=== PATIENT | female | born 1940 | race Caucasian/White ===

== ENCOUNTER 2020-03-26 07:43 | Inpatient (IN) | payer MEDICARE, MEDICAID, SELFPAY ==
[2020-03-26] VITALS (14 sets, daily range): BP systolic 105–165; BP diastolic 35–71; PULSE 75–92; RESP 16–28; TEMP 36.2–36.8; O2SAT 83–100; BMI 26.6
--- NOTE | 2020-03-26 | XR_ITS ---
WS: [id number] Portable AP upright chest, 03/26/2020 Clinical Data: fractured right hip Comparison: Portable chest, 01/04/2019. Findings: No nodules, masses or effusions are seen. The heart is normal. The pulmonary vascularity is not increased. No pneumonia or pneumothorax is seen. The aortic arch and descending aorta show calci fication and tortuosity. There is a levoscoliosis of the lower thoracic spine. XR/XR chest 1V portable [id number] Impression: Atherosclerosis.
--- NOTE | 2020-03-26 07:53 | XR_ITS ---
WS: [id number] Right hip, AP and frog-leg views, 03/26/2020 Clinical Data: fall Comparison: None. Findings: There is a comminuted intertrochanteric fracture of the right hip. The femoral head remains within the acetabulum. The adjacent right pelvis shows no abnormalities. The soft tissues are normal. XR/XR hip RT 2-3V wo/w pel* [id number] Impression: Comminuted intertrochanteric fracture of the right hip.
--- NOTE | 2020-03-26 07:53 | ED_ITS ---
Documented by User: CATHY Menendez 03/26/20 08:45 HPI - Extremity Problem General: Chief complaint: Extremity Injury, Lower Stated complaint: FALL/ HIP PAIN Time Seen by Provider: 03/26/20 07:48 History of Present Illness: HPI Narrative: Patient fell get up out of a walker lift chair last night states now that she has right hip pain. Was brought in via ambulance. EMS says her leg was straightened and and length was fine no rotation. Patient complains of pain in the groin area denies any other problems. Patient history of COPD and is on oxygen at home. Complaint: joint pain Onset (ago): hour(s) Pain Consistency: constant Location: right Severity scale (1-10): 4 Quality: aching Radiation: none Relieving factors: immobilization Exacerbating factors: range of motion and weight bearing Associated symptoms: Reports no associated symptoms; Deny chest pain, fever(s) or rash Review of Systems Const: Denies: fever(s), chills or body aches Eyes: Denies: change in vision or blurry vision ENMT: Denies: throat pain or nasal congestion Card: Denies: chest pain or dyspnea on exertion Resp: Denies: dyspnea, productive cough or non-productive cough GI: Denies: abdominal pain, nausea or vomiting Musc: Reports: joint pain (Right hip) and limited range of motion; Denies: extremity pain Skin/Breast: Denies: rash Neuro: Denies: headache(s) Psych: Denies: anxiety or depression Leon/Lymph: Denies: easy bruising PFSH ED PFSH: Medical History (Updated 03/26/20 @ 09:08 by Josué Rausch MD) Anemia Cellulitis COPD (chronic obstructive pulmonary disease) Depression Edema Elevated serum glucose Emphysema lung Heart murmur Hip pain, left Hypercholesteremia Hypoxic Low TSH level Macrocytosis Nasal congestion Osteoporosis Sciatica Seasonal allergies Shoulder fracture, left Shoulder pain, left Vitamin C deficiency Vitamin D deficiency Surgical History History of left hip replacement Hx of cataract surgery Family History Mother Cancer Breast Father Cancer Heart disease Sister Cancer Grandmother Hypertension Heart disease Aneurysm Brother Heart disease Myocardial infarct Aneurysm Family/Other Heart disease Bipolar 1 disorder Grandfather Heart disease Social History Smoking and tobacco status: former smoker Quit status (tobacco): has quit using tobacco Year quit tobacco: 2013 - 1.5 PPD x 60 Years Alcohol intake: never Household members: none Marital status: / Number of children: 4 Current occupational status: retired History of recent travel: No Current gender identity: Female Physical Exam Const: COMMON NORMALS: no acute distress and patient oriented x3 GENERAL APPEARANCE: cooperative Resp: COMMON NORMALS: normal respiratory effort AUSCULTATION: diminished lung sounds GI: COMMON NORMALS: Normal to inspection, nondistended, normoactive bowel sounds present Extremity: RIGHT LOWER EXTREMITY: Yes hip joint (Tender palpation to the anterior aspect of the hip joint groin area) Right hip: Yes other (Right leg is rotated and appears shortened at this point neurovascular inta) Neuro: COMMON NORMALS: patient oriented x3 Skin: OTHER: Skin is very dry Course Vital Signs: Vital signs: Vital Signs Temperature 98.2 F 03/26/20 07:43 Pulse Rate 84 03/26/20 07:43 Respiratory Rate 28 H 03/26/20 08:58 Blood Pressure 116/57 03/26/20 07:43 Pulse Oximetry 100 03/26/20 08:58 MDM - Extremity (Nontraumatic) MDM Narrative: Medical decision making narrative: Gave report to Dr. Rausch transfer care to him for admission Discharge Plan Discharge Patient Disposition: Admitted As Inpatient Clinical Impression: Closed hip fracture Condition: Stable Prescriptions: No Action prednisone 10 mg tablets,dose pack 10 mg PO PER PKG DIR RF: 0 furosemide [Lasix] 20 mg tablet 20 mg PO QAM 60 Days Qty: 60 RF: 2 ipratropium-albuterol 0.5 mg-3 mg(2.5 mg base)/3 mL solution for nebulization 3 ml INHALATION Q4H PRNRF: 0 Anoro Ellipta 62.5-25 mcg/actuation blister with device 1 inh INHALATION Q24H RF: 0 loratadine [Claritin] 10 mg tablet 10 mg PO ONCE RF: 0 meloxicam 15 mg tablet 15 mg PO ONCE RF: 0 vit-iron fum-folic ac 65 mg iron- 1 mg tablet 1 tab PO QAM RF: 0 Spiriva with HandiHaler 18 mcg capsule, w/inhalation device 1 cap INHALATION ONCE RF: 0 albuterol sulfate [Ventolin HFA] 90 mcg/actuation HFA aerosol inhaler 2 puff INHALATION Q4H PRNRF: 0 xzbyfrzvwzh-tuqoaolza-xoqrgcma [Trelegy Ellipta] 100-62.5-25 mcg blister with device See Rx Instructions .ROUTE .COMPLEX Qty: 60 RF: 0 Referrals: Traci Prakash MD [Primary Care Provider] - Coding Level of Care Code ED Tooth Cutter Spur for Chg Fwd Exam Expanded Problem Focused Documented by User: Josué Rausch MD 03/26/20 09:08 HPI - Extremity Problem General: Chief complaint: Extremity Injury, Lower Stated complaint: FALL/ HIP PAIN Time Seen by Provider: 03/26/20 07:48 [facility] ED PFSH: Medical History (Updated 03/26/20 @ 09:08 by Josué Rausch MD) Anemia Cellulitis COPD (chronic obstructive pulmonary disease) Depression Edema Elevated serum glucose Emphysema lung Heart murmur Hip pain, left Hypercholesteremia Hypoxic Low TSH level Macrocytosis Nasal congestion Osteoporosis Sciatica Seasonal allergies Shoulder fracture, left Shoulder pain, left Vitamin C deficiency Vitamin D deficiency Surgical History History of left hip replacement Hx of cataract surgery Family History Mother Cancer Breast Father Cancer Heart disease Sister Cancer Grandmother Hypertension Heart disease Aneurysm Brother Heart disease Myocardial infarct Aneurysm Family/Other Heart disease Bipolar 1 disorder Grandfather Heart disease Social History Smoking and tobacco status: former smoker Quit status (tobacco): has quit using tobacco Year quit tobacco: 2013 - 1.5 PPD x 60 Years Alcohol intake: never Household members: none Marital status: / Number of children: 4 Current occupational status: retired History of recent travel: No Current gender identity: Female Course Vital Signs: Vital signs: Vital Signs Temperature 98.2 F 03/26/20 07:43 Pulse Rate 84 03/26/20 07:43 Respiratory Rate 28 H 03/26/20 08:58 Blood Pressure 116/57 03/26/20 07:43 Pulse Oximetry 100 03/26/20 08:58 MDM - Extremity (Nontraumatic) MDM Narrative: Medical decision making narrative: D/W with orthopedics Dr. Garza and hospitalist Dr. Celaya for admission. Discharge Plan Discharge Patient Disposition: Admitted As Inpatient Clinical Impression: Closed hip fracture Condition: Stable Prescriptions: No Action prednisone 10 mg tablets,dose pack 10 mg PO PER PKG DIR RF: 0 furosemide [Lasix] 20 mg tablet 20 mg PO QAM 60 Days Qty: 60 RF: 2 ipratropium-albuterol 0.5 mg-3 mg(2.5 mg base)/3 mL solution for nebulization 3 ml INHALATION Q4H PRNRF: 0 Anoro Ellipta 62.5-25 mcg/actuation blister with device 1 inh INHALATION Q24H RF: 0 loratadine [Claritin] 10 mg tablet 10 mg PO ONCE RF: 0 meloxicam 15 mg tablet 15 mg PO ONCE RF: 0 vit-iron fum-folic ac 65 mg iron- 1 mg tablet 1 tab PO QAM RF: 0 Spiriva with HandiHaler 18 mcg capsule, w/inhalation device 1 cap INHALATION ONCE RF: 0 albuterol sulfate [Ventolin HFA] 90 mcg/actuation HFA aerosol inhaler 2 puff INHALATION Q4H PRNRF: 0 snziczgnbym-pjbscjcab-hravsywn [Trelegy Ellipta] 100-62.5-25 mcg blister with device See Rx Instructions .ROUTE .COMPLEX Qty: 60 RF: 0 Referrals: Traci Prakash MD [Primary Care Provider] - Coding Level of Care Code ED Tooth Cutter Spur for Chg Fwd Exam Expanded Problem Focused
[2020-03-26] MEDS: acetaminophen 500 mg Tablet 1000 MG PO (08:14)
--- NOTE | 2020-03-26 08:37 | ECG_ITS ---
[facility] Test Date: 2020-03-26 Pat Name: Yulissa Goddard Department: Room: 267 Gender: Female Machine Splitter: : 1940 Requested By: Lazaro Shirley Order Number: [id number] Sara MD: Caleb Britt M.D. Measurements Intervals [place] Rate: 81 P: 73 TN: 160 QRS: 27 QRSD: 93 T: 58 QT: 360 QTc: 420 Interpretive Statements SINUS RHYTHM INCOMPLETE RIGHT BUNDLE BRANCH BLOCK [90+ ms QRS DURATION, TERMINAL R IN V1/V2, 40+ ms S IN I/aVL/V4/V5/V6] Compared to ECG 01/04/2019 12:11:15 Incomplete right bundle-branch block now present Electronically Signed On 03-27-2020 19:14:34 CEMENT BREAKER by Caleb Britt M.D. [id number] f
[2020-03-26] MEDS: sodium chloride 0.9% 1,000 ML 75 ML IV ×2 (08:58→16:30)
[2020-03-26] MEDS: ondansetron 2 mg/ML SDV 2 mL 4 MG IVP (08:58)
[2020-03-26] MEDS: morphine 4 mg/mL SDV 1 mL IVP (08:58)
[2020-03-26 09:31] LABS: Basophils % 0.2 %; Eosinophils % 0.1 %; Hematocrit 34.4 % (37.0-47.0); Lymphocytes # 0.4 10^3/uL (0.8-4.8); Lymphocytes % 3.1 %; Mean Corpuscular HGB Conc 29.1 g/dL (30.0-36.0); Mean Corpuscular Hemoglobin 29.9 pg (28.0-34.0); Mean Corpuscular Volume 102.7 fL (81-99); Mean Platelet Volume 10.6 fL (7.4-10.4); Monocytes % 6.8 %; Neutrophils # 12.51 10^3/uL (1.8-7.7); Neutrophils % 89.2 %; Nucleated Red Blood Cells % 0 %; Platelet Count 147 10^3/cmm (130-400); Red Blood Count 3.35 10^6/uL (4.1-5.3); Red Cell Distribution Width 14.6 % (12.1-15.1)
[2020-03-26 09:56] LABS: Protein Urine Neg (Negative); Specific Gravity, Urine 1.025 (1.005-1.030); Urine Appearance Hazy (CLEAR); Urine Color Yellow (Yellow); pH Urine 5 (5-7)
[2020-03-26 10:02] LABS: INR 0.96 (0.8-1.2)
[2020-03-26 10:06] LABS: Add Urine Microscopic? YES; Bilirubin Urine 1+ (Negative); Blood Urine Neg (Negative); Glucose Urine UA Norm (Normal); Ketones Urine Negative (Negative); Leukocyte Esterase Urine Negative (Negative); Nitrate Urine Positive (Negative); Urobilinogen Urine Norm (Negative)
[2020-03-26 10:06] LABS: Alanine Aminotransferase 14 U/L (0-33); Albumin Level 3.1 g/dL (3.5-5.2); Alkaline Phosphatase 73 IU/L (35-105); Anion Gap 7.7 (5-19); Aspartate Amino Transferase 12 U/L (0-32); Blood Urea Nitrogen 27 mg/dL (8-23); Calcium 8.1 mg/dL (8.5-10.5); Chloride 100 mmol/L (98-107); Globulin 2.5 g/dL (1.3-4.6); Glucose 120 mg/dL (65-115); Osmolality Calculated 306 mOsm/kg (285-295); Potassium 4.7 mmol/L (3.5-5.1); Sodium 145 mmol/L (136-145); Total Bilirubin 0.3 mg/dL (0.15-1.2); Total Protein 5.6 g/dL (6.6-8.7)
[2020-03-26 10:08] LABS: Add Urine Culture? Yes; Amorphous Sediment Urine 1+ /hpf; Bacteria Urine 3+ /hpf; RBC Urine 0-4 /hpf (0-2); Squamous Epithelial Cell Urine 0-4 /hpf (0-5)
[2020-03-26 10:13] LABS: Carbon Dioxide 42 mmol/L (22-29)
--- NOTE | 2020-03-26 11:13 | PC.NURSE ---
Patient was an admission from ER for right hip fracture, daughter was in room with patient upon admission, patient is drowsy from pain medication and dosing off to sleep, right 2nd toe noted to be bruised, and under bilateral breasts noted to be a red rash, patient has iv access to left wrist dressing changed and iv flushed to confirm patency, patient denies any allergies, oriented to room and surroundings, call light in reach, side rails up X2.
--- NOTE | 2020-03-26 14:04 | P.HP_ITS ---
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 Overnight she was noted to have some external rotation of her legs, however her family was able to place her back in bed, she did not complain of any pain. This morning her leg was noted to be swollen and she was brought into the ER where she was found to have a comminuted intertrochanteric fracture of the right hip. She is planned for surgical intervention tomorrow. Medicine service is asked to admit her in view of her multiple comorbidities, particularly end-stage COPD. Per her son who is at her bedside right now, patient was alert and awake this morning prior to coming to the ER. At the time of my evaluation this afternoon she is noted to be quite somnolent. Review of Systems General: Reports: ROS unobtainable due to medical condition Medications/Allergies Home Medications Medication Instructions Recorded Confirmed Last Taken Type albuterol sulfate 90 mcg/actuation 2 puff INHALATION QID PRN gm 02/13/19 03/26/20 Unknown History aerosol inhaler ipratropium 0.5 mg-albuterol 3 mg 3 ml INHALATION Q4H PRN 02/13/19 03/26/20 Unknown History (2.5 mg base)/3 mL nebulization soln meloxicam 15 mg tablet 15 mg PO QAM 02/13/19 03/26/20 Unknown History Lasix 20 mg PO QAM PRN 03/26/20 03/26/20 Unknown History PNV cmb#95-ferrous fumarate-FA 1 tab PO QAM 03/26/20 03/26/20 Unknown History [ Multivitamins] Trelegy Ellipta 1 inh INHALATION Q24H 03/26/20 03/26/20 Unknown History hydrocodone-acetaminophen [[place]] 1 tab PO QID PRN 03/26/20 03/26/20 03/26/20 05:00 History naproxen sodium [Aleve] 440 mg PO PRN 03/26/20 03/26/20 Unknown History nitrofurantoin monohyd/m-cryst 1 cap PO BID 03/26/20 03/26/20 03/25/20 History trazodone 50 mg PO BEDTIME PRN 03/26/20 03/26/20 Unknown History Allergies Allergy/AdvReac Type Severity Reaction Status Date / Time No Known Allergies Allergy Verified 03/26/20 09:41 PFSH Acute PFSH: Medical History Anemia Cellulitis COPD (chronic obstructive pulmonary disease) Depression Edema Elevated serum glucose Emphysema lung Heart murmur Hip pain, left Hypercholesteremia Hypoxic Low TSH level Macrocytosis Nasal congestion Osteoporosis Sciatica Seasonal allergies Shoulder fracture, left Shoulder pain, left Vitamin C deficiency Vitamin D deficiency Surgical History History of left hip replacement Hx of cataract surgery Family History Mother Cancer Breast Father Cancer Heart disease Sister Cancer Grandmother Hypertension Heart disease Aneurysm Brother Heart disease Myocardial infarct Aneurysm Family/Other Heart disease Bipolar 1 disorder Grandfather Heart disease Social History Smoking and tobacco status: former smoker Quit status (tobacco): has quit using tobacco Year quit tobacco: 2013 - 1.5 PPD x 60 Years Alcohol intake: never Household members: none Marital status: / Number of children: 4 Current occupational status: retired History of recent travel: No Current gender identity: Female Vitals/I&O/Wt Last Vital Signs Temp 98.1 F 03/26/20 10:52 Pulse 88 03/26/20 10:52 Resp 16 03/26/20 10:52 BP 165/61 03/26/20 10:52 Pulse Ox 96 03/26/20 10:52 Weight last 48 hrs Weight 72.575 kg Physical Exam Narrative: EXAM NARRATIVE: GEN: Somnolent, wakes up to calling name, confused CVS: S1S2 N RS: CTA B/L Abd: Soft, nt/nd , bs+ TELECOM SALES CONSULTANT: moves upper extremities in bed, somnolent, does not consistently follow commands Urinary Catheter Management^: [place]: Cath Placed During This Visit: no Data : 03/26/20 09:23 03/26/20 09:23 A&P Assessment and plan (1) Closed hip fracture: Comminuted fracture of the right hip. Patient is planned for surgical intervention tomorrow with Dr. Garza. Given her end-stage COPD patient is at very high risk of perioperative mortality. This was discussed with the family, specifically her son who is at the bedside right now. He understands the high risk and is willing to proceed with the surgery to give her best chance of regaining ambulation. He does state however that he does not want patient to undergo general anesthesia and undergo intubation. Above has been communicated with the surgeon, alternate forms of anesthesia. Spinal or local may be considered. Status: Acute Qualifiers: Encounter type: initial encounter Laterality: left Qualified Code(s): S72.002A - Fracture of unspecified part of neck of left femur, initial encounter for closed fracture (2) End stage COPD: Oxygen and trilogy dependent at home. Status: Acute (3) UTI (urinary tract infection): Positive UA, patient was diagnosed with UTI as an outpatient and is currently on treatment with Macrobid. We will use ceftriaxone empirically while patient is admitted Status: Acute (4) Hypercapnic respiratory failure: Patient is currently with acute on chronic hypercapnic respiratory failure. ABG that was performed shows pH of 7.1, PCO2~120, PO2 118, bicarb 42.9. At a baseline it appears patient was CO2 was closer to 70-80. Start patient on AVAPS, repeat gas in 2 hours; patient's CODE STATUS is DNI and therefore avoiding intubation she received morphine in the ER prior to coming up on the floor, will administer Narcan which will additionally help make her less somnolent hopefully. Duo nebs every 4 hours scheduled, budesonide inhalation twice daily Add systemic steroids. Status: Acute Attestations Medical Necessity Statement*: Greater than 2 midnight admission is anticipated for surgical fixation of hip fracture, respiratory optimization for acute on chronic hypercapnic respiratory failure. Coding Level of Care Code Acute Energy Sales Broker for g Fwd Diagnoses Closed hip fracture S72.002A Encounter type: initial encounter Laterality: left End stage COPD J44.9 UTI (urinary tract infection) N39.0 Hypercapnic respiratory failure J96.92
[2020-03-26] MEDS: cefTRIAXone 1,000 MG in sodium chloride 0.9% (plus) 50 ML 100 MG IV (14:22)
[2020-03-26 14:34] LABS: Procalcitonin 0.08 ng/mL (0-0.5)
[2020-03-26] MEDS: ipratropium-albuterol 3 mL Neb INHALATION ×2 (15:34→22:06)
[2020-03-26] MEDS: famotidine 20 mg/2 mL INJ IVP (15:37)
[2020-03-26 16:09] LABS: Arterial Blood Gas Hematocrit 31.5 % (37-47); Base Excess ABG 10.7 mmol/L (-2.0-2.0); Blood Gas Allen Test Pos; Blood Gas Operator Identificat ED; Blood Gas Sample Site Radial, right; Blood Gas Sample Type Arterial; HCO3 ABG 42.9 mmol/L (22-26); Oxygen Device OXY MASK
[2020-03-26 16:11] LABS: ABG PH Result 7.15 (7.35-7.45)
[2020-03-26] MEDS: naloxone 0.4 mg/ml SDV IVP (16:46)
--- NOTE | 2020-03-26 16:46 | PC.NURSE ---
Narcan given per doctors orders due to patient being lethargic and retention of co2 on lab findings, patient awakens to verbal stimuli but drifts asleep while talking. family in room and reports this happens occasionally at home when patient needs to be placed on trelegy.
[2020-03-26] MEDS: dextrose 5%-sod chloride 0.45% 1,000 ML 50 ML IV (16:51)
--- NOTE | 2020-03-26 16:57 | ANES.PREANE2 ---
Pre-Anesthetic Assessment Pre-Anesthetic Assessment: Height/Weight: Height 1.65 m Weight 72.575 kg Temp Pulse Resp BP Pulse Ox 98.1 F 78 16 105/57 94 03/26/20 10:52 03/26/20 16:31 03/26/20 16:00 03/26/20 16:00 03/26/20 16:31 Proposed Procedure: Operation Date: 03/27/20 08:00 Proposed Procedures p Trochanteric Femoral Nail(Right) - Shamar Garza MD Was Beta Moe taken within 24 hours: N/A Social: Social History: Tobacco (long hx, quit 2012) and No alcohol Exam: Pre-Anes Outpt Exam: regular rate & rhythm Additional Exam Findings (including area of procedure): Somnolent, seen with son and ohobbimk-s-tqp Airway: Submandibular: WNL Cervical ROM: WNL MP: 2 Pulmonary: Pulmonary: COPD Comments: Home O2 CV/HEM: CV/HEM: Anemia : Comments: UTI Anesthetic Plan: ASA status: 4 Anesthesia: Regional (specify below) Other: SAB Meds/Allergies Current Medications: Current Medications Generic Name Dose Route Start Last Admin Trade Name Freq PRN Reason Stop Dose Admin Albuterol/Ipratrop ium 3 ml 03/26/20 15:00 03/26/20 15:34 Ipratropium-Albu terol 3 Ml Neb INHALATION 3 ml Q6H.RESPIRATORY S CH Administration Famotidine 20 mg 03/26/20 16:30 03/26/20 15:37 Famotidine 20 Mg /2 Ml Inj IVP 20 mg Q12H JOVANNA Administration Ceftriaxone Sodium 1,000 mg/ 50 mls @ 100 mls/ hr 03/26/20 14:15 03/26/20 14:52 Sodium Chloride IV Infused Q24H JOVANNA Infusion Protocol Dextrose/Sodium Ch loride 1,000 mls @ 50 ml s/hr 03/26/20 16:45 03/26/20 16:51 Dextrose 5%-Sod Chloride 0.45% IV 50 mls/hr .Q20H JOVANNA Administration Methylprednisolone Sodium Succinate 40 mg 03/26/20 17:00 03/26/20 16:51 Methylprednisolo ne Sod Succ 40 Mg/ Ml Inj IVP 40 mg Q12H JOVANNA Administration PFSH Anesthesia PFSH: Medical History Anemia Cellulitis COPD (chronic obstructive pulmonary disease) Depression Edema Elevated serum glucose Emphysema lung Heart murmur Hip pain, left Hypercholesteremia Hypoxic Low TSH level Macrocytosis Nasal congestion Osteoporosis Sciatica Seasonal allergies Shoulder fracture, left Shoulder pain, left Vitamin C deficiency Vitamin D deficiency Surgical History History of left hip replacement Hx of cataract surgery Family History Mother Cancer Breast Father Cancer Heart disease Sister Cancer Grandmother Hypertension Heart disease Aneurysm Brother Heart disease Myocardial infarct Aneurysm Family/Other Heart disease Bipolar 1 disorder Grandfather Heart disease Social History Smoking and tobacco status: former smoker Quit status (tobacco): has quit using tobacco Year quit tobacco: 2013 - 1.5 PPD x 60 Years Alcohol intake: never Household members: none Marital status: / Number of children: 4 Current occupational status: retired History of recent travel: No Current gender identity: Female Data Anesthesia CBC & Chem 7: 03/26/20 09:23 03/26/20 09:23 Other Labs: Laboratory Results - last 48 hr 03/26/20 03/26/20 03/26/20 09:10 09:23 09:23 WBC 14.0 H RBC 3.35 L Hgb 10.0 L Hct 34.4 L MCV 102.7 H MCH 29.9 MCHC 29.1 L RDW 14.6 Plt Count 147 MPV 10.6 H Neut % (Auto) 89.2 Lymph % (Auto) 3.1 [place] % (Auto) 6.8 Eos % (Auto) 0.1 Baso % (Auto) 0.2 Neut # (Auto) 12.51 H Lymph # (Auto) 0.4 L [place] # (Auto) 1.0 H Eos # (Auto) 0.0 Baso # (Auto) 0.0 Nucleated RBC % (auto) 0 Nucleated RBCs # 0.0 PT 13.10 INR 0.96 Specimen Type Sample Site ABG pH ABG pCO2 ABG pO2 ABG HCO3 ABG Base Excess Gil Test Hematocrit O2 Delivery Device O2 Liters/Min Computing Services Director ID Sodium Potassium Chloride Carbon Dioxide Anion Gap BUN Creatinine GFR Calculation Glucose Calculated Osmolality Calcium Total Bilirubin AST ALT Alkaline Phosphatase Total Protein Albumin Globulin Procalcitonin Urine Color Yellow Urine Appearance Hazy A Urine pH 5 Ur Specific [place] 1.025 Urine Protein Neg Urine Glucose (UA) Norm Urine Ketones Negative Urine Blood Neg Urine Nitrate Positive H Urine Bilirubin 1+ H Urine Urobilinogen Norm Ur Leukocyte Esterase Negative Urine RBC 0-4 H Urine WBC None Ur Squamous Epith Cells 0-4 H Amorphous Sediment 1+ Urine Bacteria 3+ H Hyaline Casts 5-10 H 03/26/20 03/26/20 03/26/20 09:23 09:23 16:00 WBC RBC Hgb Hct MCV MCH MCHC RDW Plt Count MPV Neut % (Auto) Lymph % (Auto) [place] % (Auto) Eos % (Auto) Baso % (Auto) Neut # (Auto) Lymph # (Auto) [place] # (Auto) Eos # (Auto) Baso # (Auto) Nucleated RBC % (auto) Nucleated RBCs # PT INR Specimen Type Arterial Sample Site Radial, right ABG pH 7.15 L* ABG pCO2 123.0 H* ABG pO2 118.0 H ABG HCO3 42.9 H ABG Base Excess 10.7 H Gil Test Pos Hematocrit 31.5 L O2 Delivery Device Oxy mask O2 Liters/Min 3.0 Computing Services Director ID Ed Sodium 145 Potassium 4.7 Chloride 100 Carbon Dioxide 42 H* Anion Gap 7.7 BUN 27 H Creatinine 0.8 GFR Calculation Not Reportable Glucose 120 H Calculated Osmolality 306 H Calcium 8.1 L Total Bilirubin 0.3 AST 12 ALT 14 Alkaline Phosphatase 73 Total Protein 5.6 L Albumin 3.1 L Globulin 2.5 Procalcitonin 0.08 Urine Color Urine Appearance Urine pH Ur Specific [place] Urine Protein Urine Glucose (UA) Urine Ketones Urine Blood Urine Nitrate Urine Bilirubin Urine Urobilinogen Ur Leukocyte Esterase Urine RBC Urine WBC Ur Squamous Epith Cells Amorphous Sediment Urine Bacteria Hyaline Casts Cardiac Studies: No Data to Display
[2020-03-26 18:25] LABS: ABG PH Result 7.24 (7.35-7.45); Arterial Blood Gas Hematocrit 31.3 % (37-47); Blood Gas Allen Test Pos; Blood Gas Sample Type Arterial; HCO3 ABG 42.3 mmol/L (22-26); PO2 ABG 44.2 mmHg (80.0-100.0)
[2020-03-26 18:27] LABS: ABG PCO2 97.8 mmHg (35-45); Blood Gas Operator Identificat ED; Blood Gas Sample Site Radial, right; Oxygen Device BIPAP
--- NOTE | 2020-03-26 18:46 | PC.NURSE ---
patient on bipap no distress noted, awakens to voice, follows commands, denies pain, call light in reach, side rails up x2
[2020-03-26] MEDS: budesonide 0.5 mg/2 mL Neb INHALATION (22:06)
[2020-03-26 22:21] LABS: ABG PH Result 7.27 (7.35-7.45); Arterial Blood Gas Hematocrit 30.8 % (37-47); Base Excess ABG 12.1 mmol/L (-2.0-2.0); Blood Gas Sample Site Brachial, right; Blood Gas Sample Type Arterial; HCO3 ABG 41.7 mmol/L (22-26); Oxygen Device BIPAP; PO2 ABG 69.3 mmHg (80.0-100.0)
[2020-03-27] VITALS (25 sets, daily range): BP systolic 111–147; BP diastolic 51–74; PULSE 80–114; RESP 14–25; TEMP 36.4–37.2; O2SAT 90–99
--- NOTE | 2020-03-27 | SCC_ITS ---
NOTE: Report was unsigned for reason: Order was edited. Original Signature date and time was: 03/28/20 @1919 Procedure Done: Open reduction internal fixation right hip with intramedullary device 75.3 seconds of fluoroscopic guidance, for a cumulative dose of 12.21 mGy, was provided to Dr. Garza by the radiology department. C-arm images of the RIGHT hip were saved for the patient's permanent record. [facility]
[2020-03-27] MEDS: ipratropium-albuterol 3 mL Neb INHALATION ×3 (03:24→20:30)
[2020-03-27 03:38] LABS: Arterial Blood Gas Hematocrit 30.5 % (37-47); Base Excess ABG 13.2 mmol/L (-2.0-2.0); Blood Gas Sample Type Arterial; HCO3 ABG 42.3 mmol/L (22-26); PO2 ABG 83.4 mmHg (80.0-100.0)
[2020-03-27 03:40] LABS: Blood Gas Sample Site Brachial, right; Blood Gas Tidal Volume 0.51; Oxygen Device BIPAP
[2020-03-27 04:52] LABS: Basophils % 0.2 %; Hematocrit 32.5 % (37.0-47.0); Hemoglobin 9.5 g/dL (11.5-15.3); Lymphocytes # 0.6 10^3/uL (0.8-4.8); Lymphocytes % 5.3 %; Mean Corpuscular HGB Conc 29.2 g/dL (30.0-36.0); Mean Corpuscular Hemoglobin 29.9 pg (28.0-34.0); Mean Corpuscular Volume 102.2 fL (81-99); Mean Platelet Volume 10.9 fL (7.4-10.4); Monocytes # 0.6 10^3/uL (0.2-0.9); Monocytes % 5.3 %; Neutrophils # 10.78 10^3/uL (1.8-7.7); Neutrophils % 88.8 %; Nucleated Red Blood Cells % 0 %; Platelet Count 142 10^3/cmm (130-400); Red Blood Count 3.18 10^6/uL (4.1-5.3); Red Cell Distribution Width 14.5 % (12.1-15.1); White Blood Count 12.1 10^3/uL (4.0-10.0)
[2020-03-27 05:17] LABS: Alanine Aminotransferase 14 U/L (0-33); Albumin Level 3.2 g/dL (3.5-5.2); Alkaline Phosphatase 70 IU/L (35-105); Anion Gap 8.5 (5-19); Aspartate Amino Transferase 12 U/L (0-32); Blood Urea Nitrogen 34 mg/dL (8-23); Calcium 8.3 mg/dL (8.5-10.5); Carbon Dioxide 40 mmol/L (22-29); Chloride 98 mmol/L (98-107); Creatinine Clr Calc Pharmacy 47.0273; Globulin 2.4 g/dL (1.3-4.6); Glucose 133 mg/dL (65-115); Osmolality Calculated 302 mOsm/kg (285-295); Potassium 5.5 mmol/L (3.5-5.1); Sodium 141 mmol/L (136-145); Total Bilirubin 0.2 mg/dL (0.15-1.2); Total Protein 5.6 g/dL (6.6-8.7)
[2020-03-27] MEDS: famotidine 20 mg/2 mL INJ IVP ×2 (05:54→21:24)
--- NOTE | 2020-03-27 08:03 | P.CONIM_ITS ---
Providers/Reason For Consult Consulting Physican/Specialty*: Shamar Garza MD, orthopedic surgery Reason for Consult*: Right intratrochanteric hip fracture Attending Physician: Senait Celaya MD Primary Care Provider: Traci Prakash MD History of Present Illness History of Present Illness Yulissa Goddard is a 79 year old female with end-stage COPD who fell last night at home. She apparently uses a walker chair. She attempted to sit down but did not lock the wheels. She fell with immediate pain in her right hip. She was transferred to our emergency room where radiographs revealed a displaced right intertrochanteric hip fracture. She has severe COPD and is oxygen dependent. She was seen by Dr. Erlin Alejo who would place her at a very high risk for surgery with a general anesthesia. She felt that some of this risk could be mitigated with a spinal anesthesia. She lives with granddaughters and has a daughters at home who will try and assist with her care after discharge Meds/Allergies Home Medications and Allergies Home Medications Medication Instructions Recorded Confirmed Last Taken Type albuterol sulfate 90 mcg/actuation 2 puff INHALATION QID PRN gm 02/13/19 03/26/20 Unknown History aerosol inhaler ipratropium 0.5 mg-albuterol 3 mg 3 ml INHALATION Q4H PRN 02/13/19 03/26/20 Unknown History (2.5 mg base)/3 mL nebulization soln meloxicam 15 mg tablet 15 mg PO QAM 02/13/19 03/26/20 Unknown History Lasix 20 mg PO QAM PRN 03/26/20 03/26/20 Unknown History PNV cmb#95-ferrous fumarate-FA 1 tab PO QAM 03/26/20 03/26/20 Unknown History [ Multivitamins] Trelegy Ellipta 1 inh INHALATION Q24H 03/26/20 03/26/20 Unknown History hydrocodone-acetaminophen [[place]wood] 1 tab PO QID PRN 03/26/20 03/26/20 03/26/20 05:00 History naproxen sodium [Aleve] 440 mg PO PRN 03/26/20 03/26/20 Unknown History nitrofurantoin monohyd/m-cryst 1 cap PO BID 03/26/20 03/26/20 03/25/20 History trazodone 50 mg PO BEDTIME PRN 03/26/20 03/26/20 Unknown History Allergies Allergy/AdvReac Type Severity Reaction Status Date / Time No Known Allergies Allergy Verified 03/26/20 09:41 Current Medications Current Medications Generic Name Dose Route Start Last Admin Trade Name Freq PRN Reason Stop Dose Admin Albuterol/Ipratropium 3 ml 03/26/20 15:00 03/27/20 03:24 Ipratropium-Albuterol 3 Ml Neb INHALATION 3 ml Q6H.RESPIRATORY JOVANNA Administration Budesonide 0.5 mg 03/26/20 20:00 03/26/20 22:06 Budesonide 0.5 Mg/2 Ml Neb INHALATION 0.5 mg BID.RESPIRATORY JOVANNA Administration Famotidine 20 mg 03/26/20 16:30 03/27/20 05:54 Famotidine 20 Mg/2 Ml Inj IVP 20 mg Q12H JOVANNA Administration Ceftriaxone Sodium 1,000 mg/ 50 mls @ 100 mls/hr 03/26/20 14:15 03/26/20 14:52 Sodium Chloride IV Infused Q24H JOVANNA Infusion Protocol Dextrose/Sodium Chloride 1,000 mls @ 50 mls/hr 03/26/20 16:45 03/26/20 16:51 Dextrose 5%-Sod Chloride 0.45% IV 50 mls/hr .Q20H JOVANNA Administration Methylprednisolone Sodium Succinate 40 mg 03/26/20 17:00 03/27/20 05:54 Methylprednisolone Sod Succ 40 Mg/Ml Inj IVP 40 mg Q12H JOVANNA Administration PFSH Acute PFSH: Medical History Anemia Cellulitis COPD (chronic obstructive pulmonary disease) Depression Edema Elevated serum glucose Emphysema lung Heart murmur Hip pain, left Hypercholesteremia Hypoxic Low TSH level Macrocytosis Nasal congestion Osteoporosis Sciatica Seasonal allergies Shoulder fracture, left Shoulder pain, left Vitamin C deficiency Vitamin D deficiency Surgical History History of left hip replacement Hx of cataract surgery Family History Mother Cancer Breast Father Cancer Heart disease Sister Cancer Grandmother Hypertension Heart disease Aneurysm Brother Heart disease Myocardial infarct Aneurysm Family/Other Heart disease Bipolar 1 disorder Grandfather Heart disease Social History Smoking and tobacco status: former smoker Quit status (tobacco): has quit using tobacco Year quit tobacco: 2013 - 1.5 PPD x 60 Years Alcohol intake: never Household members: none Marital status: / Number of children: 4 Current occupational status: retired History of recent travel: No Current gender identity: Female Vitals/I&O/Wt Last Vital Signs Temp 98.2 F 03/27/20 07:55 Pulse 81 03/27/20 07:55 Resp 20 H 03/27/20 07:55 BP 130/60 03/27/20 07:55 Pulse Ox 97 03/27/20 07:55 03/26/20 03/27/20 03/27/20 22:59 06:59 14:59 Intake Total 596.25 / 646.25 Output Total 200 / 200 Balance 596.25 / 646.25 -200 / 446.25 Weight last 48 hrs Weight 160 lb Physical Exam Narrative: EXAM NARRATIVE: The patient has a Ventimask in place. She is conversive but a bit short of breath with conversation. She answers questions appropriately with good understanding. She has shortening and external rotation of her right hip. She has pain with motion of the right hip. He has a palpable R dorsalis pedis pulse and will flex and extend her right toes. Urinary Catheter Management^: Gipson: Cath Placed During This Visit: yes Reason for Continuing Indwelling Catheter: Required Immobilization for Trauma or Surgery or Anesthesia Urinary Catheter Date of Insertion: 03/26/20 Urinary Catheter Time of Insertion: 09:10 Data Imaging^: Xray Ortho: My impression: I personally interpreted radiographs of the right hip consisting of a single AP view. The patient appears to have a intratrochanteric right hip fracture with slight varus alignment. She has significant osteopenia A&P Assessment and plan (1) Intertrochanteric fracture of right hip: I discussed options with the patient.. I told the patient we could treat this nonoperatively but certainly they would be at risk for medical problems without surgery. Theywould have problems with pain that would require higher doses of narcotics for pain control. 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 Patient already is oxygen dependent with COPD and I do not believe she could tolerate prolonged periods of a bedrest. I discussed surgical intervention with the patient. I told them with open reduction internal fixation they should be able to be mobilized and resume ambulatory status. We can eliminate the problems associated with prolonged bed rest and would have better control of pain. Certainly there would be inherent risk with surgery. These would would include the risk of cardiac complications, stroke, infection, and even . I discussed risk of any orthopedic implant including nonunion, malunion, a component failure. I discussed the possible need for component removal. I discussed risk of deep venous thromboses and pulmonary emboli that are present with any treatment and the importance of DVT prophylaxis. Her pulmonary status places her at higher risk. We will make every effort to do this under a spinal anesthesia. The patient expressed good understanding of alternative treatments, seem to comprehend, and agrees to surgical intervention. Status: Acute Coding Level of Care Code Acute Business Development Assistant for Jin Ochoa Diagnoses Intertrochanteric fracture of right hip S72.141A
--- NOTE | 2020-03-27 09:33 | P.OP_ITS ---
Operative Report Date of procedure: March 27, 2020 Pre-op Diagnosis: Right intratrochanteric hip Post-op diagnosis: same Post-op Findings: Right intratrochanteric hip fracture Procedure Done: Open reduction internal fixation right hip with intramedullary device Implants: [place] gamma nail 13mm, 100 mm proximal lag screw Pathology: none sent Surgeon: Shamar Garza Anesthesia: Nerve Block (Spinal) Estimated blood loss (mL): 100 Findings: The patient had a right intratrochanteric hip fracture consisting of the head neck fragment shaft and free lesser trochanter fragment. She had an dilated osteopenic canal consistent with osteoporosis Condition: stable Disposition: PACU Procedure: The patient was taken to the operating room. They were given 1 g of Ancef. They were positioned on the fracture table with the right lower extremity in gentle traction. A timeout was performed. A 2 cm long incision was made proximal to the greater trochanter scalpel blade. Dissection was carried down to tip the greater trochanter. A guidepin was passed manually from the tip of the trochanter down the shaft. The proximal reamer was utilized to open up the proximal canal. An 13 mm by 304 [place] gamma nail was passed down the canal without difficulty. Under visualization of fluoroscopy a guidepin was driven up into the head and neck at 125? angle. It was measured at 100 mm in length and a lag screw similar length was then placed and locked into place with the proximal locking screw. No distal leg screw was placed intraoperative imaging was obtained verifying satisfactory position of the hardware and reduction of the fracture. Deep tissues were closed with 0 Vicryl as were subcutaneous tissues. The skin was closed with skin johnson. Sterile dressings were applied. The patient was extubated and taken to recovery room in stable condition.
--- NOTE | 2020-03-27 09:53 | SUR.PHASEI ---
pt awake alert on 4l oxmask, resp even and unlabored, pt had spinal anesthesia pt ststes normal sesation to hip area and pt able to move bilat toes, bilat scds on distal rt foot warm pink cap refill <3seconds. pt taking ice chips vss
[2020-03-27 10:24] LABS: ABG PCO2 86.3 mmHg (35-45)
--- NOTE | 2020-03-27 10:39 | ANE.PACU2 ---
Inpatient post-anesthesia follow up: Airway intact: Yes Vital signs: Temperature 98.2 F Pulse Rate [Monito r] 84 Pulse Rate 92 Respiratory Rate 20 Blood Pressure [Ri ght Arm] 116/57 Blood Pressure 141/65 Pulse Oximetry 97 Oxygen Delivery Me thod Oxymask Oxygen Flow Rate 4 Fraction of Inspir ed Oxygen 45 Hydration adequate: Yes Nausea and vomiting: No Pain level: 1 Mental status: Baseline
--- NOTE | 2020-03-27 11:11 | XR_ITS ---
WS: [id number] C-ARM RADIOGRAPHS RIGHT HIP; 4 IMAGES HISTORY: HIP FX REPAIR COMPARISON: 03/26/2020 Intramedullary femoral randall and screw fixation RIGHT hip fracture. XR/XR hip RT 2-3V wo/w pel* [id number] IMPRESSION: Intraoperative imaging during ORIF RIGHT hip fracture repair.
--- NOTE | 2020-03-27 11:59 | P.PN_ITS ---
Subjective Subjective: Interval history: Afebrile, hemodynamically stable. Underwent ORIF with surgical correction of hip fracture with IM nailing. Procedure performed under spinal anesthesia. Patient is much more awake and oriented today, however still somnolent intermittently falls asleep easily blood gas being repeated. Medications: Reviewed: Yes Vitals/I&O/Wt Last Vital Signs Temp 98.2 F 03/27/20 09:55 Pulse 92 03/27/20 09:55 Resp 20 H 03/27/20 09:55 BP 141/65 03/27/20 09:55 Pulse Ox 97 03/27/20 09:55 03/26/20 03/27/20 03/27/20 22:59 06:59 14:59 Intake Total 596.25 / 646.25 50 / 50 Output Total 200 / 200 225 / 225 Balance 596.25 / 646.25 -200 / 446.25 -175 / -175 Weight last 48 hrs Weight 72.575 kg Physical Exam Narrative: EXAM NARRATIVE: GEN: more awake compared to yesterday, however still falls asleep easily, answers most questions appropriately CVS: S1S2 N RS: Poor air entry bilateral lungs Abd: Soft, nt/nd , 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 Status post ORIF, IM nailing today. Given her end-stage COPD patient is at very high risk of perioperative mortality. Postop care for surgery Avoiding opiates to minimize risk of hypercapnic respiratory failure. We will try to use Toradol and Tylenol alternating with close monitoring of kidney function. Status: Deleted Qualifiers: Encounter type: initial encounter Laterality: left Qualified Code(s): S72.002A - Fracture of unspecified part of neck of left femur, initial encounter for closed fracture (2) End stage COPD: Oxygen and trilogy dependent at home. Status: Acute (3) UTI (urinary tract infection): Positive UA, patient was diagnosed with UTI as an outpatient and is currently on treatment with Macrobid. We will use ceftriaxone empirically while patient is admitted, urine cx pending Status: Acute (4) Hypercapnic respiratory failure: more awake and oriented today, however stll somnolent, falls asleep mid sentence, rpt blood gas now, may nned bipap during the day Duo nebs every 4 hours scheduled, budesonide inhalation twice daily Continue systemic steroids. Status: Acute Attestations Medical Necessity Statement*: needs ongoing admission for post op care, acute on chronic hypercapneic respiratory failure Coding Level of Care Code Acute Feed Mill Supervisor for Chg Fwd Diagnoses Closed hip fracture S72.002A Encounter type: initial encounter Laterality: left End stage COPD J44.9 UTI (urinary tract infection) N39.0 Hypercapnic respiratory failure J96.92
[2020-03-27] MEDS: ketorolac 10 mg Tablet PO (12:26)
[2020-03-27] MEDS: dextrose 5%-sod chloride 0.45% 1,000 ML 50 ML IV (13:43)
[2020-03-27] MEDS: chlorhexidine gluconate 0.12% Btl 473 mL 30 ML MUCOUS MEM ×2 (13:47→18:23)
[2020-03-27] MEDS: cefTRIAXone 1,000 MG in sodium chloride 0.9% (plus) 50 ML 100 MG IV (15:19)
--- NOTE | 2020-03-27 16:29 | PC.RESP ---
RT called to bedside, pt's eye was bleeding. pt stated that she wears a small mask, this RT changed pts mask to a small and cleaned up eye. Nursing is aware of pt.
[2020-03-27] MEDS: sennosides-docusate Tablet 2 TAB PO (18:21)
--- NOTE | 2020-03-27 18:56 | PC.NURSE ---
shift summary right hip surgery done this am, pt returned at 1025 am, vitals are within normal range, bipap was reapplied after lunch and taken off for dinner. oxygen saturations have stayed in mid 90's. pain has been under control with toradol PO given only once this shift. pt had a small amount of drainage on bandage when she came up from surgery, pt can wiggle toes and foot on right side, but can not raise leg.
[2020-03-27] MEDS: budesonide 0.5 mg/2 mL Neb INHALATION (20:30)
[2020-03-28] VITALS (15 sets, daily range): BP systolic 123–150; BP diastolic 61–68; PULSE 82–109; RESP 16–20; TEMP 36.6–37.3; O2SAT 94–100
[2020-03-28] MEDS: ipratropium-albuterol 3 mL Neb INHALATION ×4 (02:28→21:32)
[2020-03-28 06:47] LABS: Basophils % 0.2 %; Hematocrit 28.1 % (37.0-47.0); Hemoglobin 8.2 g/dL (11.5-15.3); Lymphocytes # 0.2 10^3/uL (0.8-4.8); Lymphocytes % 1.3 %; Mean Corpuscular HGB Conc 29.2 g/dL (30.0-36.0); Mean Corpuscular Volume 102.9 fL (81-99); Mean Platelet Volume 11.5 fL (7.4-10.4); Monocytes # 0.4 10^3/uL (0.2-0.9); Monocytes % 2.8 %; Neutrophils # 14.48 10^3/uL (1.8-7.7); Nucleated Red Blood Cells % 0 %; Platelet Count 119 10^3/cmm (130-400); Red Blood Count 2.73 10^6/uL (4.1-5.3); Red Cell Distribution Width 14.9 % (12.1-15.1); White Blood Count 15.2 10^3/uL (4.0-10.0)
[2020-03-28 07:07] LABS: Alanine Aminotransferase 16 U/L (0-33); Albumin Level 3.1 g/dL (3.5-5.2); Alkaline Phosphatase 66 IU/L (35-105); Anion Gap 7.8 (5-19); Aspartate Amino Transferase 16 U/L (0-32); Blood Urea Nitrogen 42 mg/dL (8-23); Calcium 7.9 mg/dL (8.5-10.5); Carbon Dioxide 37 mmol/L (22-29); Chloride 96 mmol/L (98-107); Globulin 2.2 g/dL (1.3-4.6); Glucose 152 mg/dL (65-115); Osmolality Calculated 295 mOsm/kg (285-295); Potassium 4.8 mmol/L (3.5-5.1); Sodium 136 mmol/L (136-145); Total Bilirubin 0.2 mg/dL (0.15-1.2); Total Protein 5.3 g/dL (6.6-8.7)
--- NOTE | 2020-03-28 07:20 | PC.NURSE ---
AM NOTE HOLLOWAY REMOVED PER TORIBIO FREDERICK - NOTED PT TO HAVE DRY, FLAKING SKIN THROUGHOUT ENTIRE BODY - EDUCATED PT TO PLAN OF CARE FOR THE DAY
[2020-03-28] MEDS: sennosides-docusate Tablet 2 TAB PO ×2 (08:12→17:04)
[2020-03-28] MEDS: acetaminophen 325 mg Tablet 650 MG PO ×2 (08:12→12:34)
[2020-03-28] MEDS: chlorhexidine gluconate 0.12% Btl 473 mL 30 ML MUCOUS MEM ×4 (08:13→21:25)
[2020-03-28] MEDS: budesonide 0.5 mg/2 mL Neb INHALATION ×2 (09:08→21:32)
[2020-03-28] MEDS: famotidine 20 mg/2 mL INJ IVP ×2 (09:11→21:25)
--- NOTE | 2020-03-28 09:17 | PC.NURSE ---
PT UP TO CHAIR WITH PT AND THIS NURSE - MAX ASSIST - PT REPEATEDLY STATES 'I CAN'T DO THIS - GAIT BELT, WALKER AND STAFF ASST PT APPROX 2 STEPS TO BED - LUZMARIA POORLY
[2020-03-28] MEDS: enoxaparin 40 mg/0.4 mL Syringe SUBCUT (10:31)
[2020-03-28] MEDS: dextrose 5%-sod chloride 0.45% 1,000 ML 50 ML IV ×2 (12:33→13:23)
[2020-03-28] MEDS: cefTRIAXone 1,000 MG in sodium chloride 0.9% (plus) 50 ML 100 MG IV (13:30)
--- NOTE | 2020-03-28 13:33 | PC.NURSE ---
TO BSC UP TO BSC - MAX ASSIST WITH GAIT BELT - BM NOTED WITH VOID - PT LUZMARIA MOVE FROM CHAIR TO BSC TO BED POORLY - 02 SATS DOWN TO 87-89% - PURSED LIP BREATHING PER PATIENT - RETURNED TO BED - BLE SCD'S - NOTED SKIN TEAR TO LEFT FOREARM - CLEANSED WITH NORMAL SALINE - STERI STRIPS OBTAINED - OPTIFOAM PLACED ON - SON AT SIDE WELL PT DISCUSSING PTS CARE
--- NOTE | 2020-03-28 16:11 | PM.PN ---
Subjective Subjective: Interval history: No acute overnight events. 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 Status post ORIF, IM nailing on March 27, 2020 Given her end-stage COPD patient is at very high risk of perioperative mortality. Avoiding opiates to minimize risk of hypercapnic respiratory failure. We will try to use Toradol and Tylenol alternating with close monitoring of kidney function. 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 Status: Acute (3) UTI (urinary tract infection): Positive UA, culture shows E. coli susceptible to ceftriaxone, continue same for now Status: Acute Qualifiers: Urinary tract infection type: acute cystitis Hematuria presence: without hematuria Qualified Code(s): N30.00 - Acute cystitis without hematuria (4) Hypercapnic respiratory failure: Hospital course has been notable for hypercapnic respiratory failure for which she is required BiPAP bipap during the day as needed and consistent nighttime use. Continue Duo nebs every 4 hours scheduled, budesonide inhalation twice daily Reduce methylprednisolone to 40 mg IV daily today Status: Acute Qualifiers: Chronicity: acute on chronic Qualified Code(s): J96.22 - Acute and chronic respiratory failure with hypercapnia Additional A&P Information Leukocytosis: Likely by UTI and postop state DVT prophylaxis Lovenox 40 mg every 24 Disposition Home with home health including PT and nursing when ready. Attestations Medical Necessity Statement*: Ongoing postop monitoring, management of COPD exacerbation with IV steroids and treatment of UTI with IV antibiotics, optimization from therapy point of view prior to discharge Coding Level of Care Code Acute Hvac Journeyman for g Fwd Diagnoses Closed hip fracture S72.002A Encounter type: initial encounter Laterality: left End stage COPD J44.9 UTI (urinary tract infection) N30.00 Urinary tract infection type: acute cystitis Hematuria presence: without hematuria Hypercapnic respiratory failure J96.22 Chronicity: acute on chronic
--- NOTE | 2020-03-28 16:20 | PC.NURSE ---
LATE ENTRY 1230 SON AT SIDE IN PTS ROOM STATES WE WILL NOT BE SENDING HER TO A REHAB FACILITY - WE REFUSE PT AT SIDE TO ASSIST - SPEAKING WITH SON REGARDING OPTIONS - EDUCATED SON TO THE FACT THAT PT IS A MAX ASSIST WHEN UP - SON STATES HE IS AWARE AND THAT THEY ARE ABLE TO PROVIDE 24\7 CARE AT HOME
--- NOTE | 2020-03-28 19:39 | PM.PN ---
Subjective Subjective: Interval history: No complaints. Pain currently controlled with meds Vitals/I&O/Wt Last Vital Signs Temp 98.3 F 03/28/20 19:25 Pulse 83 03/28/20 19:25 Resp 17 03/28/20 19:25 BP 148/68 03/28/20 19:25 Pulse Ox 100 03/28/20 19:25 03/28/20 03/28/20 03/28/20 06:59 14:59 22:59 Intake Total 50 / 2120.834 1260.833 / 1260.833 290 / 1550.833 Output Total 575 / 800 200 / 200 Balance -525 / 1945.112 8505.833 / 1060.833 290 / 1350.833 Physical Exam Narrative: EXAM NARRATIVE: Sanguinous staining right hip dressing. Expected swelling right thigh. Urinary Catheter Management^: Gipson: Cath Placed During This Visit: yes Reason for Continuing Indwelling Catheter: Perioperative Use in Selected Surgeries Urinary Catheter Date of Insertion: 03/26/20 Urinary Catheter Time of Insertion: 09:10 Data : 03/28/20 04:49 03/28/20 04:49 Micro: Microbiology 03/26/20 09:10 Urine Culture - Final Urine,Clean Catch Escherichia coli A&P Assessment and plan (1) Intertrochanteric fracture of right hip: Status: Acute (2) Postoperative state: Continue to mobilize with therapy. May need mcc placement. Status: Acute Attestations Medical Necessity Statement*: As per medicine. Coding Level of Care Code Acute Digital Solution Architect for Jin Ochoa Diagnoses Intertrochanteric fracture of right hip S72.141A Postoperative state Z98.890
[2020-03-29] VITALS (18 sets, daily range): BP systolic 111–169; BP diastolic 53–74; PULSE 81–106; RESP 17–24; TEMP 36.3–36.7; O2SAT 92–99
[2020-03-29] MEDS: ipratropium-albuterol 3 mL Neb INHALATION ×4 (02:58→20:30)
[2020-03-29 06:04] LABS: Basophils % 0.2 %; Hematocrit 24.8 % (37.0-47.0); Hemoglobin 7.4 g/dL (11.5-15.3); Lymphocytes # 0.6 10^3/uL (0.8-4.8); Lymphocytes % 5.1 %; Mean Corpuscular HGB Conc 29.8 g/dL (30.0-36.0); Mean Corpuscular Hemoglobin 30.5 pg (28.0-34.0); Mean Corpuscular Volume 102.1 fL (81-99); Mean Platelet Volume 11.1 fL (7.4-10.4); Monocytes # 1.2 10^3/uL (0.2-0.9); Monocytes % 9.6 %; Neutrophils # 10.24 10^3/uL (1.8-7.7); Neutrophils % 84.6 %; Nucleated Red Blood Cells % 0 %; Platelet Count 122 10^3/cmm (130-400); Red Blood Count 2.43 10^6/uL (4.1-5.3); Red Cell Distribution Width 14.6 % (12.1-15.1); White Blood Count 12.1 10^3/uL (4.0-10.0)
[2020-03-29 06:26] LABS: Alanine Aminotransferase 15 U/L (0-33); Alkaline Phosphatase 57 IU/L (35-105); Anion Gap 7.8 (5-19); Aspartate Amino Transferase 15 U/L (0-32); Blood Urea Nitrogen 35 mg/dL (8-23); Calcium 8.2 mg/dL (8.5-10.5); Carbon Dioxide 38 mmol/L (22-29); Chloride 102 mmol/L (98-107); Globulin 2.3 g/dL (1.3-4.6); Glucose 111 mg/dL (65-115); Osmolality Calculated 305 mOsm/kg (285-295); Potassium 4.8 mmol/L (3.5-5.1); Sodium 143 mmol/L (136-145); Total Bilirubin 0.2 mg/dL (0.15-1.2); Total Protein 5.3 g/dL (6.6-8.7)
[2020-03-29] MEDS: budesonide 0.5 mg/2 mL Neb INHALATION ×2 (08:21→20:30)
[2020-03-29] MEDS: famotidine 20 mg/2 mL INJ IVP ×2 (08:44→20:59)
[2020-03-29] MEDS: sennosides-docusate Tablet 2 TAB PO ×2 (08:44→18:02)
[2020-03-29] MEDS: chlorhexidine gluconate 0.12% Btl 473 mL 30 ML MUCOUS MEM ×3 (08:46→18:03)
--- NOTE | 2020-03-29 10:10 | PC.SOCIAL ---
Pg 2 IMM Explained to pt Pg 2 IMM. No questions voiced. Provided pt a copy. Signed, dated, & timed a copy & placed in chart.
[2020-03-29] MEDS: enoxaparin 40 mg/0.4 mL Syringe SUBCUT (11:12)
[2020-03-29] MEDS: acetaminophen 325 mg Tablet 650 MG PO (11:12)
--- NOTE | 2020-03-29 11:48 | PM.PN ---
Subjective Subjective: Interval history: Patient was seen and examined today.No acute event overnight. Vitals and labs have been reviewed. She is participating with physical therapy. Hb was down to 7.4 as compared to 8.2 yesterday. 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 Status post ORIF, IM nailing on March 27, 2020 Given her end-stage COPD patient is at very high risk of perioperative mortality. Avoiding opiates to minimize risk of hypercapnic respiratory failure. We will try to use Toradol and Tylenol alternating with close monitoring of kidney function. 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 Status: Acute (3) UTI (urinary tract infection): Positive UA, culture shows E. coli susceptible to ceftriaxone, continue same for now Status: Acute Qualifiers: Urinary tract infection type: acute cystitis Hematuria presence: without hematuria Qualified Code(s): N30.00 - Acute cystitis without hematuria (4) Hypercapnic respiratory failure: Hospital course has been notable for hypercapnic respiratory failure for which she is required BiPAP bipap during the day as needed and consistent nighttime use. Continue Duo nebs every 4 hours scheduled, budesonide inhalation twice daily Reduce methylprednisolone to 40 mg IV daily today Status: Acute Qualifiers: Chronicity: acute on chronic Qualified Code(s): J96.22 - Acute and chronic respiratory failure with hypercapnia (5) Anemia: Macrocytic Anemia Plan is transfuse 1 U PRBC Monitor CBC Status: Acute Additional A&P Information Leukocytosis: Likely by UTI and postop state DVT prophylaxis Lovenox 40 mg every 24 Disposition Home with home health including PT and nursing when ready. Attestations Medical Necessity Statement*: Post op care,COPD exacerbation, UTI , anemia and the need for Blood transfusion. Coding Level of Care Code Acute Senior Linux Unix Administrator for [facility] Fwd Diagnoses Closed hip fracture S72.002A Encounter type: initial encounter Laterality: left End stage COPD J44.9 UTI (urinary tract infection) N30.00 Urinary tract infection type: acute cystitis Hematuria presence: without hematuria Hypercapnic respiratory failure J96.22 Chronicity: acute on chronic Anemia D64.9
[2020-03-29] MEDS: dextrose 5%-sod chloride 0.45% 1,000 ML 50 ML IV (12:55)
[2020-03-29] MEDS: HYDROcodone-acetaminophen 5-325 mg Tablet 1 TAB PO ×2 (12:58→20:58)
[2020-03-29] MEDS: cefTRIAXone 1,000 MG in sodium chloride 0.9% (plus) 50 ML 100 MG IV (13:17)
[2020-03-29] MEDS: sodium chloride 0.9% (100 ml) 100 ML 125 ML (18:03)
--- NOTE | 2020-03-29 18:26 | PM.PN ---
Subjective Subjective: Interval history: Complains of more hip pain today Vitals/I&O/Wt Last Vital Signs Temp 97.3 F L 03/29/20 17:59 Pulse 91 03/29/20 17:59 Resp 19 H 03/29/20 17:59 BP 144/62 03/29/20 17:59 Pulse Ox 94 03/29/20 17:59 03/29/20 03/29/20 03/29/20 06:59 14:59 22:59 Intake Total 1530 / 1530 0 / 1530 Output Total 300 / 500 Balance -300 / 6191.860 2834 / 1530 0 / 1530 Physical Exam Narrative: EXAM NARRATIVE: Some swelling right hip. Right hip dressings clean and dry Urinary Catheter Management^: Gipson: Cath Placed During This Visit: yes, but has since been removed by the nurse Reason for Continuing Indwelling Catheter: Decision to DC Catheter Urinary Catheter Date of Insertion: 03/26/20 Urinary Catheter Time of Insertion: 09:10 Date Urinary Catheter Removed: 03/28/20 Time Urinary Catheter Discontinued: 07:41 Data : 03/29/20 05:34 03/29/20 05:34 A&P Assessment and plan (1) Postoperative state: Status: Acute (2) Intertrochanteric fracture of right hip: Continue to mobilize with therapy. May need fpc placement. Status: Acute Attestations Medical Necessity Statement*: As per medicine. Coding Level of Care Code Acute Maintenance Technician for Jin Ochoa Diagnoses Postoperative state Z98.890 Intertrochanteric fracture of right hip S72.141A
--- NOTE | 2020-03-29 20:46 | PC.NURSE ---
Received bed side shift report from off going nurse. Pt's plan of care reviewed. Pt sitting up in bed watching tv and receiving a breathing treatment at this time. Respirations are even and unlabored. No s/sx of distress noted. Pt is alert and oriented and able to make her own decisions. Pt c/o generalized body/right hip pain. Pt is requesting pain medication before having to wear the bi-pap tonight. Pt denies any other pains or concerns at this time. Bed in lowest and locked position, call light and water within reach, x's 2 rails up. Will continue to monitor pt.
[2020-03-29] MEDS: trazodone 50 mg Tablet PO (20:58)
[2020-03-29 21:16] LABS: Hematocrit 27.8 % (37.0-47.0); Hemoglobin 8.1 g/dL (11.5-15.3)
--- NOTE | 2020-03-29 21:22 | PC.NURSE ---
Went into patients room to administer medication. Pt started arguing with me as soon as I entered the room. Pt stated his medications are late. I explained to him that we are able to administer medications from 8pm to 10pm before medications are considered late. Pt stated he doesnt believe me. 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 I tried showing him on the computer that his medications were not late but every time i tried saying something he kept arguing with me. He then stated how am I suppose to keep his pain under control if Im late with his medications. I explained to him that when I came in to assess him he stated his pain was a 3 and refused pain medication at this time. I explained to him that he is alert and oriented and fully capable of hitting his call light and letting me know he is hurting. Pt again started arguing with me. I then told him that I am removing myself from this situation and don't deserve to be talked to like this. Notified charge nurse of the situation.
[2020-03-30] VITALS (20 sets, daily range): BP systolic 135–174; BP diastolic 55–72; PULSE 69–99; RESP 16–22; TEMP 36.4–37.2; O2SAT 94–100
[2020-03-30 03:09] LABS: Basophils % 0.1 %; Hematocrit 26.5 % (37.0-47.0); Hemoglobin 7.8 g/dL (11.5-15.3); Lymphocytes # 0.6 10^3/uL (0.8-4.8); Lymphocytes % 6.1 %; Mean Corpuscular HGB Conc 29.4 g/dL (30.0-36.0); Mean Corpuscular Hemoglobin 30.1 pg (28.0-34.0); Mean Corpuscular Volume 102.3 fL (81-99); Monocytes # 1.1 10^3/uL (0.2-0.9); Monocytes % 11.6 %; Neutrophils # 7.59 10^3/uL (1.8-7.7); Neutrophils % 81.6 %; Nucleated Red Blood Cells % 0 %; Platelet Count 118 10^3/cmm (130-400); Red Blood Count 2.59 10^6/uL (4.1-5.3); Red Cell Distribution Width 15.4 % (12.1-15.1); White Blood Count 9.3 10^3/uL (4.0-10.0)
[2020-03-30] MEDS: ipratropium-albuterol 3 mL Neb INHALATION ×4 (03:46→20:00)
[2020-03-30] MEDS: HYDROcodone-acetaminophen 5-325 mg Tablet 1 TAB PO ×2 (04:17→18:11)
--- NOTE | 2020-03-30 04:32 | CT_ITS ---
WS: [id number] CT RIGHT HIP, NONCONTRAST. HISTORY: hematoma Technique: All CT scans at [facility] use at least one of these dose optimization techniq ues: automated exposure control; mA and/or kV adjustment per patient size (includes targeted exams wh ere dose is matched to clinical indication); or iterative reconstruction. DLP: 1137.44 mGy.cm COMPARISON: 03/27/2020 Patient is status post recent ORIF. Long femoral intramedullary randall is present. There is a single scr ew extending through the femoral neck. Comminuted fracture through the intertrochanteric region and e xtension to the femoral neck is again identified. Postoperative changes and posttraumatic changes are present within the soft tissues over the hip. The re is no focal collection. No large soft tissue hematoma. CT/CT hip RT w con [id number] IMPRESSION: 1. Status post recent ORIF RIGHT femoral neck and intertrochanteric fracture. 2. Postoperative and posttraumatic changes of edema and bleeding are noted. No large hematoma.
--- NOTE | 2020-03-30 04:54 | PC.NURSE ---
When cleaning the pt a moderate to large hematoma noted in pt's medial right thigh. CHAINSAW MECHANIC helping me clean the pt stated that the hematoma was not there the night prior. Notified Dr. Ramos and Dr. Garza. New orders obtain a CT of the leg, discontinue lovenox and administer another unit of PRBC Pt is asymptomatic. Respirations are even and unlabored. No s/sx of distress noted.
[2020-03-30] MEDS: iohexol 300 mg/mL 100 mL Btl IV (07:35)
[2020-03-30] MEDS: budesonide 0.5 mg/2 mL Neb INHALATION ×2 (08:07→20:00)
[2020-03-30] MEDS: sennosides-docusate Tablet 2 TAB PO ×2 (09:25→17:14)
[2020-03-30] MEDS: famotidine 20 mg/2 mL INJ IVP (09:25)
[2020-03-30] MEDS: chlorhexidine gluconate 0.12% Btl 473 mL 30 ML MUCOUS MEM ×4 (09:26→22:03)
[2020-03-30] MEDS: sodium chloride 0.9% (100 ml) 100 ML 10 ML (11:06)
[2020-03-30] MEDS: cefTRIAXone 1,000 MG in sodium chloride 0.9% (plus) 50 ML 100 MG IV (14:32)
[2020-03-30] MEDS: dextrose 5%-sod chloride 0.45% 1,000 ML 50 ML IV (14:33)
--- NOTE | 2020-03-30 15:41 | PM.PN ---
Subjective Subjective: Interval history: Still complains of right thigh pain. Vitals/I&O/Wt Last Vital Signs Temp 98.4 F 03/30/20 15:15 Pulse 96 03/30/20 15:15 Resp 17 03/30/20 15:15 BP 174/61 03/30/20 15:15 Pulse Ox 95 03/30/20 15:15 03/30/20 03/30/20 03/30/20 06:59 14:59 22:59 Intake Total 1360 / 1360 Balance 1360 / 1360 Physical Exam Narrative: EXAM NARRATIVE: Right hip dressing clean and dry. Swelling right thigh Urinary Catheter Management^: Gipson: Cath Placed During This Visit: yes, but has since been removed by the nurse Reason for Continuing Indwelling Catheter: Decision to DC Catheter Urinary Catheter Date of Insertion: 03/26/20 Urinary Catheter Time of Insertion: 09:10 Date Urinary Catheter Removed: 03/28/20 Time Urinary Catheter Discontinued: 07:41 Data : 03/30/20 02:27 03/29/20 05:34 A&P Assessment and plan (1) Intertrochanteric fracture of right hip: Status: Acute (2) Postoperative state: Status: Acute (3) Anemia: Swelling right thigh and decreased hemoglobin consistent with hematoma. Check hemoglobin in a.m. Lovenox discontinued. May need fpc. Status: Acute Attestations Medical Necessity Statement*: As per medicine Coding Level of Care Code Acute Supervisor Bottle Machines for Jin Ochoa Diagnoses Intertrochanteric fracture of right hip S72.141A Postoperative state Z98.890 Anemia D64.9
--- NOTE | 2020-03-30 19:01 | PM.PN ---
Subjective Subjective: Interval history: is doing fine.Overnight she ended up getting CT hip RT w con as there was concern for Swelling right thigh and decreased hemoglobin consistent concerning for hematoma. She is still complaining rt thigh pain. Medications: Reviewed: Yes Vitals/I&O/Wt Last Vital Signs Temp 98.4 F 03/30/20 15:15 Pulse 96 03/30/20 15:15 Resp 17 03/30/20 15:15 BP 174/61 03/30/20 15:15 Pulse Ox 95 03/30/20 15:15 03/30/20 03/30/20 03/30/20 06:59 14:59 22:59 Intake Total 1360 / 1360 360 / 1720 Output Total 325 / 325 Balance 1360 / 1360 35 / 1395 Physical Exam Narrative: EXAM NARRATIVE: EXAM NARRATIVE: GEN: Awake, alert and oriented, no acute distress CVS: S1S2 N RS: CTA B/L Abd: Soft, nt/nd , bs+ ENVIRONMENTAL HEALTH AND SAFETY INTERN: no focal neuro deficits Urinary Catheter Management^: Gipson: Cath Placed During This Visit: yes, but has since been removed by the nurse Reason for Continuing Indwelling Catheter: Decision to DC Catheter Urinary Catheter Date of Insertion: 03/26/20 Urinary Catheter Time of Insertion: 09:10 Date Urinary Catheter Removed: 03/28/20 Time Urinary Catheter Discontinued: 07:41 Data : 03/30/20 02:27 03/29/20 05:34 A&P Assessment and plan (1) Closed hip fracture: Comminuted fracture of the right hip. Status post ORIF, IM nailing on March 27, 2020 Given her end-stage COPD patient is at very high risk of perioperative mortality. Avoiding opiates to minimize risk of hypercapnic respiratory failure. We will try to use Toradol and Tylenol alternating with close monitoring of kidney function. 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 Status: Acute (3) UTI (urinary tract infection): Positive UA, culture shows E. coli susceptible to ceftriaxone, continue same for now Status: Acute Qualifiers: Urinary tract infection type: acute cystitis Hematuria presence: without hematuria Qualified Code(s): N30.00 - Acute cystitis without hematuria (4) Hypercapnic respiratory failure: Hospital course has been notable for hypercapnic respiratory failure for which she is required BiPAP bipap during the day as needed and consistent nighttime use. Continue Duo nebs every 4 hours scheduled, budesonide inhalation twice daily Reduce methylprednisolone to 40 mg IV daily today Status: Acute Qualifiers: Chronicity: acute on chronic Qualified Code(s): J96.22 - Acute and chronic respiratory failure with hypercapnia (5) Anemia: Macrocytic Anemia S/P 2 U PRBC Monitor CBC Status: Acute Additional A&P Information Leukocytosis: Likely by UTI and postop state DVT prophylaxis initially on Lovenox 40 mg every 24.Held on 03/30 Disposition Home with home health including PT and nursing when ready. Attestations Medical Necessity Statement*: Post op care,COPD exacerbation, UTI , anemia and the need for Blood transfusion as well as safe placement. SNF v/s Home with [facility] Coding Level of Care Code Acute Supervisor Evaporator for [facility] Fwd Diagnoses Closed hip fracture S72.002A Encounter type: initial encounter Laterality: left End stage COPD J44.9 UTI (urinary tract infection) N30.00 Urinary tract infection type: acute cystitis Hematuria presence: without hematuria Hypercapnic respiratory failure J96.22 Chronicity: acute on chronic Anemia D64.9
[2020-03-30] MEDS: famotidine 20 mg Tablet PO (22:03)
[2020-03-31] VITALS (10 sets, daily range): BP systolic 127–169; BP diastolic 55–67; PULSE 79–95; RESP 18–20; TEMP 36.5–36.6; O2SAT 91–99
[2020-03-31] MEDS: ipratropium-albuterol 3 mL Neb INHALATION ×2 (03:00→09:26)
[2020-03-31 03:32] LABS: Anion Gap 6.4 (5-19); Blood Urea Nitrogen 21 mg/dL (8-23); Calcium 7.9 mg/dL (8.5-10.5); Carbon Dioxide 39 mmol/L (22-29); Chloride 101 mmol/L (98-107); Glucose 116 mg/dL (65-115); Osmolality Calculated 298 mOsm/kg (285-295); Potassium 4.4 mmol/L (3.5-5.1); Sodium 142 mmol/L (136-145)
[2020-03-31 03:36] LABS: Basophils % 0.2 %; Eosinophils % 0.1 %; Hematocrit 32.3 % (37.0-47.0); Hemoglobin 9.7 g/dL (11.5-15.3); Lymphocytes # 0.7 10^3/uL (0.8-4.8); Lymphocytes % 6.6 %; Mean Corpuscular Hemoglobin 29.6 pg (28.0-34.0); Mean Corpuscular Volume 98.5 fL (81-99); Mean Platelet Volume 10.4 fL (7.4-10.4); Monocytes # 1.1 10^3/uL (0.2-0.9); Monocytes % 11.1 %; Neutrophils # 8.26 10^3/uL (1.8-7.7); Neutrophils % 80.3 %; Nucleated Red Blood Cells % 0 %; Platelet Count 138 10^3/cmm (130-400); Red Blood Count 3.28 10^6/uL (4.1-5.3); White Blood Count 10.3 10^3/uL (4.0-10.0)
[2020-03-31] MEDS: HYDROcodone-acetaminophen 5-325 mg Tablet 1 TAB PO (03:42)
[2020-03-31] MEDS: dextrose 5%-sod chloride 0.45% 1,000 ML 50 ML IV (05:59)
[2020-03-31] MEDS: acetaminophen 325 mg Tablet 650 MG PO (07:42)
[2020-03-31] MEDS: sennosides-docusate Tablet 2 TAB PO (07:42)
[2020-03-31] MEDS: famotidine 20 mg Tablet PO (07:42)
[2020-03-31] MEDS: chlorhexidine gluconate 0.12% Btl 473 mL 30 ML MUCOUS MEM (07:42)
[2020-03-31] MEDS: budesonide 0.5 mg/2 mL Neb INHALATION (09:26)
--- NOTE | 2020-03-31 09:45 | PC.CHAP ---
Pastoral Care Encounter/Spiritual Assessment Type of Contact [] Declined perfect binder operator visit [] Patient/Family/Request visit [] Outpatient visit [] Follow-up visit [] Physician referral [] Code/Alert [x] Routine visit [] Staff referral [] Actively dying [] Patient sleeping [] Family support [] [] Out of room [] Palliative care [] [x] Receiving care in room [] Pre-surgical visit [] Trauma [] Long length of stay [] ICU visit [] Other: Relational/Emotional Strength [] Patient feels connected with others/family/visitors/staff [] Distress [] Loneliness/isolation [] Abandonment Spirituality of Patient [] Person of Naina [] Attends Mu-Ism of their Naina [] Believes in Prayer [] Reads Bible or Hinduism materials [] There are Spiritual issues to be addressed Halftone Operator Interventions [] Prayer [] Active listening [] Non-anxious presence [] Spiritual/emotional support [] Crisis/trauma care [] Spiritual counseling [] Bereavement support [] Provided bereavement packet [] Provided Bible/devotional materials [] Provided toy/stuffed animal, coloring book to patient or family member [] Provided Communion [] Anointing/[place] [] Salvation [] Completed spiritual assessment [] Other: Impact on Illness or Injury [] Angry [] Fearful [] Anxious [] Often cries [] Exhaustion [] Unable to work [] Unable to attend shinto [] Unable to walk/stand [] Unable to read [] Unable to drive [] Unable to eat/drink [] Unable to sleep [] Unable to be with family [] Patient intubated [] Other: Summary Time spent with patient
--- NOTE | 2020-03-31 10:55 | DCPLANNER ---
Pg 2 of IM updated and reviewed with pt. She is being d/c'd today and happy with that. Copy provided.
--- NOTE | 2020-03-31 11:35 | PM.DCS ---
Discharge Providers Date of Admission: 03/26/20 09:09 Date of Discharge: March 31, 2020 Attending Provider at Admission: Senait Celaya MD Attending Provider at Discharge: Bogdan Mckeon MD Primary Care Provider: Traci Prakash MD Diagnoses at Discharge Discharge Diagnosis (1) Closed hip fracture: Status: Deleted Qualifiers: Encounter type: initial encounter Laterality: left Qualified Code(s): S72.002A - Fracture of unspecified part of neck of left femur, initial encounter for closed fracture (2) End stage COPD: Status: Chronic (3) UTI (urinary tract infection): Status: Resolved Qualifiers: Hematuria presence: without hematuria Urinary tract infection type: acute cystitis Qualified Code(s): N30.00 - Acute cystitis without hematuria (4) Anemia: Status: Chronic Reason for Visit Reason for Visit: FALL/ HIP PAIN Hospital Course Hospital Course 79 year old female with a past medical history of end-stage COPD, on chronic home oxygen and uses trilogy at home, depression, dyslipidemia, hypothyroidism, osteoporosis who presented to the ER after having sustained a mechanical fall.She was admitted for the management of Comminuted fracture of the right hip Status post ORIF, IM nailing on March 27, 2020.She was also managed for UTI and was on ceftriaxone daily. During the Hospital stay for her Ac on chronic hypercapnic respiratory failure 2/2 TO COPD exacrbation. she required BiPAP bipap during the day as needed and consistent nighttime use.She was also on i.v steroids and is being discharged on Prednisone 40 mg po dialy for 5 Days.She was continued on duo nebs as well as pulmicort inhaler. She will continue to use trelegy ellipta at home as well as her duo nebs.During this hospital stay she also required 2us PRBC Transfusion as her hemoglobin had dropped to 7.4 at the time of discharge her hb was stable at 9.7. CT hip RT w con: Status post recent ORIF RIGHT femoral neck and intertrochanteric fracture. Postoperative and posttraumatic changes of edema and bleeding are noted. No large hematoma.Likely she has anemia of chronic disease.Patient is being discharged in stable condition.She will continue to follow as outpatient as well as her PCP. Physical Exam Narrative: EXAM NARRATIVE: EXAM NARRATIVE: GEN: Awake, alert and oriented, no acute distress CVS: S1S2 N RS: CTA B/L Abd: Soft, nt/nd , bs+ SENIOR BUSINESS ARCHITECT: no focal neuro deficits Urinary Catheter Management^: Gipson: Cath Placed During This Visit: yes, but has since been removed by the nurse Reason for Continuing Indwelling Catheter: Decision to DC Catheter Urinary Catheter Date of Insertion: 03/26/20 Urinary Catheter Time of Insertion: 09:10 Date Urinary Catheter Removed: 03/28/20 Time Urinary Catheter Discontinued: 07:41 Discharge Data Data Completed and Pending: Completed Studies During Hospitalization Category Date Time Status CT hip RT w con [id number] Stat Cat Scan 03/30/20 04:32 Completed XR chest 1V willi ble [id number] Stat Exams 03/26/20 Completed XR hip RT 2-3V wo /w pel* [id number] Rout ine Exams 03/27/20 11:11 Completed XR hip RT 2-3V wo /w pel* [id number] Stat Exams 03/26/20 07:53 Completed Labs from last 24 hours 03/31/20 03/31/20 03/29/20 02:19 02:19 10:30 WBC 10.3 H RBC 3.28 L Hgb 9.7 L Hct 32.3 L MCV 98.5 MCH 29.6 MCHC 30.0 RDW 16.0 H Plt Count 138 MPV 10.4 Neut % (Auto) 80.3 Lymph % (Auto) 6.6 [place] % (Auto) 11.1 Eos % (Auto) 0.1 Baso % (Auto) 0.2 Neut # (Auto) 8.26 H Lymph # (Auto) 0.7 L [place] # (Auto) 1.1 H Eos # (Auto) 0.0 Baso # (Auto) 0.0 Nucleated RBC % (a uto) 0 Nucleated RBCs # 0.0 Sodium 142 Potassium 4.4 Chloride 101 Carbon Dioxide 39 H Anion Gap 6.4 BUN 21 Creatinine 0.7 GFR Calculation Not Reportable Glucose 116 H Calculated Osmolal ity 298 H Calcium 7.9 L Crossmatch See Detail Vitals: Last Vital Signs Temp 97.7 F 03/31/20 11:29 Pulse 90 03/31/20 11:29 Resp 19 H 03/31/20 11:29 BP 127/55 03/31/20 11:29 Pulse Ox 91 03/31/20 11:29 Discharge Plan Discharge Patient Disposition: Home Condition: Stable Prescriptions: New hydrocodone-acetaminophen 5-325 mg Tablet 1 tab PO Q4H PRN (Reason: Moderate Pain) 7 Days Qty: 30 RF: 0 prednisone 20 mg tablet 40 mg PO DAILY 5 Days RF: 0 Continued ipratropium-albuterol 0.5 mg-3 mg(2.5 mg base)/3 mL solution for nebulization 3 ml INHALATION Q4H PRN (Reason: Shortness Of Breath) RF: 0 meloxicam 15 mg tablet 15 mg PO QAM RF: 0 albuterol sulfate [Ventolin HFA] 90 mcg/actuation HFA aerosol inhaler 2 puff INHALATION QID PRN (Reason: Shortness Of Breath) RF: 0 trazodone 50 mg tablet 50 mg PO BEDTIME PRN (Reason: Sleep) RF: 0 [place] 5-325 mg Tablet 1 tab PO QID PRN (Reason: Pain) RF: 0 Aleve 220 mg Tablet 440 mg PO PRN RF: 0 Multivitamins 28 mg iron- 800 mcg Tablet 1 tab PO QAM RF: 0 Lasix 20 mg tablet 20 mg PO QAM PRN (Reason: Edema) RF: 0 Trelegy Ellipta 100-62.5-25 mcg blister with device 1 inh inhalation Q24H RF: 0 Discontinued nitrofurantoin monohyd/m-cryst 100 mg capsule 1 cap PO BID RF: 0 Discharge Orders: Discharge Order (Routine); Ordered 03/31/20 Ordered By: Bogdan Mckeon Other Ambulatory Orders: DME: Walker (Order) Location: None Selected Ordered By: Shamar Garza Referrals: [facility] [Outside] ([facility] has accepted you for home health services and will provide nursing and physical therapy. As discussed the start date for home health will be delayed due to weather. Hopeful that home health will be able to make first visit at end of week on Sunday or Sunday. If not, may be the following Sunday04/05/2020. Can call them if have questions or concerns. ) [facility] [Outside] Traci Prakash MD [Primary Care Provider] - 04/23/20 9:30 am Shamar Garza MD [Physician] - 04/27/20 10:15 am Discharge Diet: Regular Discharge Activity: Increase activity as tolerated Activity Restrictions/Additional Instructions: Change dressing as needed for drainage OK to shower Remove johnson on 04/12/2020 May WBAT right lower extremity Discharge Attestations Time Spent in Discharge Care*: less than 30 min Specific Discharge Activities: educating patient, educating and/or supporting family/caregiver, discussing with assistant case manager/social workers/dc planners, documenting/other paperwork and evaluating patient/reviewing data Status at Discharge: Cognitive status at discharge: cognitively intact, Behavioral status at discharge: cooperative, Functional status at discharge: other assisted ambulation Overall status at discharge: patient is back to baseline Quality Metrics Clinical Quality Measures During this hospital stay, did patient experience: None Coding Level of Care Code Acute Sustainability Coach for Chg Fwd Diagnoses Closed hip fracture S72.002A Encounter type: initial encounter Laterality: left End stage COPD J44.9 UTI (urinary tract infection) N30.00 Hematuria presence: without hematuria Urinary tract infection type: acute cystitis Anemia D64.9
--- NOTE | 2020-03-31 11:39 | PM.PN ---
Subjective Subjective: Interval history: Pain better. Able to stand with therapy. Vitals/I&O/Wt Last Vital Signs Temp 97.7 F 03/31/20 11:29 Pulse 90 03/31/20 11:29 Resp 19 H 03/31/20 11:29 BP 127/55 03/31/20 11:29 Pulse Ox 91 03/31/20 11:29 03/30/20 03/31/20 03/31/20 22:59 06:59 14:59 Intake Total 960 / 2320 771.667 / 3091.667 120 / 120 Output Total 325 / 325 Balance / 1994 771.667 / 2766.667 120 / 120 Physical Exam Narrative: EXAM NARRATIVE: Dressing clean and dry. No change swelling thigh Urinary Catheter Management^: Gipson: Cath Placed During This Visit: yes, but has since been removed by the nurse Reason for Continuing Indwelling Catheter: Decision to DC Catheter Urinary Catheter Date of Insertion: 03/26/20 Urinary Catheter Time of Insertion: 09:10 Date Urinary Catheter Removed: 03/28/20 Time Urinary Catheter Discontinued: 07:41 Data : 03/31/20 02:19 03/31/20 02:19 A&P Assessment and plan (1) Postoperative state: Status: Acute (2) Intertrochanteric fracture of right hip: Pain and mobility improved. No acute ortho issues Status: Acute Attestations Medical Necessity Statement*: OK for discharge per ortho Coding Level of Care Code Acute Plywood Layup Line Core Feeder for Jin Ochoa Diagnoses Postoperative state Z98.890 Intertrochanteric fracture of right hip S72.141A
== END 2020-03-31 15:35 | disposition home health service (06) | DRG 480 ==
LOC: ER 09:15 → MEDSURG 09:34
PROVIDERS: Orthopaedic Surgery; Admitting Provider Student in an Organized Health Care Education/Training Program; Emergency Provider Nurse Practitioner Family; PCP Family Medicine; Visit Provider Internal Medicine
PROC: 0SS904Z Reposition Right Hip Joint with Internal Fixation Device, Open Approach (ICD-10-PCS; CPT 27245; principal; 2020-03-27 08:00)
DX: S72.141A Displaced intertrochanteric fracture of right femur, initial encounter for closed fracture (principal); J96.22 Acute and chronic respiratory failure with hypercapnia; J44.1 Chronic obstructive pulmonary disease with (acute) exacerbation; N30.00 Acute cystitis without hematuria; F32.9 Major depressive disorder, single episode, unspecified; E03.9 Hypothyroidism, unspecified; E78.5 Hyperlipidemia, unspecified; M81.0 Age-related osteoporosis without current pathological fracture; Z99.81 Dependence on supplemental oxygen; D53.9 Nutritional anemia, unspecified; W19.XXXA Unspecified fall, initial encounter; Y92.009 Unspecified place in unspecified non-institutional (private) residence as the place of occurrence of the external cause; Z96.642 Presence of left artificial hip joint; Z87.891 Personal history of nicotine dependence
CPT/HCPCS: 36415; 36430; 36600; 51702; 71045; 73502; 73701; 76000; 80048; 80053; 81001; 82803; 84145; 85014; 85018; 85025; 85610; 86850; 86900; 86920; 87077; 87086; 87186; 93005; 94640; 94660; 96372; 96374; 96375; 97110; 97161; 97165; 97530; 97535; 99285; C1713; C1776; J0690; J0696; J1650; J2270; J2310; J2405; J2920; J3490; J7030; J7626; J7799; P9016; Q9967

== ENCOUNTER → 2020-04-27 10:18 | Outpatient (BNVA) | payer MEDICARE, MEDICAID, SELFPAY | PROVIDERS: PCP Family Medicine; Visit Provider Orthopaedic Surgery | DX: Z48.89 Encounter for other specified surgical aftercare (principal) | CPT/HCPCS: 73502; 87070; 87077; 87184; 87205 ==

== ENCOUNTER → 2020-05-25 11:23 | Outpatient (BNVA) | payer MEDICARE, MEDICAID, SELFPAY | PROVIDERS: PCP Family Medicine; Visit Provider Orthopaedic Surgery | DX: Z48.89 Encounter for other specified surgical aftercare (principal) | CPT/HCPCS: 73502 ==

== ENCOUNTER 2020-06-15 08:30 | Outpatient (CLI) | payer MEDICARE, MEDICAID, SELFPAY | END 2020-06-15 08:31 | disposition home or self-care (01) | LOC: WOUND 08:33 | PROVIDERS: PCP Family Medicine; Visit Provider Thoracic Surgery (Cardiothoracic Vascular Surgery) | DX: T81.89XA Other complications of procedures, not elsewhere classified, initial encounter (principal); L97.819 Non-pressure chronic ulcer of other part of right lower leg with unspecified severity; L97.822 Non-pressure chronic ulcer of other part of left lower leg with fat layer exposed | CPT/HCPCS: 97597; G0463 ==

== ENCOUNTER 2020-06-22 08:29 | Outpatient (CLI) | payer MEDICARE, MEDICAID, SELFPAY | END 2020-06-22 08:30 | disposition home or self-care (01) | LOC: WOUND 08:29 | PROVIDERS: PCP Family Medicine; Visit Provider Thoracic Surgery (Cardiothoracic Vascular Surgery) | DX: T81.89XA Other complications of procedures, not elsewhere classified, initial encounter (principal); L97.812 Non-pressure chronic ulcer of other part of right lower leg with fat layer exposed; L97.822 Non-pressure chronic ulcer of other part of left lower leg with fat layer exposed | CPT/HCPCS: 11042 ==

== ENCOUNTER 2020-06-30 08:47 | Outpatient (CLI) | payer MEDICARE, MEDICAID, SELFPAY | END 2020-06-30 08:48 | disposition home or self-care (01) | LOC: WOUND 08:48 | PROVIDERS: PCP Family Medicine; Visit Provider Nurse Practitioner Family | DX: T81.89XA Other complications of procedures, not elsewhere classified, initial encounter (principal); Y83.8 Other surgical procedures as the cause of abnormal reaction of the patient, or of later complication, without mention of misadventure at the time of the procedure; I87.2 Venous insufficiency (chronic) (peripheral); L97.812 Non-pressure chronic ulcer of other part of right lower leg with fat layer exposed; L97.822 Non-pressure chronic ulcer of other part of left lower leg with fat layer exposed | CPT/HCPCS: 11042 ==

== ENCOUNTER 2020-07-07 08:56 | Outpatient (CLI) | payer MEDICARE, MEDICAID, SELFPAY | END 2020-07-07 08:57 | disposition home or self-care (01) | LOC: WOUND 08:57 | PROVIDERS: PCP Family Medicine; Visit Provider Thoracic Surgery (Cardiothoracic Vascular Surgery) | DX: T81.89XA Other complications of procedures, not elsewhere classified, initial encounter (principal); Y83.8 Other surgical procedures as the cause of abnormal reaction of the patient, or of later complication, without mention of misadventure at the time of the procedure; I87.2 Venous insufficiency (chronic) (peripheral); L97.812 Non-pressure chronic ulcer of other part of right lower leg with fat layer exposed; L97.822 Non-pressure chronic ulcer of other part of left lower leg with fat layer exposed | CPT/HCPCS: 11042 ==

== ENCOUNTER 2020-07-14 09:49 | Outpatient (CLI) | payer MEDICARE, MEDICAID, SELFPAY | END 2020-07-14 09:50 | disposition home or self-care (01) | LOC: WOUND 09:50 | PROVIDERS: PCP Family Medicine; Visit Provider Thoracic Surgery (Cardiothoracic Vascular Surgery) | DX: T81.89XA Other complications of procedures, not elsewhere classified, initial encounter (principal); Y83.8 Other surgical procedures as the cause of abnormal reaction of the patient, or of later complication, without mention of misadventure at the time of the procedure; I87.2 Venous insufficiency (chronic) (peripheral); L97.812 Non-pressure chronic ulcer of other part of right lower leg with fat layer exposed; L97.822 Non-pressure chronic ulcer of other part of left lower leg with fat layer exposed; L98.421 Non-pressure chronic ulcer of back limited to breakdown of skin | CPT/HCPCS: 11042; 97597 ==

== ENCOUNTER 2020-07-21 09:25 | Outpatient (CLI) | payer MEDICARE, MEDICAID, SELFPAY | END 2020-07-21 09:26 | disposition home or self-care (01) | LOC: WOUND 09:26 | PROVIDERS: PCP Family Medicine; Visit Provider Thoracic Surgery (Cardiothoracic Vascular Surgery) | DX: T81.89XA Other complications of procedures, not elsewhere classified, initial encounter (principal); Y83.8 Other surgical procedures as the cause of abnormal reaction of the patient, or of later complication, without mention of misadventure at the time of the procedure; I87.2 Venous insufficiency (chronic) (peripheral); L97.822 Non-pressure chronic ulcer of other part of left lower leg with fat layer exposed; L98.491 Non-pressure chronic ulcer of skin of other sites limited to breakdown of skin | CPT/HCPCS: 11042; 97597; A6446 ==

== ENCOUNTER 2020-07-28 08:36 | Outpatient (CLI) | payer MEDICARE, MEDICAID, SELFPAY | END 2020-07-28 08:37 | disposition home or self-care (01) | LOC: WOUND 08:37 | PROVIDERS: PCP Family Medicine; Visit Provider Thoracic Surgery (Cardiothoracic Vascular Surgery) | DX: I87.2 Venous insufficiency (chronic) (peripheral) (principal); L97.822 Non-pressure chronic ulcer of other part of left lower leg with fat layer exposed | CPT/HCPCS: 11042 ==

== ENCOUNTER 2020-08-04 08:21 | Outpatient (CLI) | payer MEDICARE, MEDICAID, SELFPAY | END 2020-08-04 08:22 | disposition home or self-care (01) | LOC: WOUND 08:22 | PROVIDERS: PCP Family Medicine; Visit Provider Thoracic Surgery (Cardiothoracic Vascular Surgery) | DX: I87.2 Venous insufficiency (chronic) (peripheral) (principal); L97.822 Non-pressure chronic ulcer of other part of left lower leg with fat layer exposed | CPT/HCPCS: 97597 ==

== ENCOUNTER 2020-08-11 08:58 | Outpatient (CLI) | payer MEDICARE, MEDICAID, SELFPAY | END 2020-08-11 08:59 | disposition home or self-care (01) | LOC: WOUND 08:59 | PROVIDERS: PCP Family Medicine; Visit Provider Thoracic Surgery (Cardiothoracic Vascular Surgery) | DX: I87.2 Venous insufficiency (chronic) (peripheral) (principal); L97.822 Non-pressure chronic ulcer of other part of left lower leg with fat layer exposed | CPT/HCPCS: 97597 ==

== ENCOUNTER 2020-08-18 08:55 | Outpatient (CLI) | payer MEDICARE, MEDICAID, SELFPAY | END 2020-08-18 08:56 | disposition home or self-care (01) | LOC: WOUND 08:56 | PROVIDERS: PCP Family Medicine; Visit Provider Nurse Practitioner Family | DX: I87.2 Venous insufficiency (chronic) (peripheral) (principal); L97.822 Non-pressure chronic ulcer of other part of left lower leg with fat layer exposed | CPT/HCPCS: 11042 ==

== ENCOUNTER 2020-09-01 08:03 | Outpatient (CLI) | payer MEDICARE, MEDICAID, SELFPAY | END 2020-09-01 08:04 | disposition home or self-care (01) | LOC: WOUND 08:08 | PROVIDERS: PCP Family Medicine; Visit Provider Thoracic Surgery (Cardiothoracic Vascular Surgery) | DX: Z09 Encounter for follow-up examination after completed treatment for conditions other than malignant neoplasm (principal) | CPT/HCPCS: 99212 ==

== ENCOUNTER 2023-02-02 17:55 | Inpatient (IN) | payer MEDICARE, MEDICAID, SELFPAY ==
[2023-02-02 17:58] VITALS: BP 179/71; PULSE 78; RESP 16; TEMP 36.8; O2SAT 94; BMI 27.8
--- NOTE | 2023-02-02 18:05 | XRR_ITS ---
PROCEDURE INFORMATION: Exam: XR Right Knee Exam date and time: 02/02/2023 6:20 PM Age: 82 years old Clinical indication: Injury or trauma; Patient HX: RT knee pain post fall TECHNIQUE: Imaging protocol: Radiologic exam of the right knee. Views: 3 views. COMPARISON: No relevant prior studies available. FINDINGS: Bones/joints: Intramedullary randall in the right femur. Knee effusion or hemarthrosis. Oblique mildly displaced fracture in the distal diaphysis of the femur. Possible hairline fracture in the proximal medial femoral condyle. Soft tissues: Normal. XR/XR knee RT 3V* [id number] IMPRESSION: 1. Mildly displaced distal diaphyseal fracture in the right femur. 2. Possible hairline fracture in the proximal medial femoral condyle. 3. Further evaluation with CT is suggested.
--- NOTE | 2023-02-02 18:06 | W.ED.FALL ---
HPI - Fall General: Chief Complaint: Fall Stated Complaint: fall,rt knee Time Seen by Provider: 02/02/23 18:01 Source: patient and family Mode of arrival: EMS Limitations: no limitations History of Present Illness: This patient was transported from her home by EMS. She apparently was getting up from pulling on her pants and fell forward landing on her right knee. She complains of pain and swelling to her right knee. She also suffered a superficial abrasion on top of her chronic ecchymosis to her left forearm. She did not hit her head or suffer any other injury. She complains of pain in her knee MD complaint: fall Fall from: standing Place fall occurred: home Symptoms prior to fall: none Location of injury - extremities: Right: knee Associated symptoms-after fall: Denies headache(s) or neck pain Review of Systems Const: Denies: fever(s) or chills Eyes: Denies: change in vision ENMT: Denies: odynophagia, nasal discharge or nasal congestion Resp: Denies: productive cough or non-productive cough GI: Denies: nausea, vomiting or diarrhea Musc: Reports: extremity pain and extremity swelling; Denies: neck pain Skin/Breast: Denies: rash Neuro: Denies: headache(s), numbness in extremities or weakness in extremities PFSH ED PFSH: Medical History Anemia Intertrochanteric fracture of right hip Hypercapnic respiratory failure UTI (urinary tract infection) End stage COPD Anemia Vitamin C deficiency Cellulitis Low TSH level Depression Edema Heart murmur Hip pain, left Hypercholesteremia Elevated serum glucose Hypoxic Macrocytosis Nasal congestion Osteoporosis Emphysema lung COPD (chronic obstructive pulmonary disease) Sciatica Seasonal allergies Shoulder pain, left Vitamin D deficiency Shoulder fracture, left Surgical History Postoperative state History of left hip replacement Hx of cataract surgery Family History Mother Cancer Breast Father Cancer Heart disease Sister Cancer Grandmother Hypertension Heart disease Aneurysm Brother Heart disease Myocardial infarct Aneurysm Family/Other Heart disease Bipolar 1 disorder Grandfather Heart disease Social History Smoking and tobacco/nicotine status: former use of tobacco/nicotine Quit status (tobacco/nicotine): has quit using Year quit tobacco: 2013 - 1.5 PPD x 60 Years Alcohol intake: never Substance/Drug Use: never Household members: none Marital status: / Number of children: 4 Current occupational status: retired Do you think of yourself as: Straight/Heterosexual Current gender identity: Female Physical Exam Narrative: EXAM NARRATIVE: She is a overweight female who is alert wears supplemental oxygen via nasal cannula is able to answer questions appropriately. Const: COMMON NORMALS: no acute distress and patient oriented x3 GENERAL APPEARANCE: cooperative NUTRITIONAL APPEARANCE: overweight HENMT: COMMON NORMALS: normocephalic, atraumatic and Normal nasal mucous membranes and turbinates present HEAD & SCALP: normocephalic and atraumatic NOSE: Normal nasal mucous membranes and turbinates present Eye: COMMON NORMALS: Equal, round and reactive pupils present and EOMs intact bilaterally PUPIL: Yes Equal, round and reactive pupils present Neck/C-Spine: COMMON NORMALS: full ROM and no JVD CERVICAL SPINE: Yes cervical ROM normal and No step off deformity Chest: COMMONS NORMALS: normal inspection of the chest Resp: COMMON NORMALS: No retractions EFFORT & INSPECTION: Yes able to speak in complete sentences and Yes pursed lip breathing AUSCULTATION: diminished lung sounds Cardio: COMMON NORMALS: no JVD, regular rate, regular rhythm and Peripheral pulses 2+ throughout RATE: regular rate RHYTHM: regular rhythm PERIPHERAL PULSES: Peripheral pulses 2+ throughout GI: COMMON NORMALS: Normal to inspection, nondistended, normoactive bowel sounds present INSPECTION: Yes central obesity Back/Pelvis: COMMON NORMALS: thoracic and lumbar spine normal to inspection, no thoracic nor lumbar tenderness and thoraco-lumbar ROM normal PELVIS: Yes no pain with anterior-posterior compression and Yes no pain with lateral compression Extremity: RIGHT LOWER EXTREMITY: Yes hip joint (She has no palpable tenderness over the hip joint. She has normal internal) Right hip: Yes ROM, Yes knee joint (She has swelling to the right knee. There is ballotable and palpable effus) and Yes foot & digits (Normal to inspection no deformity. No limitation range of motion. ) Neuro: COMMON NORMALS: patient oriented x3, moves all extremities, no focal motor deficits and no sensory deficits noted CRANIAL NERVES: Yes CN normal except as noted Psych: COMMON NORMALS: mental status grossly normal Skin: COMMON NORMALS: no wounds and turgor normal GENERAL SKIN EXAM: turgor normal Course Reevaluation(s): Reevaluation #1: Patient was reexamined. No new or focal findings. Discussed current findings to include CT scan with more detailed anatomy guarding her fracture with patient as well as family both in person and via telephone. All questions were answered. Plan will be to place her in a knee immobilizer per orthopedic surgery recommendation admit to the hospitalist service for surgical evaluation and repair. Time: 20:52 Consultations: Consultation #1: Discussed with Dr. Torrez. He will see her in the morning and make arrangements for appropriate operative repair. Time: 20:50 Consultation #2: Discussed with overnight hospitalist who agreed to admit patient. Time: 22:00 Vital Signs: Vital signs: Vital Signs Temperature 98.3 F 02/02/23 17:58 Pulse Rate 90 02/02/23 20:14 Respiratory Rate 16 02/02/23 17:58 Blood Pressure 114/64 02/02/23 20:14 Pulse Oximetry 100 02/02/23 20:14 Oxygen Delivery Me thod Nasal Cannula 02/02/23 20:14 Oxygen Flow Rate 4 02/02/23 20:14 MDM - Fall Medical Decision Making This patient presented to our emergency department after suffering a ground-level fall. She apparently tripped over her pants when she was attempting to put her pants on this afternoon. She fell forward striking her right knee. She did not suffer any other injury. There was no syncope or prodrome prior to her fall. Past history is remarkable for having a prior intramedullary nail of the right femur for a proximal femur fracture she also has oxygen dependent COPD. Clinical examination revealed a tender swollen left distal upper leg and knee joint. There was ballotable fluid in the inferotemporal patellar and prepatellar region. I was unable to completely test the patellar tendon as she guarding and could not elevate her lower leg to 180 degrees. The remainder of her distal right leg was normal to examination. Initial plain film suggested possible Mcdonald physeal fracture of the right femur. CT scan was obtained for further delineation of the anatomy which revealed slightly displaced transverse fracture across the Mcdonald physis into the distal femoral condyle. Orthopedic surgery was consulted who recommended knee immobilizer and they will evaluate for operative fixation in the morning. She was admitted to the hospitalist service. Lab Data I reviewed the patient's lab results. 02/02/23 21:11 02/02/23 21:11 Radiology Impressions Knee X-Ray 02/02/23 18:05 IMPRESSION: 1. Mildly displaced distal diaphyseal fracture in the right femur. 2. Possible hairline fracture in the proximal medial femoral condyle. 3. Further evaluation with CT is suggested. Knee CT 02/02/23 19:23 IMPRESSION: 1. Mildly displaced oblique fracture in the distal diaphysis and lateral metaphysis of the right femur. 2. Mildly displaced impacted fracture involving the lateral femoral trochlea and medial cortex of the proximal femoral condyle. 3. Hemarthrosis. Chest X-Ray 02/02/23 20:56 IMPRESSION: No acute findings. Laboratory Results WBC 21.19 10^3/uL (3.29-11.43) H 02/02/23 21:11 RBC 4.22 10^6/uL (3.85-5.65) 02/02/23 21:11 Hgb 12.40 g/dL (11.27-16.99) 02/02/23 21:11 Hct 41.7 % (36-47) 02/02/23 21:11 MCV 98.8 fl (85-98) H 02/02/23 21:11 MCH 29.4 pg (27-33) 02/02/23 21:11 MCHC 29.7 g/dL (30-55) L 02/02/23 21:11 RDW 14.3 % (12.1-15.1) 02/02/23 21:11 Plt Count 148 10^3/cmm (157-399) L 02/02/23 21:11 MPV 11.1 fL (7.4-10.4) H 02/02/23 21:11 Neut % (Auto) 91.7 % 02/02/23 21:11 Lymph % (Auto) 1.7 % 02/02/23 21:11 [place] % (Auto) 5.8 % 02/02/23 21:11 Eos % (Auto) 0.0 % 02/02/23 21:11 Baso % (Auto) 0.3 % 02/02/23 21:11 Neut # (Auto) 19.42 10^3/uL (1.8-7.7) H 02/02/23 21:11 Lymph # (Auto) 0.4 10^3/uL (0.8-4.8) L 02/02/23 21:11 [place] # (Auto) 1.2 10^3/uL (0.2-0.9) H 02/02/23 21:11 Eos # (Auto) 0.0 10^3/uL (0.0-0.8) 02/02/23 21:11 Baso # (Auto) 0.1 10^3/uL (0.0-0.1) 02/02/23 21:11 Nucleated RBC % (auto) 0 % 02/02/23 21:11 Nucleated RBCs # 0.0 /100WBC 02/02/23 21:11 All radiology interpretation(s) finalized by discharge Discharge Plan Discharge Patient Disposition: Admitted As Inpatient Clinical Impression: Closed fracture of distal end of femur, COPD (chronic obstructive pulmonary disease) Condition: Stable Prescriptions: No Action ipratropium-albuterol 0.5 mg-3 mg(2.5 mg base)/3 mL solution for nebulization 3 ml INHALATION Q4H PRN (Reason: Shortness Of Breath) meloxicam 15 mg tablet 15 mg PO QAM albuterol sulfate [Ventolin HFA] 90 mcg/actuation HFA aerosol inhaler 2 puff INHALATION QID PRN (Reason: Shortness Of Breath) clindamycin HCl 300 mg capsule 300 mg PO BID 7 Days Qty: 14 0RF Trelegy Ellipta 100-62.5-25 mcg blister with device 1 inh inhalation DAILY Qty: 60 3RF trazodone 50 mg tablet 50 mg PO BEDTIME PRN (Reason: Sleep) [place] 5-325 mg Tablet 1 tab PO QID PRN (Reason: Pain) Aleve 220 mg Tablet 440 mg PO PRN Multivitamins 28 mg iron- 800 mcg Tablet 1 tab PO QAM Lasix 20 mg tablet 20 mg PO QAM PRN (Reason: Edema) Referrals: Traci Prakash MD [Primary Care Provider] - Coding Level of Care Code ED Wet Process Technician for Jodyg Don
--- NOTE | 2023-02-02 19:23 | CTR_ITS ---
PROCEDURE INFORMATION: Exam: CT Right Lower Extremity Without Contrast, Knee Exam date and time: 02/02/2023 7:53 PM Age: 82 years old Clinical indication: Injury or trauma; Blunt trauma; Knee; Right; Prior surgery; Surgery date: 6+ months; Surgery type: Femoral nail; Patient HX: Fall from standing at home. C/O pain with swelling. Unable to bear weight. ; Additional info: Fall with FX need better definition TECHNIQUE: Imaging protocol: CT of the right lower extremity without contrast was performed. Exam focused on the knee. Radiation optimization: All CT scans at this facility use at least one of these dose optimization techniques: automated exposure control; mA and/or kV adjustment per patient size (includes targeted exams where dose is matched to clinical indication); or iterative reconstruction. REPORTING DATA: Count of CT and Cardiac NM exams in prior 12 months: This patient has received 0 known CTs and 0 known cardiac nuclear medicine studies in the 12 months prior to the current study. COMPARISON: CR (LOW EXM, ) 02/02/2023 6:20 PM RADIATION DOSE METRICS: Total DLP (mGy-cm): 979.12 FINDINGS: Bones/joints: Right knee hemarthrosis. Intramedullary randall in the femur. Oblique mildly displaced fracture in the distal diaphysis of the right femur with extension to the lateral metaphysis. Impacted mildly displaced transverse fracture through the distal femoral metaphysis involving the lateral femoral trochlea and extends to the medial cortex of the proximal medial femoral condyle. No intra-articular extension in the femoral condyles. The proximal tibia and fibula are intact. Soft tissues: Subcutaneous soft tissue edema in the anterior and posterolateral knee. No organized soft tissue hematoma. CT/CT knee RT wo con* [id number] IMPRESSION: 1. Mildly displaced oblique fracture in the distal diaphysis and lateral metaphysis of the right femur. 2. Mildly displaced impacted fracture involving the lateral femoral trochlea and medial cortex of the proximal femoral condyle. 3. Hemarthrosis.
[2023-02-02 20:14] VITALS: BP 114/64; PULSE 90; O2SAT 100
--- NOTE | 2023-02-02 20:56 | XRR_ITS ---
PROCEDURE INFORMATION: Exam: XR Chest Exam date and time: 02/02/2023 9:04 PM Age: 82 years old Clinical indication: Condition or disease; Lung condition and disease; Patient HX: Copd; Pre op high risk procedure TECHNIQUE: Imaging protocol: Radiologic exam of the chest. Views: 1 view. COMPARISON: CR XR chest 1V portable [id number] 03/26/2020 8:41 AM FINDINGS: Lungs: Mild atelectasis or scarring in the lung bases. No consolidation. Pleural spaces: Unremarkable. No pleural effusion. No pneumothorax. Heart/Mediastinum: Cardiomegaly. Bones/joints: Old proximal left humerus fracture. Old left rib fracture. No acute fracture. Thoracic curvature. XR/XR chest 1V portable [id number] IMPRESSION: No acute findings.
--- NOTE | 2023-02-02 20:56 | ECG_ITS ---
[facility] Test Date: 2023-02-02 Pat Name: Yulissa Goddard Department: Room: Gender: Female Tester Vibrator Equipment: : 1940 Requested By: Forest Penny Order Number: [id number] Sara MD: Raulito Santizo M.D. Measurements Intervals [place] Rate: 87 P: 62 AL: 154 QRS: 38 QRSD: 82 T: 58 QT: 355 QTc: 428 Interpretive Statements SINUS RHYTHM POSSIBLE LEFT ATRIAL ENLARGEMENT [-0.1mV P-WAVE IN V1/V2] INDETERMINATE AXIS Compared to ECG 03/26/2020 09:27:47 Indeterminate axis now present Incomplete right bundle-branch block no longer present Electronically Signed On 02-03-2023 9:48:35 VICE PRESIDENT OF INSTRUCTION by Raulito Santizo M.D. [id number]
[2023-02-02 21:00] VITALS: BP 161/61; PULSE 75; O2SAT 93
[2023-02-02] MEDS: fentaNYL 50 mcg/mL INJ 2mL IVP (21:28)
[2023-02-02 21:45] LABS: Basophils # 0.1 10^3/uL (0.0-0.1); Basophils % 0.3 %; Hematocrit 41.7 % (36-47); Lymphocytes # 0.4 10^3/uL (0.8-4.8); Lymphocytes % 1.7 %; Mean Corpuscular HGB Conc 29.7 g/dL (30-55); Mean Corpuscular Hemoglobin 29.4 pg (27-33); Mean Corpuscular Volume 98.8 fl (85-98); Mean Platelet Volume 11.1 fL (7.4-10.4); Monocytes # 1.2 10^3/uL (0.2-0.9); Monocytes % 5.8 %; Neutrophils # 19.42 10^3/uL (1.8-7.7); Neutrophils % 91.7 %; Nucleated Red Blood Cells % 0 %; Platelet Count 148 10^3/cmm (157-399); Red Blood Count 4.22 10^6/uL (3.85-5.65); Red Cell Distribution Width 14.3 % (12.1-15.1); White Blood Count 21.19 10^3/uL (3.29-11.43)
--- NOTE | 2023-02-02 21:55 | P.HP_ITS ---
Providers/Chief Complaint 2 Primary Care Provider: Traci Prakash MD Chief Complaint: fall,rt knee History of Present Illness Yulissa Goddard is a 82 year old female who lives alone, has history of COPD, uses 4 L at baseline, not a good surgical candidate presenting today with after sustaining a fall at home patient stating that she was using a walker which slipped off and she fell on the ground, in the ER she has been diagnosed with hip fracture, currently she is requiring 4 L, she has significant leukocytosis of 21,000 history of chronic leukocytosis around 11,000 CT scan of the knee showing distal femur fracture chest x-ray is unremarkable, Will place Gipson catheter get UA Patient is afebrile No COVID-related symptoms Patient is stating that he uses trilogy machine at home Review of Systems 2 Const: Denies: fever(s) Eyes: Denies: change in vision ENMT: Denies: throat pain Card: Reports: swelling of feet/ankles; Denies: chest pain Resp: Reports: dyspnea GI: Denies: abdominal pain : Denies: flank pain Medications/Allergies Home Medications Medication Instructions Recorded Confirmed Last Taken Type albuterol sulfate 90 mcg/actuation 2 puff inhalation QID PRN 02/13/19 06/16/20 Unknown History aerosol inhaler (Ventolin HFA) Shortness Of Breath ipratropium 0.5 mg-albuterol 3 mg 3 ml inhalation Q4H PRN Shortness 02/13/19 06/16/20 Unknown History (2.5 mg base)/3 mL nebulization Of Breath soln meloxicam 15 mg tablet 15 mg PO QAM 02/13/19 06/16/20 Unknown History furosemide 20 mg tablet (Lasix) 20 mg PO QAM PRN Edema 03/26/20 06/16/20 Unknown History hydrocodone 5 mg-acetaminophen 325 1 tab PO QID PRN Pain 03/26/20 06/16/20 03/26/20 05:00 History mg tablet ([place]) naproxen sodium 220 mg tablet 440 mg PO PRN 03/26/20 06/16/20 Unknown History (Aleve) vit no.95-ferrous 1 tab PO QAM 03/26/20 06/16/20 Unknown History fumarate 28 mg-folic acid 800 mcg tablet ( Multivitamins) trazodone 50 mg tablet 50 mg PO BEDTIME PRN Sleep 03/26/20 06/16/20 Unknown History clindamycin HCl 300 mg capsule 300 mg PO BID 7 days #14 caps 04/27/20 06/16/20 Unknown Rx fluticasone fur. 100 mcg-umeclid 1 inh inhalation DAILY #60 ea 01/18/21 Unknown Rx 62.5 mcg-vilant 25 mcg inhalat.powder (Trelegy Ellipta) Allergies Allergy/AdvReac Type Severity Reaction Status Date / Time No Known Allergies Allergy Verified 06/16/20 15:07 PFSH Acute 2 PFSH: Medical History Anemia Intertrochanteric fracture of right hip Hypercapnic respiratory failure UTI (urinary tract infection) End stage COPD Anemia Vitamin C deficiency Cellulitis Low TSH level Depression Edema Heart murmur Hip pain, left Hypercholesteremia Elevated serum glucose Hypoxic Macrocytosis Nasal congestion Osteoporosis Emphysema lung COPD (chronic obstructive pulmonary disease) Sciatica Seasonal allergies Shoulder pain, left Vitamin D deficiency Shoulder fracture, left Surgical History Postoperative state History of left hip replacement Hx of cataract surgery Family History Mother Cancer Breast Father Cancer Heart disease Sister Cancer Grandmother Hypertension Heart disease Aneurysm Brother Heart disease Myocardial infarct Aneurysm Family/Other Heart disease Bipolar 1 disorder Grandfather Heart disease Social History Smoking and tobacco/nicotine status: former use of tobacco/nicotine Quit status (tobacco/nicotine): has quit using Year quit tobacco: 2013 - 1.5 PPD x 60 Years Alcohol intake: never Substance/Drug Use: never Household members: none Marital status: / Number of children: 4 Current occupational status: retired Do you think of yourself as: Straight/Heterosexual Current gender identity: Female Vitals/I&O/Wt Last Vital Signs Temp 98.3 F 02/02/23 17:58 Pulse 90 02/02/23 20:14 Resp 16 02/02/23 17:58 BP 114/64 02/02/23 20:14 Pulse Ox 100 02/02/23 20:14 O2 Del Method Nasal Cannula 02/02/23 20:14 O2 Flow Rate 4 02/02/23 20:14 Weight last 48 hrs Weight 75.75 kg Physical Exam 2 Narrative: Awake and alert Clinical signs of petechiae all lower extremities Right lower extremity swollen as compared to left Gipson catheter will be placed Awake and alert Currently on 4 L S1, S2 Pleasant and cooperative GCS 15 Nonfocal neuroexam Data 02/02/23 21:11 02/02/23 21:11 A&P Assessment and plan (1) Closed fracture of distal end of femur: Qualifiers: Encounter type: initial encounter Fracture morphology: unspecified fracture morphology Laterality: right Qualified Code(s): S72.401A - Unspecified fracture of lower end of right femur, initial encounter for closed fracture (2) COPD (chronic obstructive pulmonary disease): Qualifiers: COPD type: unspecified COPD Qualified Code(s): J44.9 - Chronic obstructive pulmonary disease, unspecified (3) Leukocytosis: Plan Right distal femur fracture after sustaining a fall at home Mechanical fall No acute chest pain Chronic hypoxia requiring 4 L and uses trilogy machine at night Significant leukocytosis however I do not have any source of infection I will keep patient on vancomycin and Zosyn Patient is afebrile Does not have typical presentation of septic joint Dr. Torrez consulted Will keep her n.p.o. Request respiratory panel and UA No previous history of coronary disease, patient is stating that she has history of lower extremity swelling for which she uses Lasix and compression stockings, Patient is stating that she does not want any intubation but okay with chest compressions and defibrillation Limited resuscitation N.p.o. after midnight DVT prophylaxis SCDs Attestations 2 Medical Necessity Statement*: More than 2 midnights anticipated Diagnoses Closed fracture of distal end of femur S72.401A Encounter type: initial encounter Fracture morphology: unspecified fracture morphology Laterality: right COPD (chronic obstructive pulmonary disease) J44.9 COPD type: unspecified COPD Leukocytosis D72.829
[2023-02-02 22:04] VITALS: BP 133/77; O2SAT 93
[2023-02-02 22:08] LABS: Alanine Aminotransferase 12 U/L (0-33); Albumin Level 3.4 g/dL (3.5-5.2); Alkaline Phosphatase 95 U/L (35-105); Aspartate Amino Transferase 12 U/L (0-32); Blood Urea Nitrogen 22 mg/dL (8-23); Calcium 8.5 mg/dL (8.5-10.5); Carbon Dioxide 34 mmol/L (22-29); Chloride 104 mmol/L (98-107); Globulin 2.7 g/dL (1.3-4.6); Glucose 160 mg/dL (65-115); Osmolality Calculated 301 mOsm/kg (285-295); Sodium 142 mmol/L (136-145); Total Bilirubin 0.3 mg/dL (0.15-1.2); Total Protein 6.1 g/dL (6.6-8.7)
[2023-02-02 23:03] VITALS: BP 124/68; PULSE 94; O2SAT 91
[2023-02-02 23:03] LABS: D Dimer 7.91 ug/mLFEU (0-0.59)
[2023-02-02 23:39] VITALS: BP 155/69; PULSE 81; RESP 16; TEMP 36.7; O2SAT 92; BMI 27.9
[2023-02-03] VITALS (27 sets, daily range): BP systolic 93–142; BP diastolic 43–69; PULSE 71–110; RESP 12–28; TEMP 36.3–37.1; O2SAT 91–100
[2023-02-03 00:19] LABS: Vitamin B12 491 pg/mL (232-1245)
[2023-02-03 00:35] LABS: Add Urine Microscopic? YES; Amorphous Sediment Urine 2+ /hpf; Bacteria Urine 2+ /hpf; Bilirubin Urine Neg (Negative); Blood Urine Neg (Negative); Glucose Urine UA Norm (Normal); Ketones Urine Negative (Negative); Leukocyte Esterase Urine Negative (Negative); Mucus Urine 1+ /hpf; Nitrate Urine Positive (Negative); Protein Urine Trace (Negative); RBC Urine 0-4 /hpf (0-2); Specific Gravity, Urine 1.025 (1.005-1.030); Squamous Epithelial Cell Urine 15-25 /hpf (0-5); Urine Appearance Clear (CLEAR); Urine Color Yellow (Yellow); Urobilinogen Urine Norm (Negative); pH Urine 5 (5-7)
[2023-02-03] MEDS: HYDROcodone-acetaminophen 5-325 mg Tablet 1 TAB PO ×3 (01:07→21:44)
[2023-02-03] MEDS: sodium chloride 0.9% 1,000 ML 75 ML IV ×2 (01:09→21:44)
[2023-02-03 04:26] LABS: Adenovirus Not Detected (NOT DETECT); Chlamydia Pneumoniae Not Detected (NOT DETECT); Coronavirus 229E,HKU1,NL63,OC4 Not Detected (NOT DETECT); Human Metapneumovirus Not Detected (NOT DETECT); Human Rhinovirus/Enterovirus Not Detected (NOT DETECT); Influenza A Not Detected (NOT DETECT); Influenza A H1 Not Detected (NOT DETECT); Influenza A H1-2009 Not Detected (NOT DETECT); Influenza A H3 Not Detected (NOT DETECT); Influenza B Not Detected (NOT DETECT); Mycoplasma Pneumoniae Not Detected (NOT DETECT); Parainfluenza Virus Type 1 Not Detected (NOT DETECT); Parainfluenza Virus Type 2 Not Detected (NOT DETECT); Parainfluenza Virus Type 3 Not Detected (NOT DETECT); Parainfluenza Virus Type 4 Not Detected (NOT DETECT); Respiratory Syncytial Virus A Not Detected (NOT DETECT); Respiratory Syncytial Virus B Not Detected (NOT DETECT); SARS-COV-2 Not Detected (NOT DETECT)
[2023-02-03 05:44] LABS: Basophils # 0.1 10^3/uL (0.0-0.1); Basophils % 0.3 %; Eosinophils % 0.1 %; Hematocrit 35.6 % (36-47); Lymphocytes # 0.9 10^3/uL (0.8-4.8); Mean Corpuscular HGB Conc 29.5 g/dL (30-55); Mean Corpuscular Hemoglobin 29.2 pg (27-33); Mean Corpuscular Volume 98.9 fl (85-98); Monocytes % 6.3 %; Neutrophils # 13.31 10^3/uL (1.8-7.7); Neutrophils % 86.9 %; Nucleated Red Blood Cells % 0 %; Platelet Count 134 10^3/cmm (157-399); Red Cell Distribution Width 14.1 % (12.1-15.1); White Blood Count 15.31 10^3/uL (3.29-11.43)
[2023-02-03 06:01] LABS: Anion Gap 8.5 (5-19); Blood Urea Nitrogen 23 mg/dL (8-23); Calcium 8.2 mg/dL (8.5-10.5); Carbon Dioxide 35 mmol/L (22-29); Chloride 104 mmol/L (98-107); Glucose 137 mg/dL (65-115); Osmolality Calculated 300 mOsm/kg (285-295); Potassium 5.5 mmol/L (3.5-5.1); Sodium 142 mmol/L (136-145)
[2023-02-03] MEDS: vancomycin 1,500 MG/300 ML PIGGYBACK 150 MG IV (06:24)
[2023-02-03] MEDS: ipratropium-albuterol 3 mL Neb INHALATION ×4 (07:35→19:40)
--- NOTE | 2023-02-03 08:26 | P.PN_ITS ---
Subjective 2 Subjective: unable to see today patient in surgery Vitals/I&O/Wt Last Vital Signs Temp 98.4 F 02/03/23 03:27 Pulse 71 02/03/23 07:38 Resp 18 02/03/23 07:38 BP 97/59 02/03/23 03:27 Pulse Ox 98 02/03/23 07:38 O2 Del Method Nasal Cannula 02/03/23 07:38 O2 Flow Rate 4 02/03/23 07:38 02/02/23 02/03/23 02/03/23 22:59 06:59 14:59 Output Total 125 / 125 Balance -125 / -125 Weight last 48 hrs Weight 89.443 kg Weight 76.204 kg Weight 75.75 kg Physical Exam 2 Narrative: not examined Urinary Catheter Management: Gipson: Cath Placed During This Visit: yes Reason for Continuing Indwelling Catheter: Required Immobilization for Trauma or Surgery or Anesthesia Urinary Catheter Date of Insertion: 02/02/23 Urinary Catheter Time of Insertion: 23:42 Data 02/03/23 05:28 02/03/23 05:28 A&P Assessment and plan (1) Closed fracture of distal end of femur: Qualifiers: Encounter type: initial encounter Fracture morphology: unspecified fracture morphology Laterality: right Qualified Code(s): S72.401A - Unspecified fracture of lower end of right femur, initial encounter for closed fracture (2) COPD (chronic obstructive pulmonary disease): Qualifiers: COPD type: unspecified COPD Qualified Code(s): J44.9 - Chronic obstructive pulmonary disease, unspecified (3) Leukocytosis: Plan Right distal femur fracture after sustaining a fall at home Mechanical fall No acute chest pain Chronic hypoxia requiring 4 L and uses trilogy machine at night Significant leukocytosis however I do not have any source of infection I will keep patient on vancomycin and Zosyn Patient is afebrile Does not have typical presentation of septic joint Dr. Torrez consulted Will keep her n.p.o. Request respiratory panel and UA No previous history of coronary disease, patient is stating that she has history of lower extremity swelling for which she uses Lasix and compression stockings, Patient is stating that she does not want any intubation but okay with chest compressions and defibrillation Limited resuscitation N.p.o. after midnight DVT prophylaxis SCDs PATIENT UNABLE TO BE SEEN SINCE IN SURGERY. FOLLOW ABOVE A&P ABOVE WILL GET POST OPS LABS AFTER SURGERY Attestations 2 Medical Necessity Statement*: continue hospitalization for hip fracture management Coding Level of Care Code Acute Code for Chg Fwd Other Coding Information Focused coding review requested Diagnoses Closed fracture of distal end of femur S72.401A Encounter type: initial encounter Fracture morphology: unspecified fracture morphology Laterality: right COPD (chronic obstructive pulmonary disease) J44.9 COPD type: unspecified COPD Leukocytosis D72.829
--- NOTE | 2023-02-03 09:14 | PC.NURSE ---
Patient had Vanc and Zosyn this AM. No Cut Lace Machine Operator antibiotics per Dr Torrez.
--- NOTE | 2023-02-03 10:59 | P.ANESASSM_ITS ---
Pre-Anesthetic Assessment Height/Weight: Height 1.65 m Weight 89.443 kg Temp Pulse Resp BP Pulse Ox O2 Del Method O2 Flow Rate 97.6 F 87 16 100/43 91 Nasal Cannula 4 02/03/23 08:39 02/03/23 08:39 02/03/23 08:39 02/03/23 08:39 02/03/23 08:39 02/03/23 08:39 02/03/23 08:39 Operation Date: 02/03/23 10:30 Proposed Procedures p ORIF Femur(Right) - Dany Torrez, DO Familial anesthetic complications: none Was Beta Moe taken within 24 hours: N/A Was Clonidine taken within 24 hours: N/A Last intake: Intake Last Liquid Date 02/02/23 Last Liquid Time 22:00 Last Solid Date 02/02/23 Last Solid Time 15:00 Social Tobacco and No alcohol Exam alert, oriented x 3 and regular rate & rhythm Airway Submandibular: within normal limits Cervical ROM: within normal limits Mallampati: Class II Dentition: false Pulmonary Chronic Obstructive Pulmonary Disease Home O2 6L Metabolic Morbid Obesity Chronic steroids Musc/skel Lower Back Pain and Osteoarthritis/DJD Anesthetic Plan ASA status: 3 Anesthesia: Regional (specify below) (SAB) Medications/Allergies Home Medications Medication Instructions Recorded Confirmed Last Taken Type albuterol sulfate 90 mcg/actuation 2 puff inhalation QID PRN 02/13/19 02/03/23 Unknown History aerosol inhaler (Ventolin HFA) Shortness Of Breath ipratropium 0.5 mg-albuterol 3 mg 3 ml inhalation Q4H PRN Shortness 02/13/19 02/03/23 Unknown History (2.5 mg base)/3 mL nebulization Of Breath soln meloxicam 15 mg tablet 15 mg PO QAM 02/13/19 02/03/23 Unknown History naproxen sodium 220 mg tablet 440 mg PO PRN 03/26/20 02/03/23 Unknown History (Aleve) vit no.95-ferrous 1 tab PO QAM 03/26/20 02/03/23 Unknown History fumarate 28 mg-folic acid 800 mcg tablet ( Multivitamins) fluticasone fur. 100 mcg-umeclid 1 inh inhalation DAILY #60 ea 01/18/21 02/03/23 Unknown Rx 62.5 mcg-vilant 25 mcg inhalat.powder (Trelegy Ellipta) prednisone 10 mg tablet 10 mg PO DAILY PRN swelling 02/03/23 02/03/23 Unknown History Allergies Allergy/AdvReac Type Severity Reaction Status Date / Time No Known Allergies Allergy Verified 02/03/23 08:55 Current Medications Generic Name Dose Route Start Last Admin Trade Name Freq PRN Reason Stop Dose Admin Hydrocodone Bitart/Acetaminophen 1 tab 02/02/23 23:37 02/03/23 01:07 Hydrocodone-Acetaminophen 5-325 Mg Tablet PO 1 tab QID PRN Administration Pain Albuterol/Ipratropium 3 ml 02/02/23 23:37 02/03/23 07:35 Ipratropium-Albuterol 3 Ml Neb INHALATION 3 ml Q6H PRN Administration SHORTNESS OF BREATH Sodium Chloride 1,000 mls @ 75 mls/hr 02/02/23 23:37 02/03/23 08:39 Sodium Chloride 0.9% IV 0 mls/hr .[id number] JOVANNA Infusion PFSH Anesthesia Medical History Anemia Intertrochanteric fracture of right hip Hypercapnic respiratory failure UTI (urinary tract infection) End stage COPD Anemia Vitamin C deficiency Cellulitis Low TSH level Depression Edema Heart murmur Hip pain, left Hypercholesteremia Elevated serum glucose Hypoxic Macrocytosis Nasal congestion Osteoporosis Emphysema lung COPD (chronic obstructive pulmonary disease) Sciatica Seasonal allergies Shoulder pain, left Vitamin D deficiency Shoulder fracture, left Surgical History Postoperative state History of left hip replacement Hx of cataract surgery Family History Mother Cancer Breast Father Cancer Heart disease Sister Cancer Grandmother Hypertension Heart disease Aneurysm Brother Heart disease Myocardial infarct Aneurysm Family/Other Heart disease Bipolar 1 disorder Grandfather Heart disease Social History Smoking and tobacco/nicotine status: former use of tobacco/nicotine Quit status (tobacco/nicotine): has quit using Year quit tobacco: 2013 - 1.5 PPD x 60 Years Alcohol intake: never Substance/Drug Use: never Household members: none Marital status: / Number of children: 4 Current occupational status: retired Do you think of yourself as: Straight/Heterosexual Current gender identity: Female Data Anesthesia 02/03/23 05:28 02/03/23 05:28 Short CBC 02/02/23 02/03/23 Range/Units 21:11 05:28 WBC 21.19 H 15.31 H (3.29-11.43) 10^3/uL Hgb 12.40 10.50 L (11.27-16.99) g/dL Hct 41.7 35.6 L (36-47) % MCV 98.8 H 98.9 H (85-98) fl Plt Count 148 L 134 L (157-399) 10^3/cmm Neut % (Auto) 91.7 86.9 % Neut # (Auto) 19.42 H 13.31 H (1.8-7.7) 10^3/uL BMP 02/02/23 02/03/23 21:11 05:28 Sodium 142 142 Potassium 5.0 5.5 H Chloride 104 104 Carbon Dioxide 34 H 35 H BUN 22 23 Creatinine 1.0 H 1.1 H Glucose 160 H 137 H Calcium 8.5 8.2 L Liver Function 02/02/23 Range/Units 21:11 Total Bilirubin 0.3 (0.15-1.2) mg/dL AST 12 (0-32) U/L ALT 12 (0-33) U/L Alkaline Phosphatase 95 (35-105) U/L Albumin 3.4 L (3.5-5.2) g/dL Urine 02/03/23 Range/Units 00:11 Urine Color Yellow (Yellow) Urine Appearance Clear (CLEAR) Urine pH 5 (5-7) Ur Specific Easley 1.025 (1.005-1.030) Urine Protein Trace (Negative) Urine Glucose (UA) Norm (Normal) Urine Ketones Negative (Negative) Urine Nitrate Positive H (Negative) Urine Bilirubin Neg (Negative) Ur Leukocyte Esterase Negative (Negative) Urine RBC 0-4 H (0-2) /hpf Urine WBC 10-15 H (0-5) /hpf COVID Results 02/03/23 00:21 Coronavirus 229E (PCR) Not detected SARS-CoV-2 (PCR) Not detected Coags 02/02/23 21:11 D-Dimer 7.91 H Cardiac Studies: 2 No Data to Display
--- NOTE | 2023-02-03 11:38 | PM.OP ---
Operative Report Date of procedure: February 03, 2023 Pre-op diagnosis: Right distal femur periprosthetic femur fracture. Post-op diagnosis: same Procedure done: Open reduction internal fixation of right periprosthetic distal femur fracture. Surgeon: Dany Torrez DO Estimated blood loss (mL): 200 Procedure: Open reduction internal fixation of right distal femur fracture periprosthetic around a femoral nail Patient brought the operative suite after undergoing anesthesia was placed in the supine position. All areas impingement well-padded. Patient's prepped and draped in a sterile fashion. Skin incision made along the lateral thigh. The IT band was split vastus lateralis muscle was elevated anteriorly. Fracture was identified. Reduced a Joseph distal femur plate was then slid up submuscularly. The plate was then screwed to the bone distally. And then a cable was placed around the distal end of the fracture around the plate. To help reduce and hold the plate and fracture. Once this was done AP lateral fluoroscopy ensured the plate and fracture were in good position. 4 locking screws were then placed distally. Then 2 more cables were placed proximally and 3 more locking screws were placed proximally. AP lateral fluoroscopy ensured that fracture and hardware in good position. Wounds were irrigated and closed in a layered fashion with #1 Vicryl 2-0 Vicryl and johnson. Sterile dressings were applied there was a drain placed as well. Sterile dressings were applied and patient was transferred to the PACU in stable condition.
--- NOTE | 2023-02-03 12:08 | ANE.PACU2 ---
Inpatient post-anesthesia follow up: Airway intact: Yes Vital signs: Temperature 97.6 F Pulse Rate 87 Respiratory Rate 16 Blood Pressure 100/43 Pulse Oximetry 91 Oxygen Delivery Me thod Nasal Cannula Oxygen Flow Rate 4 Fraction of Inspir ed Oxygen Hydration adequate: Yes Nausea and vomiting: No Pain level: 2 Mental status: Baseline
[2023-02-03] MEDS: fentaNYL 50 mcg/mL INJ 2mL IVP (12:19)
[2023-02-03] MEDS: fentaNYL 50 mcg/mL INJ 2mL 100 MCG IVP (12:55)
[2023-02-03] MEDS: ceFAZolin 2,000 MG in sodium chloride 0.9% (plus) 50 ML 100 MG IV ×2 (14:39→21:43)
[2023-02-03 15:31] LABS: Basophils # 0.1 10^3/uL (0.0-0.1); Basophils % 0.3 %; Eosinophils % 0.1 %; Hematocrit 32.5 % (36-47); Lymphocytes # 0.5 10^3/uL (0.8-4.8); Lymphocytes % 2.9 %; Mean Corpuscular HGB Conc 29.2 g/dL (30-55); Mean Corpuscular Hemoglobin 29.6 pg (27-33); Mean Corpuscular Volume 101.2 fl (85-98); Monocytes # 1.1 10^3/uL (0.2-0.9); Monocytes % 6.7 %; Neutrophils # 14.03 10^3/uL (1.8-7.7); Neutrophils % 89.6 %; Nucleated Red Blood Cells % 0 %; Platelet Count 118 10^3/cmm (157-399); Red Blood Count 3.21 10^6/uL (3.85-5.65); Red Cell Distribution Width 14.3 % (12.1-15.1); White Blood Count 15.66 10^3/uL (3.29-11.43)
[2023-02-03 15:48] LABS: Anion Gap 8.8 (5-19); Blood Urea Nitrogen 22 mg/dL (8-23); Calcium 8.2 mg/dL (8.5-10.5); Carbon Dioxide 31 mmol/L (22-29); Chloride 105 mmol/L (98-107); Glucose 115 mg/dL (65-115); Osmolality Calculated 294 mOsm/kg (285-295); Potassium 4.8 mmol/L (3.5-5.1); Sodium 140 mmol/L (136-145)
--- NOTE | 2023-02-03 21:25 | XR_ITS ---
WS: [id number] INTRAOPERATIVE TECHNIQUE: 7 Spot fluoroscopic images for intraoperative purposes. FLUOROSCOPY TIME: 80.8 seconds CLINICAL INFORMATION: OR PICS COMPARISON: None. FINDINGS: Intraoperative plate and screw fixation distal femur. Hardware appears in good position. IMPRESSION: Images obtained for intraoperative purposes.
[2023-02-04] VITALS (10 sets, daily range): BP systolic 105–131; BP diastolic 51–66; PULSE 76–96; RESP 18–22; TEMP 36.6–37; O2SAT 90–96; BMI 33.8
[2023-02-04] MEDS: ceFAZolin 2,000 MG in sodium chloride 0.9% (plus) 50 ML 100 MG IV (05:54)
[2023-02-04] MEDS: HYDROcodone-acetaminophen 5-325 mg Tablet 1 TAB PO (05:55)
[2023-02-04] MEDS: ipratropium-albuterol 3 mL Neb INHALATION ×2 (06:08→21:38)
[2023-02-04] MEDS: vancomycin 1,000 MG in sodium chloride 0.9% 250 ML 250 MG IV (07:38)
--- NOTE | 2023-02-04 10:21 | P.PN_ITS ---
Subjective 2 Subjective: Pain control patient is sitting up in bed eating breakfast. Vitals/I&O/Wt Last Vital Signs Temp 98.1 F 02/04/23 07:43 Pulse 85 02/04/23 08:00 Resp 20 H 02/04/23 08:00 BP 117/51 02/04/23 07:43 Pulse Ox 95 02/04/23 08:00 O2 Del Method Nasal Cannula 02/04/23 08:00 O2 Flow Rate 4 02/04/23 08:00 02/03/23 02/04/23 02/04/23 22:59 06:59 14:59 Intake Total 827.5 / 1740.0 590 / 590 Output Total 415 / 825 570 / 1395 Balance 412.5 / 915.0 -570 / 345.0 590 / 590 Weight last 48 hrs Weight 203 lb 6.4 oz Weight 197 lb 3 oz Weight 168 lb Weight 167 lb Physical Exam 2 Narrative: Drain had 80 elevated at this point going to leave the drain in for 1 more day and DC drain tomorrow. Urinary Catheter Management: Gipson: Cath Placed During This Visit: yes Reason for Continuing Indwelling Catheter: Other Urinary Catheter Date of Insertion: 02/02/23 Urinary Catheter Time of Insertion: 23:42 Data 02/03/23 15:07 02/03/23 15:07 A&P Assessment and plan (1) Closed fracture of distal end of femur: Postop day #1 right distal femur ORIF. Up with physical therapy toe-touch weightbearing Keep drain in for 1 more day Qualifiers: Encounter type: initial encounter Fracture morphology: unspecified fracture morphology Laterality: right Qualified Code(s): S72.401A - Unspecified fracture of lower end of right femur, initial encounter for closed fracture Attestations 2 Medical Necessity Statement*: Per primary service Coding Level of Care Code Acute Code for Chg Fwd Diagnoses Closed fracture of distal end of femur S72.401A Encounter type: initial encounter Fracture morphology: unspecified fracture morphology Laterality: right
[2023-02-04] MEDS: ondansetron 2 mg/ML SDV 2 mL 4 MG IVP (11:15)
[2023-02-04] MEDS: enoxaparin 40 mg/0.4 mL Syringe SUBCUT (11:16)
[2023-02-04] MEDS: piperacillin-tazobactam 3.375 GM in sodium chloride 0.9% (plus) 50 ML IV ×2 (12:18→20:56)
[2023-02-04] MEDS: sodium chloride 0.9% 1,000 ML 75 ML IV (12:19)
[2023-02-04] MEDS: acetaminophen 500 mg Tablet PO (13:41)
--- NOTE | 2023-02-04 15:07 | P.PN_ITS ---
Subjective 2 Subjective: seen this am reports nausea still had drain in place Vitals/I&O/Wt Last Vital Signs Temp 97.8 F 02/04/23 12:00 Pulse 84 02/04/23 12:00 Resp 20 H 02/04/23 12:00 BP 131/63 02/04/23 12:00 Pulse Ox 96 02/04/23 12:00 O2 Del Method Nasal Cannula 02/04/23 12:00 O2 Flow Rate 4 02/04/23 08:00 02/04/23 02/04/23 02/04/23 06:59 14:59 22:59 Intake Total 1830 / 1830 Output Total 570 / 1395 Balance -570 / 345.0 1830 / 1830 Weight last 48 hrs Weight 92.261 kg Weight 89.443 kg Weight 76.204 kg Weight 75.75 kg Physical Exam 2 Narrative: Awake and alert Gipson catheter will be placed Awake and alert Currently on 4 L S1, S2 Pleasant and cooperative GCS 15 Nonfocal neuroexam Urinary Catheter Management: Gipson: Cath Placed During This Visit: yes Reason for Continuing Indwelling Catheter: Other Urinary Catheter Date of Insertion: 02/02/23 Urinary Catheter Time of Insertion: 23:42 Data 02/03/23 15:07 02/03/23 15:07 A&P Assessment and plan (1) Closed fracture of distal end of femur: Qualifiers: Encounter type: initial encounter Fracture morphology: unspecified fracture morphology Laterality: right Qualified Code(s): S72.401A - Unspecified fracture of lower end of right femur, initial encounter for closed fracture (2) COPD (chronic obstructive pulmonary disease): Qualifiers: COPD type: unspecified COPD Qualified Code(s): J44.9 - Chronic obstructive pulmonary disease, unspecified (3) Leukocytosis: Plan Right distal femur fracture after sustaining a fall at home Mechanical fall No acute chest pain Chronic hypoxia requiring 4 L and uses trilogy machine at night - stable Significant leukocytosis however I do not have any source of infection, could be reactive, continue on vancomycin and Zosyn Patient is afebrile Does not have typical presentation of septic joint s/p surgery post op day 1 Request respiratory panel and UA No previous history of coronary disease, patient is stating that she has history of lower extremity swelling for which she uses Lasix and compression stockings, Patient is stating that she does not want any intubation but okay with chest compressions and defibrillation Limited resuscitation cardiac diet DVT prophylaxis SCDs Attestations 2 Medical Necessity Statement*: post op management hip fracture Diagnoses Closed fracture of distal end of femur S72.401A Encounter type: initial encounter Fracture morphology: unspecified fracture morphology Laterality: right COPD (chronic obstructive pulmonary disease) J44.9 COPD type: unspecified COPD Leukocytosis D72.829
[2023-02-05] VITALS (56 sets, daily range): BP systolic 96–182; BP diastolic 43–94; PULSE 71–98; RESP 8–25; TEMP 35.9–37.1; O2SAT 85–100; BMI 34.6
[2023-02-05] MEDS: sodium chloride 0.9% 1,000 ML 75 ML IV (00:48)
[2023-02-05 04:00] LABS: Basophils # 0.1 10^3/uL (0.0-0.1); Basophils % 0.4 %; Eosinophils # 0.2 10^3/uL (0.0-0.8); Eosinophils % 1.5 %; Hematocrit 30.9 % (36-47); Lymphocytes # 0.7 10^3/uL (0.8-4.8); Lymphocytes % 5.2 %; Mean Corpuscular HGB Conc 28.2 g/dL (30-55); Mean Corpuscular Hemoglobin 29.3 pg (27-33); Mean Platelet Volume 10.9 fL (7.4-10.4); Monocytes # 1.2 10^3/uL (0.2-0.9); Monocytes % 8.5 %; Neutrophils # 11.72 10^3/uL (1.8-7.7); Neutrophils % 83.6 %; Nucleated Red Blood Cells % 0 %; Platelet Count 125 10^3/cmm (157-399); Red Blood Count 2.97 10^6/uL (3.85-5.65); Red Cell Distribution Width 14.6 % (12.1-15.1); White Blood Count 14.02 10^3/uL (3.29-11.43)
[2023-02-05 04:27] LABS: Anion Gap 6.8 (5-19); Blood Urea Nitrogen 24 mg/dL (8-23); Calcium 8.3 mg/dL (8.5-10.5); Carbon Dioxide 31 mmol/L (22-29); Chloride 108 mmol/L (98-107); Glucose 157 mg/dL (65-115); Osmolality Calculated 299 mOsm/kg (285-295); Potassium 4.8 mmol/L (3.5-5.1); Sodium 141 mmol/L (136-145)
[2023-02-05] MEDS: piperacillin-tazobactam 3.375 GM in sodium chloride 0.9% (plus) 50 ML IV ×3 (04:49→18:05)
[2023-02-05] MEDS: ipratropium-albuterol 3 mL Neb INHALATION ×4 (06:17→20:00)
[2023-02-05] MEDS: HYDROcodone-acetaminophen 5-325 mg Tablet 1 TAB PO (06:36)
[2023-02-05] MEDS: vancomycin 1,000 MG in sodium chloride 0.9% 250 ML 250 MG IV (06:36)
--- NOTE | 2023-02-05 10:19 | XRR_ITS ---
PROCEDURE INFORMATION: Exam: XR Chest Exam date and time: 02/05/2023 11:28 AM Age: 82 years old Clinical indication: Shortness of breath; Prior surgery; Surgery date: Post-operative (0-2 days); Surgery type: Femur; Additional info: Low o2 TECHNIQUE: Imaging protocol: Radiologic exam of the chest. Views: 1 view. COMPARISON: CR (CHEST, ) 02/02/2023 9:04 PM FINDINGS: Lungs: Increasing bilateral ground-glass airspace consolidation concerning for possible pneumonia. Pleural spaces: No pneumothorax. No pleural effusion. Heart/Mediastinum: The cardiomediastinal silhouette is within normal limits. Bones/joints: Unremarkable. XR/XR chest 1V portable [id number] IMPRESSION: Increasing bilateral ground-glass airspace consolidation concerning for possible pneumonia.
[2023-02-05 10:25] LABS: Arterial Blood Gas Hematocrit 29.8 % (37-47); Base Excess ABG -0.7 mmol/L (-2.0-2.0); Blood Gas Allen Test Pos; Blood Gas Operator Identificat BROMA; Blood Gas Sample Site Radial, right; Blood Gas Sample Type Arterial; HGB O2 Sat 76.1 % (95-100); Ionized Calcium Level - ABG 1.3 mmol/L (1.1-1.4); Methemoglobin 0.2 % (0.4-1.5); Oxygen Saturation ABG 78.6; PO2 ABG 44.9 mmHg (80.0-100.0); Total Hemoglobin 9.7 g/dL (12-16)
[2023-02-05 10:26] LABS: ABG PH Result 7.08 (7.35-7.45)
--- NOTE | 2023-02-05 10:36 | PM.CCNAC ---
Critical Care Event Note The high probability of a clinically significant, sudden or life threatening deterioration of the patient's [] system(s) required my full and direct attention, intervention and personal management. The critical care time is as shown. This time is in addition to time spent performing any reported procedures but includes the following: [x] Data and vital sign review and interpretation [x] Patient assessment, examination and intervention [x] Documentation [x] Medication orders and management Critical Care Time Code activated: No Critical Care Time (min): 35 Additional information about critical care time: Patient was seen this morning, patient would awaken, to sternal rub but falls back asleep, she was on her home trilogy machine, blood sugar within normal limits, O2 sats in the mid 70s to 80s, she had good respiratory effort, no evidence of respiratory distress, no nasal flaring no intercostal retractions, she had good capillary refill, blood pressures have been normotensive, I advised respiratory therapy to order stat ABG, keep we could not change the settings on her trilogy so I ordered a BiPAP stat, reviewed ABG, patient is in respiratory acidosis, hypercarbic respiratory failure, advised to place on BiPAP, moved down to ICU, hold fluids for now, moved out of ICU, spoke to Dr. PANIAGUA about the case Coding Level of Care Code Critical Care
--- NOTE | 2023-02-05 10:41 | PC.NURSE ---
Patient's son came to nurses station and stated his mother was not responding. This nurse went to room, and called patient care nurse. Vitals obtained. O2 sats 68%. Patient was placed from [facility] back to home trilogy machine. Stat blood gas obtained. CO2 105. Patient placed on bipap at 100% FiO2. Patient transferring to ICU 10.
[2023-02-05 10:55] LABS: NT Pro B Type Natriuretic Pept 2368 pg/mL (0-450)
--- NOTE | 2023-02-05 11:05 | XRR_ITS ---
PROCEDURE INFORMATION: Exam: XR Abdomen Exam date and time: 02/05/2023 12:31 PM Age: 82 years old Clinical indication: Bloating; Additional info: Abd distention TECHNIQUE: Imaging protocol: Radiologic exam of the abdomen. Views: Frontal supine view of the abdomen. 1 View. COMPARISON: CR (CHEST, ) 02/05/2023 11:28 AM FINDINGS: Gastrointestinal tract: Prominent gaseous distention of the stomach. No abnormally dilated air-filled small or large bowel loops identified. Fecal material noted within the colon. The pelvis is not included in the field of view. Bones/joints: Left total hip arthroplasty noted. Proximal right femoral fixation hardware noted. XR/XR KUB portable [id number] IMPRESSION: Nonobstructive bowel gas pattern.
[2023-02-05] MEDS: enoxaparin 40 mg/0.4 mL Syringe SUBCUT (11:17)
--- NOTE | 2023-02-05 11:17 | P.PN_ITS ---
Subjective 2 Subjective: Patient transferred to the ICU patient has excessive CO2. Currently on BiPAP treating this. Vitals/I&O/Wt Last Vital Signs Temp 98.7 F 02/05/23 07:13 Pulse 73 02/05/23 11:08 Resp 18 02/05/23 07:13 BP 144/74 02/05/23 07:13 Pulse Ox 98 02/05/23 11:08 O2 Del Method Nasal Cannula 02/05/23 07:13 O2 Flow Rate 4 02/05/23 06:19 FiO2 36 02/05/23 11:08 02/04/23 02/05/23 02/05/23 22:59 06:59 14:59 Intake Total 1879 1249.583 / 3129.583 250 / 250 Output Total 410 / 435 Balance 1854 839.583 / 2694.583 250 / 250 Weight last 48 hrs Weight 208 lb 4 oz Weight 203 lb 6.4 oz Physical Exam 2 Narrative: Drain with minimal output will DC drain. Urinary Catheter Management: Gipson: Cath Placed During This Visit: yes Reason for Continuing Indwelling Catheter: Other Urinary Catheter Date of Insertion: 02/02/23 Urinary Catheter Time of Insertion: 23:42 Data 02/05/23 03:10 02/05/23 03:10 A&P Assessment and plan (1) Closed fracture of distal end of femur: Postop day #2 right femur ORIF Up with therapy once CO2 corrected DVT prophylaxis with Lovenox Qualifiers: Encounter type: initial encounter Fracture morphology: unspecified fracture morphology Laterality: right Qualified Code(s): S72.401A - Unspecified fracture of lower end of right femur, initial encounter for closed fracture Attestations 2 Medical Necessity Statement*: Per primary service Coding Level of Care Code Acute Code for Chg Fwd Diagnoses Closed fracture of distal end of femur S72.401A Encounter type: initial encounter Fracture morphology: unspecified fracture morphology Laterality: right
--- NOTE | 2023-02-05 11:28 | PC.NURSE ---
Patient arrive to ICU room 10 via bed on bipap. Belongings placed at bedside, family noted to be in waiting room at this time. This nurse, RT, and Dr. Mesa noted to be at bedside. See documented vitals and BiPap settings.
[2023-02-05 11:49] LABS: Glucose Point of Care 154 mg/dL (70-110)
--- NOTE | 2023-02-05 12:46 | USCV_ITS ---
Yulissa Goddard Age: 82 Gender: F : 1940 Exam Date: 02/05/2023 17:11 Ordering Phys: Cara Mesa MD Technologist: Sammie Lni Exam Location: [facility] [place] Indication: elevated BNP COPD BP: 147 / 8 HR: 87 Rhythm: Sinus Technical Quality: Adequate MEASUREMENTS (Male / Female) Normal Values 2D ECHO LV Diastolic Diameter PLAX 3.4 cm 4.2 - 5.9 / 3.9 - 5.3 cm LV Systolic Diameter PLAX 2.4 cm LV Chamber Size 3.1 cm IVS Diastolic Thickness 1.0 cm 0.6 - 1.0 / 0.6 - 0.9 cm IVS Systolic Thickness 1.4 cm LVPW Diastolic Thickness 1.9 cm 0.6 - 1.0 / 0.6 - 0.9 cm LVPW Systolic Thickness 1.8 cm RV Chamber Size 3.4 cm LVOT Diameter 2.0 cm LV Ejection Fraction 2D Teich 57.9 % LV Ejection Fraction MOD 2C 56.7 % LV Ejection Fraction 2C AL 60.1 % LA Diameter 3.4 cm LA Width 1.9 cm LA Height 5.2 cm RA Width 3.3 cm RA Height 4.4 cm Aorta at Sinotubular Diameter 3.3 cm IVC Diameter 2.5 cm M-MODE Aortic Annulus Diameter 1.6 cm LA Ao Ratio MM 1.6 MV E Point Septal Separation 1.1 cm DOPPLER AV Peak Velocity 209.0 cm/s LVOT Peak Velocity 145.0 cm/s AV Area Cont Eq vti 2.5 cm squared AV Area Cont Eq pk 2.2 cm squared MV Area PHT 3.4 cm squared Mitral E to A Ratio 0.8 MV E' Velocity 70.0 cm/s Mitral E to MV E' Ratio 8.7 Mitral E to LV E' Lateral Ratio 9.0 Mitral E to LV E' Septal Ratio 8.5 TR Peak Velocity 272.9 cm/s TR Peak Gradient 29.8 mmHg TR Mean Velocity 247.6 cm/s TR Mean Gradient 25.4 mmHg TR Velocity Time Integral 84.3 cm TV Peak E Velocity 62.0 cm/s Right Atrial Pressure 15.0 mmHg Pulmonary Artery Systolic Pressu 44.8 mmHg RV Acceleration Time 0.1 s RV Ejection Time 0.3 s RV AcT/ET 0.3 FINDINGS Left Ventricle Normal left ventricular size and systolic function, EF 60 %. Grade I/IV diastolic dysfunction (abnormal relaxation filling pattern), normal to mildly elevated filling pressures. No regional wall motion abnormalities. Right Ventricle Normal right ventricular size and systolic function. Right Atrium Right atrium not well visualized. Left Atrium Normal left atrial size. Mitral Valve No gross abnormalities noted Aortic Valve The leaflets could not be visualized well. No gross abnormalities noted. Tricuspid Valve Mild tricuspid valve regurgitation. Pulmonic Valve Pulmonic valve not well visualized. Pericardium No significant effusion Aorta Normal aortic annulus size. IVC Dilated IVC with normal respiratory variation. CONCLUSIONS Normal left ventricular size and systolic function, EF 60 %. Grade I/IV diastolic dysfunction (abnormal relaxation filling pattern), normal to mildly elevated filling pressures. No regional wall motion abnormalities. Possibly normal cardiac chamber sizes. No significant stenotic or valvular or regurgitant lesions. There is no pericardial effusion. There are no intracardiac masses. Compared to the study from 12/09/2018, there may not be a significant change Dr Caleb Britt MD FACC (Electronically Signed) Final Date: 06 February 2023 18:07 S
[2023-02-05 13:08] LABS: Alveolar-Arterial Oxygen Gradi 15.1 mmHg (5-10); Arterial Blood Gas Hematocrit 25.6 % (37-47); Base Excess ABG 0.7 mmol/L (-2.0-2.0); Blood Gas Allen Test Pos; Blood Gas Operator Identificat CAK; Blood Gas Sample Site Radial, left; Blood Gas Sample Type Arterial; Carboxyhemoglobin 2.9 %THgb (0.4-20.1); HCO3 ABG 30.2 mmol/L (22-26); HGB O2 Sat 92.8 % (95-100); Ionized Calcium Level - ABG 1.3 mmol/L (1.1-1.4); Methemoglobin < 0.0 % (0.4-1.5); Oxygen Device BIPAP; Oxygen Saturation ABG 95.2; PO2 ABG 68.1 mmHg (80.0-100.0); PO2 FiO2 Ratio Arterial Blood 0; Potassium Level - ABG 4.9 mmol/L (3.5-5.0); Total Hemoglobin 8.3 g/dL (12-16)
[2023-02-05 13:09] LABS: ABG PH Result 7.16 (7.35-7.45)
--- NOTE | 2023-02-05 14:15 | P.PN_ITS ---
Vitals/I&O/Wt Last Vital Signs Temp 98.7 F 02/05/23 07:13 Pulse 71 02/05/23 13:30 Resp 20 H 02/05/23 13:30 BP 108/48 02/05/23 13:30 Pulse Ox 100 02/05/23 13:30 O2 Del Method Nasal Cannula 02/05/23 07:13 O2 Flow Rate 4 02/05/23 06:19 FiO2 40 02/05/23 11:08 02/04/23 02/05/23 02/05/23 22:59 06:59 14:59 Intake Total 1879 1249.583 / 3129.583 250 / 250 Output Total 410 / 435 Balance 1854 839.583 / 2694.583 250 / 250 Weight last 48 hrs Weight 94.461 kg Weight 92.261 kg Physical Exam 2 Narrative: Awake and alert Gipson catheter will be placed Awake and alert Currently on 4 L S1, S2 Pleasant and cooperative GCS 15 Nonfocal neuroexam Urinary Catheter Management: Gipson: Cath Placed During This Visit: yes Reason for Continuing Indwelling Catheter: Other Urinary Catheter Date of Insertion: 02/02/23 Urinary Catheter Time of Insertion: 23:42 Data 02/05/23 03:10 02/05/23 03:10 A&P Assessment and plan (1) Closed fracture of distal end of femur: Qualifiers: Encounter type: initial encounter Fracture morphology: unspecified fracture morphology Laterality: right Qualified Code(s): S72.401A - Unspecified fracture of lower end of right femur, initial encounter for closed fracture (2) COPD (chronic obstructive pulmonary disease): Qualifiers: COPD type: unspecified COPD Qualified Code(s): J44.9 - Chronic obstructive pulmonary disease, unspecified (3) Leukocytosis: Plan #Acute on chronic hypercarbic respiratory failure, CO2 narcosis #Bilateral pneumonia #Right distal femur fracture after sustaining a fall at home status post surgery postop day 2 #Mechanical fall #History of COPD #History of smoking #Severe emphysema, on Trelegy at home ? Patient is postop day 2 ORIF distal femur fracture. Drain to be removed today ? Patient uses trilogy at nighttime. At baseline she is on 4 L nasal cannula. ? ABG obtained shows CO2 narcosis. . Patient placed on AVAPS and transferred to ICU ? Continue on AVAPS at this time. ? Repeat chest x-ray, obtain KUB. Bilateral groundglass opacities on chest x- ray. ? Continue to cover with vancomycin and Zosyn. Leukocytosis significant on admission as well. ? Respiratory panel ordered. ? Check echo. Rule out heart failure. Patient did tell admitting physician that she uses Lasix and compression stockings for her lower extremity swelling. ? Patient stated she does not want any intubation and family says the same. Patient is not to be intubated. She will be limited resuscitation. Okay with CPR however. I will change this in the computer to reflect these wishes. ? Check sputum culture Gram stain, strep, Legionella antigens ? DuoNeb every 6 hours scheduled ? Will keep oxygen saturation between 88-92 ? Check blood cultures ? Check urine cultures ? Solu-Medrol 40 twice daily IV - Check CTA chest to r/o PE - Recheck BMP 6 pm Limited resuscitation DVT prophylaxis: Lovenox 40 twice daily Attestations 2 Medical Necessity Statement*: post op management hip fracture, CO2 narcosis Critical Care Time: The high probability of a clinically significant, sudden or life threatening deterioration of the patient's [respiratory] system(s) required my full and direct attention, intervention and personal management. The critical care time is as shown. This time is in addition to time spent performing any reported procedures but includes the following: [x] Data and vital sign review and interpretation [x] Patient assessment, examination and intervention [x] Documentation [x] Medication orders and management Critical Care Time (min): 50 Coding Level of Care Code Acute Code for [facility] Diagnoses Closed fracture of distal end of femur S72.401A Encounter type: initial encounter Fracture morphology: unspecified fracture morphology Laterality: right COPD (chronic obstructive pulmonary disease) J44.9 COPD type: unspecified COPD Leukocytosis D72.829
--- NOTE | 2023-02-05 14:25 | CTR_ITS ---
PROCEDURE INFORMATION: Exam: CTA Chest With Contrast Exam date and time: 02/05/2023 4:33 PM Age: 82 years old Clinical indication: Condition or disease; Lung condition and disease; Pneumonia; Additional info: R/O pe, pneumonia. TECHNIQUE: Imaging protocol: Computed tomographic angiography of the chest with contrast. Exam focused on the arteries. 3D rendering (Not supervised by radiologist): MIP and/or 3D reconstructed images were created by the technologist. Radiation optimization: All CT scans at this facility use at least one of these dose optimization techniques: automated exposure control; mA and/or kV adjustment per patient size (includes targeted exams where dose is matched to clinical indication); or iterative reconstruction. Contrast material: OMNI 350; Contrast volume: 78 ml; Contrast route: INTRAVENOUS (IV); REPORTING DATA: Count of CT and Cardiac NM exams in prior 12 months: This patient has received [address] and 0 known cardiac nuclear medicine studies in the 12 months prior to the current study. COMPARISON: CR (CHEST, ) 02/05/2023 11:28 AM RADIATION DOSE METRICS: Total DLP (mGy-cm): 221.24 FINDINGS: Limitations: Study somewhat limited due to streak artifact created by the patient being scanned with the arms at the sides. Pulmonary arteries: There is no evidence of filling defects within the pulmonary arterial circulation to suggest pulmonary embolism. Aorta: There is atherosclerotic calcification of the aortic arch and descending thoracic aorta. There is no thoracic aortic aneurysm or dissection. Lungs: There is moderate centrilobular emphysema especially in the apical regions. There is dependent atelectasis in both lower lobes. There is some subsegmental atelectasis in the posterior lingula. There is a 10 mm sized slightly lobulated solid noncalcified nodule right lower lobe on image number 266 of series 6.For both low risk and high risk patients, consider CT Chest at 3 months, PET/CT, or biopsy. (Reference: Fidelhon). There is spiculated nodule posterior right upper lobe on image number 193 without calcification. The suspicious is worrisome for malignancy. Consider non-emergent PET/CT, or tissue sampling.(Reference: Fidelhon) Pleural spaces: There are small bilateral pleural effusions. Heart: The heart is moderately enlarged. Lymph nodes: There is no evidence of lymphadenopathy. Kidneys and ureters: There is a 3.5 cm sized solid-appearing mass arising from the anterior aspect of the mid left kidney only half included on this examination. For further evaluation recommend non-emergent MRI without and with contrast or non-emergent CT without and with contrast. Bones/joints: There is moderate osteoporotic wedging compression of T6 and T9 of uncertain age, likely chronic. There is also mild osteoporotic compression of T3 also chronic in appearance. There is no evidence of acute fracture. Soft tissues: Unremarkable. CT/CT angio chest PE protcl [id number] IMPRESSION: 1. No evidence of pulmonary embolism. 2. Bilateral pleural effusions 3. Bilateral lower lobe atelectasis 4. Centrilobular emphysema in the apical regions 5. Right upper lobe pulmonary nodule worrisome for malignancy, further evaluation such as with PET-CT scan or biopsy recommended 6. Solid right lower lobe pulmonary nodule of uncertain significance. Further evaluation with short-term follow-up, PET-CT scan or biopsy. 7. Findings worrisome for solid left kidney mass. Malignancy not excluded. Further evaluation as described above. COMMENTS: Consistent with the [employer]'s Incidental Findings Committee white paper (J Am Jadiel Radiol 2018): Any incidental renal lesion less than 1 cm or classified as too small to characterize, or any incidental cystic renal lesion characterized as simple-appearing, is likely benign. No follow-up imaging is recommended for these lesions per consensus recommendations based on imaging criteria. REFERENCES: 1. Fidelhosamuel H, et al. Guidelines for Management of Incidental Pulmonary Nodules Detected on CT Images: From the Fleischner Society 2017. Radiology. 2017;284(1):228-243. 2. MacDrewhon H, et al. Guidelines for Management of Incidental Pulmonary Nodules Detected on CT Images: From the Fleischner Society 2017. Radiology. 2017;284(1):228-243.
[2023-02-05] MEDS: methylPREDNISolone sod succ 40 mg/mL INJ IVP (15:08)
[2023-02-05 16:12] LABS: Adenovirus Not Detected (NOT DETECT); Chlamydia Pneumoniae Not Detected (NOT DETECT); Coronavirus 229E,HKU1,NL63,OC4 Not Detected (NOT DETECT); Human Metapneumovirus Not Detected (NOT DETECT); Human Rhinovirus/Enterovirus Not Detected (NOT DETECT); Influenza A Not Detected (NOT DETECT); Influenza A H1 Not Detected (NOT DETECT); Influenza A H1-2009 Not Detected (NOT DETECT); Influenza A H3 Not Detected (NOT DETECT); Influenza B Not Detected (NOT DETECT); Mycoplasma Pneumoniae Not Detected (NOT DETECT); Parainfluenza Virus Type 1 Not Detected (NOT DETECT); Parainfluenza Virus Type 2 Not Detected (NOT DETECT); Parainfluenza Virus Type 3 Not Detected (NOT DETECT); Parainfluenza Virus Type 4 Not Detected (NOT DETECT); Respiratory Syncytial Virus A Not Detected (NOT DETECT); Respiratory Syncytial Virus B Not Detected (NOT DETECT); SARS-COV-2 Not Detected (NOT DETECT)
[2023-02-05] MEDS: iohexol 350 mg/mL 500 mL Btl (per mL) IV (16:46)
[2023-02-05] MEDS: FUROsemide 10 mg/mL SDV 4mL 40 MG IVP (18:04)
[2023-02-05 18:32] LABS: ABG PH Result 7.22 (7.35-7.45); Arterial Blood Gas Hematocrit 27.7 % (37-47); Base Excess ABG 1.6 mmol/L (-2.0-2.0); Blood Gas Allen Test Pos; Blood Gas Operator Identificat CAK; Blood Gas Sample Site Radial, left; Blood Gas Sample Type Arterial; HCO3 ABG 30.4 mmol/L (22-26); Oxygen Device BIPAP; PO2 ABG 77.1 mmHg (80.0-100.0); PO2 FiO2 Ratio Arterial Blood 0
[2023-02-05 18:33] LABS: ABG PCO2 74.9 mmHg (35-45)
[2023-02-05] MEDS: acetaminophen 500 mg Tablet PO (19:46)
[2023-02-06] VITALS (91 sets, daily range): BP systolic 84–215; BP diastolic 38–91; PULSE 14–120; RESP 16–30; TEMP 36.3–37.2; O2SAT 85–100
[2023-02-06] MEDS: piperacillin-tazobactam 3.375 GM in sodium chloride 0.9% (plus) 50 ML IV ×3 (02:46→17:38)
[2023-02-06] MEDS: methylPREDNISolone sod succ 40 mg/mL INJ IVP ×2 (02:46→15:14)
[2023-02-06 04:14] LABS: ABG PH Result 7.34 (7.35-7.45); Arterial Blood Gas Hematocrit 28.8 % (37-47); Base Excess ABG 6.4 mmol/L (-2.0-2.0); Blood Gas Operator Identificat JB; Blood Gas Sample Site Brachial, right; Blood Gas Sample Type Arterial; HCO3 ABG 33.4 mmol/L (22-26); Oxygen Device BIPAP
[2023-02-06 04:15] LABS: ABG PCO2 62.3 mmHg (35-45); PO2 FiO2 Ratio Arterial Blood 0
[2023-02-06] MEDS: FUROsemide 10 mg/mL SDV 4mL 40 MG IVP ×2 (06:40→17:30)
[2023-02-06] MEDS: vancomycin 1,000 MG in sodium chloride 0.9% 250 ML 250 MG IV (06:40)
--- NOTE | 2023-02-06 07:05 | P.PN_ITS ---
Subjective 2 Subjective: On BiPAP in ICU Vitals/I&O/Wt Last Vital Signs Temp 96.6 F L 02/05/23 19:00 Pulse 76 02/06/23 06:45 Resp 22 H 02/06/23 06:45 BP 197/86 02/06/23 06:45 Pulse Ox 97 02/06/23 06:45 O2 Del Method BiPAP 02/05/23 20:01 O2 Flow Rate 4 02/05/23 06:19 FiO2 40 02/06/23 04:00 02/05/23 02/06/23 02/06/23 22:59 06:59 14:59 Intake Total 97.083 / 1112.083 Output Total 2650 / 2650 700 / 3350 Balance -2552.917 / -1537.917 -700 / -2237.917 Weight last 48 hrs Weight 208 lb 4 oz Physical Exam 2 Narrative: On BiPAP Urinary Catheter Management: Gipson: Cath Placed During This Visit: yes Reason for Continuing Indwelling Catheter: Accurate Measurement of Urinary Output in Critically Ill Patients Urinary Catheter Date of Insertion: 02/02/23 Urinary Catheter Time of Insertion: 23:42 Data 02/05/23 03:10 02/05/23 03:10 Micro: Microbiology 02/05/23 17:45 Legionella Urinary Antigen - Final Urine Catheterized A&P Assessment and plan (1) Closed fracture of distal end of femur: Postop day #2 status post ORIF right distal femur Up with therapy when able Qualifiers: Encounter type: initial encounter Fracture morphology: unspecified fracture morphology Laterality: right Qualified Code(s): S72.401A - Unspecified fracture of lower end of right femur, initial encounter for closed fracture Attestations 2 Medical Necessity Statement*: Per primary service Coding Level of Care Code Acute Code for Chg Fwd Diagnoses Closed fracture of distal end of femur S72.401A Encounter type: initial encounter Fracture morphology: unspecified fracture morphology Laterality: right
[2023-02-06] MEDS: ipratropium-albuterol 3 mL Neb INHALATION ×4 (07:32→20:08)
[2023-02-06] MEDS: acetaminophen 500 mg Tablet PO (08:01)
[2023-02-06 08:54] LABS: Alanine Aminotransferase 7 U/L (0-33); Albumin Level 3.5 g/dL (3.5-5.2); Alkaline Phosphatase 85 U/L (35-105); Anion Gap 14.3 (5-19); Aspartate Amino Transferase 16 U/L (0-32); Blood Urea Nitrogen 27 mg/dL (8-23); Calcium 9.3 mg/dL (8.5-10.5); Carbon Dioxide 34 mmol/L (22-29); Chloride 99 mmol/L (98-107); Glucose 168 mg/dL (65-115); Osmolality Calculated 305 mOsm/kg (285-295); Potassium 4.3 mmol/L (3.5-5.1); Sodium 143 mmol/L (136-145); Total Bilirubin 0.4 mg/dL (0.15-1.2); Total Protein 6.5 g/dL (6.6-8.7)
[2023-02-06 09:13] LABS: NT Pro B Type Natriuretic Pept 2255 pg/mL (0-450)
[2023-02-06] MEDS: hyDRALAzine 20 mg/mL INJ 1 mL 10 MG IVP (09:18)
[2023-02-06] MEDS: enoxaparin 40 mg/0.4 mL Syringe SUBCUT (09:18)
--- NOTE | 2023-02-06 13:08 | P.PN_ITS ---
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 Will touch base with Ramsey to learn about her trilogy settings Currently patient is on nasal cannula, hypertensive I have given her hydralazine this morning Continue Jerad Spoke with her sister, saeid Patient stating that she would like to think about going for biopsy because she is not sure whether she will opt for chemoradiotherapy in case there is malignancy Vitals/I&O/Wt Last Vital Signs Temp 99.0 F 02/06/23 12:00 Pulse 96 02/06/23 11:28 Resp 20 H 02/06/23 11:20 BP 84/62 02/06/23 11:00 Pulse Ox 98 02/06/23 11:28 O2 Del Method BiPAP 02/06/23 11:20 O2 Flow Rate 4 02/06/23 09:45 FiO2 40 02/06/23 11:28 02/05/23 02/06/23 02/06/23 22:59 06:59 14:59 Intake Total 97.083 / 1112.083 500 / 500 Output Total 2650 / 2650 700 / 3350 Balance -2552.917 / -1537.917 -700 / -2237.917 500 / 500 Weight last 48 hrs Weight 91.172 kg Weight 94.461 kg Physical Exam 2 Narrative: Awake and alert Upper extremity silver scales considerable; likely psoriasis related Low extremity swelling improved Currently on nasal cannula eating breakfast Awake and alert Able to answer questions However fatigued and lethargic Nonfocal neuroexam Abdomen soft Gipson catheter in place S1, S2 variable Hypertensive Urinary Catheter Management: Gipson: Cath Placed During This Visit: yes Reason for Continuing Indwelling Catheter: Accurate Measurement of Urinary Output in Critically Ill Patients Urinary Catheter Date of Insertion: 02/02/23 Urinary Catheter Time of Insertion: 23:42 Data 02/05/23 03:10 02/06/23 08:11 Micro: Microbiology 02/05/23 17:45 Bacterial Antigens - Final Urine,Voided 02/05/23 17:45 Legionella Urinary Antigen - Final Urine Catheterized A&P Assessment and plan (1) Leukocytosis: (2) COPD (chronic obstructive pulmonary disease): Qualifiers: COPD type: unspecified COPD Qualified Code(s): J44.9 - Chronic obstructive pulmonary disease, unspecified (3) Closed fracture of distal end of femur: Qualifiers: Encounter type: initial encounter Fracture morphology: unspecified fracture morphology Laterality: right Qualified Code(s): S72.401A - Unspecified fracture of lower end of right femur, initial encounter for closed fracture (4) Acute and chronic respiratory failure with hypercapnia: (5) Leg fracture, right: (6) Adrenal mass, left: (7) Pulmonary nodule: (8) End stage COPD: Plan Acute on chronic hypercapnic respiratory failure Patient was monitored in ICU on AVAPS Her ABG improved Mentation improved as well She is DNI/DNI CTA chest rule out PE however she has pleural effusion, 10 mm right-sided nodule and left adrenal mass My concern is related to malignancy, she wont be a good candidate for chemoradiotherapy, patient is not sure whether she will opt for any biopsy For now we are planning to transfer her out of ICU to [facility] conservatively with use of AVAPS and continue diuresis Echo report is pending She has been afebrile Hypertensive Given hydralazine IV this morning, will add antihypertensive regimen Patient is on 12-week nonweightbearing regimen Detailed discussion with the patient and her family Considering end-stage COPD prognosis seems guarded When she is done with the breakfast we will put her back on AVAPS Will touch base with Ramsey to learn more about her machine settings Multiple family meetings conducted, went over CT results, discussed prognosis, goals of care, Attestations 2 Medical Necessity Statement*: Transfer out of ICU, family meeting conducted today as well Diagnoses Leukocytosis D72.829 COPD (chronic obstructive pulmonary disease) J44.9 COPD type: unspecified COPD Closed fracture of distal end of femur S72.401A Encounter type: initial encounter Fracture morphology: unspecified fracture morphology Laterality: right Acute and chronic respiratory failure with hypercapnia J96.22 Leg fracture, right S82.91XA Adrenal mass, left E27.8 Pulmonary nodule R91.1 End stage COPD J44.9
--- NOTE | 2023-02-06 15:34 | PC.NURSE ---
Right side drain at knee removed per Dr. Torrez's order. Pressure applied for approximately five minutes, bleeding stopped, gauze applied with bioclusive dressing for visualization, [place] dressings applied to incision area, wrapping replaced. Patient had no complaints, tolerated well. No bleeding visualized through dressing at checks.
--- NOTE | 2023-02-06 16:41 | PC.SOCIAL ---
IMM Update Updated pt on IMM. No questions voiced. Provided pt a copy. Initialed, dated, & timed a copy & placed in chart.
[2023-02-07] VITALS (11 sets, daily range): BP systolic 138–194; BP diastolic 66–74; PULSE 75–110; RESP 19–24; TEMP 36.2–36.9; O2SAT 91–99
[2023-02-07] MEDS: methylPREDNISolone sod succ 40 mg/mL INJ IVP (02:28)
[2023-02-07] MEDS: acetaminophen 500 mg Tablet PO (02:31)
[2023-02-07] MEDS: piperacillin-tazobactam 3.375 GM in sodium chloride 0.9% (plus) 50 ML IV ×2 (02:37→11:52)
[2023-02-07 04:56] LABS: ABG PCO2 50.8 mmHg (35-45); ABG PH Result 7.49 (7.35-7.45); Arterial Blood Gas Hematocrit 26.4 % (37-47); Blood Gas Allen Test Pos; Blood Gas Operator Identificat WALCI; Blood Gas Sample Site Radial, right; Blood Gas Sample Type Arterial; HCO3 ABG 38.8 mmol/L (22-26); Oxygen Device BIPAP; PO2 ABG 63.4 mmHg (80.0-100.0); PO2 FiO2 Ratio Arterial Blood 0
[2023-02-07] MEDS: vancomycin 1,000 MG in sodium chloride 0.9% 250 ML 250 MG IV (06:04)
[2023-02-07 06:16] LABS: Basophils % 0.1 %; Hematocrit 29.1 % (36-47); Lymphocytes # 0.2 10^3/uL (0.8-4.8); Lymphocytes % 1.9 %; Mean Corpuscular HGB Conc 29.9 g/dL (30-55); Mean Corpuscular Hemoglobin 29.1 pg (27-33); Mean Corpuscular Volume 97.3 fl (85-98); Mean Platelet Volume 10.7 fL (7.4-10.4); Monocytes # 0.3 10^3/uL (0.2-0.9); Monocytes % 2.4 %; Neutrophils # 10.88 10^3/uL (1.8-7.7); Neutrophils % 94.7 %; Nucleated Red Blood Cells % 0 %; Platelet Count 155 10^3/cmm (157-399); Red Blood Count 2.99 10^6/uL (3.85-5.65); Red Cell Distribution Width 14.6 % (12.1-15.1); White Blood Count 11.49 10^3/uL (3.29-11.43)
[2023-02-07 06:30] LABS: Anion Gap 15.7 (5-19); Blood Urea Nitrogen 35 mg/dL (8-23); Carbon Dioxide 34 mmol/L (22-29); Chloride 99 mmol/L (98-107); Glucose 156 mg/dL (65-115); Osmolality Calculated 311 mOsm/kg (285-295); Potassium 3.7 mmol/L (3.5-5.1); Sodium 145 mmol/L (136-145)
[2023-02-07] MEDS: ipratropium-albuterol 3 mL Neb INHALATION ×4 (08:21→20:25)
--- NOTE | 2023-02-07 08:31 | P.CONIM_ITS ---
Providers/Reason For Consult 2 Consulting Physician/Specialty*: hospitalist Reason for Consult*: right distal femur fracture Attending Physician: Luca Ramos MD Primary Care Provider: Traci Prakash MD History of Present Illness History of Present Illness Yulissa Goddard is a 82 year old femalesustaining a fall at home patient stating that she was using a walker which slipped off and she fell on the ground Review of Systems 2 Const: Denies: fever(s) Eyes: Denies: change in vision ENMT: Denies: throat pain Card: Reports: swelling of feet/ankles; Denies: chest pain Resp: Reports: dyspnea GI: Denies: abdominal pain : Denies: flank pain Medications/Allergies Home Medications Medication Instructions Recorded Confirmed Last Taken Type albuterol sulfate 90 mcg/actuation 2 puff inhalation QID PRN 02/13/19 02/03/23 Unknown History aerosol inhaler (Ventolin HFA) Shortness Of Breath ipratropium 0.5 mg-albuterol 3 mg 3 ml inhalation Q4H PRN Shortness 02/13/19 02/03/23 Unknown History (2.5 mg base)/3 mL nebulization Of Breath soln meloxicam 15 mg tablet 15 mg PO QAM 02/13/19 02/03/23 Unknown History naproxen sodium 220 mg tablet 440 mg PO PRN 03/26/20 02/03/23 Unknown History (Aleve) vit no.95-ferrous 1 tab PO QAM 03/26/20 02/03/23 Unknown History fumarate 28 mg-folic acid 800 mcg tablet ( Multivitamins) fluticasone fur. 100 mcg-umeclid 1 inh inhalation DAILY #60 ea 01/18/21 02/03/23 Unknown Rx 62.5 mcg-vilant 25 mcg inhalat.powder (Trelegy Ellipta) prednisone 10 mg tablet 10 mg PO DAILY PRN swelling 02/03/23 02/03/23 Unknown History Allergies Allergy/AdvReac Type Severity Reaction Status Date / Time No Known Allergies Allergy Verified 02/03/23 08:55 Current Medications Generic Name Dose Route Start Last Admin Trade Name Freq PRN Reason Stop Dose Admin Acetaminophen 500 mg 02/02/23 23:37 02/07/23 02:31 Acetaminophen 500 Mg Tablet PO 500 mg Q4H PRN Administration pain and fever Hydrocodone Bitart/Acetaminophen 1 tab 02/02/23 23:37 02/05/23 06:36 Hydrocodone-Acetaminophen 5-325 Mg Tablet PO 1 tab QID PRN Administration Pain Albuterol/Ipratropium 3 ml 02/02/23 23:37 02/05/23 11:13 Ipratropium-Albuterol 3 Ml Neb INHALATION 3 ml Q6H PRN Administration SHORTNESS OF BREATH Albuterol/Ipratropium 3 ml 02/03/23 12:28 02/03/23 12:42 Ipratropium-Albuterol 3 Ml Neb INHALATION 3 ml Q15M PRN Administration SHORTNESS OF BREATH Albuterol/Ipratropium 3 ml 02/05/23 16:00 02/07/23 08:21 Ipratropium-Albuterol 3 Ml Neb INHALATION 3 ml QID.RESPIRATORY JOVANNA Administration Enoxaparin Sodium 40 mg 02/04/23 10:30 02/06/23 09:18 Enoxaparin 40 Mg/0.4 Ml Syringe SUBCUT 40 mg Q24H JOVANNA Administration Furosemide 40 mg 02/05/23 18:00 02/06/23 17:30 Furosemide 10 Mg/Ml Sdv 4ml IVP 40 mg Q12H JOVANNA Administration Vancomycin HCl 1,000 mg/ 250 mls @ 250 mls/hr 02/04/23 07:00 02/07/23 06:04 Sodium Chloride IV 250 mls/hr Q24H JOVANNA Administration Piperacillin Sod/Tazobactam 50 mls @ 12.5 mls/hr 02/05/23 19:00 02/07/23 06:04 Sod 3.375 gm/ Sodium Chloride IV Infused Q8H JOVANNA Infusion Methylprednisolone Sodium Succinate 40 mg 02/05/23 14:30 02/07/23 02:28 Methylprednisolone Sod Succ 40 Mg/Ml Inj IVP 40 mg Q12H JOVANNA Administration Ondansetron HCl 4 mg 02/02/23 23:37 02/04/23 11:15 Ondansetron 2 Mg/Ml Sdv 2 Ml IVP 4 mg Q6H PRN Administration NAUSEA AND VOMITING PFSH Acute 2 PFSH: Medical History (Updated 02/06/23 @ 13:24 by Luca Ramos MD) Anemia Intertrochanteric fracture of right hip Hypercapnic respiratory failure UTI (urinary tract infection) End stage COPD Anemia Vitamin C deficiency Cellulitis Low TSH level Depression Edema Heart murmur Hip pain, left Hypercholesteremia Elevated serum glucose Hypoxic Macrocytosis Nasal congestion Osteoporosis Emphysema lung COPD (chronic obstructive pulmonary disease) Sciatica Seasonal allergies Shoulder pain, left Vitamin D deficiency Shoulder fracture, left Surgical History Postoperative state History of left hip replacement Hx of cataract surgery Family History Mother Cancer Breast Father Cancer Heart disease Sister Cancer Grandmother Hypertension Heart disease Aneurysm Brother Heart disease Myocardial infarct Aneurysm Family/Other Heart disease Bipolar 1 disorder Grandfather Heart disease Social History Smoking and tobacco/nicotine status: former use of tobacco/nicotine Quit status (tobacco/nicotine): has quit using Year quit tobacco: 2013 - 1.5 PPD x 60 Years Alcohol intake: never Substance/Drug Use: never Household members: none Marital status: / Number of children: 4 Current occupational status: retired Do you think of yourself as: Straight/Heterosexual Current gender identity: Female Vitals/I&O/Wt Last Vital Signs Temp 97.2 F L 02/07/23 07:58 Pulse 97 02/07/23 08:00 Resp 20 H 02/07/23 08:00 BP 192/68 02/07/23 07:58 Pulse Ox 94 02/07/23 08:00 O2 Del Method Nasal Cannula 02/07/23 08:00 O2 Flow Rate 3 02/07/23 08:00 FiO2 30 02/07/23 04:00 02/06/23 02/07/23 02/07/23 22:59 06:59 14:59 Intake Total 300 / 1000 50 / 1050 Output Total 1400 / 2250 200 / 2450 Balance -1100 / -1250 -150 / -1400 Weight last 48 hrs Weight 196 lb 2 oz Weight 201 lb Physical Exam 2 Narrative: RLKimberly NVI Urinary Catheter Management: Gipson: Cath Placed During This Visit: yes Reason for Continuing Indwelling Catheter: Accurate Measurement of Urinary Output in Critically Ill Patients Urinary Catheter Date of Insertion: 02/02/23 Urinary Catheter Time of Insertion: 23:42 Data 02/07/23 05:36 02/07/23 05:36 Micro: Microbiology 02/05/23 17:45 Bacterial Antigens - Final Urine,Voided A&P Assessment and plan (1) Closed fracture of distal end of femur: plan ORIF distal femur Qualifiers: Encounter type: initial encounter Fracture morphology: unspecified fracture morphology Laterality: right Qualified Code(s): S72.401A - Unspecified fracture of lower end of right femur, initial encounter for closed fracture Consult Attestations 2 Medical Necessity Statement: per primary service Coding Level of Care Code Acute Code for [facility] Fwd Diagnoses Closed fracture of distal end of femur S72.401A Encounter type: initial encounter Fracture morphology: unspecified fracture morphology Laterality: right
--- NOTE | 2023-02-07 08:34 | W.PM.OPSUD ---
Surgery/Procedure H&P Update DATE OF PROCEDURE: February 07, 2023 DATE H&P PERFORMED: 02/02/23 H&P UPDATE INFORMATION: I have reviewed H&P completed within last 30 days, I have examined patient prior to procedure and No changes to prior documentation PLANNED PROCEDURE: Operation Date: 02/03/23 10:30 Proposed Procedures p ORIF Femur(Right) - Dany Torrez DO
--- NOTE | 2023-02-07 10:38 | PM.DCS ---
Discharge Providers Date of Admission: 02/02/23 22:45 Date of Discharge: February 07, 2023 Attending Provider at Admission: Luca Ramos MD Attending Provider at Discharge: Luca Ramos MD Primary Care Provider: Traci Prakash MD Diagnoses at Discharge Discharge Diagnosis (1) Closed fracture of distal end of femur: Status: Acute Qualifiers: Encounter type: initial encounter Fracture morphology: unspecified fracture morphology Laterality: right Qualified Code(s): S72.401A - Unspecified fracture of lower end of right femur, initial encounter for closed fracture Reason for Visit Reason for Visit: fall,rt knee Hospital Course Hospital Course 82-year-old female with history of end-stage COPD, uses 4 L during the daytime and trilogy at night, presented to the hospital for right distal femur fracture after sustaining a fall at home, Dr. Torrez was consulted, status post ORIF February 03, patient was recommended to stay toe-touch bearing for 12 weeks after surgery, on February 05 rapid response was called when she became unresponsive, she was transferred to ICU put on AVAPS she was extremely hypercapnic took about 24 hours to perk up and come back to her baseline, her pCO2 has improved significantly it is 50.8 on 02/07, currently on 3 L oxygen, able to eat a little bit, she has pursed lip breathing, she has limited resuscitation CODE STATUS which means she does not want intubation but okay with defibrillation and chest compressions, CTA chest was done which showed right pulmonary nodule 10 mm and left adrenal mass with concern related to malignancy, patient is stating that she would like to think about it but most likely she would not opt for chemo or radiotherapy, I had a very mckenna discussion with the family as well that she might not be a good candidate for chemoradiation considering her end-stage COPD, poor quality of life, her functional status is already poor, her p.o. intake is limited, the weight gain that she has is from sedentary lifestyle and fluid gain, she has diastolic congestive heart failure she was diuresed during this hospitalization which improved swelling of her extremities. She does have psoriasis, we have arranged hospital bed, Ramsey was called to change trilogy settings as well I will put a new trilogy settings in my discharge instructions Patient was kept on broad-spectrum antibiotics for concern related to hospital-acquired pneumonia after surgery she will be discharged on Augmentin and levofloxacin along prednisone course and Lasix She has remained hypertensive throughout hospitalization, she was not taking any antihypertensive regimen at home I did bring up palliative care in case patient gets worse in near future considering her end-stage COPD, family and patient would like to contemplate and let us know. For now there is no final decision yet Physical Exam Narrative: Pursed lip breathing Currently on 3 L Eating breakfast Awake and alert Coherent Lower extremity swelling improving Psoriasis S1, S2 Pleasant cooperative Abdomen soft Urinary Catheter Management: Gipson: Cath Placed During This Visit: yes Reason for Continuing Indwelling Catheter: Accurate Measurement of Urinary Output in Critically Ill Patients Urinary Catheter Date of Insertion: 02/02/23 Urinary Catheter Time of Insertion: 23:42 Discharge Data Studies Completed and Pending Completed Studies During Hospitalization Category Date Time Status CT angio chest PE protcl [id number] Stat Cat Scan 02/05/23 14:[address] knee RT wo con* [id number] Stat Cat Scan 02/02/23 19:23 Completed CXRP [XR chest 1V portable [id number]] Stat Exams 02/05/23 10:19 Completed XR KUB portable [id number] Routine Exams 02/05/23 11:05 Completed XR chest 1V portable [id number] Stat Exams 02/02/23 20:56 Completed XR femur RT min 2V* [id number] Routine Exams 02/03/23 21:25 Completed XR knee RT 3V* [id number] Stat Exams 02/02/23 18:05 Completed US echo complete [CV. echo complete* [id number]] Routine Ultrasound 02/05/23 12:46 Completed Pending at discharge Category Date Time Status Sputum Culture and Gram Stain Stat Lab 02/05/23 12:46 Uncollected Radiology Impressions Knee X-Ray 02/02/23 18:05 IMPRESSION: 1. Mildly displaced distal diaphyseal fracture in the right femur. 2. Possible hairline fracture in the proximal medial femoral condyle. 3. Further evaluation with CT is suggested. Knee CT 02/02/23 19:23 IMPRESSION: 1. Mildly displaced oblique fracture in the distal diaphysis and lateral metaphysis of the right femur. 2. Mildly displaced impacted fracture involving the lateral femoral trochlea and medial cortex of the proximal femoral condyle. 3. Hemarthrosis. Chest X-Ray 02/05/23 10:19 IMPRESSION: Increasing bilateral ground-glass airspace consolidation concerning for possible pneumonia. KUB X-Ray 02/05/23 11:05 IMPRESSION: Nonobstructive bowel gas pattern. Chest CTA 02/05/23 14:25 IMPRESSION: 1. No evidence of pulmonary embolism. 2. Bilateral pleural effusions 3. Bilateral lower lobe atelectasis 4. Centrilobular emphysema in the apical regions 5. Right upper lobe pulmonary nodule worrisome for malignancy, further evaluation such as with PET-CT scan or biopsy recommended 6. Solid right lower lobe pulmonary nodule of uncertain significance. Further evaluation with short-term follow-up, PET-CT scan or biopsy. 7. Findings worrisome for solid left kidney mass. Malignancy not excluded. Further evaluation as described above. COMMENTS: Consistent with the [place] [employer]'s Incidental Findings Committee white paper (J Am Jadiel Radiol 2018): Any incidental renal lesion less than 1 cm or classified as too small to characterize, or any incidental cystic renal lesion characterized as simple-appearing, is likely benign. No follow-up imaging is recommended for these lesions per consensus recommendations based on imaging criteria. REFERENCES: 1. MacMahon H, et al. Guidelines for Management of Incidental Pulmonary Nodules Detected on CT Images: From the Fleischner Society 2017. Radiology. 2017;284(1):228-243. 2. MacMahon H, et al. Guidelines for Management of Incidental Pulmonary Nodules Detected on CT Images: From the Fleischner Society 2017. Radiology. 2017;284(1):228-243. ADDENDUM: 02/05/23 174 Addendum: THIS REPORT CONTAINS FINDINGS THAT MAY BE CRITICAL TO PATIENT CARE. The findings were verbally communicated via telephone conference with Cara Mesa at 5:41 PM [employer]ENT on 02/05/2023. The findings were acknowledged and understood. Laboratory Results WBC 11.49 10^3/uL (3.29-11.43) H 02/07/23 05:36 RBC 2.99 10^6/uL (3.85-5.65) L 02/07/23 05:36 Hgb 8.70 g/dL (11.27-16.99) L 02/07/23 05:36 Hct 29.1 % (36-47) L 02/07/23 05:36 MCV 97.3 fl (85-98) 02/07/23 05:36 MCH 29.1 pg (27-33) 02/07/23 05:36 MCHC 29.9 g/dL (30-55) L 02/07/23 05:36 RDW 14.6 % (12.1-15.1) 02/07/23 05:36 Plt Count 155 10^3/cmm (157-399) L 02/07/23 05:36 MPV 10.7 fL (7.4-10.4) H 02/07/23 05:36 Neut % (Auto) 94.7 % 02/07/23 05:36 Lymph % (Auto) 1.9 % 02/07/23 05:36 Irion % (Auto) 2.4 % 02/07/23 05:36 Eos % (Auto) 0.0 % 02/07/23 05:36 Baso % (Auto) 0.1 % 02/07/23 05:36 Neut # (Auto) 10.88 10^3/uL (1.8-7.7) H 02/07/23 05:36 Lymph # (Auto) 0.2 10^3/uL (0.8-4.8) L 02/07/23 05:36 Irion # (Auto) 0.3 10^3/uL (0.2-0.9) 02/07/23 05:36 Eos # (Auto) 0.0 10^3/uL (0.0-0.8) 02/07/23 05:36 Baso # (Auto) 0.0 10^3/uL (0.0-0.1) 02/07/23 05:36 Nucleated RBC % (auto) 0 % 02/07/23 05:36 Nucleated RBCs # 0.0 /100WBC 02/07/23 05:36 D-Dimer 7.91 ug/mLFEU (0-0.59) H 02/02/23 21:11 Specimen Type Arterial 02/07/23 04:44 Sample Site Radial, right 02/07/23 04:44 ABG pH 7.49 (7.35-7.45) H 02/07/23 04:44 ABG pCO2 50.8 mmHg (35-45) H 02/07/23 04:44 ABG pO2 63.4 mmHg (80.0-100.0) L 02/07/23 04:44 ABG PO2/FiO2 Ratio 0 02/07/23 04:44 ABG HCO3 38.8 mmol/L (22-26) H 02/07/23 04:44 ABG O2 Saturation 95.2 02/05/23 12:57 ABG Base Excess 14.0 mmol/L (-2.0-2.0) H 02/07/23 04:44 Gil Test Pos 02/07/23 04:44 A-a O2 Gradient 15.1 mmHg (5-10) H 02/05/23 12:57 Hematocrit 26.4 % (37-47) L 02/07/23 04:44 Hgb O2 Saturation 92.8 % (95-100) L 02/05/23 12:57 Carboxyhemoglobin 2.9 %THgb (0.4-20.1) 02/05/23 12:57 Methemoglobin < 0.0 % (0.4-1.5) L 02/05/23 12:57 Total Hemoglobin 8.3 g/dL (12-16) L 02/05/23 12:57 Sodium 143.0 mmol/L (131-143) 02/05/23 12:57 Potassium 4.9 mmol/L (3.5-5.0) 02/05/23 12:57 Glucose 149.0 mg/dL (70-115) H 02/05/23 12:57 Ionized Calcium 1.3 mmol/L (1.1-1.4) 02/05/23 12:57 O2 Delivery Device Bipap 02/07/23 04:44 FiO2 30.0 % 02/07/23 04:44 Tidal Volume 0.50 02/07/23 04:44 PEEP 8.0 cmH20 02/07/23 04:44 Crusher Feeder ID [place] 02/07/23 04:44 Sodium 145 mmol/L (136-145) 02/07/23 05:36 Potassium 3.7 mmol/L (3.5-5.1) 02/07/23 05:36 Chloride 99 mmol/L (98-107) 02/07/23 05:36 Carbon Dioxide 34 mmol/L (22-29) H 02/07/23 05:36 Anion Gap 15.7 (5-19) 02/07/23 05:36 BUN 35 mg/dL (8-23) H 02/07/23 05:36 Creatinine 1.2 mg/dL (0.5-0.9) H 02/07/23 05:36 GFR Calculation Not Reportable 02/07/23 05:36 Glucose 156 mg/dL (65-115) H 02/07/23 05:36 POC Glucose 154 mg/dL (70-110) H 02/05/23 10:20 Calculated Osmolality 311 mOsm/kg (285-295) H 02/07/23 05:36 Calcium 9.0 mg/dL (8.5-10.5) 02/07/23 05:36 Magnesium 2.0 mg/dL (1.7-2.3) 02/03/23 15:07 Total Bilirubin 0.4 mg/dL (0.15-1.2) 02/06/23 08:11 AST 16 U/L (0-32) 02/06/23 08:11 ALT 7 U/L (0-33) 02/06/23 08:11 Alkaline Phosphatase 85 U/L (35-105) 02/06/23 08:11 NT-Pro-B Natriuret Pep 2255 pg/mL (0-450) H 02/06/23 08:11 Total Protein 6.5 g/dL (6.6-8.7) L 02/06/23 08:11 Albumin 3.5 g/dL (3.5-5.2) 02/06/23 08:11 Globulin 3.0 g/dL (1.3-4.6) 02/06/23 08:11 Vitamin B12 491 pg/mL (232-1245) 02/02/23 21:11 Urine Color Yellow (Yellow) 02/03/23 00:11 Urine Appearance Clear (CLEAR) 02/03/23 00:11 Urine pH 5 (5-7) 02/03/23 00:11 Ur Specific [employer] [place] 1.025 (1.005-1.030) 02/03/23 00:11 Urine Protein Trace (Negative) 02/03/23 00:11 Urine Glucose (UA) Norm (Normal) 02/03/23 00:11 Urine Ketones Negative (Negative) 02/03/23 00:11 Urine Blood Neg (Negative) 02/03/23 00:11 Urine Nitrate Positive (Negative) H 02/03/23 00:11 Urine Bilirubin Neg (Negative) 02/03/23 00:11 Urine Urobilinogen Norm mg/dL (Negative) 02/03/23 00:11 Ur Leukocyte Esterase Negative (Negative) 02/03/23 00:11 Urine RBC 0-4 /hpf (0-2) H 02/03/23 00:11 Urine WBC 10-15 /hpf (0-5) H 02/03/23 00:11 Ur Squamous Epith Cells 15-25 /hpf (0-5) H 02/03/23 00:11 Amorphous Sediment 2+ /hpf 02/03/23 00:11 Urine Bacteria 2+ /hpf (NONE) H 02/03/23 00:11 Urine Mucus 1+ /hpf 02/03/23 00:11 Nasal Influ A H1 2009 PCR Not detected (NOT DETECT) 02/05/23 13:12 Adenovirus (PCR) Not detected (NOT DETECT) 02/05/23 13:12 C. pneumoniae DNA (PCR) Not detected (NOT DETECT) 02/05/23 13:12 Coronavirus 229E (PCR) Not detected (NOT DETECT) 02/05/23 13:12 Human Metapneumovir PCR Not detected (NOT DETECT) 02/05/23 13:12 Influenza A (H1) PCR Not detected (NOT DETECT) 02/05/23 13:12 Influenza A (H3) PCR Not detected (NOT DETECT) 02/05/23 13:12 Influenza Type A (PCR) Not detected (NOT DETECT) 02/05/23 13:12 Influenza Type B (PCR) Not detected (NOT DETECT) 02/05/23 13:12 M. pneumoniae (PCR) Not detected (NOT DETECT) 02/05/23 13:12 Parainfluenza 1 (PCR) Not detected (NOT DETECT) 02/05/23 13:12 Parainfluenza 2 (PCR) Not detected (NOT DETECT) 02/05/23 13:12 Parainfluenza 3 (PCR) Not detected (NOT DETECT) 02/05/23 13:12 Parainfluenza 4 (PCR) Not detected (NOT DETECT) 02/05/23 13:12 RSV Type A (PCR) Not detected (NOT DETECT) 02/05/23 13:12 RSV Type B (PCR) Not detected (NOT DETECT) 02/05/23 13:12 Entero/Rhino (PCR) Not detected (NOT DETECT) 02/05/23 13:12 SARS-CoV-2 (PCR) Not detected (NOT DETECT) 02/05/23 13:12 Vitals Last Vital Signs Temp 97.2 F L 02/07/23 07:58 Pulse 97 02/07/23 09:32 Resp 20 H 02/07/23 08:00 BP 192/68 02/07/23 07:58 Pulse Ox 95 02/07/23 09:32 O2 Del Method Nasal Cannula 02/07/23 08:00 O2 Flow Rate 3 02/07/23 08:00 FiO2 30 02/07/23 09:32 Discharge Plan Discharge Patient Disposition: Home Condition: Fair Prescriptions: New amoxicillin-pot clavulanate 875-125 mg tablet 1 tab PO BID Qty: 10 0RF furosemide [Lasix] 20 mg tablet 20 mg PO DAILY Qty: 90 0RF lisinopril 20 mg tablet 20 mg PO DAILY Qty: 60 0RF methylprednisolone [Medrol (Jacob)] 4 mg tablets,dose pack See Rx Instructions .ROUTE .COMPLEX Qty: 21 0RF Rx Instructions: orally per package directions levofloxacin 750 mg tablet 750 mg PO DAILY 7 Days Qty: 7 0RF potassium chloride 10 mEq tablet extended release 10 meq PO DAILY Qty: 90 0RF Eliquis 2.5 mg tablet 2.5 mg PO BID Qty: 120 0RF diltiazem HCl [Cardizem LA] 120 mg tablet extended release 24 hr 120 mg PO DAILY Qty: 60 0RF Continued ipratropium-albuterol 0.5 mg-3 mg(2.5 mg base)/3 mL solution for nebulization 3 ml INHALATION Q4H PRN (Reason: Shortness Of Breath) albuterol sulfate [Ventolin HFA] 90 mcg/actuation HFA aerosol inhaler 2 puff INHALATION QID PRN (Reason: Shortness Of Breath) PNV cmb#95-ferrous fumarate-FA [ Multivitamins] 28 mg iron- 800 mcg Tablet 1 tab PO QAM prednisone 10 mg tablet 10 mg PO DAILY PRN (Reason: swelling) Trelegy Ellipta 100-62.5-25 mcg blister with device 1 inh inhalation DAILY Qty: 60 4RF Discontinued meloxicam 15 mg tablet 15 mg PO QAM naproxen sodium [Aleve] 220 mg Tablet 440 mg PO PRN Other Ambulatory Orders: DME: Hospital Bed (Order) Timeframe: 9 Months Location: None Selected Ordered By: Luca Ramos Referrals: Dany Torrez DO [Physician] - 02/14/23 8:30 am Traci Prakash MD [Primary Care Provider] - 7-10 days Patient Instructions: Opioid Safety Activity Restrictions/Additional Instructions: Toe-touch weightbearing for [address] Torrez Change dressing as needed Eliquis 2.5 mg twice a day for DVT prophylaxis Follow-up in clinic in 2 weeks for staple removal I am giving antibiotic coverage for next few days Please also take Medrol steroid tapering regimen Please follow-up with your PCP if you want to get a referral for palliative care For [facility] I am recommending these trilogy settings Tidal volume 500 Respiratory rate 18 PS minimum 6 PS maximum 20 EPAP minimum 5, EPAP maximum 60 AVAPS rate 1-5 Maximum pressure 40 Discharge Attestations Time Spent in Discharge Care*: greater than 30 min Status at Discharge: Cognitive status at discharge: cognitively intact, Behavioral status at discharge: cooperative, Quality Metrics Clinical Quality Measures [ No reported AMI, CVA or VTE this stay] Coding Level of Care Code Acute Code for Chg Fwd Diagnoses Closed fracture of distal end of femur S72.401A Encounter type: initial encounter Fracture morphology: unspecified fracture morphology Laterality: right
[2023-02-07] MEDS: enoxaparin 40 mg/0.4 mL Syringe SUBCUT (11:52)
--- NOTE | 2023-02-07 13:02 | P.PN_ITS ---
Subjective 2 Subjective: pCO2 improved Patient doing well Family at the bedside Planning home health services and hospital bed Patient is good to be discharged home Dr. Watson recommended toe-touch bearing for 12 weeks Vitals/I&O/Wt Last Vital Signs Temp 97.5 F L 02/07/23 11:24 Pulse 95 02/07/23 11:24 Resp 21 H 02/07/23 11:24 BP 167/71 02/07/23 11:24 Pulse Ox 97 02/07/23 11:24 O2 Del Method BiPAP 02/07/23 11:24 O2 Flow Rate 3 02/07/23 11:22 FiO2 30 02/07/23 09:32 02/06/23 02/07/23 02/07/23 22:59 06:59 14:59 Intake Total 300 / 1000 50 / 1050 370 / 370 Output Total 1400 / 2250 200 / 2450 Balance -1100 / -1250 -150 / -1400 370 / 370 Weight last 48 hrs Weight 88.961 kg Weight 91.172 kg Physical Exam 2 Narrative: Awake and alert Sign of fluid overload improving GCS 15 Gipson catheter will remain in place at discharge Pleasant and cooperative Sign of fluid load improving Abdomen soft S1, S2 Currently on 3 L Urinary Catheter Management: Gipson: Cath Placed During This Visit: yes Reason for Continuing Indwelling Catheter: Accurate Measurement of Urinary Output in Critically Ill Patients Urinary Catheter Date of Insertion: 02/02/23 Urinary Catheter Time of Insertion: 23:42 Data 02/07/23 05:36 02/07/23 05:36 Micro: Microbiology 02/05/23 17:45 Bacterial Antigens - Final Urine,Voided A&P Assessment and plan (1) Acute exacerbation of CHF (congestive heart failure): (2) Adrenal mass, left: (3) Closed fracture of distal end of femur: Qualifiers: Encounter type: initial encounter Fracture morphology: unspecified fracture morphology Laterality: right Qualified Code(s): S72.401A - Unspecified fracture of lower end of right femur, initial encounter for closed fracture (4) COPD (chronic obstructive pulmonary disease): Qualifiers: COPD type: unspecified COPD Qualified Code(s): J44.9 - Chronic obstructive pulmonary disease, unspecified (5) Pulmonary nodule: Plan My plan is to discharge her after setting up hospice at home health services I have recommended new trilogy settings as well Patient is hypertensive will require antihypertensive regimen along Lasix and potassium supplementation Will give her Medrol pack and antibiotics at 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
[2023-02-07] MEDS: potassium chloride ER 20 mEq Tablet 40 MEQ PO (16:28)
[2023-02-07] MEDS: lisinopril 20 mg Tablet PO (16:28)
--- NOTE | 2023-02-07 19:55 | PC.NURSE ---
Patient has orders to discharge today. This nurse shared concerns with physician about patient's discharge due to her extreme weakness and labored breathing. Patient is at baseline according to physician and patient both. manager solution arranged and confirmed HOME delivering hospital bed and also set up medicaid stretcher ride for patient. Patients family here at approximately 1700 to see patient. This nurse went over discharge paperwork with patient and family. All questions answered. Discharge paperwork and ice packs were sent home with patients jonny Roach per request of the patient. IV removed. Patient tolerated well. Catheter tip intact. Patient resting in bed comfortably. No needs requested at this time. Will continue to monitor patient until EMS arrives to transport patient.
[2023-02-08] VITALS: BP 164/69; PULSE 80; RESP 20; TEMP 36.6; O2SAT 95
[2023-02-08 02:01] VITALS: PULSE 88; RESP 22; O2SAT 95
[2023-02-08 04:00] VITALS: BP 176/69; PULSE 71; RESP 20; TEMP 36.4; O2SAT 93
--- NOTE | 2023-02-08 05:10 | PC.NURSE ---
Patient left with [facility] by ambulance. Patient was stable and all questions were answered.
[2023-04-02 09:32] LABS: ABG PCO2 83.9 mmHg (35-45)
== END 2023-02-08 05:16 | disposition home health service (06) | DRG 480 ==
LOC: ER 22:05 → MEDSURG 22:45 → ICU 02-05 10:57 → MEDSURG 02-06 21:37
PROVIDERS: Family Medicine; Internal Medicine; Orthopaedic Surgery; Admitting Provider Internal Medicine; Emergency Provider Emergency Medicine; PCP Family Medicine; Visit Provider Internal Medicine
PROC: 0QSB04Z Reposition Right Lower Femur with Internal Fixation Device, Open Approach (ICD-10-PCS; principal; 2023-02-03 10:30)
DX: S72.491A Other fracture of lower end of right femur, initial encounter for closed fracture (principal); I50.33 Acute on chronic diastolic (congestive) heart failure; J96.22 Acute and chronic respiratory failure with hypercapnia; J18.9 Pneumonia, unspecified organism; M97.11XA Periprosthetic fracture around internal prosthetic right knee joint, initial encounter; E87.29 Other acidosis; W01.0XXA Fall on same level from slipping, tripping and stumbling without subsequent striking against object, initial encounter; J43.2 Centrilobular emphysema; R09.02 Hypoxemia; L40.9 Psoriasis, unspecified; R91.8 Other nonspecific abnormal finding of lung field; I11.0 Hypertensive heart disease with heart failure; E27.9 Disorder of adrenal gland, unspecified; Y95 Nosocomial condition; Z11.52 Encounter for screening for COVID-19; Z99.81 Dependence on supplemental oxygen; Z87.440 Personal history of urinary (tract) infections; Z87.891 Personal history of nicotine dependence; Z99.89 Dependence on other enabling machines and devices
CPT/HCPCS: 36415; 36416; 36600; 51702; 71045; 71275; 73552; 73562; 73700; 74018; 76000; 80048; 80051; 80053; 81001; 82330; 82607; 82803; 82805; 82962; 83735; 83880; 85025; 85378; 86403; 87449; 87486; 87581; 87633; 93005; 93306; 94640; 94660; 94762; 96372; 96374; 97110; 97161; 97167; 97530; 97535; 99285; A7003; C1713; J0360; J0690; J1650; J1940; J2405; J2543; J2704; J2920; J3010; J3370; J3490; J7030; J7050; P9045; Q9967

== ENCOUNTER → 2023-02-14 08:44 | Outpatient (BNVA) | payer MEDICARE, MEDICAID, SELFPAY | PROVIDERS: PCP Family Medicine; Visit Provider Physician Assistant | DX: S72.491D Other fracture of lower end of right femur, subsequent encounter for closed fracture with routine healing (principal); X58.XXXD Exposure to other specified factors, subsequent encounter; Z96.7 Presence of other bone and tendon implants; Z79.01 Long term (current) use of anticoagulants | CPT/HCPCS: 73562; 99024 ==

== ENCOUNTER 2023-02-22 10:41 | Inpatient (IN) | payer MEDICARE, MEDICAID, SELFPAY ==
[2023-02-22] VITALS (96 sets, daily range): BP systolic 72–163; BP diastolic 31–128; PULSE 57–167; RESP 12–33; TEMP 36.7–37.1; O2SAT 80–100; BMI 27.9; BMI 31.1
--- NOTE | 2023-02-22 10:48 | XRR_ITS ---
PROCEDURE INFORMATION: Exam: XR Chest Exam date and time: 02/22/2023 11:00 AM Age: 82 years old Clinical indication: Shortness of breath; Additional info: SOB TECHNIQUE: Imaging protocol: Radiologic exam of the chest. Views: 1 view. COMPARISON: CT angio chest PE protcl [id number] 02/05/2023 4:33 PM FINDINGS: Lungs: No new focal consolidation. Bibasilar atelectasis. Pleural spaces: Small left pleural effusion. No pneumothorax. Heart/Mediastinum: No cardiomegaly. Bones/joints: No acute findings. XR/XR chest 1V portable [id number] IMPRESSION: Small left pleural effusion. No new focal consolidation.
--- NOTE | 2023-02-22 10:57 | ED_ITS ---
HPI - Weakness 2 General: Chief complaint: ER Hold Stated complaint: confusion, uti Time Seen by Provider: 02/22/23 10:44 Source: patient and EMS Mode of arrival: EMS Limitations: no limitations History of Present Illness: 82-year-old female who had had hip surge ry right before she has been at home she does have indwelling Gipson per EMS she is diagnosed with a UTI 2 days ago been on antibiotics but had some vomiting with the antibiotics. She has had increasing weakness she had some confusion which here she is able to answer all my questions appropriately she states she feels extremely weak denies any pain anywhere Associated symptoms: Reports nausea and vomiting; Denies chest pain, chills, dysuria, fever(s) or headache(s) Review of Systems 2 Const: Reports: fatigue and malaise; Denies: fever(s), chills, body aches or change in appetite Eyes: Denies: eye discomfort ENMT: Denies: throat pain or dental pain Card: Denies: chest pain Resp: Denies: dyspnea GI: Reports: nausea and vomiting; Denies: abdominal pain or diarrhea : Denies: dysuria Musc: Denies: neck pain or back pain Skin/Breast: Denies: rash Neuro: Denies: headache(s) PFSH ED 2 PFSH: Medical History Acute exacerbation of CHF (congestive heart failure) Pulmonary nodule Adrenal mass, left Leg fracture, right Acute and chronic respiratory failure with hypercapnia Leukocytosis Closed fracture of distal end of femur Anemia Intertrochanteric fracture of right hip Hypercapnic respiratory failure UTI (urinary tract infection) End stage COPD Anemia Vitamin C deficiency Cellulitis Low TSH level Depression Edema Heart murmur Hip pain, left Hypercholesteremia Elevated serum glucose Hypoxic Macrocytosis Nasal congestion Osteoporosis Emphysema lung COPD (chronic obstructive pulmonary disease) Sciatica Seasonal allergies Shoulder pain, left Vitamin D deficiency Shoulder fracture, left Surgical History Postoperative state History of left hip replacement Hx of cataract surgery Family History Mother Cancer Breast Father Cancer Heart disease Sister Cancer Grandmother Hypertension Heart disease Aneurysm Brother Heart disease Myocardial infarct Aneurysm Family/Other Heart disease Bipolar 1 disorder Grandfather Heart disease Social History Smoking and tobacco/nicotine status: former use of tobacco/nicotine Quit status (tobacco/nicotine): has quit using Year quit tobacco: 2013 - 1.5 PPD x 60 Years Alcohol intake: never Substance/Drug Use: never Household members: none Marital status: / Number of children: 4 Current occupational status: retired Do you think of yourself as: Straight/Heterosexual Current gender identity: Female Physical Exam 2 Const: COMMON NORMALS: patient oriented x3 HENMT: COMMON NORMALS: normocephalic and atraumatic HEAD & SCALP: n ormocephalic and atraumatic Neck/C-Spine: COMMON NORMALS: full ROM and supple Chest: COMMONS NORMALS: normal inspection of the chest and normal palpation of entire chest wall Resp: COMMON NORMALS: normal respiratory effort, No retractions, No use of accessory muscles and clear to auscultation bilaterally AUSCULTATION: clear to auscultation bilaterally Cardio: COMMON NORMALS: regular rate, regular rhythm and No murmurs present (Cardio) RATE: regular rate RHYTHM: regular rhythm GI: COMMON NORMALS: Normal to inspection, nondistended, normoactive bowel sounds present, Soft to palpation, non-tender and no masses PALPATION: Yes Soft to palpation Extremity: COMMON NORMALS: normal to inspection and full ROM Neuro: COMMON NORMALS: patient oriented x3, moves all extremities and no focal motor deficits Psych: COMMON NORMALS: mental status grossly normal, Normal thought process present and cooperative THOUGHT PROCESS: Normal thought process present Skin: COMMON NORMALS: no rashes or lesions noted and no wounds GENERAL SKIN EXAM: no rashes or lesions noted Course 2 Vital Signs: Vital signs: Vital Signs Temperature 98.5 F 02/22/23 14:46 Pulse Rate 70 02/22/23 15:00 Respiratory Rate 17 02/22/23 15:00 Blood Pressure 163/31 02/22/23 15:00 Pulse Oximetry 100 02/22/23 15:00 Oxygen Delivery Me thod Nasal Cannula 02/22/23 15:00 Oxygen Flow Rate 3 02/22/23 15:00 MDM - Weakness Medical Decision Making Patient presents here with generalized weakness she is found to be quite anemic she also has a UTI spoke to family we will transfuse blood care start antibiotics spoke to hospitalist will admit. Medical Records I reviewed the patient's medical records. Lab Data I reviewed the patient's lab results. 02/22/23 11:15 02/22/23 11:15 Radiology Impressions Chest X-Ray 02/22/23 10:48 IMPRESSION: Small left pleural effusion. No new focal consolidation. Laboratory Results WBC 17.22 10^3/uL (3.29-11.43) H 02/22/23 11:15 RBC 1.45 10^6/uL (3.85-5.65) L 02/22/23 11:15 Hgb 4.60 g/dL (11.27-16.99) L* 02/22/23 11:15 Hct 16.0 % (36-47) L* 02/22/23 11:15 MCV 110.3 fl (85-98) H 02/22/23 11:15 MCH 31.7 pg (27-33) 02/22/23 11:15 MCHC 28.8 g/dL (30-55) L 02/22/23 11:15 RDW 20.8 % (12.1-15.1) H 02/22/23 11:15 Plt Count 250 10^3/cmm (157-399) 02/22/23 11:15 MPV 9.9 fL (7.4-10.4) 02/22/23 11:15 Neut % (Auto) 89.9 % 02/22/23 11:15 Lymph % (Auto) 4.1 % 02/22/23 11:15 [place] % (Auto) 4.5 % 02/22/23 11:15 Eos % (Auto) 0.1 % 02/22/23 11:15 Baso % (Auto) 0.1 % 02/22/23 11:15 Neut # (Auto) 15.50 10^3/uL (1.8-7.7) H 02/22/23 11:15 Lymph # (Auto) 0.7 10^3/uL (0.8-4.8) L 02/22/23 11:15 [place] # (Auto) 0.8 10^3/uL (0.2-0.9) 02/22/23 11:15 Eos # (Auto) 0.0 10^3/uL (0.0-0.8) 02/22/23 11:15 Baso # (Auto) 0.0 10^3/uL (0.0-0.1) 02/22/23 11:15 Nucleated RBC % (auto) 0.4 % 02/22/23 11:15 Nucleated RBCs # 0.1 /100WBC 02/22/23 11:15 Sodium 145 mmol/L (136-145) 02/22/23 11:15 Potassium 5.4 mmol/L (3.5-5.1) H 02/22/23 11:15 Chloride 103 mmol/L (98-107) 02/22/23 11:15 Carbon Dioxide 34 mmol/L (22-29) H 02/22/23 11:15 Anion Gap 13.4 (5-19) 02/22/23 11:15 BUN 70 mg/dL (8-23) H 02/22/23 11:15 Creatinine 1.6 mg/dL (0.5-0.9) H 02/22/23 11:15 GFR Calculation Not Reportable 02/22/23 11:15 Glucose 110 mg/dL (65-115) 02/22/23 11:15 Calculated Osmolality 321 mOsm/kg (285-295) H 02/22/23 11:15 Lactic Acid 1.8 mmol/L (0.5-2.2) 02/22/23 11:15 Calcium 8.9 mg/dL (8.5-10.5) 02/22/23 11:15 Magnesium 2.5 mg/dL (1.7-2.3) H 02/22/23 11:15 Total Bilirubin 0.3 mg/dL (0.15-1.2) 02/22/23 11:15 AST 12 U/L (0-32) 02/22/23 11:15 ALT 13 U/L (0-33) 02/22/23 11:15 Alkaline Phosphatase 67 U/L (35-105) 02/22/23 11:15 Total Protein 5.4 g/dL (6.6-8.7) L 02/22/23 11:15 Albumin 3.0 g/dL (3.5-5.2) L 02/22/23 11:15 Globulin 2.4 g/dL (1.3-4.6) 02/22/23 11:15 Urine Color Yellow (Yellow) 02/22/23 11:25 Urine Appearance Hazy (CLEAR) A 02/22/23 11:25 Urine pH 6 (5-7) 02/22/23 11:25 Ur Specific [place] 1.005 (1.005-1.030) 02/22/23 11:25 Urine Protein Neg (Negative) 02/22/23 11:25 Urine Glucose (UA) Norm (Normal) 02/22/23 11:25 Urine Ketones Negative (Negative) 02/22/23 11:25 Urine Blood 3+ (Negative) H 02/22/23 11:25 Urine Nitrate Negative (Negative) 02/22/23 11:25 Urine Bilirubin Neg (Negative) 02/22/23 11: Urine Urobilinogen Norm mg/dL (Negative) 02/22/23 11:25 Ur Leukocyte Esterase 2+ (Negative) H 02/22/23 11:25 Urine RBC 80-100 /hpf (0-2) H 02/22/23 11:25 Urine WBC 55-80 /hpf (0-5) H 02/22/23 11:25 Ur Squamous Epith Cells None /hpf (0-5) 02/22/23 11:25 Ur Transition Epith Cell 0-4 /hpf 02/22/23 11:25 Amorphous Sediment Not Reportable 02/22/23 11:25 Urine Bacteria Trace /hpf (NONE) 02/22/23 11:25 Urine Mucus None /hpf 02/22/23 11:25 Blood Type O Positive 02/22/23 11:42 Rho(D) Type Rh positive 02/22/23 11:42 Antibody Screen Negative 02/22/23 11:42 Antigen Identification Cancelled 02/22/23 11:42 Crossmatch See Detail 02/22/23 11:42 All radiology interpretation(s) finalized by discharge EKG Data EKG 1: I personally reviewed and interpreted this EKG as follows: EKG interpretation date: 02/22/23 EKG interpretation time: 10:59 Interpretation: nsr hr [address] or t wave abnormalities qrs 86 qtc 388 Critical Care Time 2 Critical Care Time: Critical Care Time: Yes Total Critical Care Time: 45 Attestation: The high probability of a clinically significant, sudden or life threatening deterioration of the patient's heme system(s) required my full and direct attention, intervention and personal management. The critical care time is as shown. This time is in addition to time spent performing any reported procedures but includes the following: [x] Data and vital sign review and interpretation [x] Patient assessment, examination and intervention [x] Documentation [x] Medication orders and management Discharge Plan Discharge Patient Disposition: Admitted As Inpatient Admit Provider: Luca Ramos Clinical Impression: Anemia, Weakness, Acute cystitis Condition: Stable Coding Level of Care Code ED Rouge Miller for Jin Ochoa
--- NOTE | 2023-02-22 10:59 | ECG_ITS ---
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 Measurements Intervals [place] Rate: 81 P: 63 AZ: 173 QRS: 45 QRSD: 86 T: 64 QT: 351 QTc: 408 Interpretive Statements SINUS RHYTHM Compared to ECG 02/02/2023 21:12:53 Indeterminate axis no longer present Electronically Signed On 02-22-2023 21:48:48 INSOLE STIFFENER by Caleb Britt M.D. [id number]
[2023-02-22] MEDS: sodium chloride 0.9% 1,000 ML 999 ML IV ×2 (11:22→13:05)
--- NOTE | 2023-02-22 11:28 | PC.PHAR ---
PT TOOK MEDS THIS AM AND THEN GOT SICK. 02/22/23
[2023-02-22 11:35] LABS: Basophils % 0.1 %; Eosinophils % 0.1 %; Lymphocytes # 0.7 10^3/uL (0.8-4.8); Lymphocytes % 4.1 %; Mean Corpuscular HGB Conc 28.8 g/dL (30-55); Mean Corpuscular Hemoglobin 31.7 pg (27-33); Mean Corpuscular Volume 110.3 fl (85-98); Mean Platelet Volume 9.9 fL (7.4-10.4); Monocytes # 0.8 10^3/uL (0.2-0.9); Monocytes % 4.5 %; Neutrophils % 89.9 %; Nucleated Red Blood Cells # 0.1 /100WBC; Nucleated Red Blood Cells % 0.4 %; Platelet Count 250 10^3/cmm (157-399); Red Blood Count 1.45 10^6/uL (3.85-5.65); Red Cell Distribution Width 20.8 % (12.1-15.1); White Blood Count 17.22 10^3/uL (3.29-11.43)
[2023-02-22 11:46] LABS: Alanine Aminotransferase 13 U/L (0-33); Alkaline Phosphatase 67 U/L (35-105); Anion Gap 13.4 (5-19); Aspartate Amino Transferase 12 U/L (0-32); Blood Urea Nitrogen 70 mg/dL (8-23); Calcium 8.9 mg/dL (8.5-10.5); Carbon Dioxide 34 mmol/L (22-29); Chloride 103 mmol/L (98-107); Globulin 2.4 g/dL (1.3-4.6); Glucose 110 mg/dL (65-115); Lactic Sepsis W/Reflex 1.8 mmol/L (0.5-2.2); Magnesium 2.5 mg/dL (1.7-2.3); Osmolality Calculated 321 mOsm/kg (285-295); Potassium 5.4 mmol/L (3.5-5.1); Sodium 145 mmol/L (136-145); Total Bilirubin 0.3 mg/dL (0.15-1.2); Total Protein 5.4 g/dL (6.6-8.7)
[2023-02-22 12:02] LABS: Specific Gravity, Urine 1.005 (1.005-1.030); Urine Appearance Hazy (CLEAR); Urine Color Yellow (Yellow); pH Urine 6 (5-7)
[2023-02-22 12:03] LABS: Add Urine Microscopic? YES; Bilirubin Urine Neg (Negative); Blood Urine 3+ (Negative); Glucose Urine UA Norm (Normal); Ketones Urine Negative (Negative); Leukocyte Esterase Urine 2+ (Negative); Nitrate Urine Negative (Negative); Protein Urine Neg (Negative); Urobilinogen Urine Norm (Negative)
[2023-02-22 12:07] LABS: Add Urine Culture? Yes; Bacteria Urine TRACE /hpf; RBC Urine 80-100 /hpf (0-2); Transitional Epi Cells Urine 0-4 /hpf; WBC Urine 55-80 /hpf (0-5)
[2023-02-22] MEDS: cefTRIAXone 1,000 MG in sodium chloride 0.9% (plus) 50 ML 100 MG IV (13:07)
--- NOTE | 2023-02-22 14:04 | P.HP_ITS ---
Providers/Chief Complaint 2 Admitting Physician: uLca Ramos MD Primary Care Provider: Traci Prakash MD Chief Complaint: confusion, uti History of Present Illness Yulissa Goddard is a 82 year old female who was recently discharged from the hospital has history of end-stage COPD, uses 4 L at baseline during the day and trilogy at night Recently had right distal femur fracture intervention by Dr. Torrez, she was supposed to get johnson removed today however got sick with generalized weakness and fatigue with low blood pressure that prompted her visit to the ER. In the ER she was extremely hypotensive required Levophed and 2 units for her severe anemia patient is stating that she has been noticing darker stools she is on Eliquis. She has not noticed any blood in her urine no recent vomiting or fever. She is also suffering from UTI, family is endorsing that she has been confused lately they try to give her Levaquin without much success. CT abdomen pelvis showed hiatal hernia, spiculated nodule, left adrenal mass, Patient is stating that she does not want chest compressions defibrillation or intubation family is agreeable her CODE STATUS will be changed to DNR/DNI Family is agreeable for palliative care but they do not want hospice at this point Patient is stating that she would not opt for endoscopy because she carries high risk to end up on a ventilator At baseline her p.o. intake has been poor, she is not very active at baseline leading sedentary lifestyle Review of Systems 2 Const: Reports: chills and change in weight Eyes: Denies: change in vision ENMT: Denies: throat pain Card: Denies: chest pain Resp: Reports: dyspnea GI: Denies: abdominal pain : Denies: flank pain Medications/Allergies Home Medications Medication Instructions Recorded Confirmed Last Taken Type albuterol sulfate 90 mcg/actuation 2 puff inhalation QID PRN 02/13/19 02/22/23 Unknown History aerosol inhaler (Ventolin HFA) Shortness Of Breath vit no.95-ferrous 1 tab PO QAM 03/26/20 02/22/23 02/22/23 History fumarate 28 mg-folic acid 800 mcg tablet ( Multivitamins) prednisone 10 mg tablet 10 mg PO DAILY PRN swelling 02/03/23 02/22/23 02/22/23 History apixaban 2.5 mg tablet (Eliquis) 2.5 mg PO BID #120 tabs 02/07/23 02/22/23 02/22/23 Rx diltiazem HCl 120 mg 120 mg PO DAILY #60 tabs 02/07/23 02/22/23 02/22/23 Rx tablet,extended release 24 hr (Cardizem LA) fluticasone fur. 100 mcg-umeclid 1 inh inhalation DAILY #60 ea 02/07/23 02/22/23 02/22/23 Rx 62.5 mcg-vilant 25 mcg inhalat.powder (Trelegy Ellipta) furosemide 20 mg tablet (Lasix) 20 mg PO DAILY #90 tabs 02/07/23 02/22/23 02/22/23 Rx lisinopril 20 mg tablet 20 mg PO DAILY #60 tabs 02/07/23 02/22/23 02/22/23 Rx potassium chloride 10 mEq 10 meq PO DAILY Only take with 02/07/23 02/22/23 02/22/23 Rx tablet,extended release Lasix #90 tabs Allergies Allergy/AdvReac Type Severity Reaction Status Date / Time No Known Allergies Allergy Verified 02/14/23 08:56 PFSH Acute 2 PFSH: Medical History (Updated 02/22/23 @ 18:22 by Luca Ramos MD) Pulmonary nodule Adrenal mass, left Acute exacerbation of CHF (congestive heart failure) Leg fracture, right Acute and chronic respiratory failure with hypercapnia Leukocytosis Closed fracture of distal end of femur Anemia Intertrochanteric fracture of right hip Hypercapnic respiratory failure UTI (urinary tract infection) End stage COPD Anemia Vitamin C deficiency Cellulitis Low TSH level Depression Edema Heart murmur Hip pain, left Hypercholesteremia Elevated serum glucose Hypoxic Macrocytosis Nasal congestion Osteoporosis Emphysema lung COPD (chronic obstructive pulmonary disease) Sciatica Seasonal allergies Shoulder pain, left Vitamin D deficiency Shoulder fracture, left Surgical History Postoperative state History of left hip replacement Hx of cataract surgery Family History Mother Cancer Breast Father Cancer Heart disease Sister Cancer Grandmother Hypertension Heart disease Aneurysm Brother Heart disease Myocardial infarct Aneurysm Family/Other Heart disease Bipolar 1 disorder Grandfather Heart disease Social History Smoking and tobacco/nicotine status: former use of tobacco/nicotine Quit status (tobacco/nicotine): has quit using Year quit tobacco: 2013 - 1.5 PPD x 60 Years Alcohol intake: never Substance/Drug Use: never Household members: none Marital status: / Number of children: 4 Current occupational status: retired Do you think of yourself as: Straight/Heterosexual Current gender identity: Female Vitals/I&O/Wt Last Vital Signs Temp 98.1 F 02/22/23 10:45 Pulse 108 H 02/22/23 13:45 Resp 24 H 02/22/23 13:45 BP 122/46 02/22/23 13:45 Pulse Ox 99 02/22/23 13:45 O2 Del Method Nasal Cannula 02/22/23 13:11 O2 Flow Rate 5 02/22/23 13:11 02/21/23 02/22/23 02/22/23 22:59 06:59 14:59 Intake Total 1000 / 1000 Balance 1000 / 1000 Weight last 48 hrs Weight 76.204 kg Physical Exam 2 Narrative: Patient is extremely frail and thin Dehydrated Currently on Levophed Stable blood pressure Drowsy however able to answer few questions Family at the bedside Wrinkled skin of lower extremity Abdomen soft however distended Nonfocal neuroexam Multiple petechia lower extremities Currently on 4 L nasal cannula A-fib without RVR currently bradycardic in high 50s Data 02/22/23 11:15 02/22/23 11:15 A&P Assessment and plan (1) Acute cystitis: (2) Anemia: (3) Hypovolemic shock: (4) End stage COPD: (5) Weakness: (6) Metabolic encephalopathy: (7) Acute kidney injury superimposed on chronic kidney disease: (8) Hyperkalemia: Plan Hypovolemic shock related to GI bleed Give her 2 unit PRBC Hold Eliquis Patient does not want endoscopy family is agreeable Conservative management for now CT abdomen pelvis did not show any sign of obstruction UTI: I will start her on broad-spectrum antibiotics Metabolic encephalopathy related to UTI SIRS criteria met sepsis criteria met with tachypnea tachycardia leukocytosis normal lactic acid endorgan damage Will give her 2 L septic bolus She has received antibiotics Lactic acid normal Currently on Levophed Hip fracture status post intervention Will asked Dr. Torrez for removal of johnson in the morning Not very active at baseline Guarded prognosis End-stage COPD uses trilogy at night Will ask RT to start her on trilogy at night Clear liquid diet Protonix 40 mg IV twice daily DVT prophylaxis SCDs Change CODE STATUS DNR/DNI Spiculated nodule left adrenal mass concern for malignancy family and patient not interested in biopsy as Attestations 2 Medical Necessity Statement*: More than 2 midnights anticipated for management of metabolic encephalopathy UTI sepsis hypovolemic shock Coding Level of Care Code Critical Care >/= 30 minutes Critical care time (in minutes): 60 The high probability of a clinically significant, sudden or life threatening deterioration, as referenced in this documentation, required my full and direct attention, intervention and personal management. The critical care time shown is in addition to time spent performing any reported separately billable procedures and includes the following: [x] Data and vital sign review and interpretation [x ] Patient assessment, examination and intervention [x] Medication orders and management [x] Patient/Family updates as able [x] Care Coordination and Documentation. Diagnoses Acute cystitis N30.00 Anemia D64.9 Hypovolemic shock R57.1 End stage COPD J44.9 Weakness R53.1 Metabolic encephalopathy G93.41 Acute kidney injury superimposed on chronic kidney disease N17.9; N18.9 Hyperkalemia E87.5
--- NOTE | 2023-02-22 14:09 | CT_ITS ---
WS: [id number] CT CHEST, ABDOMEN, AND PELVIS TECHNIQUE: Noncontrast CT of the chest, abdomen, and pelvis with coronal and sagittal reformatted salomón ges. CLINICAL INFORMATION: bleed , pul nod, adrenal mass COMPARISON: 02/05/2023 DLP: 874.[address] scans at [facility] use at least one of these dose optimization techniques: automated e xposure control; mA and/or kV adjustment per patient size (includes targeted exams where dose is matc hed to clinical indication); or iterative reconstruction. CT CHEST: Stable appearance of described spiculated RIGHT hilar mass suspicious for neoplasm measuring approxim ately 1.3 x 1.6 cm. Recommend further evaluation with PET/CT or bronchoscopy. Previously described RI GHT lower lobe spiculated nodule also appears stable measuring 9 mm. Subsegmental atelectasis RIGHT l ower lobe with bronchiectasis. Trace LEFT greater than RIGHT pleural fluid. Centrilobular emphysemato us changes. Aortic calcification. Coronary calcification. Small esophageal hiatal hernia. Moderate thoracic kypho sis. Chronic anterior wedging in the midthoracic spine. CT ABDOMEN AND PELVIS: Normal noncontrast liver. Normal noncontrast gallbladder. Small esophageal hiatal hernia. Air-fluid l evel in the stomach. Adrenal glands are normal. Noncontrast pancreas appears normal. Splenic artery c alcification. No hydronephrosis in either kidney. Normal caliber abdominal aorta. Moderate aortic calcification. Lobulated upper pole LEFT kidney as pr eviously described. This can be further evaluated with ultrasound. LEFT CHUCKY. Postoperative changes RIGHT hip degrades images in the pelvis. Gipson catheter. Sigmoid dive rticulosis. IMPRESSION: 1. Stable spiculated RIGHT hilar lesion suspicious for neoplasm measuring 1.3 x 1.6 cm. Recommend fu rther evaluation with PET/CT and/or bronchoscopy. 2. Previously described RIGHT lower lobe spiculated nodule also appears stable measuring 9 mm. 3. Lobulated upper pole LEFT kidney as previously described. Recommend further evaluation with ultra sound. 4. Sigmoid diverticulosis. No evidence of acute diverticulitis. 5. Small esophageal hiatal hernia.
[2023-02-22] MEDS: piperacillin-tazobactam 3.375 GM in sodium chloride 0.9% (plus) 50 ML IV ×2 (15:39→21:31)
[2023-02-22] MEDS: albuterol 2.5 mg/3 mL Neb INHALATION (18:13)
[2023-02-22] MEDS: pantoprazole 40 mg SDV IVP (18:42)
[2023-02-22] MEDS: lactated ringers 1,000 ML 999 ML IV ×2 (18:42→20:26)
[2023-02-22 20:50] LABS: Glucose Point of Care 122 mg/dL (70-110)
[2023-02-23] VITALS (45 sets, daily range): BP systolic 109–181; BP diastolic 36–81; PULSE 52–91; RESP 10–33; TEMP 36.1–37.1; O2SAT 89–100
[2023-02-23] MEDS: piperacillin-tazobactam 3.375 GM in sodium chloride 0.9% (plus) 50 ML IV ×3 (05:19→22:44)
[2023-02-23 05:58] LABS: Basophils % 0.2 %; Hematocrit 24.6 % (36-47); Lymphocytes # 0.7 10^3/uL (0.8-4.8); Lymphocytes % 5.2 %; Mean Corpuscular HGB Conc 30.5 g/dL (30-55); Mean Corpuscular Hemoglobin 30.2 pg (27-33); Mean Corpuscular Volume 99.2 fl (85-98); Mean Platelet Volume 9.8 fL (7.4-10.4); Monocytes # 0.8 10^3/uL (0.2-0.9); Monocytes % 5.6 %; Neutrophils # 12.52 10^3/uL (1.8-7.7); Neutrophils % 87.7 %; Nucleated Red Blood Cells # 0.1 /100WBC; Nucleated Red Blood Cells % 0.4 %; Platelet Count 214 10^3/cmm (157-399); Red Blood Count 2.48 10^6/uL (3.85-5.65); Red Cell Distribution Width 19.8 % (12.1-15.1); White Blood Count 14.28 10^3/uL (3.29-11.43)
[2023-02-23 06:17] LABS: Blood Urea Nitrogen 55 mg/dL (8-23); C Reactive Protein 52.4 mg/L (0.0-4.9); Calcium 8.3 mg/dL (8.5-10.5); Carbon Dioxide 29 mmol/L (22-29); Chloride 107 mmol/L (98-107); Glucose 81 mg/dL (65-115); Magnesium 2.4 mg/dL (1.7-2.3); Osmolality Calculated 310 mOsm/kg (285-295); Sodium 143 mmol/L (136-145)
[2023-02-23 06:24] LABS: Anion Gap 12.8 (5-19); Potassium 5.8 mmol/L (3.5-5.1)
--- NOTE | 2023-02-23 06:27 | PC.NURSE ---
K+ 5.8: Dr. Celaya notified of Potassium 5.8 @0625. New order for 10 units Regular IVP insulin and 1amp D50.
[2023-02-23] MEDS: insulin regular-human 10 UNIT in SYRINGE 1 EACH 999 UNIT IVP (07:03)
[2023-02-23] MEDS: dextrose 50% syringe 50 mL IVP (07:04)
[2023-02-23 07:31] LABS: Glucose Point of Care 93 mg/dL (70-110)
[2023-02-23] MEDS: ipratropium-albuterol 3 mL Neb INHALATION ×3 (07:37→20:09)
[2023-02-23 07:58] LABS: Glucose Point of Care 134 mg/dL (70-110)
[2023-02-23] MEDS: pantoprazole 40 mg SDV IVP ×2 (08:09→17:09)
[2023-02-23] MEDS: lactulose oral liq 20 gm/30 mL UDC 10 GM PO (08:15)
[2023-02-23] MEDS: FUROsemide 10 mg/mL SDV 2mL 20 MG IVP (08:15)
--- NOTE | 2023-02-23 10:43 | PC.SOCIAL ---
IMM Update pg 2 of IMM updated and reviewed w/ patient. Copy provided and copy dated, initialed and placed in chart.
--- NOTE | 2023-02-23 11:56 | P.PN_ITS ---
Subjective 2 Subjective: This morning hemoglobin is 7.5 Off Levophed Gipson catheter has been exchanged Discontinued Eliquis yesterday No fever Currently patient is on nasal cannula Overnight events Worsening creatinine and hyperkalemia, given insulin, patient has had no BM yet CT abdomen pelvis did not show any obstruction Given lactulose this morning Vitals/I&O/Wt Last Vital Signs Temp 97.6 F 02/23/23 09:00 Pulse 65 02/23/23 10:00 Resp 18 02/23/23 10:00 BP 152/44 02/23/23 10:00 Pulse Ox 99 02/23/23 10:00 O2 Del Method Nasal Cannula 02/23/23 10:00 O2 Flow Rate 2 02/23/23 10:00 FiO2 40 02/23/23 04:00 02/22/23 02/23/23 02/23/23 22:59 06:59 14:59 Intake Total 4254.042 / 5254.042 43.958 / 5298.000 50.1 / 50.1 Output Total 500 / 1100 525 / 1625 250 / 250 Balance 3754.042 / 4154.042 -481.042 / 3673.000 -199.9 / -199.9 Weight last 48 hrs Weight 84.323 kg Weight 84.964 kg Weight 76.204 kg Physical Exam 2 Narrative: Thin frail female Currently on 4 L nasal cannula Mild rhonchi Abdomen soft Gipson catheter draining dilute urine GCS 15 nonfocal neuroexam Able to answer my questions Family is at the bedside Afebrile Lethargic and fatigued Urinary Catheter Management: Gipson: Cath Placed During This Visit: yes Reason for Continuing Indwelling Catheter: Accurate Measurement of Urinary Output in Critically Ill Patients Urinary Catheter Date of Insertion: 02/22/23 Urinary Catheter Time of Insertion: 19:20 Data 02/23/23 04:58 02/23/23 04:58 A&P Assessment and plan (1) Hypovolemic shock: (2) Adrenal mass, left: (3) Acute kidney injury superimposed on chronic kidney disease: (4) Hyperkalemia: (5) UTI (urinary tract infection): Qualifiers: Urinary tract infection type: acute cystitis Hematuria presence: w ithout hematuria Qualified Code(s): N30.00 - Acute cystitis without hematuria (6) Anemia: (7) Metabolic encephalopathy: (8) Pulmonary nodule: (9) End stage COPD: Plan Hypovolemic shock related to GI bleed Hemoglobin above 7 I will give her Lasix today Hemodynamic stable Off Levophed Acute on chronic kidney disease Creatinine improving Constipation: Given lactulose Hyperkalemia given insulin this morning Repeat BMP Chronic hypoxia currently on 4 L, uses BiPAP overnight She has a spiculated nodule left adrenal mass concern for malignancy, patient and family not pursuing biopsy Patient and family not interested in EGD Discontinue Eliquis Patient has guarded prognosis DNR/DNI If her hemoglobin remained stable and she does well with physical therapy I might be able to discharge her home by this weekend Attestations 2 Medical Necessity Statement*: Might be able to transfer her by tomorrow if she remains stable Diagnoses Hypovolemic shock R57.1 Adrenal mass, left E27.8 Acute kidney injury superimposed on chronic kidney disease N17.9; N18.9 Hyperkalemia E87.5 Acute cystitis without hematuria N30.00 Urinary tract infection type: acute cystitis Hematuria presence: without hematuria Anemia D64.9 Metabolic encephalopathy G93.41 Pulmonary nodule R91.1 End stage COPD J44.9
[2023-02-23 12:21] LABS: Glucose Point of Care 81 mg/dL (70-110)
[2023-02-23 12:24] LABS: Basophils % 0.2 %; Eosinophils % 0.1 %; Hematocrit 25.6 % (36-47); Lymphocytes # 0.5 10^3/uL (0.8-4.8); Lymphocytes % 4.5 %; Mean Corpuscular HGB Conc 30.5 g/dL (30-55); Mean Corpuscular Hemoglobin 30.2 pg (27-33); Mean Corpuscular Volume 99.2 fl (85-98); Mean Platelet Volume 9.7 fL (7.4-10.4); Monocytes # 0.8 10^3/uL (0.2-0.9); Monocytes % 6.4 %; Neutrophils # 10.32 10^3/uL (1.8-7.7); Neutrophils % 87.5 %; Nucleated Red Blood Cells # 0.1 /100WBC; Nucleated Red Blood Cells % 0.4 %; Platelet Count 233 10^3/cmm (157-399); Red Blood Count 2.58 10^6/uL (3.85-5.65); White Blood Count 11.78 10^3/uL (3.29-11.43)
[2023-02-23 13:48] LABS: Alanine Aminotransferase 10 U/L (0-33); Albumin Level 2.7 g/dL (3.5-5.2); Alkaline Phosphatase 66 U/L (35-105); Aspartate Amino Transferase 16 U/L (0-32); Blood Urea Nitrogen 49 mg/dL (8-23); Calcium 8.4 mg/dL (8.5-10.5); Carbon Dioxide 33 mmol/L (22-29); Chloride 106 mmol/L (98-107); Globulin 2.4 g/dL (1.3-4.6); Glucose 88 mg/dL (65-115); Osmolality Calculated 314 mOsm/kg (285-295); Sodium 146 mmol/L (136-145); Total Bilirubin 0.4 mg/dL (0.15-1.2); Total Protein 5.1 g/dL (6.6-8.7)
[2023-02-23 13:52] LABS: Anion Gap 12.4 (5-19); Potassium 5.4 mmol/L (3.5-5.1)
--- NOTE | 2023-02-23 18:59 | PC.NURSE ---
SHift SUmmary: Uneventful shift. Patient rested in bed throughout the day, was up to the side of the bed briefly with physical therapy. Stool sample came back positive for occult blood. Bipap at night and when sleeping.
[2023-02-23 19:39] LABS: Glucose Point of Care 100 mg/dL (70-110)
[2023-02-23 22:22] LABS: Glucose Point of Care 88 mg/dL (70-110)
[2023-02-24] VITALS (28 sets, daily range): BP systolic 107–148; BP diastolic 38–81; PULSE 61–102; RESP 9–30; TEMP 36.3–37.2; O2SAT 91–100; BMI 30.9
[2023-02-24] MEDS: ipratropium-albuterol 3 mL Neb INHALATION ×4 (02:44→20:12)
[2023-02-24 04:39] LABS: Basophils % 0.1 %; Hematocrit 27.6 % (36-47); Lymphocytes # 0.9 10^3/uL (0.8-4.8); Lymphocytes % 9.7 %; Mean Corpuscular HGB Conc 30.1 g/dL (30-55); Mean Corpuscular Hemoglobin 30.7 pg (27-33); Mean Corpuscular Volume 102.2 fl (85-98); Mean Platelet Volume 9.8 fL (7.4-10.4); Monocytes # 0.6 10^3/uL (0.2-0.9); Monocytes % 6.5 %; Neutrophils # 7.74 10^3/uL (1.8-7.7); Neutrophils % 82.7 %; Nucleated Red Blood Cells % 0 %; Platelet Count 218 10^3/cmm (157-399); White Blood Count 9.36 10^3/uL (3.29-11.43)
[2023-02-24] MEDS: piperacillin-tazobactam 3.375 GM in sodium chloride 0.9% (plus) 50 ML IV ×3 (05:50→22:27)
[2023-02-24] MEDS: efferdent effervescent 1 EACH DENTAL (05:50)
[2023-02-24 07:46] LABS: Glucose Point of Care 90 mg/dL (70-110)
[2023-02-24] MEDS: pantoprazole 40 mg SDV IVP ×2 (08:48→18:55)
[2023-02-24] MEDS: FUROsemide 10 mg/mL SDV 2mL 20 MG IVP (08:48)
[2023-02-24 11:45] LABS: Glucose Point of Care 115 mg/dL (70-110)
--- NOTE | 2023-02-24 13:19 | P.PN_ITS ---
Subjective 2 Subjective: This morning patient is feeling better Hemoglobin 8.3 Will request BMP Patient can be transferred out of ICU to [facility] Off Levophed No fever Had a bowel movement yesterday Vitals/I&O/Wt Last Vital Signs Temp 98.3 F 02/24/23 08:00 Pulse 101 H 02/24/23 13:14 Resp 20 H 02/24/23 13:14 BP 134/46 02/24/23 11:00 Pulse Ox 97 02/24/23 13:14 O2 Del Method Nasal Cannula 02/24/23 13:14 O2 Flow Rate 3 02/24/23 13:14 FiO2 35 02/24/23 04:00 02/23/23 02/24/23 02/24/23 22:59 06:59 14:59 Intake Total 50 / 100.1 50.000 / 150.100 300 / 300 Output Total 600 / 1500 350 / 350 Balance 50 / -799.9 -550.000 / -1349.900 -50 / -50 Weight last 48 hrs Weight 84.232 kg Weight 84.323 kg Weight 84.964 kg Physical Exam 2 Narrative: Hemodynamically stable Currently on 4 L GCS 15 Use BiPAP all night Pleasant cooperative No active sign of heart failure Nonfocal neuroexam In good spirits S1, S2 Urinary Catheter Management: Gipson: Cath Placed During This Visit: yes Reason for Continuing Indwelling Catheter: Accurate Measurement of Urinary Output in Critically Ill Patients Urinary Catheter Date of Insertion: 02/22/23 Urinary Catheter Time of Insertion: 19:20 Data 02/24/23 03:44 02/23/23 13:08 Micro: Microbiology 02/22/23 11:50 Blood Culture - Preliminary Blood 02/22/23 11:42 Blood Culture - Preliminary Blood 02/23/23 15:40 Occult Blood (FIT) - Final Stool - Stool Aspirate 02/22/23 11:25 Urine Culture - Preliminary Urine,Clean Catch A&P Assessment and plan (1) Hypovolemic shock: (2) Adrenal mass, left: (3) Acute kidney injury superimposed on chronic kidney disease: (4) Hyperkalemia: (5) UTI (urinary tract infection): Qualifiers: Urinary tract infection type: acute cystitis Hematuria presence: w ithout hematuria Qualified Code(s): N30.00 - Acute cystitis without hematuria (6) Acute cystitis: (7) Metabolic encephalopathy: (8) Pulmonary nodule: (9) End stage COPD: Plan Patient can be transferred out of the ICU Dr. Rei ornelas likely on Sunday Hemoglobin stable Off Eliquis Doing well on current nasal cannula Check BMP Metabolic encephalopathy improving Continue antibiotics DNR/DNI She is trilogy at night at home and 4 L in the daytime Requested BMP Patient had a bowel movement yesterday, she was constipated for last 4 days Attestations 2 Medical Necessity Statement*: Out of ICU Diagnoses Hypovolemic shock R57.1 Adrenal mass, left E27.8 Acute kidney injury superimposed on chronic kidney disease N17.9; N18.9 Hyperkalemia E87.5 Acute cystitis without hematuria N30.00 Urinary tract infection type: acute cystitis Hematuria presence: without hematuria Acute cystitis N30.00 Metabolic encephalopathy G93.41 Pulmonary nodule R91.1 End stage COPD J44.9
--- NOTE | 2023-02-24 14:31 | PC.NURSE ---
Report called to [facility]. Report given to TORIBIO Gomes.
--- NOTE | 2023-02-24 14:45 | PC.NURSE ---
Pt transferred to room 254-1 via bed. All belongings with pt. Her daughter had picked up pt's cell phone for the transfer.
[2023-02-24 15:07] LABS: Anion Gap 13.5 (5-19); Blood Urea Nitrogen 33 mg/dL (8-23); Calcium 8.3 mg/dL (8.5-10.5); Carbon Dioxide 33 mmol/L (22-29); Chloride 99 mmol/L (98-107); Glucose 108 mg/dL (65-115); Osmolality Calculated 300 mOsm/kg (285-295); Potassium 4.5 mmol/L (3.5-5.1); Sodium 141 mmol/L (136-145)
[2023-02-24] MEDS: acetaminophen 500 mg Tablet PO (15:53)
[2023-02-24 17:05] LABS: Glucose Point of Care 97 mg/dL (70-110)
[2023-02-24 21:22] LABS: Glucose Point of Care 124 mg/dL (70-110)
[2023-02-25] VITALS (11 sets, daily range): BP systolic 100–147; BP diastolic 52–65; PULSE 69–110; RESP 16–24; TEMP 36.4–37.2; O2SAT 92–98; BMI 31.7
--- NOTE | 2023-02-25 01:41 | PC.NURSE ---
While repositioning the patient higher in bed, the patient's arm was bumped and she received a ST to the posterior aspect of the VINNY. Site was cleansed w/NS, patted dry. Edges of wound were reapproximated, and steri-strips were applied. Wound was covered w/an optifoam drsg to prevent from further injury. Splicing Machine Operator notified.
[2023-02-25] MEDS: ipratropium-albuterol 3 mL Neb INHALATION ×4 (02:53→20:25)
[2023-02-25 04:47] LABS: Basophils % 0.3 %; Eosinophils # 0.4 10^3/uL (0.0-0.8); Eosinophils % 3.8 %; Hematocrit 29.9 % (36-47); Lymphocytes # 0.7 10^3/uL (0.8-4.8); Lymphocytes % 6.7 %; Mean Corpuscular HGB Conc 29.1 g/dL (30-55); Mean Corpuscular Hemoglobin 30.5 pg (27-33); Mean Corpuscular Volume 104.9 fl (85-98); Mean Platelet Volume 9.6 fL (7.4-10.4); Monocytes # 0.5 10^3/uL (0.2-0.9); Monocytes % 5.5 %; Neutrophils # 7.97 10^3/uL (1.8-7.7); Neutrophils % 82.8 %; Nucleated Red Blood Cells % 0 %; Platelet Count 204 10^3/cmm (157-399); Red Blood Count 2.85 10^6/uL (3.85-5.65); Red Cell Distribution Width 18.9 % (12.1-15.1); White Blood Count 9.64 10^3/uL (3.29-11.43)
[2023-02-25 05:11] LABS: Anion Gap 10.1 (5-19); Blood Urea Nitrogen 29 mg/dL (8-23); Calcium 7.6 mg/dL (8.5-10.5); Carbon Dioxide 35 mmol/L (22-29); Chloride 102 mmol/L (98-107); Glucose 100 mg/dL (65-115); Osmolality Calculated 302 mOsm/kg (285-295); Potassium 4.1 mmol/L (3.5-5.1); Sodium 143 mmol/L (136-145)
[2023-02-25] MEDS: piperacillin-tazobactam 3.375 GM in sodium chloride 0.9% (plus) 50 ML IV ×3 (05:26→22:14)
[2023-02-25 07:19] LABS: Glucose Point of Care 104 mg/dL (70-110)
[2023-02-25] MEDS: pantoprazole 40 mg SDV IVP ×2 (08:30→18:13)
[2023-02-25] MEDS: FUROsemide 10 mg/mL SDV 2mL 20 MG IVP (08:30)
--- NOTE | 2023-02-25 11:14 | P.PN_ITS ---
Subjective 2 Subjective: Patient wants to try solid food Gipson catheter remains in place Did not want it to be removed Family at the bedside Afebrile Creatinine stable at 1.7 Hemoglobin stable Plan to discharge by Sunday after removal of johnson Vitals/I&O/Wt Last Vital Signs Temp 98 F 02/25/23 07:15 Pulse 110 H 02/25/23 09:21 Resp 24 H 02/25/23 09:21 BP 146/63 02/25/23 07:15 Pulse Ox 95 02/25/23 09:21 O2 Del Method Nasal Cannula 02/25/23 09:21 O2 Flow Rate 3 02/25/23 09:21 FiO2 30 02/25/23 00:00 02/24/23 02/25/23 02/25/23 22:59 06:59 14:59 Intake Total 50 / 500 170 / 670 840 / 840 Output Total 1999 / 0 300 / 2650 Balance -1950 / -1850 -130 / -1980 840 / 840 Weight last 48 hrs Weight 86.5 kg Weight 84.232 kg Physical Exam 2 Narrative: Johnson in place rt thigh area No active signs of infection Gipson catheter in place Currently on 4 L GCS 15 Doing well No audible stridor or wheezing Euvolemic Urinary Catheter Management: Gipson: Cath Placed During This Visit: yes Reason for Continuing Indwelling Catheter: Assist Healing of Perineal & Sacral Wounds- Incontinent Patients Urinary Catheter Date of Insertion: 02/22/23 Urinary Catheter Time of Insertion: 19:20 Data 02/25/23 03:59 02/25/23 03:59 Micro: Microbiology 02/22/23 11:25 Urine Culture - Preliminary Urine,Clean Catch Yeast 02/22/23 11:50 Blood Culture - Preliminary Blood 02/22/23 11:42 Blood Culture - Preliminary Blood A&P Assessment and plan (1) Hypovolemic shock: (2) Adrenal mass, left: (3) Acute kidney injury superimposed on chronic kidney disease: (4) Hyperkalemia: (5) UTI (urinary tract infection): Qualifiers: Urinary tract infection type: acute cystitis Hematuria presence: w ithout hematuria Qualified Code(s): N30.00 - Acute cystitis without hematuria (6) Pulmonary nodule: (7) End stage COPD: (8) Metabolic encephalopathy: (9) Anemia: Plan Hemoglobin stable UTI without sign of sepsis Acute on chronic kidney disease creatinine stable Patient was given Lasix today Doing well on 3 to 4 L nasal cannula Plan to remove her stitches by tomorrow and then discharge home I am hoping to discharge her before Continue antibiotics until she is discharged She is DNR/DNI Family at the bedside Updated Attestations 2 Medical Necessity Statement*: jenni marinelli Coding Level of Care Code 08556 Diagnoses Hypovolemic shock R57.1 Adrenal mass, left E27.8 Acute kidney injury superimposed on chronic kidney disease N17.9; N18.9 Hyperkalemia E87.5 Acute cystitis without hematuria N30.00 Urinary tract infection type: acute cystitis Hematuria presence: without hematuria Pulmonary nodule R91.1 End stage COPD J44.9 Metabolic encephalopathy G93.41 Anemia D64.9
[2023-02-25 11:15] LABS: Glucose Point of Care 124 mg/dL (70-110)
[2023-02-25 16:25] LABS: Glucose Point of Care 476 mg/dL (70-110)
[2023-02-25] MEDS: insulin lispro 100 unit/1 mL SUBCUT (18:09)
--- NOTE | 2023-02-25 19:28 | PC.NURSE ---
removed 38 of 39 johnson per verbal order from , notified dr. torres that 1 was unable to be removed
[2023-02-25 21:13] LABS: Glucose Point of Care 67 mg/dL (70-110)
[2023-02-25 21:36] LABS: Glucose Point of Care 75 mg/dL (70-110)
[2023-02-25 22:26] LABS: Glucose Point of Care 187 mg/dL (70-110)
[2023-02-26] VITALS (9 sets, daily range): BP systolic 115–163; BP diastolic 50–67; PULSE 81–136; RESP 14–20; TEMP 36.8; O2SAT 88–100; BMI 30.3
[2023-02-26] MEDS: ipratropium-albuterol 3 mL Neb INHALATION ×3 (01:02→12:59)
[2023-02-26] MEDS: piperacillin-tazobactam 3.375 GM in sodium chloride 0.9% (plus) 50 ML IV (05:31)
[2023-02-26 05:46] LABS: Basophils % 0.4 %; Eosinophils # 0.1 10^3/uL (0.0-0.8); Eosinophils % 0.5 %; Lymphocytes # 0.6 10^3/uL (0.8-4.8); Lymphocytes % 6.2 %; Mean Corpuscular HGB Conc 29.3 g/dL (30-55); Mean Corpuscular Hemoglobin 30.5 pg (27-33); Mean Corpuscular Volume 104.1 fl (85-98); Mean Platelet Volume 9.8 fL (7.4-10.4); Monocytes # 0.5 10^3/uL (0.2-0.9); Monocytes % 5.3 %; Neutrophils # 8.86 10^3/uL (1.8-7.7); Neutrophils % 86.8 %; Nucleated Red Blood Cells % 0 %; Platelet Count 184 10^3/cmm (157-399); Red Blood Count 2.69 10^6/uL (3.85-5.65); Red Cell Distribution Width 18.4 % (12.1-15.1)
[2023-02-26 06:05] LABS: Blood Urea Nitrogen 21 mg/dL (8-23); Carbon Dioxide 36 mmol/L (22-29); Chloride 100 mmol/L (98-107); Glucose 103 mg/dL (65-115); Osmolality Calculated 299 mOsm/kg (285-295); Sodium 143 mmol/L (136-145)
[2023-02-26 06:07] LABS: Anion Gap 11.2 (5-19); Potassium 4.2 mmol/L (3.5-5.1)
[2023-02-26 06:47] LABS: Glucose Point of Care 158 mg/dL (70-110)
[2023-02-26] MEDS: pantoprazole 40 mg SDV IVP (08:10)
[2023-02-26] MEDS: insulin lispro 100 unit/1 mL SUBCUT (08:11)
[2023-02-26] MEDS: FUROsemide 10 mg/mL SDV 2mL 20 MG IVP (08:11)
--- NOTE | 2023-02-26 08:11 | P.DS_ITS ---
Discharge Providers Date of Admission: 02/22/23 12:52 Date of Discharge: February 26, 2023 Attending Provider at Admission: Luca Ramos MD Attending Provider at Discharge: Luca Ramos MD Primary Care Provider: Traci Prakash MD Diagnoses at Discharge Discharge Diagnosis (1) Hypovolemic shock: Status: Acute (2) Adrenal mass, left: Status: Acute (3) Acute kidney injury superimposed on chronic kidney disease: Status: Acute (4) Hyperkalemia: Status: Acute (5) UTI (urinary tract infection): Status: Acute Qualifiers: Hematuria presence: without hematuria Urinary tract infection type: acute cystitis Qualified Code(s): N30.00 - Acute cystitis without hematuria (6) Pulmonary nodule: Status: Acute (7) End stage COPD: Status: Acute (8) Metabolic encephalopathy: Status: Acute (9) Anemia: Status: Acute Reason for Visit Reason for Visit: confusion, uti Hospital Course Hospital Course 82-year-old female with history of end-stage COPD, spiculated nodule, left adrenal mass, concern for malignancy, patient and family opted not to pursue biopsy considering her poor functional status, at baseline she uses 4 L of oxygen during the day and trilogy at night, not very active at baseline, presented to the hospital for generalized weakness fatigue and low blood pressure. Patient was diagnosed with severe anemia her Eliquis was stopped, FOBT positive, family and patient opted not to pursue endoscopy to prevent intubation. She was given 2 unit PRBC which improved her hemoglobin to 8, at the time of discharge her hemoglobin is stable at 8.2. She remained in ICU for about 2 days initially required Levophed for about a few hours which was weaned off within 4 to 6 hours. Eliquis will be discontinued, patient and family knows that she will be considered high risk for any kind of stroke, she is DNR/DNI CODE STATUS has been changed, on previous admission patient went for ORIF right hip fracture on this visit we have removed her johnson, we were not able to remove 1 staple which was deeply embedded around right knee asked Dr. Torrez's service to remove johnson before her discharge. Patient does not want her Gipson catheter removed. We ex changed her Gipson catheter continue her antibiotics for UTI. Family educated to get her Gipson catheter changed once a month. Please note she had couple of episodes of loose stools which were pasty did not meet criteria to check for C. difficile Family wanted a palliative referral, they are not ready for hospice yet Physical Exam Narrative: Poor functional status Awake and alert Eats very well Gipson catheter in place Currently on 4 L No audible throat or wheezing Pleasant and cooperative Family at the bedside All of the johnson have been removed except 1 around the knee Urinary Catheter Management: Gipson: Cath Placed During This Visit: yes Reason for Continuing Indwelling Catheter: Assist Healing of Perineal & Sacral Wounds- Incontinent Patients Urinary Catheter Date of Insertion: 02/22/23 Urinary Catheter Time of Insertion: 19:20 Discharge Data Studies Completed and Pending Completed Studies During Hospitalization Category Date Time Status CT chest abdomen pelvis [[place] [id number] Cat Scan 02/22/23 14:09 Completed ] Stat XR chest 1V portable [id number] Stat Exams 02/22/23 10:48 Completed Pending at discharge Category Date Time Status Blood Cultures ([facility]) Routine Lab 02/22/23 11:42 Results Blood Cultures ([facility]) Routine Lab 02/22/23 11:50 Results Urine Culture Stat Lab 02/22/23 11:25 Results Radiology Impressions Chest X-Ray 02/22/23 10:48 IMPRESSION: Small left pleural effusion. No new focal consolidation. Laboratory Results WBC 10.20 10^3/uL (3.29-11.43) 02/26/23 04:50 RBC 2.69 10^6/uL (3.85-5.65) L 02/26/23 04:50 Hgb 8.20 g/dL (11.27-16.99) L 02/26/23 04:50 Hct 28.0 % (36-47) L 02/26/23 04:50 MCV 104.1 fl (85-98) H 02/26/23 04:50 MCH 30.5 pg (27-33) 02/26/23 04:50 MCHC 29.3 g/dL (30-55) L 02/26/23 04:50 RDW 18.4 % (12.1-15.1) H 02/26/23 04:50 Plt Count 184 10^3/cmm (157-399) 02/26/23 04:50 MPV 9.8 fL (7.4-10.4) 02/26/23 04:50 Neut % (Auto) 86.8 % 02/26/23 04:50 Lymph % (Auto) 6.2 % 02/26/23 04:50 Curry % (Auto) 5.3 % 02/26/23 04:50 Eos % (Auto) 0.5 % 02/26/23 04:50 Baso % (Auto) 0.4 % 02/26/23 04:50 Neut # (Auto) 8.86 10^3/uL (1.8-7.7) H 02/26/23 04:50 Lymph # (Auto) 0.6 10^3/uL (0.8-4.8) L 02/26/23 04:50 Curry # (Auto) 0.5 10^3/uL (0.2-0.9) 02/26/23 04:50 Eos # (Auto) 0.1 10^3/uL (0.0-0.8) 02/26/23 04:50 Baso # (Auto) 0.0 10^3/uL (0.0-0.1) 02/26/23 04:50 Nucleated RBC % (auto) 0 % 02/26/23 04:50 Nucleated RBCs # 0.0 /100WBC 02/26/23 04:50 Sodium 143 mmol/L (136-145) 02/26/23 04:50 Potassium 4.2 mmol/L (3.5-5.1) 02/26/23 04:50 Chloride 100 mmol/L (98-107) 02/26/23 04:50 Carbon Dioxide 36 mmol/L (22-29) H 02/26/23 04:50 Anion Gap 11.2 (5-19) 02/26/23 04:50 BUN 21 mg/dL (8-23) 02/26/23 04:50 Creatinine 1.5 mg/dL (0.5-0.9) H 02/26/23 04:50 GFR Calculation Not Reportable 02/26/23 04:50 Glucose 103 mg/dL (65-115) 02/26/23 04:50 POC Glucose 158 mg/dL (70-110) H 02/26/23 06:39 Calculated Osmolality 299 mOsm/kg (285-295) H 02/26/23 04:50 Lactic Acid 1.8 mmol/L (0.5-2.2) 02/22/23 11:15 Calcium 8.0 mg/dL (8.5-10.5) L 02/26/23 04:50 Magnesium 2.4 mg/dL (1.7-2.3) H 02/23/23 04:58 Total Bilirubin 0.4 mg/dL (0.15-1.2) 02/23/23 13:08 AST 16 U/L (0-32) 02/23/23 13:08 ALT 10 U/L (0-33) 02/23/23 13:08 Alkaline Phosphatase 66 U/L (35-105) 02/23/23 13:08 C-Reactive Protein 52.4 mg/L (0.0-4.9) H 02/23/23 04:58 Total Protein 5.1 g/dL (6.6-8.7) L 02/23/23 13:08 Albumin 2.7 g/dL (3.5-5.2) L 02/23/23 13:08 Globulin 2.4 g/dL (1.3-4.6) 02/23/23 13:08 Urine Color Yellow (Yellow) 02/22/23 11:25 Urine Appearance Hazy (CLEAR) A 02/22/23 11:25 Urine pH 6 (5-7) 02/22/23 11:25 Ur Specific [place] 1.005 (1.005-1.030) 02/22/23 11:25 Urine Protein Neg (Negative) 02/22/23 11:25 Urine Glucose (UA) Norm (Normal) 02/22/23 11:25 Urine Ketones Negative (Negative) 02/22/23 11:25 Urine Blood 3+ (Negative) H 02/22/23 11:25 Urine Nitrate Negative (Negative) 02/22/23 11:25 Urine Bilirubin Neg (Negative) 02/22/23 11:25 Urine Urobilinogen Norm mg/dL (Negative) 02/22/23 11:25 Ur Leukocyte Esterase 2+ (Negative) H 02/22/23 11:25 Urine RBC 80-100 /hpf (0-2) H 02/22/23 11:25 Urine WBC 55-80 /hpf (0-5) H 02/22/23 11:25 Ur Squamous Epith Cells None /hpf (0-5) 02/22/23 11:25 Ur Transition Epith Cell 0-4 /hpf 02/22/23 11:25 Amorphous Sediment Not Reportable 02/22/23 11:25 Urine Bacteria Trace /hpf (NONE) 02/22/23 11:25 Urine Mucus None /hpf 02/22/23 11:25 Blood Type O Positive 02/22/23 11:42 Rho(D) Type Rh positive 02/22/23 11:42 Antibody Screen Negative 02/22/23 11:42 Antigen Identification Cancelled 02/22/23 11:42 Crossmatch See Detail 02/22/23 11:42 Vitals Last Vital Signs Temp 98.2 F 02/26/23 07:10 Pulse 98 02/26/23 07:10 Resp 17 02/26/23 07:10 BP 163/67 02/26/23 07:10 Pulse Ox 97 02/26/23 07:10 O2 Del Method Nasal Cannula 02/26/23 07:10 O2 Flow Rate 3 02/25/23 23:13 FiO2 30 02/26/23 01:02 Discharge Plan Discharge Patient Disposition: Home Health Service Condition: Stable Prescriptions: New amlodipine 10 mg tablet 10 mg PO DAILY Qty: 60 0RF levofloxacin 750 mg tablet 750 mg PO DAILY 3 Days Qty: 3 0RF Continued albuterol sulfate [Ventolin HFA] 90 mcg/actuation HFA aerosol inhaler 2 puff INHALATION QID PRN (Reason: Shortness Of Breath) PNV cmb#95-ferrous fumarate-FA [ Multivitamins] 28 mg iron- 800 mcg Tablet 1 tab PO QAM prednisone 10 mg tablet 10 mg PO DAILY PRN (Reason: swelling) lisinopril 20 mg tablet 20 mg PO DAILY Qty: 60 0RF furosemide [Lasix] 20 mg tablet 20 mg PO DAILY Qty: 90 0RF potassium chloride 10 mEq tablet extended release 10 meq PO DAILY Qty: 90 0RF Trelegy Ellipta 100-62.5-25 mcg blister with device 1 inh inhalation DAILY Qty: 60 4RF diltiazem HCl [Cardizem LA] 120 mg tablet extended release 24 hr 120 mg PO DAILY Qty: 60 0RF Discontinued Eliquis 2.5 mg tablet 2.5 mg PO BID Qty: 120 0RF Discharge Orders: Discharge Order (Routine); Ordered 02/26/23 Ordered By: Luca Ramos Referrals: [facility] [Outside] Traci Prakash MD [Primary Care Provider] - 03/13/23 9:30 am Patient Instructions: Opioid Safety Discharge Attestations Time Spent in Discharge Care*: greater than 30 min Status at Discharge: Cognitive status at discharge: cognitively intact , Behavioral status at discharge: cooperative , Quality Metrics Clinical Quality Measures [ No reported AMI, CVA or VTE this stay] Coding Level of Care Code Acute Code for Chg Fwd Diagnoses Hypovolemic shock R57.1 Adrenal mass, left E27.8 Acute kidney injury superimposed on chronic kidney disease N17.9; N18.9 Hyperkalemia E87.5 Acute cystitis without hematuria N30.00 Hematuria presence: without hematuria Urinary tract infection type: acute cystitis Pulmonary nodule R91.1 End stage COPD J44.9 Metabolic encephalopathy G93.41 Anemia D64.9
[2023-02-26] MEDS: loperamide 2 mg Capsule 4 MG PO (11:48)
--- NOTE | 2023-02-26 11:54 | PC.SOCIAL ---
IMM Update pg 2 of IMM updated and reviewed w/ patient. Copy provided and copy dated, initialed and placed in chart.
[2023-02-26 11:58] LABS: Glucose Point of Care 109 mg/dL (70-110)
--- NOTE | 2023-02-26 13:48 | PC.NURSE ---
Dr. Farooq's staff removed the last staple on patient.
--- NOTE | 2023-02-26 15:19 | PC.NURSE ---
Discussed discharge medications, new, continued and stopped medications as well as follow up appointments. Patient verbalized understanding.
== END 2023-02-26 13:35 | disposition home health service (06) | DRG 689 ==
LOC: ER 12:21 → ER IP 13:50 → ICU 16:50 → MEDSURG 02-24 14:50
PROVIDERS: Admitting Provider Internal Medicine; Emergency Provider Emergency Medicine; PCP Family Medicine; Visit Provider Internal Medicine
DX: N30.00 Acute cystitis without hematuria (principal); G93.41 Metabolic encephalopathy; R57.1 Hypovolemic shock; N17.9 Acute kidney failure, unspecified; J44.9 Chronic obstructive pulmonary disease, unspecified; I50.9 Heart failure, unspecified; F32.A Depression, unspecified; E78.00 Pure hypercholesterolemia, unspecified; Z87.891 Personal history of nicotine dependence; Z99.81 Dependence on supplemental oxygen; Z79.01 Long term (current) use of anticoagulants; Z66 Do not resuscitate; E27.9 Disorder of adrenal gland, unspecified; R91.1 Solitary pulmonary nodule; D64.9 Anemia, unspecified; E87.5 Hyperkalemia; N18.9 Chronic kidney disease, unspecified; Z53.29 Procedure and treatment not carried out because of patient's decision for other reasons; Z48.02 Encounter for removal of sutures
CPT/HCPCS: 36415; 36416; 36430; 51702; 71045; 71250; 74176; 80048; 80053; 81001; 82274; 82962; 83605; 83735; 85025; 86140; 86850; 86900; 86920; 87040; 87086; 87106; 93005; 94640; 94660; 96365; 96366; 96367; 96372; 96376; 97110; 97162; 97530; 99285; 99291; 99292; C9113; J0696; J1815; J1940; J2543; J7030; J7120; J7613; P9016; P9055

== ENCOUNTER 2023-03-08 17:42 | Inpatient (IN) | payer MEDICARE, MEDICAID, SELFPAY ==
[2023-03-08] VITALS (21 sets, daily range): BP systolic 91–162; BP diastolic 38–77; PULSE 67–104; RESP 12–34; TEMP 34.5–36.6; O2SAT 94–100; BMI 27.9; BMI 29.1
--- NOTE | 2023-03-08 17:56 | CTR_ITS ---
PROCEDURE INFORMATION: Exam: CT Abdomen And Pelvis Without Contrast Exam date and time: 03/08/2023 7:07 PM Age: 82 years old Clinical indication: Abdominal pain; Generalized; Prior surgery; Surgery date: 6+ months; Surgery type: Bilat hips; Additional info: Abd pain, creat 2.7 TECHNIQUE: Imaging protocol: Computed tomography of the abdomen and pelvis without contrast. Radiation optimization: All CT scans at this facility use at least one of these dose optimization techniques: automated exposure control; mA and/or kV adjustment per patient size (includes targeted exams where dose is matched to clinical indication); or iterative reconstruction. COMPARISON: [place] [id number] 02/22/2023 2:45 PM RADIATION DOSE METRICS: Total DLP (mGy-cm): 741 FINDINGS: Coronary arteries: Coronary arterial atherosclerotic calcifications are present. Liver: Normal. No mass. Gallbladder and bile ducts: Normal. No calcified stones. No ductal dilation. Pancreas: Normal. No ductal dilation. Spleen: Normal. No splenomegaly. Adrenal glands: Normal. No mass. Kidneys and ureters: Normal. No hydronephrosis. Stomach and bowel: Unremarkable. No obstruction. No mucosal thickening. Appendix: No evidence of appendicitis. Intraperitoneal space: Large amount of free intraperitoneal air concerning for bowel perforation. The source of the perforation is not identified. Vasculature: Severe atherosclerotic disease of the abdominal aorta and iliac arteries and SMA and celiac trunk at its origin. Lymph nodes: Unremarkable. No enlarged lymph nodes. Urinary bladder: There is a Gipson catheter in the bladder. Reproductive: Unremarkable as visualized. Bones/joints: Partially visualized intramedullary randall with proximal interlocking screw in the right femur and partially visualized left hip arthroplasty without evidence of hardware failure or loosening. Soft tissues: Unremarkable. CT/CT abdomen pelvis wo con [id number] IMPRESSION: 1. Large amount of free intraperitoneal air concerning for bowel perforation. The source of the perforation is not identified. 2. 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 THIS REPORT CONTAINS FINDINGS THAT MAY BE CRITICAL TO PATIENT CARE. The findings were verbally communicated via telephone conference with GLORIA Morley at 7:35 PM CORK MOLDER on 03/08/2023. The findings were acknowledged and understood.
[2023-03-08 18:03] LABS: Basophils # 0.1 10^3/uL (0.0-0.1); Basophils % 0.3 %; Hematocrit 28.9 % (36-47); Mean Corpuscular HGB Conc 30.1 g/dL (30-55); Mean Corpuscular Hemoglobin 30.3 pg (27-33); Mean Corpuscular Volume 100.7 fl (85-98); Mean Platelet Volume 10.8 fL (7.4-10.4); Monocytes # 1.7 10^3/uL (0.2-0.9); Monocytes % 6.5 %; Neutrophils # 22.98 10^3/uL (1.8-7.7); Neutrophils % 88.2 %; Nucleated Red Blood Cells % 0.1 %; Platelet Count 294 10^3/cmm (157-399); Red Blood Count 2.87 10^6/uL (3.85-5.65); Red Cell Distribution Width 17.2 % (12.1-15.1); White Blood Count 26.05 10^3/uL (3.29-11.43)
--- NOTE | 2023-03-08 18:10 | XRR_ITS ---
PROCEDURE INFORMATION: Exam: XR Chest Exam date and time: 03/08/2023 6:57 PM Age: 82 years old Clinical indication: Pain; Other: Weakness TECHNIQUE: Imaging protocol: Radiologic exam of the chest. Views: 1 view. COMPARISON: CT chest abdpel [id number] 02/22/2023 2:45 PM FINDINGS: Lungs: No focal consolidation. Pleural spaces: Unremarkable. No pleural effusion. No pneumothorax. Heart/Mediastinum: Unremarkable. No cardiomegaly. Bones/joints: Unremarkable. Intraperitoneal space: Free intraperitoneal air under the right and left hemidiaphragms. Bowel perforation is suspected and an abdomen and pelvis CT may be of benefit. XR/XR chest 1V portable [id number] IMPRESSION: 1. Free intraperitoneal air under the right and left hemidiaphragms. Bowel perforation is suspected and an abdomen and pelvis CT may be of benefit. 2. No focal consolidation.
[2023-03-08 18:18] LABS: INR 1.17 (0.8-1.2)
[2023-03-08] MEDS: ondansetron 2 mg/ML SDV 2 mL 4 MG IVP (18:20)
[2023-03-08 18:22] LABS: Alanine Aminotransferase 39 U/L (0-33); Alkaline Phosphatase 76 U/L (35-105); Anion Gap 23.6 (5-19); Aspartate Amino Transferase 35 U/L (0-32); Blood Urea Nitrogen 78 mg/dL (8-23); Calcium 8.7 mg/dL (8.5-10.5); Carbon Dioxide 29 mmol/L (22-29); Chloride 95 mmol/L (98-107); Globulin 2.9 g/dL (1.3-4.6); Glucose 197 mg/dL (65-115); Lipase 42 U/L (13-60); Osmolality Calculated 321 mOsm/kg (285-295); Sodium 141 mmol/L (136-145); Total Bilirubin 0.4 mg/dL (0.15-1.2); Total Protein 5.9 g/dL (6.6-8.7)
[2023-03-08] MEDS: morphine 4 mg/mL SDV 1 mL IVP (18:22)
[2023-03-08] MEDS: pantoprazole 40 mg SDV 80 MG IVP (18:23)
[2023-03-08 18:27] LABS: Potassium 6.6 mmol/L (3.5-5.1)
[2023-03-08] MEDS: sodium chloride 0.9% 1,000 ML 999 ML IV ×2 (18:28→20:29)
--- NOTE | 2023-03-08 18:39 | ECG_ITS ---
[facility] Test Date: 2023-03-08 Pat Name: Yulissa Goddard Department: Room: Gender: Female Chili Maker: : 1940 Requested By: Jazmyn Reynolds Order Number: [id number] Sara MD: Zuhair Orlando M.D. Measurements Intervals [place] Rate: 102 P: 59 WV: 143 QRS: 59 QRSD: 82 T: 46 QT: 305 QTc: 399 Interpretive Statements SINUS TACHYCARDIA ABNORMAL RHYTHM ECG Compared to ECG 02/22/2023 10:59:46 Sinus rhythm no longer present Electronically Signed On 03-09-2023 6:50:41 WORKERS COMPENSATION CLAIMS SPECIALIST by Zuhair Orlando M.D. [id number]
--- NOTE | 2023-03-08 18:42 | ED_ITS ---
HPI - Nausea/Vomiting/Diarrhea 2 General: Chief complaint: Nausea/Vomiting/Diarrhea Stated complaint: Vomiting Time Seen by Provider: 03/08/23 17:48 Source: patient and EMS Mode of arrival: EMS Limitations: no limitations History of Present Illness: 82-year-old female states over the last 2 days she has had vomiting along with generalized weakness and diffuse abdominal pain. States her vomit has been dark in color she denies any blood in her stools she states her pain is diffuse in nature rates it a 5 out of 10. She had recently been admitted to the hospital for anemia. Associated nausea: Yes Associated symtoms: Reports nausea; Denies chest pain, dysuria or headache(s) Review of Systems 2 Const: Denies: fever(s), chills, body aches or change in appetite ENMT: Denies: throat pain or dental pain Card: Denies: chest pain Resp: Denies: dyspnea GI: Reports: abdominal pain, nausea and vomiting; Denies: diarrhea : Denies: dysuria Musc: Denies: neck pain or back pain Skin/Breast: Denies: rash Neuro: Denies: headache(s) PFSH ED 2 PFSH: Medical History Hyperkalemia Acute kidney injury superimposed on chronic kidney disease Metabolic encephalopathy Hypovolemic shock Acute cystitis Weakness Anemia End stage COPD Pulmonary nodule Adrenal mass, left Acute exacerbation of CHF (congestive heart failure) Leg fracture, right Acute and chronic respiratory failure with hypercapnia Leukocytosis Closed fracture of distal end of femur Anemia Intertrochanteric fracture of right hip Hypercapnic respiratory failure UTI (urinary tract infection) End stage COPD Anemia Vitamin C deficiency Cellulitis Low TSH level Depression Edema Heart murmur Hip pain, left Hypercholesteremia Elevated serum glucose Hypoxic Macrocytosis Nasal congestion Osteoporosis Emphysema lung COPD (chronic obstructive pulmonary disease) Sciatica Seasonal allergies Shoulder pain, left Vitamin D deficiency Shoulder fracture, left Surgical History Postoperative state History of left hip replacement Hx of cataract surgery Family History Mother Cancer Breast Father Cancer Heart disease Sister Cancer Grandmother Hypertension Heart disease Aneurysm Brother Heart disease Myocardial infarct Aneurysm Family/Other Heart disease Bipolar 1 disorder Grandfather Heart disease Social History Smoking and tobacco/nicotine status: former use of tobacco/nicotine Quit status (tobacco/nicotine): has quit using Year quit tobacco: 2013 - 1.5 PPD x 60 Years Alcohol intake: never Substance/Drug Use: never Household members: none Marital status: / Number of children: 4 Current occupational status: retired Do you think of yourself as: Straight/Heterosexual Current gender identity: Female Physical Exam 2 Const: COMMON NORMALS: patient oriented x3 GENERAL APPEARANCE: ill appearing HENMT: COMMON NORMALS: normocephalic and atraumatic HEAD & SCALP: n ormocephalic and atraumatic Eye: COMMON NORMALS: Equal, round and reactive pupils present and EOMs intact bilaterally PUPIL: Yes Equal, round and reactive pupils present Neck/C-Spine: COMMON NORMALS: full ROM and supple Chest: COMMONS NORMALS: normal inspection of the chest Resp: COMMON NORMALS: normal respiratory effort, No retractions, No use of accessory muscles and clear to auscultation bilaterally AUSCULTATION: clear to auscultation bilaterally Cardio: COMMON NORMALS: regular rhythm and No murmurs present (Cardio) R ATE: tachycardic RHYTHM: regular rhythm GI: COMMON NORMALS: Soft to palpation and no masses PALPATION: Yes Soft to palpation OTHER: diffuse tenderness Extremity: COMMON NORMALS: normal to inspection and full ROM Neuro: COMMON NORMALS: patient oriented x3, moves all extremities and no focal motor deficits Psych: COMMON NORMALS: mental status grossly normal, Normal thought process present and cooperative THOUGHT PROCESS: Normal thought process present Skin: COMMON NORMALS: no rashes or lesions noted and no wounds GENERAL SKIN EXAM: no rashes or lesions noted Procedures Central Line Placement Right IJ: Time Out Performed: Yes Patient Placed on Monitor/Pulse Ox: Yes MD Prep: mask, gown and gloves Central Line Prep: Povidone-Iodine 1% Local Anesthetic: lidocaine 1% Amount of anesthesia used (mL): 5 Ultrasound Used for Placement: Yes Central Line Lumen Inserted: triple Post Procedure: sutured in place, good blood return, all ports aspirated, flushed, capped and sterile dressing applied Post Procedure X-Ray: tip of catheter in good position and no pneumothorax seen Patient Tolerated Procedure: well Complications: none Course 2 Vital Signs: Vital signs: Vital Signs Temperature 97.8 F 03/08/23 17:44 Pulse Rate 104 H 03/08/23 19:37 Respiratory Rate 34 H 03/08/23 19:37 Blood Pressure 91/38 03/08/23 19:37 Pulse Oximetry 95 03/08/23 19:37 Oxygen Delivery Me thod Nasal Cannula 03/08/23 19:37 Oxygen Flow Rate 4 03/08/23 19:37 MDM - Nausea/Vomiting/Diarrhea Medical Decision Making Patient presents here with a bowel perforation she is hyperkalemia along with a lactic acidosis did start a central line patient placed on antibiotics gave fluids I did speak to surgeon who is taking patient to the OR at this time. I discussed patient's condition in length with family. Medical Records I reviewed the patient's medical records. Lab Data I reviewed the patient's lab results. 03/08/23 17:58 03/08/23 17:58 Radiology Impressions Abdomen/Pelvis CT 03/08/23 17:56 IMPRESSION: 1. Large amount of free intraperitoneal air concerning for bowel perforation. The source of the perforation is not identified. 2. 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 THIS REPORT CONTAINS FINDINGS THAT MAY BE CRITICAL TO PATIENT CARE. The findings were verbally communicated via telephone conference with GLORIA Morley at 7:35 PM AUTOMOTIVE CUSTOMER EXPERIENCE ADVISOR on 03/08/2023. The findings were acknowledged and understood. Laboratory Results WBC 26.05 10^3/uL (3.29-11.43) H 03/08/23 17:58 RBC 2.87 10^6/uL (3.85-5.65) L 03/08/23 17:58 Hgb 8.70 g/dL (11.27-16.99) L 03/08/23 17:58 Hct 28.9 % (36-47) L 03/08/23 17:58 MCV 100.7 fl (85-98) H 03/08/23 17:58 MCH 30.3 pg (27-33) 03/08/23 17:58 MCHC 30.1 g/dL (30-55) 03/08/23 17:58 RDW 17.2 % (12.1-15.1) H 03/08/23 17:58 Plt Count 294 10^3/cmm (157-399) 03/08/23 17:58 MPV 10.8 fL (7.4-10.4) H 03/08/23 17:58 Neut % (Auto) 88.2 % 03/08/23 17:58 Lymph % (Auto) 4.0 % 03/08/23 17:58 Grayson % (Auto) 6.5 % 03/08/23 17:58 Eos % (Auto) 0.0 % 03/08/23 17:58 Baso % (Auto) 0.3 % 03/08/23 17:58 Neut # (Auto) 22.98 10^3/uL (1.8-7.7) H 03/08/23 17:58 Lymph # (Auto) 1.0 10^3/uL (0.8-4.8) 03/08/23 17:58 [place]ayson # (Auto) 1.7 10^3/uL (0.2-0.9) H 03/08/23 17:58 Eos # (Auto) 0.0 10^3/uL (0.0-0.8) 03/08/23 17:58 Baso # (Auto) 0.1 10^3/uL (0.0-0.1) 03/08/23 17:58 Nucleated RBC % (auto) 0.1 % 03/08/23 17:58 Nucleated RBCs # 0.0 /100WBC 03/08/23 17:58 PT 15.30 SECONDS (12.1-14.9) H 03/08/23 17:58 INR 1.17 (0.8-1.2) 03/08/23 17:58 Sodium 141 mmol/L (136-145) 03/08/23 17:58 Potassium 6.6 mmol/L (3.5-5.1) H* 03/08/23 17:58 Chloride 95 mmol/L (98-107) L 03/08/23 17:58 Carbon Dioxide 29 mmol/L (22-29) 03/08/23 17:58 Anion Gap 23.6 (5-19) H 03/08/23 17:58 BUN 78 mg/dL (8-23) H 03/08/23 17:58 Creatinine 2.7 mg/dL (0.5-0.9) H 03/08/23 17:58 GFR Calculation Not Reportable 03/08/23 17:58 Glucose 197 mg/dL (65-115) H 03/08/23 17:58 Calculated Osmolality 321 mOsm/kg (285-295) H 03/08/23 17:58 Lactic Acid 8.8 mmol/L (0.5-2.2) H* 03/08/23 18:36 Calcium 8.7 mg/dL (8.5-10.5) 03/08/23 17:58 Total Bilirubin 0.4 mg/dL (0.15-1.2) 03/08/23 17:58 AST 35 U/L (0-32) H 03/08/23 17:58 ALT 39 U/L (0-33) H 03/08/23 17:58 Alkaline Phosphatase 76 U/L (35-105) 03/08/23 17:58 Total Protein 5.9 g/dL (6.6-8.7) L 03/08/23 17:58 Albumin 3.0 g/dL (3.5-5.2) L 03/08/23 17:58 Globulin 2.9 g/dL (1.3-4.6) 03/08/23 17:58 Lipase 42 U/L (13-60) 03/08/23 17:58 All radiology interpretation(s) finalized by discharge EKG Data EKG 1: I personally reviewed and interpreted this EKG as follows: EKG interpretation date: 03/08/23 EKG interpretation time: 18:39 Interpretation: sinus tach hr [address] or t wave abnormalities qrs 82 qtc 364 Critical Care Time 2 Critical Care Time: Critical Care Time: Yes Total Critical Care Time: 55 Attestation: The high probability of a clinically significant, sudden or life threatening deterioration of the patient's gi system(s) required my full and direct attention, intervention and personal management. The critical care time is as shown. This time is in addition to time spent performing any reported procedures but includes the following: [x] Data and vital sign review and interpretation [x] Patient assessment, examination and intervention [x] Documentation [x] Medication orders and management Discharge Plan Discharge Patient Disposition: Admitted As Inpatient Clinical Impression: Bowel perforation, Acute hyperkalemia Condition: Stable Prescriptions: No Action albuterol sulfate [Ventolin HFA] 90 mcg/actuation HFA aerosol inhaler 2 puff INHALATION QID PRN (Reason: Shortness Of Breath) PNV cmb#95-ferrous fumarate-FA [ Multivitamins] 28 mg iron- 800 mcg Tablet 1 tab PO QAM prednisone 10 mg tablet 10 mg PO DAILY PRN (Reason: swelling) lisinopril 20 mg tablet 20 mg PO DAILY Qty: 60 0RF furosemide [Lasix] 20 mg tablet 20 mg PO DAILY Qty: 90 0RF potassium chloride 10 mEq tablet extended release 10 meq PO DAILY Qty: 90 0RF Trelegy Ellipta 100-62.5-25 mcg blister with device 1 inh inhalation DAILY Qty: 60 4RF diltiazem HCl [Cardizem LA] 120 mg tablet extended release 24 hr 120 mg PO DAILY Qty: 60 0RF amlodipine 10 mg tablet 10 mg PO DAILY Qty: 60 0RF Referrals: Traci Prakash MD [Primary Care Provider] - Coding Level of Care Code ED Photo Finisher for Jin Ochoa
[2023-03-08] MEDS: calcium gluconate 0.1 gm/mL 10% SDV 10mL 1 GM IVP (18:45)
[2023-03-08] MEDS: dextrose 50% syringe 50 mL IVP (18:49)
[2023-03-08] MEDS: insulin regular-human 100 units/1 mL 10 UNIT IVP (18:52)
--- NOTE | 2023-03-08 18:56 | PC.NURSE ---
consumer loan underwriter assumed care of pt at 1856 report from henry ross.
[2023-03-08 20:06] LABS: Lactic Sepsis W/Reflex 8.8 mmol/L (0.5-2.2)
--- NOTE | 2023-03-08 20:06 | XRR_ITS ---
PROCEDURE INFORMATION: Exam: XR Chest Exam date and time: 03/08/2023 8:21 PM Age: 82 years old Clinical indication: Device placement; Other: Central line placement TECHNIQUE: Imaging protocol: Radiologic exam of the chest. Views: 1 view. COMPARISON: CR (CHEST, ) 03/08/2023 6:57 PM FINDINGS: Tubes, catheters and devices: There is a right jugular central venous catheter positioned with its tip in the mid SVC. Lungs: Unremarkable. No consolidation. Pleural spaces: No pneumothorax. Heart/Mediastinum: Unremarkable. No cardiomegaly. Bones/joints: Unremarkable. Intraperitoneal space: Free intraperitoneal air under the right and left hemidiaphragms redemonstrated. XR/XR chest 1V portable [id number] IMPRESSION: 1. There is a right jugular central venous catheter positioned with its tip in the mid SVC. 2. No pneumothorax. 3. Free intraperitoneal air under the right and left hemidiaphragms redemonstrated.
[2023-03-08] MEDS: norepinephrine 4 MG/250 ML BAG 30 MG IV (20:24)
[2023-03-08] MEDS: piperacillin-tazobactam 3.375 GM in sodium chloride 0.9% (plus) 50 ML IV ×2 (20:29→23:07)
[2023-03-08] MEDS: sodium chloride 0.9% 500 ML 999 ML IV (20:31)
[2023-03-08 20:34] LABS: Reflex Lactate Order REFLEX LACTIC ORDERD
--- NOTE | 2023-03-08 20:38 | P.HP_ITS ---
Providers/Chief Complaint 2 Primary Care Provider: Traci Prakash MD Chief Complaint: Vomiting History of Present Illness Yulissa Goddard is a 82 year old female who presents to the hospital with 3-day history of abdominal pain nausea vomiting and diarrhea. She is oriented x 3. She reports that she has been having increased heartburn for the last several days and has been taking Tums for this. She last had broth at 3:30 PM today and has had a few sips of water since then. Her abdominal pain is mostly epigastric but also diffuse and does not radiate. Palpation makes pain worse. Nothing makes pain better. She denies any hematemesis, hematochezia and/or melena. She has never had abdominal surgery. CT the abdomen pelvis shows gross free air without clear evidence of bowel perforation site. Review of Systems 2 General: Reports: 10 or more systems reviewed and unremarkable except in HPI and below Medications/Allergies Home Medications Medication Instructions Recorded Confirmed Last Taken Type albuterol sulfate 90 mcg/actuation 2 puff inhalation QID PRN 02/13/19 02/22/23 Unknown History aerosol inhaler (Ventolin HFA) Shortness Of Breath vit no.95-ferrous 1 tab PO QAM 03/26/20 02/22/23 02/22/23 History fumarate 28 mg-folic acid 800 mcg tablet ( Multivitamins) prednisone 10 mg tablet 10 mg PO DAILY PRN swelling 02/03/23 02/22/23 02/22/23 History diltiazem HCl 120 mg 120 mg PO DAILY #60 tabs 02/07/23 02/22/23 02/22/23 Rx tablet,extended release 24 hr (Cardizem LA) fluticasone fur. 100 mcg-umeclid 1 inh inhalation DAILY #60 ea 02/07/23 02/22/23 02/22/23 Rx 62.5 mcg-vilant 25 mcg inhalat.powder (Trelegy Ellipta) furosemide 20 mg tablet (Lasix) 20 mg PO DAILY #90 tabs 02/07/23 02/22/23 02/22/23 Rx lisinopril 20 mg tablet 20 mg PO DAILY #60 tabs 02/07/23 02/22/23 02/22/23 Rx potassium chloride 10 mEq 10 meq PO DAILY Only take with 02/07/23 02/22/23 02/22/23 Rx tablet,extended release Lasix #90 tabs amlodipine 10 mg tablet 10 mg PO DAILY #60 tabs 02/26/23 Unknown Rx Allergies Allergy/AdvReac Type Severity Reaction Status Date / Time No Known Allergies Allergy Verified 02/14/23 08:56 PFSH Acute 2 PFSH: Medical History Hyperkalemia Acute kidney injury superimposed on chronic kidney disease Metabolic encephalopathy Hypovolemic shock Acute cystitis Weakness Anemia End stage COPD Pulmonary nodule Adrenal mass, left Acute exacerbation of CHF (congestive heart failure) Leg fracture, right Acute and chronic respiratory failure with hypercapnia Leukocytosis Closed fracture of distal end of femur Anemia Intertrochanteric fracture of right hip Hypercapnic respiratory failure UTI (urinary tract infection) End stage COPD Anemia Vitamin C deficiency Cellulitis Low TSH level Depression Edema Heart murmur Hip pain, left Hypercholesteremia Elevated serum glucose Hypoxic Macrocytosis Nasal congestion Osteoporosis Emphysema lung COPD (chronic obstructive pulmonary disease) Sciatica Seasonal allergies Shoulder pain, left Vitamin D deficiency Shoulder fracture, left Surgical History Postoperative state History of left hip replacement Hx of cataract surgery Family History Mother Cancer Breast Father Cancer Heart disease Sister Cancer Grandmother Hypertension Heart disease Aneurysm Brother Heart disease Myocardial infarct Aneurysm Family/Other Heart disease Bipolar 1 disorder Grandfather Heart disease Social History Smoking and tobacco/nicotine status: former use of tobacco/nicotine Quit status (tobacco/nicotine): has quit using Year quit tobacco: 2013 - 1.5 PPD x 60 Years Alcohol intake: never Substance/Drug Use: never Household members: none Marital status: / Number of children: 4 Current occupational status: retired Do you think of yourself as: Straight/Heterosexual Current gender identity: Female Vitals/I&O/Wt Last Vital Signs Temp 97.8 F 03/08/23 17:44 Pulse 104 H 03/08/23 19:37 Resp 34 H 03/08/23 19:37 BP 91/38 03/08/23 19:37 Pulse Ox 95 03/08/23 19:37 O2 Del Method Nasal Cannula 03/08/23 19:37 O2 Flow Rate 4 03/08/23 19:37 Weight last 48 hrs Weight 168 lb Physical Exam 2 Narrative: General : Patient is well developed , no acute distress, oriented x3 Head : Normal cephalic, a-traumatic. Ears : Pinnae and external canal are normal. Hearing is normal. Eyes : PERRLA, Sclera and injection are normal. No conjunctival discharge. Nose : Mucous membranes are without erythema. Throat : buccal mucosa is normal, gums are without significant recession or hypertrophy. Lungs : Equal chest rise bilaterally, no use of accessory muscles, trachea is midline. Cor : Rate and rhythm are normal. Abdomen : Soft, distended, diffusely tender but mostly tender over epigastrium and left upper quadrant, no g/r/m Extremities : No edema, no cyanosis or clubbing, dorsalis pedis pulses are present bilaterally, non-tender to palpation of calves. Upper extremities are normal bilaterally. Back : non-tender to palpation, no CVA tenderness. Neuro : CN II - XII intact, Upper and lower extremities have equal and full strength Data 03/08/23 17:58 03/08/23 17:58 A&P Assessment and plan (1) Bowel perforation: (2) Septic shock: (3) Acute hyperkalemia: Plan 2 OR for exploratory laparotomy with possible bowel resection, possible ostomy The risks and benefits of the procedure, including but not limited to, bleeding, infection, scar, numbness, pain, damage to surrounding structures, possible need to create an ostomy, , were explained to the patient. She is understanding the risks and wishes to proceed. We will place patient into the ICU postoperatively and consult medicine. Attestations 2 Medical Necessity Statement*: Patient will require multiple nights in the hospital for recovery after exploratory laparotomy for bowel perforation Coding Level of Care Code 45205 Diagnoses Bowel perforation K63.1 Septic shock A41.9; R65.21 Acute hyperkalemia E87.5
--- NOTE | 2023-03-08 20:53 | PC.NURSE ---
Addendum entered by Adriel Guillermo RN 03/08/23 21:23: Discontinued IV at 1920 and central line was placed at 1950. Original Note: 1720 discontinued 20ga in right AC due to infiltration, provider notified bedside for central line placement. right arm wrapped with jovana bandage. central line placed by blanche at 1750 patient tolerated procedure well.
--- NOTE | 2023-03-08 20:55 | PC.NURSE ---
pt transferred to surgery at 2039.
--- NOTE | 2023-03-08 21:17 | SUR.PREOP ---
2105 Unable to obtain blood pressure or pulse (per Dr Eaton). Pt remains awake and talking.
--- NOTE | 2023-03-08 21:31 | ECG_ITS ---
[facility] Test Date: 2023-03-08 Pat Name: Yulissa Goddard Department: Room: ICU11 Gender: Female Tool Builder: : 1940 Requested By: Jered Rangel Order Number: [id number] Sara MD: Zuhair Orlando M.D. Measurements Intervals [place] Rate: 100 P: 52 IA: 153 QRS: 56 QRSD: 85 T: 54 QT: 311 QTc: 402 Interpretive Statements SINUS TACHYCARDIA ABNORMAL RHYTHM ECG Compared to ECG 03/08/2023 18:39:24 No significant changes Electronically Signed On 03-09-2023 6:50:48 COOK [employer]UIT by Zuhair Orlando M.D. [email or web address]
--- NOTE | 2023-03-08 21:40 | PM.CONSULT ---
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 She has been reporting abdominal pain for the last few days, increased heartburn, she was recently discharged for a GI bleed, in the emergency room she was found to have large amount of free intraperitoneal air concerning for perforation, significant leukocytosis, acute kidney injury, hyperkalemia, anemia, lactic acidosis, and shock, placed on pressors, currently on Levophed, surgery was consulted, patient is being taken to the OR for exploratory laparotomy, she is currently in PACU, family members at bedside, I did detailed discussion with patient about her goals of care. I was told by patient and family that she was on hospice or palliative care? after her last hospital discharge, during her last hospitalization, she had a significant GI bleed ICU admission,shock, requiring pressors, family opted to not pursue endoscopy as they were worried about her risk of intubation postprocedure, it is documented that she was DNR/DNI at that time. However during my discussion with family, patient's family tells me that they have revoked DNR/DNI, and hospice. I did detailed discussion with patient and family, that she has a high risk of morbidity mortality and surgery given her underlying risk factors of end-stage COPD, CHF, recent history of GI bleed, her underlying history of spiculated right hilar lesion suspicious for neoplasm, right lower lobe spiculated nodule, lobulated left kidney mass, now with her shock currently on Levophed, acute renal failure, significant leukocytosis, she has a high risk of morbidity mortality, high risk of intraoperative and postoperative complications, she has a high risk of remaining intubated after surgery, high risk of prolonged intubation, mechanical ventilation, high risk ICU level care, given her underlying risk factors, and current shock, and renal failure. After discussing risk and benefits of all options, patient and family voiced understanding, shared decision making, all questions answered, they voiced understanding, all questions answered, proceeded with full code. However patient was adamant she does not want to remain on life supporting measures for a prolonged period of time, she elects that her youngest son is her healthcare power of ip technology transactions attorney and he will make decisions of for her if she cannot make decisions for herself or is incapacitated Review of Systems Card: Denies: chest pain Resp: Reports: dyspnea GI: Reports: abdominal pain Medications/Allergies Home Medications Medication Instructions Recorded Confirmed Last Taken Type albuterol sulfate 90 mcg/actuation 2 puff inhalation QID PRN 02/13/19 02/22/23 Unknown History aerosol inhaler (Ventolin HFA) Shortness Of Breath vit no.95-ferrous 1 tab PO QAM 03/26/20 02/22/23 02/22/23 History fumarate 28 mg-folic acid 800 mcg tablet ( Multivitamins) prednisone 10 mg tablet 10 mg PO DAILY PRN swelling 02/03/23 02/22/23 02/22/23 History diltiazem HCl 120 mg 120 mg PO DAILY #60 tabs 02/07/23 02/22/23 02/22/23 Rx tablet,extended release 24 hr (Cardizem LA) fluticasone fur. 100 mcg-umeclid 1 inh inhalation DAILY #60 ea 02/07/23 02/22/23 02/22/23 Rx 62.5 mcg-vilant 25 mcg inhalat.powder (Trelegy Ellipta) furosemide 20 mg tablet (Lasix) 20 mg PO DAILY #90 tabs 02/07/23 02/22/23 02/22/23 Rx lisinopril 20 mg tablet 20 mg PO DAILY #60 tabs 02/07/23 02/22/23 02/22/23 Rx potassium chloride 10 mEq 10 meq PO DAILY Only take with 02/07/23 02/22/23 02/22/23 Rx tablet,extended release Lasix #90 tabs amlodipine 10 mg tablet 10 mg PO DAILY #60 tabs 02/26/23 Unknown Rx Allergies Allergy/AdvReac Type Severity Reaction Status Date / Time No Known Allergies Allergy Verified 02/14/23 08:56 Current Medications Generic Name Dose Route Start Last Admin Trade Name Velia PRN Reason Stop Dose Admin norepinephrine 4 mg in 250 mls @ 0 mls/hr 03/08/23 20:00 03/08/23 20:24 Levophed IV 8 mcg/min .Q0M JOVANNA 30 mls/hr Administration Protocol Per Protocol PFSH Acute PFSH: Medical History Hyperkalemia Acute kidney injury superimposed on chronic kidney disease Metabolic encephalopathy Hypovolemic shock Acute cystitis Weakness Anemia End stage COPD Pulmonary nodule Adrenal mass, left Acute exacerbation of CHF (congestive heart failure) Leg fracture, right Acute and chronic respiratory failure with hypercapnia Leukocytosis Closed fracture of distal end of femur Anemia Intertrochanteric fracture of right hip Hypercapnic respiratory failure UTI (urinary tract infection) End stage COPD Anemia Vitamin C deficiency Cellulitis Low TSH level Depression Edema Heart murmur Hip pain, left Hypercholesteremia Elevated serum glucose Hypoxic Macrocytosis Nasal congestion Osteoporosis Emphysema lung COPD (chronic obstructive pulmonary disease) Sciatica Seasonal allergies Shoulder pain, left Vitamin D deficiency Shoulder fracture, left Surgical History Postoperative state History of left hip replacement Hx of cataract surgery Family History Mother Cancer Breast Father Cancer Heart disease Sister Cancer Grandmother Hypertension Heart disease Aneurysm Brother Heart disease Myocardial infarct Aneurysm Family/Other Heart disease Bipolar 1 disorder Grandfather Heart disease Social History Smoking and tobacco/nicotine status: former use of tobacco/nicotine Quit status (tobacco/nicotine): has quit using Year quit tobacco: 2013 - 1.5 PPD x 60 Years Alcohol intake: never Substance/Drug Use: never Household members: none Marital status: / Number of children: 4 Current occupational status: retired Do you think of yourself as: Straight/Heterosexual Current gender identity: Female Vitals/I&O/Wt Last Vital Signs Temp 97.8 F 03/08/23 17:44 Pulse 86 03/08/23 20:35 Resp 25 H 03/08/23 20:35 BP 91/38 03/08/23 19:37 Pulse Ox 98 03/08/23 20:35 O2 Del Method Nasal Cannula 03/08/23 20:35 O2 Flow Rate 4 03/08/23 20:35 Weight last 48 hrs Weight 76.204 kg Physical Exam Const: COMMON NORMALS: no acute distress and patient oriented x3 HENMT: COMMON NORMALS: normocephalic HEAD & SCALP: normocephalic Eye: COMMON NORMALS: Equal, round and reactive pupils present PUPIL: Yes Equal, round and reactive pupils present Lymph: LYMPHATIC: no lymphadenopathy noted Resp: COMMON NORMALS: normal respiratory effort, No retractions and No use of accessory muscles AUSCULTATION: crackles and wheezes Cardio: COMMON NORMALS: regular rhythm, S1 normal heart sound present and S2 normal heart sound present RATE: tachycardic RHYTHM: regular rhythm HEART SOUNDS: S1 normal heart sound present and S2 normal heart sound present GI: OTHER: Abdomen soft, distended, diffuse tenderness, has guarding, has rebound, no bowel sounds in all 4 quadrants Extremity: NARRATIVE EXTREMITY EXAM: 1+ pitting edema Neuro: COMMON NORMALS: patient oriented x3 Sepsis: Is patient septic: Yes Focused sepsis exam performed: Yes Focused sepsis exam: Bilateral DP PT pulses diminished, mild mottling bilateral lower extremities, up to the bilateral shins, cap refill greater than 3 seconds Date exam was performed: 03/08/23 Time exam was performed: 21:30 Data 03/08/23 17:58 03/08/23 17:58 A&P Assessment and plan (1) Acute hyperkalemia: (2) Bowel perforation: (3) Septic shock: (4) ARF (acute renal failure): (5) Lactic acidosis: (6) Fracture of distal end of femur: Qualifiers: Encounter type: subsequent encounter Fracture type: closed Fracture morphology: other fracture Laterality: right Fracture healing: with routine healing Qualified Code(s): S72.491D - Other fracture of lower end of right femur, subsequent encounter for closed fracture with routine healing Plan Large amount of free intraperitoneal air concerning for bowel perforation. The source of the perforation is not identified. -General surgery primary -Currently on Levophed -Currently on 4 L -Following commands -Going in for surgery -Has received Zosyn -Continue Vanco, Zosyn -Gipson catheter in place -Will go to ICU after surgery Recent hospitalization for GI bleed, anemia, hemorrhagic shock -Off Eliquis -Monitor hemoglobin closely -Might require blood transfusions based on clinical progress Shock -Likely multifactorial from septic shock, hypovolemic shock -Status post sepsis bolus in the ER -Currently on Levophed -Maintain MAP greater than 65 -Monitor hemodynamics closely End-stage COPD -High risk of intubation postoperatively -Will monitor respiratory status closely -Uses trilogy at home, however did not use it last night Acute renal failure -Likely secondary to hypovolemia, septic shock -Monitor urine output -Monitor creatinine Lactic acidosis, secondary to shock, perforation as above Acute hyperkalemia, has received insulin, D50, calcium gluconate in the ER, monitor potassium Right distal femur fracture, off anticoagulation, bilateral lower extremities are swollen will order venous ultrasound History of smoking, severe emphysema, trilogy at home Recent hospitalization for bilateral pneumonia History of right hilar lesion suspicious for neoplasm 1.3 x 1.6 cm Right lower lobe spiculated nodule 9 mm Lobulated left kidney mass highly concerning for possible malignancy History of esophageal hiatal hernia evere atherosclerotic disease of the abdominal aorta and iliac arteries and SMA and celiac trunk at its origin. Consult Attestations Medical Necessity Statement: Patient requires hospitalization, inpatient, greater than 2 minutes, for intraperitoneal free air, concerns for perforation, shock, septic shock, lactic acidosis, acute renal failure Coding Level of Care Code Critical Care >/= 30 minutes Critical care time (in minutes): 45 The high probability of a clinically significant, sudden or life threatening deterioration, as referenced in this documentation, required my full and direct attention, intervention and personal management. The critical care time shown is in addition to time spent performing any reported separately billable procedures and includes the following: [x] Data and vital sign review and interpretation [x] Patient assessment, examination and intervention [x] Medication orders and management [x] Patient/Family updates as able [x] Care Coordination and Documentation. Diagnoses Acute hyperkalemia E87.5 Bowel perforation K63.1 Septic shock A41.9; R65.21 ARF (acute renal failure) N17.9 Lactic acidosis E87.20 Other closed fracture of distal end of right femur with routine healing, subsequent encounter S72.885U Encounter type: subsequent encounter Fracture type: closed Fracture morphology: other fracture Laterality: right Fracture healing: with routine healing
[2023-03-08 21:53] LABS: ABG PCO2 46.8 mmHg (35-45); Base Excess ABG -2.8 mmol/L (-2.0-2.0); Blood Gas Operator Identificat JB; Blood Gas Sample Type Arterial; HCO3 ABG 23.2 mmol/L (22-26); PO2 FiO2 Ratio Arterial Blood 0
--- NOTE | 2023-03-08 22:02 | P.ANESASSM_ITS ---
Pre-Anesthetic Assessment Height/Weight: Height 1.65 m Weight 76.204 kg Temp Pulse Resp BP Pulse Ox O2 Del Method O2 Flow Rate 97.8 F 86 25 H 91/38 98 Nasal Cannula 4 03/08/23 17:44 03/08/23 20:35 03/08/23 20:35 03/08/23 19:37 03/08/23 20:35 03/08/23 20:35 03/08/23 20:35 Operation Date: 03/08/23 21:00 Proposed Procedures p Exploratory Laparotomy(Not Applicable) - Saeid Minaya DO Familial anesthetic complications: none Was Beta Moe taken within 24 hours: N/A Was Clonidine taken within 24 hours: N/A Social Tobacco and No alcohol Exam alert, oriented x 3 and regular rate & rhythm Airway Submandibular: within normal limits Cervical ROM: within normal limits Mallampati: Class II Dentition: false Pulmonary Chronic Obstructive Pulmonary Disease Home O2 6 L CV/HEM Anemia, Hypertension and Peripheral Vascular Disease ARF GI Bowel perforation Metabolic Chronic steroid, acute hyperkalemia Musc/skel Osteoarthritis/DJD Anesthetic Plan ASA status: 4E Anesthesia: General (RSI) Other: A.line, discussed ICU with family Medications/Allergies Home Medications Medication Instructions Recorded Confirmed Last Taken Type albuterol sulfate 90 mcg/actuation 2 puff inhalation QID PRN 02/13/19 02/22/23 Unknown History aerosol inhaler (Ventolin HFA) Shortness Of Breath vit no.95-ferrous 1 tab PO QAM 03/26/20 02/22/23 02/22/23 History fumarate 28 mg-folic acid 800 mcg tablet ( Multivitamins) prednisone 10 mg tablet 10 mg PO DAILY PRN swelling 02/03/23 02/22/23 02/22/23 History diltiazem HCl 120 mg 120 mg PO DAILY #60 tabs 02/07/23 02/22/23 02/22/23 Rx tablet,extended release 24 hr (Cardizem LA) fluticasone fur. 100 mcg-umeclid 1 inh inhalation DAILY #60 ea 02/07/23 02/22/23 02/22/23 Rx 62.5 mcg-vilant 25 mcg inhalat.powder (Trelegy Ellipta) furosemide 20 mg tablet (Lasix) 20 mg PO DAILY #90 tabs 02/07/23 02/22/23 02/22/23 Rx lisinopril 20 mg tablet 20 mg PO DAILY #60 tabs 02/07/23 02/22/23 02/22/23 Rx potassium chloride 10 mEq 10 meq PO DAILY Only take with 02/07/23 02/22/23 02/22/23 Rx tablet,extended release Lasix #90 tabs amlodipine 10 mg tablet 10 mg PO DAILY #60 tabs 02/26/23 Unknown Rx Allergies Allergy/AdvReac Type Severity Reaction Status Date / Time No Known Allergies Allergy Verified 02/14/23 08:56 Current Medications Generic Name Dose Route Start Last Admin Trade Name Freq PRN Reason Stop Dose Admin norepinephrine 4 mg in 250 mls @ 0 mls/hr 03/08/23 20:00 03/08/23 20:24 Levophed IV 8 mcg/min .Q0M JOVANNA 30 mls/hr Administration Protocol Per Protocol [facility] Anesthesia Medical History Hyperkalemia Acute kidney injury superimposed on chronic kidney disease Metabolic encephalopathy Hypovolemic shock Acute cystitis Weakness Anemia End stage COPD Pulmonary nodule Adrenal mass, left Acute exacerbation of CHF (congestive heart failure) Leg fracture, right Acute and chronic respiratory failure with hypercapnia Leukocytosis Closed fracture of distal end of femur Anemia Intertrochanteric fracture of right hip Hypercapnic respiratory failure UTI (urinary tract infection) End stage COPD Anemia Vitamin C deficiency Cellulitis Low TSH level Depression Edema Heart murmur Hip pain, left Hypercholesteremia Elevated serum glucose Hypoxic Macrocytosis Nasal congestion Osteoporosis Emphysema lung COPD (chronic obstructive pulmonary disease) Sciatica Seasonal allergies Shoulder pain, left Vitamin D deficiency Shoulder fracture, left Surgical History Postoperative state History of left hip replacement Hx of cataract surgery Family History Mother Cancer Breast Father Cancer Heart disease Sister Cancer Grandmother Hypertension Heart disease Aneurysm Brother Heart disease Myocardial infarct Aneurysm Family/Other Heart disease Bipolar 1 disorder Grandfather Heart disease Social History Smoking and tobacco/nicotine status: former use of tobacco/nicotine Quit status (tobacco/nicotine): has quit using Year quit tobacco: 2013 - 1.5 PPD x 60 Years Alcohol intake: never Substance/Drug Use: never Household members: none Marital status: / Number of children: 4 Current occupational status: retired Do you think of yourself as: Straight/Heterosexual Current gender identity: Female Data Anesthesia 03/08/23 17:58 03/08/23 17:58 Short CBC 03/08/23 Range/Units 17:58 WBC 26.05 H (3.29-11.43) 10^3/uL Hgb 8.70 L (11.27-16.99) g/dL Hct 28.9 L (36-47) % MCV 100.7 H (85-98) fl Plt Count 294 (157-399) 10^3/cmm Neut % (Auto) 88.2 % Neut # (Auto) 22.98 H (1.8-7.7) 10^3/uL BMP 03/08/23 17:58 Sodium 141 Potassium 6.6 H* Chloride 95 L Carbon Dioxide 29 BUN 78 H Creatinine 2.7 H Glucose 197 H Calcium 8.7 Liver Function 03/08/23 Range/Units 17:58 Total Bilirubin 0.4 (0.15-1.2) mg/dL AST 35 H (0-32) U/L ALT 39 H (0-33) U/L Alkaline Phosphatase 76 (35-105) U/L Albumin 3.0 L (3.5-5.2) g/dL Coags 03/08/23 17:58 PT 15.30 H INR 1.17 ABG 03/08/23 21:40 Specimen Type Arterial Sample Site Not specified ABG pH 7.30 L ABG pCO2 46.8 H ABG pO2 247.0 H ABG PO2/FiO2 Ratio 0 ABG HCO3 23.2 ABG Base Excess -2.8 L FiO2 50.0 Cardiac Studies: 2 Echocardiogram 02/05/23
--- NOTE | 2023-03-08 22:15 | PM.OP ---
Operative Report Date of procedure: March 08, 2023 Pre-op diagnosis: Bowel perforation Post-op diagnosis: Perforated gastric ulcer Procedure done: Exploratory laparotomy with modified Jerome patch repair Implants: To 19 Bulgarian Jamshid drains-right drain over repair and left drain in pelvis Specimens removed/disposition: None Surgeon: Saeid Minaya DO Anesthesia: General Estimated blood loss (mL): 5 Complications: None apparent Brief History: This is a very pleasant 82-year-old female presented to the hospital in multiorgan failure with a bowel perforation. Exploratory laparotomy was indicated. The risk and benefits were explained and documented. Procedure: Patient is was on the OR room and placed on the operative table in the supine position. She had a right internal jugular central line placed by the emergency department and anesthesia placed a left radial arterial line. General endotracheal intubation was achieved by department anesthesia. A time was performed. All present were in agreement. The abdomen was inspected prepped and draped in usual sterile fashion. A 10 blade scalpel was then used to make a midline laparotomy incision from the xiphoid to just superior to the umbilicus where there was a small umbilical hernia. Subcutaneous tissue and fascia was opened with electrocautery. Immediately a significant amount of time was encountered. This was suctioned. There was bilious material over the anterior distal stomach. I easily was able to identify a gastric perforation that measured approximately 7 mm in diameter. A modified Jerome patch was performed. Three 0 silk sutures were used to primarily repair the perforation. The 2 lateral sutures were kept long and omentum was placed over the repair and sewn down onto it with the remaining suture. The remainder of the abdomen was inspected and no further pathology was identified. An NG tube was placed and confirmed to be in correct position. 3 L normal saline were used to irrigate the abdomen. This was suctioned. There was minimal blood loss, 5 mL. A 19 Bulgarian Jamshid drain was then placed over the repair and exited the abdomen on the right. A second 19 Bulgarian Jamshid drain was then placed into the pelvis and exited the abdomen on the left. These were sewn into place using 2-0 silk. #1 PDS was used in a running fashion x 2 to close the fascia. Skin was closed with johnson. Patient tolerated procedure well and was wheeled into the intensive care unit.
[2023-03-08 22:24] LABS: Creatine Phosphokinase 11 U/L (26-192); NT Pro B Type Natriuretic Pept 1852 pg/mL (0-450)
[2023-03-08 22:48] LABS: Estmated Average Glucose 94; Hemoglobin A1C 4.9 % (4.0-6.0)
[2023-03-08] MEDS: albumin 25 G/100 ML BAG 60 G IV (23:07)
[2023-03-08] MEDS: vancomycin 1,000 MG in sodium chloride 0.9% 250 ML 250 MG IV (23:08)
[2023-03-08] MEDS: heparin 5,000 unit/mL INJ 1 mL 5000 UNIT SUBCUT (23:09)
[2023-03-08] MEDS: sodium chloride 0.9% 1,000 ML 75 ML IV (23:10)
[2023-03-08 23:26] LABS: Troponin(5th) Baseline 57 ng/L (0-10)
[2023-03-08 23:27] LABS: Lactic Acid level (Lactate) 3.8 mmol/L (0.5-2.2)
--- NOTE | 2023-03-08 23:31 | ECG_ITS ---
[facility] Test Date: 2023-03-08 Pat Name: Yulissa Goddard Department: Room: ICU11 Gender: Female Broke Worker: : 1940 Requested By: Jered Rangel Order Number: [id number] Sara MD: Zuhair Orlando M.D. Measurements Intervals [place] Rate: 74 P: 80 W[place]: 156 QRS: 65 QRSD: 86 T: 76 QT: 386 QTc: 429 Interpretive Statements SINUS RHYTHM Compared to ECG 03/08/2023 18:39:24 Sinus tachycardia no longer present Electronically Signed On 03-09-2023 6:55:04 SPECIAL FORCES SENIOR SERGEANT by Zuhair Orlando M.D. [id number]
[2023-03-08 23:32] LABS: Potassium 5.3 mmol/L (3.5-5.1)
--- NOTE | 2023-03-08 23:45 | XRR_ITS ---
PROCEDURE INFORMATION: Exam: XR Chest Exam date and time: 03/08/2023 11:53 PM Age: 82 years old Clinical indication: Device placement; Other: Ng/ett; Additional info: Ett placement TECHNIQUE: Imaging protocol: Radiologic exam of the chest. Views: 1 view. COMPARISON: CR (CHEST, ) 03/08/2023 8:21 PM FINDINGS: Tubes, catheters and devices: ET tube is positioned 5.2 cm above the donnell. There has an NG tube which tracks into the stomach and off the field of view. There is a right IJ approach central venous catheter positioned with its tip in the mid SVC, similar to the prior examination. Lungs: Unremarkable. No consolidation. Pleural spaces: Unremarkable. No pleural effusion. No pneumothorax. Heart/Mediastinum: Unremarkable. No cardiomegaly. Bones/joints: Unremarkable. XR/XR chest 1V portable [id number] IMPRESSION: 1. ET tube is positioned 5.2 cm above the donnell. 2. There has an NG tube which tracks into the stomach and off the field of view.
[2023-03-08] MEDS: fentaNYL 1,000 MCG/100 ML BAG 2.5 MCG IV (23:59)
[2023-03-09] VITALS (178 sets, daily range): BP systolic 72–162; BP diastolic 28–65; PULSE 67–101; RESP 14–20; TEMP 34.5–37.1; O2SAT 97–100
[2023-03-09] MEDS: sodium chloride 0.9% 100 mL Bag 50 ML IV
--- NOTE | 2023-03-09 00:27 | PC.NURSE ---
Patient arrived on unit@2350 via surgery team. Vented without sedation and no response at that time. Pupils equal and reactive. Levo titrated down upon arrival due to hypertension. Xray obtained to verify ET tube placement as well as NG. Patient's family updated and allowed to see patient momentarily. ABX, fluids, and PRBC admin per APR. NG placed to intermittent suction per Dr. Minaya. Patient began to open eyes and was able to follow commands indicating pain. Fentanyl started per protocol.
[2023-03-09] MEDS: fluconazole premix 100 MG in empty flexible container 1 EACH 50 MG IV ×2 (01:41→22:56)
[2023-03-09] MEDS: propofol 1,000 MG/100 ML INJ 2.29 MG IV (02:24)
[2023-03-09] MEDS: ipratropium-albuterol 3 mL Neb INHALATION ×5 (02:53→19:37)
--- NOTE | 2023-03-09 03:31 | ECG_ITS ---
[facility] Test Date: 2023-03-09 Pat Name: Yulissa Goddard Department: Room: ICU11 Gender: Female Or Rn: : 1940 Requested By: Jered Rangel Order Number: [id number] Sara MD: Zuhair Orlando M.D. Measurements Intervals [place] Rate: 72 P: 77 [place]: 181 QRS: 50 QRSD: 83 T: 62 QT: 383 QTc: 422 Interpretive Statements SINUS RHYTHM Compared to ECG 03/08/2023 23:30:29 No significant changes Electronically Signed On 03-09-2023 6:55:30 TOOL AND DIE MANAGER by Zuhair Orlando M.D. [id number]
[2023-03-09 05:57] LABS: ABG PCO2 44.6 mmHg (35-45); ABG PH Result 7.36 (7.35-7.45); Alveolar-Arterial Oxygen Gradi 16.9 mmHg (5-10); Arterial Blood Gas Hematocrit 26.4 % (37-47); Base Excess ABG -0.5 mmol/L (-2.0-2.0); Blood Gas Operator Identificat JB; Blood Gas Sample Type Arterial; Blood Gas Tidal Volume 0.45; Carboxyhemoglobin 2.1 %THgb (0.4-20.1); HCO3 ABG 25.1 mmol/L (22-26); HGB O2 Sat 96.6 % (95-100); Ionized Calcium Level - ABG 1.1 mmol/L (1.1-1.4); Methemoglobin 0.7 % (0.4-1.5); Oxygen Device VENT; Oxygen Saturation ABG 99.5; PO2 ABG 99.9 mmHg (80.0-100.0); PO2 FiO2 Ratio Arterial Blood 0; Total Hemoglobin 8.6 g/dL (12-16)
[2023-03-09] MEDS: heparin 5,000 unit/mL INJ 1 mL 5000 UNIT SUBCUT (06:39)
[2023-03-09] MEDS: pantoprazole 40 mg SDV IVP ×2 (06:40→17:54)
[2023-03-09] MEDS: albumin 25 G/100 ML BAG 60 G IV ×3 (06:40→22:52)
--- NOTE | 2023-03-09 07:00 | XRR_ITS ---
PROCEDURE INFORMATION: Exam: XR Chest Exam date and time: 03/09/2023 7:07 AM Age: 82 years old Clinical indication: Shortness of breath; Additional info: SOB TECHNIQUE: Imaging protocol: Radiologic exam of the chest. Views: 1 view. COMPARISON: CR (CHEST, ) 03/08/2023 11:53 PM FINDINGS: Lungs: Unremarkable. No consolidation. Pleural spaces: Unremarkable. No pleural effusion. No pneumothorax. Heart/Mediastinum: Unremarkable. No cardiomegaly. Bones/joints: Unremarkable. Intraperitoneal space: There appears to be a small amount of free air under the right hemidiaphragm. Patient is recently postop abdominal surgery. XR/XR chest 1V portable [id number] IMPRESSION: No significant interval change.
[2023-03-09 07:21] LABS: Lactic Sepsis W/Reflex 2.7 mmol/L (0.5-2.2)
[2023-03-09 07:29] LABS: Procalcitonin 13.87 ng/mL (0-0.5)
[2023-03-09 07:35] LABS: Magnesium 3.4 mg/dL (1.7-2.3); Phosphorus 4.9 mg/dL (2.5-4.5); Thyroid Stimulating Hormone 0.95 uIU/mL (0.27-4.20)
[2023-03-09 07:36] LABS: Hematocrit 27.2 % (36-47); Mean Corpuscular HGB Conc 32.4 g/dL (30-55); Mean Corpuscular Volume 92.8 fl (85-98); Mean Platelet Volume 11.1 fL (7.4-10.4); Platelet Count 177 10^3/cmm (157-399); Red Blood Count 2.93 10^6/uL (3.85-5.65)
[2023-03-09 07:44] LABS: Troponin T (5th) Once 48 ng/L (0-10)
[2023-03-09 07:49] LABS: Absolute Neutrophil 13.7 10^3/cmm (1.4-6.5); Absolute Segmented Neutrophil 9.1 10/cmm (1.6-7.1); Band Neutrophils Absolute 4.6 10^3/cmm (0.0-1.2); Eosinophils 0 %; Lymphocytes 0 %; Lymphocytes Absolute 0.2 10^3/cmm (1.2-3.4); Platelet Estimate Normal (Normal); Segmented Neutrophils 51 %; Total Cells Counted 100 (0-100)
[2023-03-09] MEDS: budesonide 0.5 mg/2 mL Neb 0.25 MG INHALATION ×2 (07:49→19:37)
--- NOTE | 2023-03-09 08:17 | PC.PHAR ---
PT UNABLE TO VERIFY MEDICATIONS- PTS SON SEDA WAS ABLE TO VERIFY OVER THE PHONE- PT WAS TAKING ELIQUIS 2.5 MG BID PTS SON SEDA STS MEDICATION WAS DISC. 03/07/23- PTS SON ALSO STS PT NO LONGER TAKES DILTIAZEM 120 MG DAILY.
[2023-03-09 08:47] LABS: Reflex Lactate Order REFLEX LACTIC ORDERD
[2023-03-09] MEDS: norepinephrine 4 MG/250 ML BAG 22.5 MG IV (09:38)
--- NOTE | 2023-03-09 09:43 | ANE.PACU2 ---
Inpatient post-anesthesia follow up: Airway intact: Yes (Intubated) Vital signs: Temperature 98.5 F Pulse Rate 78 Respiratory Rate 14 Blood Pressure 96/40 Pulse Oximetry 99 Oxygen Delivery Me thod Mechanical Ventila tion Oxygen Flow Rate 4 Fraction of Inspir ed Oxygen 35 Hydration adequate: Yes Nausea and vomiting: No Pain level: 2 Mental status: Altered (sedated) Additional Comments: Remains intubated overnight as planned. Stable.
[2023-03-09] MEDS: sodium chloride 0.9% 1,000 ML 75 ML IV (10:34)
[2023-03-09] MEDS: piperacillin-tazobactam 3.375 GM in sodium chloride 0.9% (plus) 50 ML IV ×2 (10:34→22:51)
--- NOTE | 2023-03-09 10:35 | P.PN_ITS ---
Subjective 2 Subjective: Patient is intubated sedated Postop day 1 No fever Currently on Levophed propofol fentanyl minimal vent settings Requiring Levophed at 6 mics She is also on normal saline Family is at the bedside Repeat CBC and BMP at 11 AM Hemoglobin stable at 8.8 Currently on DVT prophylaxis Vitals/I&O/Wt Last Vital Signs Temp 98.8 F 03/09/23 09:43 Pulse 78 03/09/23 09:35 Resp 14 03/09/23 07:55 BP 96/40 03/09/23 09:35 Pulse Ox 99 03/09/23 09:35 O2 Del Method Mechanical Ventilation 03/09/23 07:50 O2 Flow Rate 4 03/08/23 20:35 FiO2 35 03/09/23 07:55 03/08/23 03/09/23 03/09/23 22:59 06:59 14:59 Intake Total 50 / 50 1230.083 / 1280.083 62.375 / 62.375 Output Total 410 / 410 Balance 50 / 50 1230.083 / 1280.083 -347.625 / -347.625 Weight last 48 hrs Weight 79.379 kg Weight 79.379 kg Weight 76.204 kg Physical Exam 2 Narrative: Patient is intubated sedated Abdominal wound covered with dressing No active drainage Serosanguineous fluid in the ASIF drain Patient looks dehydrated Currently on Levophed Bilateral assisted breath sounds Gastric tube in place Neuroexam limited Data 03/09/23 06:43 03/08/23 23:01 A&P Assessment and plan (1) Bowel perforation: (2) ARF (acute renal failure): (3) Acute hyperkalemia: (4) Lactic acidosis: (5) Septic shock: Plan Respiratory failure postoperative Require mechanical ventilation Currently sedated and intubated Will wean her off to BiPAP once we are able to turn off Levophed Currently she is requiring Levophed for her hypotension Continue DuoNeb and 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 Acute on chronic anemia patient received 2 units PRBC Hemoglobin 8.8 today Perforated viscus status post exploratory laparotomy: Patient has Jamshid drain with serosanguineous fluid Hemoglobin stable Monitor CBC BMP at 11 AM Acute renal failure potassium 5.3 Creatinine 2.7 Lactic acidosis improving Septic shock Continue Zosyn Wean off Levophed Continue Diflucan Patient has history of end-stage COPD, spiculated nodule, adrenal mass, CODE STATUS has been changed to full code Continue ICU management Once Levophed has been weaned off we will do weaning trial DVT prophylaxis heparin Attestations 2 Medical Necessity Statement*: Continue medical management in ICU Coding Level of Care Code Critical Care >/= 30 minutes Critical care time (in minutes): 30 The high probability of a clinically significant, sudden or life threatening deterioration, as referenced in this documentation, required my full and direct attention, intervention and personal management. The critical care time shown is in addition to time spent performing any reported separately billable procedures and includes the following: [x] Data and vital sign review and interpretation [x ] Patient assessment, examination and intervention [x] Medication orders and management [x] Patient/Family updates as able [x] Care Coordination and Documentation. Diagnoses Bowel perforation K63.1 ARF (acute renal failure) N17.9 Acute hyperkalemia E87.5 Lactic acidosis E87.20 Septic shock A41.9; R65.21
[2023-03-09] MEDS: insulin regular-human 100 units/1 mL 10 UNIT IVP (11:08)
[2023-03-09] MEDS: dextrose 50% syringe 50 mL 25 ML IVP (11:08)
[2023-03-09] MEDS: calcium gluconate 0.1 gm/mL 10% SDV 10mL 1 GM IVP (11:09)
[2023-03-09] MEDS: methylPREDNISolone sod succ 40 mg/mL INJ IVP ×2 (11:09→22:52)
[2023-03-09 11:10] LABS: Lactic Acid level (Lactate) 1.7 mmol/L (0.5-2.2)
[2023-03-09 11:36] LABS: Glucose Point of Care 252 mg/dL (70-110)
[2023-03-09 12:12] LABS: Basophils # 0.1 10^3/uL (0.0-0.1); Basophils % 0.5 %; Eosinophils # 0.1 10^3/uL (0.0-0.8); Eosinophils % 0.3 %; Hematocrit 25.3 % (36-47); Lymphocytes # 0.5 10^3/uL (0.8-4.8); Lymphocytes % 2.8 %; Mean Corpuscular Volume 93.7 fl (85-98); Mean Platelet Volume 11.1 fL (7.4-10.4); Monocytes # 0.5 10^3/uL (0.2-0.9); Neutrophils # 15.65 10^3/uL (1.8-7.7); Neutrophils % 92.9 %; Nucleated Red Blood Cells % 0.1 %; Platelet Count 165 10^3/cmm (157-399); Red Cell Distribution Width 20.1 % (12.1-15.1); White Blood Count 16.86 10^3/uL (3.29-11.43)
[2023-03-09 12:27] LABS: Anion Gap 18.9 (5-19); Blood Urea Nitrogen 61 mg/dL (8-23); Calcium 8.1 mg/dL (8.5-10.5); Carbon Dioxide 22 mmol/L (22-29); Chloride 107 mmol/L (98-107); Glucose 233 mg/dL (65-115); Osmolality Calculated 321 mOsm/kg (285-295); Potassium 4.9 mmol/L (3.5-5.1); Sodium 143 mmol/L (136-145)
--- NOTE | 2023-03-09 12:49 | PC.SOCIAL ---
Pg 2 IMM Pt is Intubated at this time. Provided pt a copy & left at pt's bedside for family to review. Initialed, dated, & timed a copy & placed in chart. Pt is not expected to d/c within the next 24-48hrs.
[2023-03-09 13:08] LABS: Slide Review Slide Review Perform
--- NOTE | 2023-03-09 17:15 | P.PN_ITS ---
Subjective 2 Subjective: Patient seen and examined. She remains intubated but she is awake and alert. Pain controlled Vitals/I&O/Wt Last Vital Signs Temp 98 F 03/10/23 16:00 Pulse 95 03/10/23 16:00 Resp 30 H 03/10/23 16:00 BP 120/71 03/10/23 16:00 Pulse Ox 99 03/10/23 16:00 O2 Del Method Nasal Cannula 03/10/23 13:41 O2 Flow Rate 3 03/10/23 13:41 FiO2 35 03/10/23 08:00 03/10/23 03/10/23 03/10/23 06:59 14:59 22:59 Intake Total 1365.125 / 4612.181 1101.646 / 1101.646 400 / 1501.646 Output Total 990 / 2190 1500 / 1500 Balance 375.125 / 2422.181 -398.354 / -398.354 400 / 1.646 Weight last 48 hrs Weight 186 lb Weight 175 lb Weight 175 lb Weight 168 lb Physical Exam 2 Narrative: General: No acute distress, intubated but awake and alert Abdomen soft, mild distention, appropriate tenderness to palpation Drains: Right Jamshid drain over gastric repair is serosanguineous. Left Jamshid drain in pelvis is somewhat purulent Data 03/10/23 12:40 03/10/23 12:40 Micro: Microbiology 03/08/23 18:42 Blood Culture - Preliminary Blood 03/08/23 18:36 Blood Culture - Preliminary Blood 03/09/23 14:13 Gram Stain - Final Sputum - Endotracheal Tube Aspirate Sputum Culture - Preliminary A&P Assessment and plan (1) Perforated gastric ulcer: Plan Postop day #1 status post exploratory laparotomy with modified Jerome patch repair of perforated gastric ulcer Remain n.p.o. with NG tube to low intermittent suction Await return of bowel function ICU care per hospitalist Attestations 2 Medical Necessity Statement*: Per primary Coding Level of Care Code Acute Code for Chg Fwd Diagnoses Perforated gastric ulcer K25.5
[2023-03-09 19:04] LABS: Lactate (Lactic Acid level) 1.9 mmol/L (0.5-2.2)
[2023-03-09] MEDS: fentaNYL 1,000 MCG/100 ML BAG 10 MCG IV (20:38)
--- NOTE | 2023-03-09 21:29 | USCV_ITS ---
Yulissa Goddard Age: 82 Gender: F : 1940 Exam Date: 03/09/2023 00:49 Ordering Phys: Jered Rangel MD Technologist: ASHLEY [place]am [place] [facility] [place]: Recent femur fx. anemia. s/p lap exploration to find site of GI bleed. Pt on vent in ICU-11. HISTORY: Recent femur fx. anemia. s/p lap exploration to find site of GI bleed. Pt on vent in ICU-11. PROCEDURES: Venous duplex imaging was performed in bilateral lower extremities. The following venous structures were evaluated: common femoral vein, profunda vein, proximal portion of the greater saphenous vein, superficial femoral vein, and the popliteal vein. In addition, the posterior tibial veins were evaluated. Serial compression, augmentation maneuvers, and spectral Doppler flow evaluation were performed, which were normal. Bilaterally, the common femoral, superficial femoral, profunda femoral, popliteal, posterior tibial, and greater saphenous veins were identified and interrogated in the standard fashion. 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 These veins were found to be easily compressible with spontaneous blood flow. No evidence of thrombus noted. CONCLUSIONS No evidence of right lower extremity DVT. No evidence of left lower extremity DVT. 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
[2023-03-10] VITALS (59 sets, daily range): BP systolic 78–170; BP diastolic 35–92; PULSE 74–113; RESP 12–127; TEMP 36.3–36.6; O2SAT 92–99; BMI 30.9
[2023-03-10] MEDS: sodium chloride 0.9% 1,000 ML 75 ML IV (00:41)
[2023-03-10 00:53] LABS: Lactate (Lactic Acid level) 0.8 mmol/L (0.5-2.2)
[2023-03-10] MEDS: norepinephrine 4 MG/250 ML BAG 11.25 MG IV (01:08)
[2023-03-10] MEDS: ipratropium-albuterol 3 mL Neb INHALATION ×4 (02:31→19:32)
--- NOTE | 2023-03-10 03:33 | PC.NURSE ---
Addendum entered by Nory Del Valle RN 03/10/23 06:16: This Nurse witnessed a waste of 42 ml of Fentanyl by Lance Penny RN. This Nurse also notified Ata in Pharmacy of the issue. Original Note: During report, TORIBIO Travis told this nurse that pt was being sedated with fentanyl running at 50 mcg/hr. Upon first physical assessment (at approximately 1915), it was noted by this nurse that fentanyl gtt was running at 25 mcg/hour. At about 1999, this nurse saw on the APR that the fentanyl gtt was complete . This nurse pulled a new bag of fentanyl from the pyxis, and went into pt room to verify that the current bag was empty/close to empty. The bag hanging looked to be about half full. This nurse began looking at MAR as well as the pyxis. It was found that a new bag of fentanyl had been removed from the pyxis at 1030 AM 03/09/23 by Thaddeus, but it was never scanned. There was no documentation on the administration/titration portion of the fentanyl gtt during dayshift on 03/09/23. See MAR. Once this discrepancy was discovered by this nurse, TORIBIO Cueto/house calls nurse was notified. This nurse scanned and started a new bag of fentayl. The previous bag of fentanyl (the bag pulled, but not scanned or titrated on the MAR), was removed from room and 42 mL of fentanyl was wasted with Nory.
[2023-03-10 04:06] LABS: Basophils % 0.2 %; Lymphocytes # 0.3 10^3/uL (0.8-4.8); Lymphocytes % 2.3 %; Mean Corpuscular HGB Conc 31.4 g/dL (30-55); Mean Corpuscular Hemoglobin 29.1 pg (27-33); Mean Corpuscular Volume 92.8 fl (85-98); Mean Platelet Volume 10.8 fL (7.4-10.4); Monocytes # 0.4 10^3/uL (0.2-0.9); Nucleated Red Blood Cells % 0.3 %; Platelet Count 149 10^3/cmm (157-399); Red Blood Count 2.37 10^6/uL (3.85-5.65); Red Cell Distribution Width 20.7 % (12.1-15.1); White Blood Count 11.49 10^3/uL (3.29-11.43)
[2023-03-10 04:13] LABS: INR 1.48 (0.8-1.2)
[2023-03-10 04:25] LABS: Alanine Aminotransferase 297 U/L (0-33); Albumin Level 3.5 g/dL (3.5-5.2); Alkaline Phosphatase 53 U/L (35-105); Anion Gap 14.3 (5-19); Aspartate Amino Transferase 96 U/L (0-32); Blood Urea Nitrogen 50 mg/dL (8-23); Calcium 7.6 mg/dL (8.5-10.5); Carbon Dioxide 27 mmol/L (22-29); Chloride 112 mmol/L (98-107); Globulin 1.9 g/dL (1.3-4.6); Glucose 147 mg/dL (65-115); Osmolality Calculated 324 mOsm/kg (285-295); Potassium 4.3 mmol/L (3.5-5.1); Sodium 149 mmol/L (136-145); Total Bilirubin 0.5 mg/dL (0.15-1.2); Total Protein 5.4 g/dL (6.6-8.7)
[2023-03-10 04:26] LABS: C Reactive Protein 289.8 mg/L (0.0-4.9)
[2023-03-10 04:27] LABS: Lactate (Lactic Acid level) 0.9 mmol/L (0.5-2.2)
[2023-03-10] MEDS: albumin 25 G/100 ML BAG 60 G IV (05:30)
[2023-03-10] MEDS: pantoprazole 40 mg SDV IVP ×2 (05:30→17:24)
[2023-03-10] MEDS: fentaNYL 1,000 MCG/100 ML BAG 10 MCG IV (05:34)
[2023-03-10 05:58] LABS: ABG PH Result 7.35 (7.35-7.45); Blood Gas Operator Identificat JB; Blood Gas Sample Type Arterial; Blood Gas Tidal Volume 0.45; Oxygen Device VENT; PO2 FiO2 Ratio Arterial Blood 0
[2023-03-10 06:00] LABS: ABG PCO2 47.8 mmHg (35-45); Arterial Blood Gas Hematocrit 21.7 % (37-47); Base Excess ABG 0.3 mmol/L (-2.0-2.0); HCO3 ABG 26.1 mmol/L (22-26); PO2 ABG 91.3 mmHg (80.0-100.0)
[2023-03-10 06:13] LABS: Lactate (Lactic Acid level) 0.8 mmol/L (0.5-2.2)
[2023-03-10] MEDS: budesonide 0.5 mg/2 mL Neb 0.25 MG INHALATION ×2 (08:01→19:32)
[2023-03-10 08:02] LABS: Glucose Point of Care 132 mg/dL (70-110)
[2023-03-10] MEDS: dextrose 5% 1,000 ML 75 ML IV (08:41)
[2023-03-10] MEDS: sodium chloride 0.9% (100 ml) 100 ML (09:00)
--- NOTE | 2023-03-10 09:07 | PC.NURSE ---
prbc infusing at this time .. vs check done daughter in room at bedside
--- NOTE | 2023-03-10 09:26 | PC.NURSE ---
extubated and placed on 3l nc restraints off at this time
--- NOTE | 2023-03-10 09:46 | P.PN_ITS ---
Subjective 2 Subjective: Patient has been successfully extubated to nasal cannula Will do speech evaluation at bedside Will give her 2 unit PRBC Off Levophed Dehydration with hypernatremia Started D5 which I will discontinue after next BMP Vitals/I&O/Wt Last Vital Signs Temp 97.4 F L 03/10/23 09:12 Pulse 89 03/10/23 08:16 Resp 20 H 03/10/23 09:12 BP 104/71 03/10/23 09:12 Pulse Ox 97 03/10/23 09:12 O2 Del Method Mechanical Ventilation 03/10/23 08:00 O2 Flow Rate 4 03/08/23 20:35 FiO2 35 03/10/23 08:00 03/09/23 03/10/23 03/10/23 22:59 06:59 14:59 Intake Total 534.681 / 3247.056 1365.125 / 4612.181 49.146 / 49.146 Output Total 790 / 1200 990 / 2190 Balance -255.319 / 2047.056 375.125 / 2422.181 49.146 / 49.146 Weight last 48 hrs Weight 84.368 kg Weight 79.379 kg Weight 79.379 kg Weight 76.204 kg Physical Exam 2 Narrative: Patient is wide-awake and alert Pleasant and cooperative She knows that I saw her on last admission Currently well on nasal cannula Abdomen soft Dressing in place Serosanguineous discharge in the Jamshid drain No active signs of bleeding Off Levophed Hemodynamic stable Data 03/10/23 03:16 03/10/23 03:16 Micro: Microbiology 03/09/23 14:13 Gram Stain - Final Sputum - Endotracheal Tube Aspirate A&P Assessment and plan (1) Bowel perforation: (2) ARF (acute renal failure): (3) Acute hyperkalemia: (4) Lactic acidosis: (5) Septic shock: (6) Acute hypernatremia: Plan Respiratory failure postoperatively Successfully extubated 03/10 9 AM to nasal cannula Bedside speech evaluation End-stage COPD No active wheezing Discontinue steroids Postop day 2 Postoperative anemia No active signs of GI bleed Off Levophed Will give her 2 unit PRBC Dressing change as per general surgery Diet advancement as per general surgery He is n.p.o. Hypernatremia related to dehydration Free water deficit 1.5 to 2 L Will give her D5 until 2:00 repeat BMP Patient is extubated she should be able to eat by her mouth Continue antifungal and antibiotics She is afebrile Cultures noted Steroids were used I am anticipating leukocytosis Will request PT and OT Advancement of diet as per general surgery Full code Will touch base with Dr. Minaya Attestations 2 Medical Necessity Statement*: Continue ICU management Diagnoses Bowel perforation K63.1 ARF (acute renal failure) N17.9 Acute hyperkalemia E87.5 Lactic acidosis E87.20 Septic shock A41.9; R65.21 Acute hypernatremia E87.0
[2023-03-10] MEDS: piperacillin-tazobactam 3.375 GM in sodium chloride 0.9% (plus) 50 ML IV ×2 (11:07→22:36)
[2023-03-10 11:18] LABS: Blood Gas Sample Site aline
[2023-03-10 11:25] LABS: Blood Gas Sample Site aline
[2023-03-10 11:25] LABS: Blood Gas Sample Site ALINE
[2023-03-10 11:37] LABS: Glucose Point of Care 161 mg/dL (70-110)
[2023-03-10] MEDS: FUROsemide 10 mg/mL SDV 2mL 20 MG IVP (12:41)
[2023-03-10 13:04] LABS: Basophils % 0.2 %; Hematocrit 28.8 % (36-47); Lymphocytes # 0.1 10^3/uL (0.8-4.8); Lymphocytes % 1.1 %; Mean Corpuscular HGB Conc 31.6 g/dL (30-55); Mean Corpuscular Hemoglobin 29.2 pg (27-33); Mean Corpuscular Volume 92.3 fl (85-98); Mean Platelet Volume 10.4 fL (7.4-10.4); Monocytes # 0.5 10^3/uL (0.2-0.9); Monocytes % 4.1 %; Neutrophils # 12.15 10^3/uL (1.8-7.7); Neutrophils % 92.9 %; Nucleated Red Blood Cells % 0.3 %; Platelet Count 147 10^3/cmm (157-399); Red Blood Count 3.12 10^6/uL (3.85-5.65); Red Cell Distribution Width 19.6 % (12.1-15.1); White Blood Count 13.08 10^3/uL (3.29-11.43)
[2023-03-10 13:21] LABS: Blood Urea Nitrogen 48 mg/dL (8-23); Carbon Dioxide 26 mmol/L (22-29); Chloride 111 mmol/L (98-107); Glucose 149 mg/dL (65-115); Osmolality Calculated 319 mOsm/kg (285-295); Sodium 147 mmol/L (136-145)
[2023-03-10 13:23] LABS: Lactate (Lactic Acid level) 0.8 mmol/L (0.5-2.2)
--- NOTE | 2023-03-10 14:00 | PC.NURSE ---
Heparin gtt stopped. Nitro paste removed from pt's left chest.
--- NOTE | 2023-03-10 17:18 | P.PN_ITS ---
Subjective 2 Subjective: Patient seen and examined. She was successfully extubated this morning and is off vasopressors. She reports she is not passing flatus yet Vitals/I&O/Wt Last Vital Signs Temp 98 F 03/10/23 16:00 Pulse 95 03/10/23 16:00 Resp 30 H 03/10/23 16:00 BP 120/71 03/10/23 16:00 Pulse Ox 99 03/10/23 16:00 O2 Del Method Nasal Cannula 03/10/23 13:41 O2 Flow Rate 3 03/10/23 13:41 FiO2 35 03/10/23 08:00 03/10/23 03/10/23 03/10/23 06:59 14:59 22:59 Intake Total 1365.125 / 4612.181 1101.646 / 1101.646 400 / 1501.646 Output Total 990 / 2190 1500 / 1500 Balance 375.125 / 2422.181 -398.354 / -398.354 400 / 1.646 Weight last 48 hrs Weight 186 lb Weight 175 lb Weight 175 lb Weight 168 lb Physical Exam 2 Narrative: General: No acute distress, intubated but awake and alert Abdomen soft, mild distention, appropriate tenderness to palpation Drains: Right Jamshid drain over gastric repair is serosanguineous. Left Jamshid drain in pelvis is serous Data 03/10/23 12:40 03/10/23 12:40 Micro: Microbiology 03/08/23 18:42 Blood Culture - Preliminary Blood 03/08/23 18:36 Blood Culture - Preliminary Blood 03/09/23 14:13 Gram Stain - Final Sputum - Endotracheal Tube Aspirate Sputum Culture - Preliminary A&P Assessment and plan (1) Perforated gastric ulcer: Plan Postop day #2 status post exploratory laparotomy with modified Jerome patch repair of perforated gastric ulcer Remain n.p.o. with NG tube to low intermittent suction Await return of bowel function ICU care per hospitalist Attestations 2 Medical Necessity Statement*: Per primary Coding Level of Care Code Acute Code for Chg Fwd Diagnoses Perforated gastric ulcer K25.5
[2023-03-10 17:37] LABS: Glucose Point of Care 142 mg/dL (70-110)
--- NOTE | 2023-03-10 17:49 | PC.NURSE ---
artline remove intact pressure held and dressing applied ..optifoam applied to buttock checks help prevent shearing ... has healing ulcers noted each check
[2023-03-10 19:31] LABS: Lactate (Lactic Acid level) 0.7 mmol/L (0.5-2.2)
[2023-03-10] MEDS: HYDROmorphone 1 mg/mL INJ 1 mL 0.4 MG IVP (19:51)
[2023-03-10] MEDS: vancomycin 1,000 MG in sodium chloride 0.9% 250 ML 250 MG IV (22:35)
[2023-03-10] MEDS: fluconazole premix 100 MG in empty flexible container 1 EACH 50 MG IV (23:19)
[2023-03-11] VITALS (26 sets, daily range): BP systolic 117–175; BP diastolic 55–105; PULSE 71–101; RESP 12–35; TEMP 37; O2SAT 92–98; BMI 29.9
[2023-03-11 01:26] LABS: Lactate (Lactic Acid level) 0.7 mmol/L (0.5-2.2)
[2023-03-11] MEDS: ipratropium-albuterol 3 mL Neb INHALATION ×4 (01:53→21:16)
[2023-03-11] MEDS: HYDROmorphone 1 mg/mL INJ 1 mL 0.4 MG IVP (02:53)
[2023-03-11 04:32] LABS: Basophils # 0.1 10^3/uL (0.0-0.1); Basophils % 0.4 %; Eosinophils # 0.1 10^3/uL (0.0-0.8); Eosinophils % 0.6 %; Hematocrit 33.8 % (36-47); Lymphocytes # 0.3 10^3/uL (0.8-4.8); Lymphocytes % 2.4 %; Mean Corpuscular Hemoglobin 28.7 pg (27-33); Mean Corpuscular Volume 89.9 fl (85-98); Mean Platelet Volume 10.8 fL (7.4-10.4); Monocytes # 0.6 10^3/uL (0.2-0.9); Monocytes % 4.2 %; Neutrophils # 12.52 10^3/uL (1.8-7.7); Neutrophils % 89.4 %; Nucleated Red Blood Cells % 0.2 %; Platelet Count 153 10^3/cmm (157-399); Red Blood Count 3.76 10^6/uL (3.85-5.65); Red Cell Distribution Width 21.3 % (12.1-15.1); White Blood Count 13.99 10^3/uL (3.29-11.43)
[2023-03-11 04:48] LABS: Blood Urea Nitrogen 42 mg/dL (8-23); Calcium 7.6 mg/dL (8.5-10.5); Carbon Dioxide 29 mmol/L (22-29); Chloride 110 mmol/L (98-107); Glucose 110 mg/dL (65-115); Osmolality Calculated 317 mOsm/kg (285-295); Sodium 148 mmol/L (136-145)
[2023-03-11 04:49] LABS: C Reactive Protein 146.4 mg/L (0.0-4.9); Lactate (Lactic Acid level) 0.8 mmol/L (0.5-2.2)
[2023-03-11 04:51] LABS: Procalcitonin 4.52 ng/mL (0-0.5)
[2023-03-11] MEDS: pantoprazole 40 mg SDV IVP ×2 (05:19→17:21)
--- NOTE | 2023-03-11 07:30 | PC.NURSE ---
Witnessed fentanyl waste with DAVID RN
[2023-03-11 07:38] LABS: Glucose Point of Care 98 mg/dL (70-110)
[2023-03-11] MEDS: budesonide 0.5 mg/2 mL Neb 0.25 MG INHALATION ×2 (08:13→21:16)
--- NOTE | 2023-03-11 09:24 | PC.NURSE ---
PT at bedside.
--- NOTE | 2023-03-11 10:33 | P.PN_ITS ---
Subjective 2 Subjective: Patient seen and examined. Pain controlled. Not yet passing flatus. Denies any nausea or emesis Vitals/I&O/Wt Last Vital Signs Temp 98 F 03/10/23 19:00 Pulse 88 03/11/23 08:00 Resp 21 H 03/11/23 08:00 BP 166/62 03/11/23 08:00 Pulse Ox 98 03/11/23 08:00 O2 Del Method Nasal Cannula 03/11/23 08:00 O2 Flow Rate 3 03/11/23 08:00 FiO2 35 03/11/23 01:55 03/10/23 03/11/23 03/11/23 22:59 06:59 14:59 Intake Total 1500 / 2601.646 550 / 3151.646 0.167 / 0.167 Output Total 620 / 2120 770 / 2890 Balance 880 / 481.646 -220 / 261.646 0.167 / 0.167 Weight last 48 hrs Weight 180 lb Weight 186 lb Physical Exam 2 Narrative: General: No acute distress, intubated but awake and alert Abdomen soft, mild distention, appropriate tenderness to palpation Drains: Right Jamshid drain over gastric repair is serosanguineous. Left Jamshid drain in pelvis is serous Data 03/11/23 03:57 03/11/23 03:57 Micro: Microbiology 03/08/23 18:42 Blood Culture - Preliminary Blood 03/08/23 18:36 Blood Culture - Preliminary Blood 03/09/23 14:13 Gram Stain - Final Sputum - Endotracheal Tube Aspirate Sputum Culture - Preliminary A&P Assessment and plan (1) Perforated gastric ulcer: Plan Postop day #3 status post exploratory laparotomy with modified Jerome patch repair of perforated gastric ulcer Remain n.p.o. with NG tube to low intermittent suction Await return of bowel function ICU care per hospitalist Attestations 2 Medical Necessity Statement*: Patient requires multiple more nights in the hospital for recovery after perforated gastric ulcer Coding Level of Care Code Acute Code for Chg Fwd Diagnoses Perforated gastric ulcer K25.5
--- NOTE | 2023-03-11 11:00 | PM.PN ---
Subjective Subjective: Patient is clinically doing much better Creatinine improving Hemoglobin stable No fever To work with PT today NG still in place No BM yet No passage of flatus We might start TPN by tomorrow if no success with BM Vitals/I&O/Wt Last Vital Signs Temp 98 F 03/10/23 19:00 Pulse 88 03/11/23 08:00 Resp 21 H 03/11/23 08:00 BP 166/62 03/11/23 08:00 Pulse Ox 98 03/11/23 08:00 O2 Del Method Nasal Cannula 03/11/23 08:00 O2 Flow Rate 3 03/11/23 08:00 FiO2 35 03/11/23 01:55 03/10/23 03/11/23 03/11/23 22:59 06:59 14:59 Intake Total 1500 / 2601.646 550 / 3151.646 0.167 / 0.167 Output Total 620 / 2120 770 / 2890 Balance 880 / 481.646 -220 / 261.646 0.167 / 0.167 Weight last 48 hrs Weight 81.647 kg Weight 84.368 kg Physical Exam Narrative: Patient is awake and alert In good spirits GCS 15 S1, S2 NG tube in place Abdomen soft Good urine output Patient is currently on 4 L of oxygen Bowel sounds are sluggish No abdominal pain Nonfocal neuroexam family is at the bedside Data 03/11/23 03:57 03/11/23 03:57 Micro: Microbiology 03/08/23 18:42 Blood Culture - Preliminary Blood 03/08/23 18:36 Blood Culture - Preliminary Blood 03/09/23 14:13 Gram Stain - Final Sputum - Endotracheal Tube Aspirate Sputum Culture - Preliminary A&P Assessment and plan (1) Perforated gastric ulcer: (2) Bowel perforation: (3) ARF (acute renal failure): (4) Acute hyperkalemia: (5) Lactic acidosis: (6) Acute hypernatremia: (7) Septic shock: Plan Hypernatremia related to free water deficit Start D5 normal saline Will start TPN by tomorrow if she stays n.p.o. No BM yet Not passing flatus Bowel sounds are sluggish CATHLEEN: Improving No fever or leukocytosis Lactic acid improved Septic shock: Resolved Status post repair of gastric ulcer perforation near bowel Continue broad-spectrum antibiotics including antifungal Requested PT Sacral ulcer, offloading wound care dressing on daily basis Disposition: Likely by Sunday if she gets a bowel movement, CODE STATUS has been changed to full code She can be transferred out of ICU to [facility] Attestations Medical Necessity Statement*: Continue medical management Diagnoses Perforated gastric ulcer K25.5 Bowel perforation K63.1 ARF (acute renal failure) N17.9 Acute hyperkalemia E87.5 Lactic acidosis E87.20 Acute hypernatremia E87.0 Septic shock A41.9; R65.21
[2023-03-11 11:22] LABS: Glucose Point of Care 85 mg/dL (70-110)
[2023-03-11] MEDS: piperacillin-tazobactam 3.375 GM in sodium chloride 0.9% (plus) 50 ML IV ×2 (11:40→23:43)
[2023-03-11] MEDS: sucralfate 1 gm/10 mL Oral Liq UDC PO ×3 (11:40→21:14)
[2023-03-11] MEDS: dextrose 5%-sod chloride 0.9% 1,000 ML 75 ML IV ×2 (11:41→23:44)
[2023-03-11 17:20] LABS: Glucose Point of Care 110 mg/dL (70-110)
--- NOTE | 2023-03-11 18:29 | PC.NURSE ---
Report called to [facility] [place]. Transfered to [facility] with sister by side.
[2023-03-11 20:51] LABS: Glucose Point of Care 110 mg/dL (70-110)
[2023-03-11] MEDS: fluconazole premix 100 MG in empty flexible container 1 EACH 50 MG IV (23:43)
[2023-03-12] VITALS (17 sets, daily range): BP systolic 162–185; BP diastolic 70–80; PULSE 70–97; RESP 12–22; TEMP 36.4–37; O2SAT 92–100
[2023-03-12] MEDS: ipratropium-albuterol 3 mL Neb INHALATION ×4 (02:55→20:44)
[2023-03-12 03:32] LABS: Basophils # 0.1 10^3/uL (0.0-0.1); Basophils % 0.7 %; Lymphocytes # 0.5 10^3/uL (0.8-4.8); Lymphocytes % 3.8 %; Mean Corpuscular HGB Conc 30.8 g/dL (30-55); Mean Corpuscular Hemoglobin 28.2 pg (27-33); Mean Corpuscular Volume 91.6 fl (85-98); Mean Platelet Volume 10.3 fL (7.4-10.4); Monocytes # 0.8 10^3/uL (0.2-0.9); Monocytes % 6.6 %; Neutrophils # 9.93 10^3/uL (1.8-7.7); Neutrophils % 84.1 %; Nucleated Red Blood Cells % 0.2 %; Platelet Count 151 10^3/cmm (157-399); Red Blood Count 4.15 10^6/uL (3.85-5.65); Red Cell Distribution Width 21.1 % (12.1-15.1); White Blood Count 11.81 10^3/uL (3.29-11.43)
[2023-03-12 03:56] LABS: Anion Gap 11.8 (5-19); Blood Urea Nitrogen 28 mg/dL (8-23); Calcium 7.9 mg/dL (8.5-10.5); Carbon Dioxide 32 mmol/L (22-29); Chloride 114 mmol/L (98-107); Creatinine Clr Calc Pharmacy 47.3583; Glucose 116 mg/dL (65-115); Osmolality Calculated 324 mOsm/kg (285-295); Potassium 3.8 mmol/L (3.5-5.1); Procalcitonin 1.95 ng/mL (0-0.5); Sodium 154 mmol/L (136-145)
[2023-03-12 03:57] LABS: C Reactive Protein 73.6 mg/L (0.0-4.9)
[2023-03-12] MEDS: sucralfate 1 gm/10 mL Oral Liq UDC PO ×4 (06:08→20:52)
[2023-03-12] MEDS: pantoprazole 40 mg SDV IVP ×2 (06:08→18:49)
[2023-03-12 06:43] LABS: Glucose Point of Care 117 mg/dL (70-110)
[2023-03-12] MEDS: budesonide 0.5 mg/2 mL Neb 0.25 MG INHALATION ×2 (08:49→20:44)
[2023-03-12] MEDS: dextrose 5% 1,000 ML 75 ML IV (10:01)
[2023-03-12] MEDS: piperacillin-tazobactam 3.375 GM in sodium chloride 0.9% (plus) 50 ML IV ×2 (10:01→23:52)
--- NOTE | 2023-03-12 11:05 | P.PN_ITS ---
Subjective 2 Subjective: Leukocytosis around 11,000 No fever I will discontinue vancomycin Continue Diflucan and Zosyn for now No bowel movement yet Not passing gas NG in place Patient is stating that she is feeling hungry and wants to eat Unfortunately we have not advanced her diet because of lack of bowel movement She is getting dehydrated I have asked dietitian to start TPN today, started D5 we will recheck sodium at 2:00 Vitals/I&O/Wt Last Vital Signs Temp 97.9 F 03/12/23 08:00 Pulse 93 03/12/23 08:57 Resp 20 H 03/12/23 08:49 BP 175/76 03/12/23 08:00 Pulse Ox 95 03/12/23 08:49 O2 Del Method Nasal Cannula 03/12/23 08:49 O2 Flow Rate 2 03/12/23 08:49 FiO2 35 03/12/23 02:57 03/11/23 03/12/23 03/12/23 22:59 06:59 14:59 Intake Total 50 / 50.167 1003.75 / 1053.917 Output Total 1005 / 1100 1030 / 2130 250 / 250 Balance -955 / -1049.833 -26.25 / -1076.083 -250 / -250 Weight last 48 hrs Weight 81.647 kg Weight 81.647 kg Physical Exam 2 Narrative: Patient sitting in recliner Gipson catheter in place Asking for food Clinically dehydrated Currently on 2 L nasal cannula No active chest pain or shortness of breath Pleasant alert Nonfocal neuroexam Family is at the bedside NG tube in place Data 03/12/23 03:05 03/12/23 03:05 Micro: Microbiology 03/09/23 14:13 Gram Stain - Final Sputum - Endotracheal Tube Aspirate Sputum Culture - Preliminary Gram Negative Rods A&P Assessment and plan (1) Perforated gastric ulcer: (2) Bowel perforation: (3) ARF (acute renal failure): (4) Acute hyperkalemia: (5) Lactic acidosis: (6) Acute hypernatremia: (7) Septic shock: Plan Hypernatremia: Start D5 today and TPN for her malnourishment Dietitian informed TPN paperwork signed Discontinue vancomycin, continue Diflucan and Zosyn for now Gastric perforation status postrepair postoperative complication Status post 4 units PRBC in total hemoglobin stable DVT prophylaxis added heparin Postoperative ileus No bowel movement returned yet NG in place We will not be able to resume diet as of now, using TPN as a bridge therapy Patient is wanting to go home after she is able to She is not interested in hospice or skilled nursing placement Family is at the bedside They have changed her CODE STATUS full code Patient is stating that since her hip surgery she has not been able to ambulate much she was toe-touch bearing A-fib not a candidate to be on any kind of anticoagulation End-stage COPD no acute exacerbation Attestations 2 Medical Necessity Statement*: Possible discharge until Sunday Diagnoses Perforated gastric ulcer K25.5 Bowel perforation K63.1 ARF (acute renal failure) N17.9 Acute hyperkalemia E87.5 Lactic acidosis E87.20 Acute hypernatremia E87.0 Septic shock A41.9; R65.21
[2023-03-12 12:26] LABS: Glucose Point of Care 119 mg/dL (70-110)
--- NOTE | 2023-03-12 12:49 | PC.NUTR ---
Consult received for TPN. Recommend starting TPN @ 22 mls/hr, increasing 10 mls Q8H until goal rate of 42 mls/hr is reached, with MV added. Details in RD assessment
[2023-03-12] MEDS: AA-Dex 5%-20% w/Lytes 1,000 ML with multivitamin inj 10 ML 22 ML IV (14:11)
[2023-03-12 14:15] LABS: Sodium 150 mmol/L (136-145)
[2023-03-12 17:28] LABS: Glucose Point of Care 126 mg/dL (70-110)
--- NOTE | 2023-03-12 18:22 | P.PN_ITS ---
Subjective 2 Subjective: Patient seen and examined. Pain controlled. Not yet passing flatus. Denies any nausea or emesis Vitals/I&O/Wt Last Vital Signs Temp 97.8 F 03/12/23 16:00 Pulse 93 03/12/23 16:00 Resp 18 03/12/23 16:00 BP 180/74 03/12/23 16:00 Pulse Ox 92 03/12/23 16:00 O2 Del Method Nasal Cannula 03/12/23 16:00 O2 Flow Rate 2 03/12/23 13:28 FiO2 35 03/12/23 02:57 03/12/23 03/12/23 03/12/23 06:59 14:59 22:59 Intake Total 1003.75 / 1053.917 50 / 50 Output Total 1030 / 2130 350 / 350 Balance -26.25 / -1076.083 -300 / -300 Weight last 48 hrs Weight 180 lb Weight 180 lb Physical Exam 2 Narrative: General: No acute distress, intubated but awake and alert Abdomen soft, mild distention, appropriate tenderness to palpation Drains: Right Jamshid drain over gastric repair is serosanguineous. Left Jamshid drain in pelvis is slightly purulent Data 03/12/23 03:05 03/12/23 13:38 Micro: Microbiology 03/09/23 14:13 Gram Stain - Final Sputum - Endotracheal Tube Aspirate Sputum Culture - Final Klebsiella pneumoniae A&P Assessment and plan (1) Perforated gastric ulcer: Plan Postop day #4 status post exploratory laparotomy with modified Jerome patch repair of perforated gastric ulcer Remain n.p.o. with NG tube to low intermittent suction Await return of bowel function-anticipate this will happen tomorrow ICU care per hospitalist Attestations 2 Medical Necessity Statement*: Patient requires at least 1 more night in the hospital for recovery after exploratory laparotomy with modified Jerome patch repair for perforated gastric ulcer Coding Level of Care Code Acute Code for Chg Fwd Diagnoses Perforated gastric ulcer K25.5
[2023-03-12 20:06] LABS: Glucose Point of Care 119 mg/dL (70-110)
[2023-03-12] MEDS: fluconazole premix 100 MG in empty flexible container 1 EACH 50 MG IV (23:51)
[2023-03-13] VITALS (13 sets, daily range): BP systolic 151–192; BP diastolic 66–78; PULSE 85–112; RESP 12–22; TEMP 36.4–37.2; O2SAT 89–100
[2023-03-13] MEDS: ipratropium-albuterol 3 mL Neb INHALATION ×4 (02:25→20:04)
[2023-03-13] MEDS: pantoprazole 40 mg SDV IVP ×2 (05:12→17:13)
[2023-03-13] MEDS: sucralfate 1 gm/10 mL Oral Liq UDC PO ×4 (06:01→20:11)
[2023-03-13 06:07] LABS: Hematocrit 39.3 % (36-47); Mean Corpuscular HGB Conc 30.5 g/dL (30-55); Mean Corpuscular Volume 91.6 fl (85-98); Mean Platelet Volume 10.3 fL (7.4-10.4); Platelet Count 140 10^3/cmm (157-399); Red Blood Count 4.29 10^6/uL (3.85-5.65); White Blood Count 9.51 10^3/uL (3.29-11.43)
[2023-03-13 06:25] LABS: Anion Gap 11.4 (5-19); Blood Urea Nitrogen 21 mg/dL (8-23); Calcium 8.7 mg/dL (8.5-10.5); Carbon Dioxide 31 mmol/L (22-29); Chloride 112 mmol/L (98-107); Glucose 208 mg/dL (65-115); Osmolality Calculated 321 mOsm/kg (285-295); Potassium 3.4 mmol/L (3.5-5.1); Sodium 151 mmol/L (136-145)
[2023-03-13 07:21] LABS: Slide Review Slide Review Perform
[2023-03-13 07:23] LABS: Absolute Segmented Neutrophil 7.8 10/cmm (1.6-7.1); Band Neutrophils Absolute 0.1 10^3/cmm (0.0-1.2); Lymphocytes 8 %; Segmented Neutrophils 82 %; Total Cells Counted 100 (0-100)
[2023-03-13 07:24] LABS: Eosinophils 0 %; Lymphocytes Absolute 0.8 10^3/cmm (1.2-3.4); Monocytes Absolute 0.7 10^3/cmm (0.1-0.6)
[2023-03-13 07:25] LABS: Absolute Neutrophil 7.9 10^3/cmm (1.4-6.5); Anisocytosis Trace; Platelet Estimate Decreased (Normal)
[2023-03-13] MEDS: budesonide 0.5 mg/2 mL Neb 0.25 MG INHALATION ×2 (07:29→20:03)
[2023-03-13] MEDS: piperacillin-tazobactam 3.375 GM in sodium chloride 0.9% (plus) 50 ML IV (11:42)
--- NOTE | 2023-03-13 11:42 | P.PN_ITS ---
Subjective 2 Subjective: Patient seen and examined. She is now passing flatus. Pain is controlled Vitals/I&O/Wt Last Vital Signs Temp 97.8 F 03/14/23 04:00 Pulse 90 03/14/23 06:00 Resp 16 03/14/23 04:00 BP 140/70 03/14/23 04:00 Pulse Ox 98 03/14/23 04:27 O2 Del Method BiPAP 03/14/23 04:00 O2 Flow Rate 35 03/14/23 04:00 FiO2 35 03/14/23 04:27 03/13/23 03/13/23 03/14/23 14:59 22:59 06:59 Intake Total 590.975 / 880.788 1807 / 1590.975 Output Total 150 / 150 100 / 250 110 / 360 Balance -150 / -150 490.975 / 340.975 890 / 1230.975 Weight last 48 hrs Weight 181 lb Physical Exam 2 Narrative: General: No acute distress, intubated but awake and alert Abdomen soft, mild distention, appropriate tenderness to palpation Incision intact without erythema or exudate Drains: Right Jamshid drain over gastric repair is serosanguineous. Left Jamshid drain in pelvis is slightly purulent Data 03/14/23 05:04 03/14/23 05:04 A&P Assessment and plan (1) Perforated gastric ulcer: Plan Postop day #5 status post exploratory laparotomy with modified Jerome patch repair of perforated gastric ulcer DC NG tube and advance to clear liquid diet No further surgical intervention anticipated Medical management per hospitalist Attestations 2 Medical Necessity Statement*: Patient requires at least 1 more night in the hospital for recovery and diet advancement along with medical management following modified Jerome patch repair of perforated gastric ulcer Coding Level of Care Code Acute Code for Chg Fwd Diagnoses Perforated gastric ulcer K25.5
--- NOTE | 2023-03-13 12:00 | PC.NURSE ---
Pt BP is 198/[address] Ramos. Order for Hydralizine 10mg IVP given.
[2023-03-13 12:03] LABS: Glucose Point of Care 174 mg/dL (70-110)
--- NOTE | 2023-03-13 12:05 | P.PN_ITS ---
Subjective 2 Subjective: Patient endorsing passage of flatus this morning Spoke with Dr. Minaya who agreed with NG tube discontinuation at this point Patient is endorsing feeling hungry and thirsty We are starting her on clear liquid diet Continue TPN Hyponatremia sodium 151 No active abdominal pain No bowel movement yet Family is at the bedside Hemoglobin stable Afebrile She is hypertensive I will resume her oral antihypertensive regimen today Vitals/I&O/Wt Last Vital Signs Temp 97.6 F 03/13/23 08:00 Pulse 93 03/13/23 08:00 Resp 18 03/13/23 08:00 BP 173/78 03/13/23 08:00 Pulse Ox 98 03/13/23 08:00 O2 Del Method BiPAP 03/13/23 08:00 O2 Flow Rate 2 03/12/23 19:25 FiO2 35 03/13/23 07:30 03/12/23 03/13/23 03/13/23 22:59 06:59 14:59 Intake Total 1000 / 1050 1100 / 2150 Output Total 415 / 765 350 / 1115 150 / 150 Balance 585 / 285 750 / 1035 -150 / -150 Weight last 48 hrs Weight 82.1 kg Weight 81.647 kg Physical Exam 2 Narrative: Clinically patient is dehydrated Dry mucous membranes Awake and alert Pleasant in good spirits Currently on 2 L NG tube with minimal drainage Abdomen soft with sluggish bowel sounds Family is at the bedside S1, S2 No active complaints Data 03/13/23 05:57 03/13/23 05:57 Micro: Microbiology 03/09/23 14:13 Gram Stain - Final Sputum - Endotracheal Tube Aspirate Sputum Culture - Final Klebsiella pneumoniae A&P Assessment and plan (1) Acute hypernatremia: (2) ARF (acute renal failure): (3) Bowel perforation: (4) Perforated gastric ulcer: (5) Lactic acidosis: (6) Septic shock: Plan Today we are removing her nasogastric tube She is passing flatus Will try clear liquid diet Monitor for bowel movement She is hypertensive added p.o. antihypertensive regimen No chest pain or shortness of breath Doing well on 2 L Family is planning to take her home when she gets a bowel movement and able to eat better I will continue her TPN and D5 normal saline because she is still free water deficit of 2 L, she can ambulate much Full code Continue DVT prophylaxis with heparin I will switch her antibiotics from IV to p.o. Augmentin Disposition: Anticipating discharge in next 48 hours Attestations 2 Medical Necessity Statement*: Continue medical management anticipating discharge by Diagnoses Acute hypernatremia E87.0 ARF (acute renal failure) N17.9 Bowel perforation K63.1 Perforated gastric ulcer K25.5 Lactic acidosis E87.20 Septic shock A41.9; R65.21
[2023-03-13] MEDS: hyDRALAzine 20 mg/mL INJ 1 mL 10 MG IVP (12:35)
[2023-03-13] MEDS: amlodipine 10 mg Tablet PO (12:36)
[2023-03-13] MEDS: dextrose 5%-sod chloride 0.45% 1,000 ML 75 ML IV (12:36)
[2023-03-13] MEDS: AA-Dex 5%-20% w/Lytes 1,000 ML with multivitamin inj 10 ML 22 ML IV (15:04)
[2023-03-13] MEDS: lisinopril 20 mg Tablet PO (15:04)
[2023-03-13] MEDS: amoxicillin-clav 875-125 mg Tablet 1 TAB PO (17:14)
[2023-03-13 17:26] LABS: Glucose Point of Care 146 mg/dL (70-110)
[2023-03-13 21:25] LABS: Glucose Point of Care 163 mg/dL (70-110)
[2023-03-14] VITALS (14 sets, daily range): BP systolic 135–170; BP diastolic 61–75; PULSE 79–106; RESP 15–20; TEMP 36.4–36.9; O2SAT 91–98
[2023-03-14] MEDS: ipratropium-albuterol 3 mL Neb INHALATION ×3 (01:52→13:28)
--- NOTE | 2023-03-14 05:25 | PC.NURSE ---
IJ line dressing changed 03/14/23 at 0525.
[2023-03-14 05:34] LABS: Basophils # 0.1 10^3/uL (0.0-0.1); Basophils % 0.6 %; Eosinophils % 0.3 %; Hematocrit 36.5 % (36-47); Lymphocytes # 0.7 10^3/uL (0.8-4.8); Lymphocytes % 5.7 %; Mean Corpuscular HGB Conc 30.7 g/dL (30-55); Mean Corpuscular Hemoglobin 28.1 pg (27-33); Mean Corpuscular Volume 91.5 fl (85-98); Mean Platelet Volume 10.9 fL (7.4-10.4); Monocytes # 0.8 10^3/uL (0.2-0.9); Monocytes % 6.3 %; Neutrophils # 10.17 10^3/uL (1.8-7.7); Neutrophils % 81.5 %; Nucleated Red Blood Cells % 0 %; Platelet Count 133 10^3/cmm (157-399); Red Blood Count 3.99 10^6/uL (3.85-5.65); White Blood Count 12.48 10^3/uL (3.29-11.43)
[2023-03-14 05:54] LABS: Anion Gap 11.2 (5-19); Blood Urea Nitrogen 17 mg/dL (8-23); Calcium 8.7 mg/dL (8.5-10.5); Carbon Dioxide 33 mmol/L (22-29); Chloride 105 mmol/L (98-107); Glucose 172 mg/dL (65-115); Osmolality Calculated 308 mOsm/kg (285-295); Potassium 3.2 mmol/L (3.5-5.1); Sodium 146 mmol/L (136-145)
[2023-03-14 06:02] LABS: Slide Review Slide Review Perform
[2023-03-14] MEDS: sucralfate 1 gm/10 mL Oral Liq UDC PO ×4 (06:12→20:17)
[2023-03-14] MEDS: pantoprazole 40 mg SDV IVP ×2 (06:12→17:46)
[2023-03-14 06:34] LABS: Glucose Point of Care 126 mg/dL (70-110)
[2023-03-14] MEDS: lisinopril 20 mg Tablet PO (08:19)
[2023-03-14] MEDS: amoxicillin-clav 875-125 mg Tablet 1 TAB PO ×2 (08:19→17:28)
[2023-03-14] MEDS: amlodipine 10 mg Tablet PO (08:19)
[2023-03-14] MEDS: budesonide 0.5 mg/2 mL Neb 0.25 MG INHALATION (08:23)
--- NOTE | 2023-03-14 10:16 | P.PN_ITS ---
Subjective 2 Subjective: This morning patient is in good spirits No BM yet She is not sure if she had more passage of flatus since yesterday Vitals/I&O/Wt Last Vital Signs Temp 98.0 F 03/14/23 07:53 Pulse 101 H 03/14/23 08:40 Resp 18 03/14/23 08:25 BP 170/73 03/14/23 07:53 Pulse Ox 93 03/14/23 08:25 O2 Del Method Nasal Cannula 03/14/23 08:25 O2 Flow Rate 3 03/14/23 08:25 FiO2 35 03/14/23 04:27 03/13/23 03/14/23 03/14/23 22:59 06:59 14:59 Intake Total 590.975 / 277.512 2395 / 1590.975 Output Total 100 / 250 110 / 360 Balance 490.975 / 340.975 890 / 1230.975 Weight last 48 hrs Weight 82.1 kg Physical Exam 2 Narrative: Patient sitting in bed Currently on 3 L Abdomen soft with sluggish bowel sounds Hypotensive and tachycardic No active pain Signs of dehydration present Family is at the bedside Data 03/14/23 05:04 03/14/23 05:04 A&P Assessment and plan (1) Perforated gastric ulcer: (2) Bowel perforation: (3) ARF (acute renal failure): (4) Lactic acidosis: (5) Acute hypernatremia: (6) Septic shock: (7) Fracture of distal end of femur: Qualifiers: Encounter type: subsequent encounter Fracture type: closed Fracture morphology: other fracture Laterality: right Fracture healing: with routine healing Qualified Code(s): S72.491D - Other fracture of lower end of right femur, subsequent encounter for closed fracture with routine healing Plan I have notified the patient and her family that as soon as she gets bowel movement I will advance her diet and then we will plan to discharge home, unfortunately we are not able to send her to a rehab because of her end-stage COPD and family does not want to pursue hospice or palliative care Son is stating that CODE STATUS was changed only for the surgery she is still DNR/DNI Currently doing well on 3 L She is on clear liquid diet for now Not complaining of Dr. Hamilton pain I have changed her antibiotics to p.o. regimen at this point I have resumed her p.o. antihypertensive regimen as well Attestations 2 Medical Necessity Statement*: Continue medical management Diagnoses Perforated gastric ulcer K25.5 Bowel perforation K63.1 ARF (acute renal failure) N17.9 Lactic acidosis E87.20 Acute hypernatremia E87.0 Septic shock A41.9; R65.21 Other closed fracture of distal end of right femur with routine healing, subsequent encounter S72.754D Encounter type: subsequent encounter Fracture type: closed Fracture morphology: other fracture Laterality: right Fracture healing: with routine healing
[2023-03-14] MEDS: magnesium citrate Btl 296 mL PO (11:36)
[2023-03-14 11:53] LABS: Glucose Point of Care 163 mg/dL (70-110)
--- NOTE | 2023-03-14 12:07 | XRR_ITS ---
PROCEDURE INFORMATION: Exam: XR Chest Exam date and time: 03/14/2023 12:14 PM Age: 82 years old Clinical indication: Shortness of breath; Additional info: Poss pneumonia TECHNIQUE: Imaging protocol: Radiologic exam of the chest. Views: 1 view. COMPARISON: CR XR chest 1V portable [id number] 03/09/2023 7:07 AM FINDINGS: Tubes, catheters and devices: IJ catheter terminates near the atrial caval junction. Lungs: Atelectasis or infiltrate in the left lower lobe. What is probably atelectasis at the right lung base. Pleural spaces: Small left and possible tiny right pleural effusion. Heart/Mediastinum: See Vasculature finding. Vasculature: Mild cardiomegaly and uncoiling of the thoracic aorta. Bones/joints: Healed left rib fractures. XR/XR chest 1V portable [id number] IMPRESSION: Bibasilar opacities, left greater than right.
[2023-03-14] MEDS: lidocaine 1% 5 ML in potassium chloride premix 100 ML 25 ML IV (14:46)
[2023-03-14] MEDS: FUROsemide 10 mg/mL SDV 2mL 20 MG IVP (14:53)
[2023-03-14] MEDS: heparin 5,000 unit/mL INJ 1 mL 5000 UNIT SUBCUT (15:32)
[2023-03-14] MEDS: AA-Dex 5%-20% w/Lytes 1,000 ML with multivitamin inj 10 ML 22 ML IV (15:32)
[2023-03-14 17:14] LABS: Glucose Point of Care 147 mg/dL (70-110)
[2023-03-14] MEDS: sennosides-docusate Tablet 2 TAB PO (17:28)
[2023-03-14] MEDS: doxycycline 100 mg Tablet PO (17:28)
[2023-03-14 21:33] LABS: Glucose Point of Care 140 mg/dL (70-110)
[2023-03-15] VITALS (10 sets, daily range): BP systolic 114–143; BP diastolic 65–76; PULSE 86–100; RESP 15–22; TEMP 36.4–36.8; O2SAT 91–97; BMI 29.0
[2023-03-15] MEDS: heparin 5,000 unit/mL INJ 1 mL 5000 UNIT SUBCUT ×2 (02:28→15:05)
[2023-03-15] MEDS: sucralfate 1 gm/10 mL Oral Liq UDC PO ×3 (05:31→18:58)
[2023-03-15] MEDS: pantoprazole 40 mg SDV IVP (05:31)
[2023-03-15 05:42] LABS: Basophils # 0.1 10^3/uL (0.0-0.1); Basophils % 0.4 %; Eosinophils % 0.2 %; Hematocrit 37.5 % (36-47); Lymphocytes # 0.8 10^3/uL (0.8-4.8); Lymphocytes % 5.3 %; Mean Corpuscular HGB Conc 31.2 g/dL (30-55); Mean Corpuscular Hemoglobin 28.5 pg (27-33); Mean Corpuscular Volume 91.5 fl (85-98); Mean Platelet Volume 10.2 fL (7.4-10.4); Monocytes # 0.7 10^3/uL (0.2-0.9); Monocytes % 5.2 %; Neutrophils # 12.09 10^3/uL (1.8-7.7); Nucleated Red Blood Cells % 0 %; Platelet Count 147 10^3/cmm (157-399); Red Cell Distribution Width 18.1 % (12.1-15.1); White Blood Count 14.23 10^3/uL (3.29-11.43)
[2023-03-15 05:59] LABS: Anion Gap 9.5 (5-19); Blood Urea Nitrogen 17 mg/dL (8-23); Calcium 8.9 mg/dL (8.5-10.5); Carbon Dioxide 36 mmol/L (22-29); Chloride 101 mmol/L (98-107); Glucose 142 mg/dL (65-115); Osmolality Calculated 300 mOsm/kg (285-295); Potassium 3.5 mmol/L (3.5-5.1); Sodium 143 mmol/L (136-145)
[2023-03-15 07:07] LABS: Glucose Point of Care 143 mg/dL (70-110)
[2023-03-15] MEDS: budesonide 0.5 mg/2 mL Neb 0.25 MG INHALATION (08:34)
[2023-03-15] MEDS: sennosides-docusate Tablet 2 TAB PO ×2 (08:34→18:59)
[2023-03-15] MEDS: lisinopril 20 mg Tablet PO (08:34)
[2023-03-15] MEDS: amoxicillin-clav 875-125 mg Tablet 1 TAB PO ×2 (08:34→18:58)
[2023-03-15] MEDS: doxycycline 100 mg Tablet PO ×2 (08:35→18:58)
[2023-03-15] MEDS: amlodipine 10 mg Tablet PO (08:35)
[2023-03-15] MEDS: ipratropium-albuterol 3 mL Neb INHALATION ×2 (08:35→13:58)
--- NOTE | 2023-03-15 10:18 | XR_ITS ---
WS: [id number] Right hip, thigh and femur, 2 views, 03/15/2023 Clinical Data: hip pain Comparison: Right thigh and femur, 05/25/2020 Findings: The repair of the intertrochanteric fracture of the right hip with an oblique nail and long intramedu llary randall remains in the same position. There is a distal lateral plate on the right femur fixed with circumferential wires and multiple screws. No new fractures are seen. The soft tissues are normal. There are vascular calcifications. Impression: 1. Stable repair of intertrochanteric fracture of the right hip. 2. Stable lateral distal plate of the right femur
--- NOTE | 2023-03-15 10:19 | P.DS_ITS ---
Discharge Providers Date of Admission: 03/08/23 22:47 Date of Discharge: March 15, 2023 Attending Provider at Admission: Saeid Minaya DO Attending Provider at Discharge: Saeid Minaya DO Primary Care Provider: Traci Prakash MD Diagnoses at Discharge Discharge Diagnosis (1) Perforated gastric ulcer: Status: Acute (2) Bowel perforation: Status: Acute (3) ARF (acute renal failure): Status: Acute (4) Lactic acidosis: Status: Acute (5) Acute hypernatremia: Status: Acute (6) Septic shock: Status: Acute (7) Fracture of distal end of femur: Status: Acute Qualifiers: Encounter type: subsequent encounter Fracture type: closed Fracture morphology: other fracture Laterality: right Fracture healing: with routine healing Qualified Code(s): S72.491D - Other fracture of lower end of right femur, subsequent encounter for closed fracture with routine healing Reason for Visit Reason for Visit: Vomiting Hospital Course Hospital Course 82-year-old female who has had multiple admissions in recent past for end-stage COPD exacerbation, GI bleed, Eliquis was discontinued, her third admission was due to her worsening abdominal pain, she was diagnosed with gastric ulcer perforation, patient went to the OR with Dr. Minaya, status post exploratory laparotomy with modified Jerome's patch repair 03/08 patient was kept n.p.o., patient was extubated 03/10 to nasal cannula, NG tube was removed when patient started passing flatus, 03/14 she had small bowel movement, she has been kept on clear liquid diet, no abdominal pain worsening, no fever, leukocytosis worsened, repeat x-ray showed bilateral atelectasis, she has been pulling 750 mL on incentive spirometer, she has been transition from IV antifungal and antibiotics to p.o. doxycycline and Augmentin, patient was stating that she is still not able to put weight on her right leg, I am requesting hip x-ray, I have also requested Dr. Torrez to evaluate her before she goes home today we will remove ri ght-sided IJ central line, will remove Jamshid drains as well. Please note during hospitalization patient required 4 units PRBC. She does have history of A-fib would not be a good candidate for anticoagulation, for surgical purposes she was made full code however patient and family both want to stay DNR/DNI. Please note, we [facility] secondary to end-stage COPD and poor functional status and inability to work with PT they did not accept her, they would only accept her if she goes on palliative/hospice care. Patient and family both not ready for comfort care yet. Discharge home. She is also not a candidate for home health as per the case management. Patient uses [facility] at nighttime and 3 to 4 L of oxygen during the day, she does have poor functional status, has had 3 admissions in the last 30 days, I do anticipate that her overall health will decline in the future and she may need palliative care, family is aware but they are not willing to give chance of fighting till the end. Please note patient became hypernatremic, dehydrated for staying n.p.o. we started her on D5 and TPN, sodium at the time of discharge is 143 Physical Exam Narrative: Clinically dehydrated Currently on 3 L nasal cannula Using incentive spirometer Abdominal johnson in place I do not see any worsening of swelling of her lower extremities Right hip surgical site does not show any swelling or drainage S1, S2 Awake and alert In good spirits Family is at the bedside Discharge Data Studies Completed and Pending Completed Studies During Hospitalization Category Date Time Status CT abdomen pelvis wo con [id number] Stat Cat Scan 03/08/23 17:56 Completed CXRP [XR chest 1V portable [id number]] Routine Exams 03/14/23 12:07 Completed CXRP [XR chest 1V portable [id number]] Stat Exams 03/08/23 18:10 Completed CXRP [XR chest 1V portable [id number]] Stat Exams 03/08/23 20:06 Completed CXRP [XR chest 1V portable [id number]] Stat Exams 03/08/23 23:45 Completed XR chest 1V portable [id number] QAM Exams 03/09/23 07:00 Completed Blood Cultures ([facility]) Routine Lab 03/08/23 18:36 Completed Blood Cultures ([facility]) Routine Lab 03/08/23 18:42 [place] [id number] Routine Ultrasound 03/09/23 21:29 Completed Pending at discharge Category Date Time Status XR hip RT 1V wo/[place] [id number] Stat Exams 03/15/23 10:18 Ordered Radiology Impressions Abdomen/Pelvis CT 03/08/23 17:56 IMPRESSION: 1. Large amount of free intraperitoneal air concerning for bowel perforation. The source of the perforation is not identified. 2. 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 THIS REPORT CONTAINS FINDINGS THAT MAY BE CRITICAL TO PATIENT CARE. The findings were verbally communicated via telephone conference with GLORIA Morley at 7:35 PM PRODUCTION QUALITY ANALYST on 03/08/2023. The findings were acknowledged and understood. Chest X-Ray 03/14/23 12:07 IMPRESSION: Bibasilar opacities, left greater than right. Laboratory Results WBC 14.23 10^3/uL (3.29-11.43) H 03/15/23 05:25 RBC 4.10 10^6/uL (3.85-5.65) 03/15/23 05:25 Hgb 11.70 g/dL (11.27-16.99) 03/15/23 05:25 Hct 37.5 % (36-47) 03/15/23 05:25 MCV 91.5 fl (85-98) 03/15/23 05:25 MCH 28.5 pg (27-33) 03/15/23 05:25 MCHC 31.2 g/dL (30-55) 03/15/23 05:25 RDW 18.1 % (12.1-15.1) H 03/15/23 05:25 Plt Count 147 10^3/cmm (157-399) L 03/15/23 05:25 MPV 10.2 fL (7.4-10.4) 03/15/23 05:25 Neut % (Auto) 85.0 % 03/15/23 05:25 Lymph % (Auto) 5.3 % 03/15/23 05:25 [place] % (Auto) 5.2 % 03/15/23 05:25 Eos % (Auto) 0.2 % 03/15/23 05:25 Baso % (Auto) 0.4 % 03/15/23 05:25 Neut # (Auto) 12.09 10^3/uL (1.8-7.7) H 03/15/23 05:25 Lymph # (Auto) 0.8 10^3/uL (0.8-4.8) 03/15/23 05:25 [place] # (Auto) 0.7 10^3/uL (0.2-0.9) 03/15/23 05:25 Eos # (Auto) 0.0 10^3/uL (0.0-0.8) 03/15/23 05:25 Baso # (Auto) 0.1 10^3/uL (0.0-0.1) 03/15/23 05:25 Nucleated RBC % (auto) 0 % 03/15/23 05:25 Total Counted 100 (0-100) 03/13/23 05:57 Atypical Lymphs % 0.0 % (0-5) 03/13/23 05:57 Absolute Neutrophils 7.9 10^3/cmm (1.4-6.5) H 03/13/23 05:57 Segmented Neutrophils 82 % 03/13/23 05:57 Abs Segm Neuts (Man) 7.8 10/cmm (1.6-7.1) H 03/13/23 05:57 Band Neutrophils 1.0 % 03/13/23 05:57 Abs Band Neuts (Man) 0.1 10^3/cmm (0.0-1.2) 03/13/23 05:57 Absolute Lymphocytes 0.8 10^3/cmm (1.2-3.4) L 03/13/23 05:57 Lymphocytes (Manual) 8 % 03/13/23 05:57 Monocytes (Manual) 7.0 % 03/13/23 05:57 Absolute Monocytes 0.7 10^3/cmm (0.1-0.6) H 03/13/23 05:57 Eosinophils (Manual) 0 % 03/13/23 05:57 Absolute Eosinophils 0.0 10^3/cmm (0.0-0.7) 03/13/23 05:57 Basophils (Manual) 0.0 % 03/13/23 05:57 Absolute Basophils 0.0 10^3/cmm (0.0-0.2) 03/13/23 05:57 Metamyelocytes 19.0 % 03/09/23 06:43 Myelocytes 2.0 % 03/13/23 05:57 Promyelocytes 1.0 % 03/09/23 06:43 Nucleated RBCs # 0.0 /100WBC 03/15/23 05:25 Platelet Estimate Decreased (Normal) L 03/13/23 05:57 Anisocytosis Trace 03/13/23 05:57 PT 18.40 SECONDS (12.1-14.9) H 03/10/23 03:16 INR 1.48 (0.8-1.2) H 03/10/23 03:16 Specimen Type Arterial 03/10/23 05:44 Sample Site raul 03/10/23 05:44 ABG pH 7.35 (7.35-7.45) 03/10/23 05:44 ABG pCO2 47.8 mmHg (35-45) H 03/10/23 05:44 ABG pO2 91.3 mmHg (80.0-100.0) 03/10/23 05:44 ABG PO2/FiO2 Ratio 0 03/10/23 05:44 ABG HCO3 26.1 mmol/L (22-26) H 03/10/23 05:44 ABG O2 Saturation 99.5 03/09/23 05:45 ABG Base Excess 0.3 mmol/L (-2.0-2.0) 03/10/23 05:44 Gil Test N/a 03/10/23 05:44 A-a O2 Gradient 16.9 mmHg (5-10) H 03/09/23 05:45 Hematocrit 21.7 % (37-47) L 03/10/23 05:44 Hgb O2 Saturation 96.6 % (95-100) 03/09/23 05:45 Carboxyhemoglobin 2.1 %THgb (0.4-20.1) 03/09/23 05:45 Methemoglobin 0.7 % (0.4-1.5) 03/09/23 05:45 Total Hemoglobin 8.6 g/dL (12-16) L 03/09/23 05:45 Sodium 143.0 mmol/L (131-143) 03/09/23 05:45 Potassium 5.0 mmol/L (3.5-5.0) 03/09/23 05:45 Glucose 189.0 mg/dL (70-115) H 03/09/23 05:45 Ionized Calcium 1.1 mmol/L (1.1-1.4) 03/09/23 05:45 O2 Delivery Device Vent 03/10/23 05:44 FiO2 35.0 % 03/10/23 05:44 Tidal Volume 0.45 03/10/23 05:44 PEEP 5.0 cmH20 03/10/23 05:44 Lamp Cleaner ID Willie 03/10/23 05:44 Sodium 143 mmol/L (136-145) 03/15/23 05:25 Potassium 3.5 mmol/L (3.5-5.1) 03/15/23 05:25 Chloride 101 mmol/L (98-107) 03/15/23 05:25 Carbon Dioxide 36 mmol/L (22-29) H 03/15/23 05:25 Anion Gap 9.5 (5-19) 03/15/23 05:25 BUN 17 mg/dL (8-23) 03/15/23 05:25 Creatinine 0.5 mg/dL (0.5-0.9) 03/15/23 05:25 GFR Calculation Not Reportable 03/15/23 05:25 Glucose 142 mg/dL (65-115) H 03/15/23 05:25 POC Glucose 143 mg/dL (70-110) H 03/15/23 06:44 Estimat Average Glucose 94 03/08/23 17:58 Hemoglobin A1c 4.9 % (4.0-6.0) 03/08/23 17:58 Calculated Osmolality 300 mOsm/kg (285-295) H 03/15/23 05:25 Lactic Acid 2.7 mmol/L (0.5-2.2) H 03/09/23 06:43 Lactic Acid (Sepsis) 1.7 mmol/L (0.5-2.2) 03/09/23 10:18 Lactate 1.0 mmol/L (0.5-2.2) 03/12/23 03:05 Calcium 8.9 mg/dL (8.5-10.5) 03/15/23 05:25 Phosphorus 4.9 mg/dL (2.5-4.5) H 03/09/23 06:43 Magnesium 3.4 mg/dL (1.7-2.3) H 03/09/23 06:43 Total Bilirubin 0.5 mg/dL (0.15-1.2) 03/10/23 03:16 AST 96 U/L (0-32) H 03/10/23 03:16 ALT 297 U/L (0-33) H 03/10/23 03:16 Alkaline Phosphatase 53 U/L (35-105) 03/10/23 03:16 Creatine Kinase 11 U/L (26-192) L 03/08/23 17:58 Troponin T 5th Gen ng/L 48 ng/L (0-10) H 03/09/23 06:43 Troponin T Baseline 57 ng/L (0-10) H 03/08/23 23:01 C-Reactive Protein 73.6 mg/L (0.0-4.9) H 03/12/23 03:05 NT-Pro-B Natriuret Pep 1852 pg/mL (0-450) H 03/08/23 17:58 Total Protein 5.4 g/dL (6.6-8.7) L 03/10/23 03:16 Albumin 3.5 g/dL (3.5-5.2) 03/10/23 03:16 Globulin 1.9 g/dL (1.3-4.6) 03/10/23 03:16 Lipase 42 U/L (13-60) 03/08/23 17:58 Procalcitonin 1.95 ng/mL (0-0.5) H 03/12/23 03:05 TSH 0.95 uIU/mL (0.27-4.20) 03/09/23 06:43 Blood Type O Positive 03/08/23 22:10 Rho(D) Type Rh positive 03/08/23 22:10 Antibody Screen Negative 03/08/23 22:10 Crossmatch See Detail 03/08/23 22:10 Vitals Last Vital Signs Temp 98.0 F 03/15/23 08:00 Pulse 100 03/15/23 08:36 Resp 20 H 03/15/23 08:36 BP 122/70 03/15/23 08:00 Pulse Ox 92 03/15/23 08:36 O2 Del Method Nasal Cannula 03/15/23 08:36 O2 Flow Rate 3 03/15/23 08:36 FiO2 35 03/14/23 04:27 Discharge Plan Discharge Patient Disposition: Home Condition: Stable Prescriptions: New sucralfate 100 mg/mL Suspension 1 g PO AC&BEDTIME Qty: 414 3RF doxycycline monohydrate 100 mg Tablet 100 mg PO BID Qty: 10 0RF amoxicillin-pot clavulanate 875-125 mg Tablet 1 tab PO BID Qty: 10 0RF pantoprazole [Protonix] 40 mg tablet,delayed release (DR/EC) 40 mg PO BID 56 Days Qty: 112 1RF Continued albuterol sulfate [Ventolin HFA] 90 mcg/actuation HFA aerosol inhaler 2 puff INHALATION QID PRN (Reason: Shortness Of Breath) PNV cmb#95-ferrous fumarate-FA [ Multivitamins] 28 mg iron- 800 mcg Tablet 1 tab PO QAM lisinopril 20 mg tablet 20 mg PO DAILY Qty: 60 0RF Trelegy Ellipta 100-62.5-25 mcg blister with device 1 inh inhalation DAILY Qty: 60 4RF morphine concentrate 100 mg/5 mL (20 mg/mL) solution See Rx Instructions .ROUTE .COMPLEX Rx Instructions: 1/2 ml po q2h prn hyoscyamine sulfate 0.125 mg tablet, sublingual See Rx Instructions .ROUTE .COMPLEX Rx Instructions: 0.125 mg sublingually as directed amlodipine 10 mg tablet 10 mg PO DAILY Qty: 60 0RF Changed furosemide [Lasix] 20 mg tablet 20 mg PO DAILY PRN (Reason: Only when he noticed fluid weight gain more than 3 pounds in) Qty: 30 0RF potassium chloride 10 mEq tablet extended release 10 meq PO DAILY PRN (Reason: Only when you take Lasix) Qty: 10 0RF Discontinued prednisone 10 mg tablet 10 mg PO DAILY PRN (Reason: swelling) meloxicam 15 mg tablet 15 mg PO DAILY Eliquis 2.5 mg tablet 2.5 mg PO BID Discharge Orders: Discharge Order (Routine); Ordered 03/15/23 Ordered By: Luca Ramos Referrals: Saeid Minaya DO [Physician] - 03/22/23 8:35 am Traci Prakash MD [Primary Care Provider] - 03/27/23 10:15 am Patient Instructions: Opioid Safety Discharge Attestations Time Spent in Discharge Care*: greater than 30 min Status at Discharge: Cognitive status at discharge: cognitively intact , B ehavioral status at discharge: cooperative , Quality Metrics Clinical Quality Measures [ No reported AMI, CVA or VTE this stay] Coding Level of Care Code Acute Code for Chg Fwd Diagnoses Perforated gastric ulcer K25.5 Bowel perforation K63.1 ARF (acute renal failure) N17.9 Lactic acidosis E87.20 Acute hypernatremia E87.0 Septic shock A41.9; R65.21 Other closed fracture of distal end of right femur with routine healing, subsequent encounter S72.252Y Encounter type: subsequent encounter Fracture type: closed Fracture morphology: other fracture Laterality: right Fracture healing: with routine healing
--- NOTE | 2023-03-15 10:46 | PC.NURSE ---
Removed 2 ASIF drains w/o issue. Small amount of serousangenous on right ab.
[2023-03-15 11:32] LABS: Glucose Point of Care 144 mg/dL (70-110)
--- NOTE | 2023-03-15 13:48 | PC.NURSE ---
d/c central line, assessed placement/dressing, communicated to patient about the procedure, removed clear dressing, clipped and pulled sutures. Instructed pt to hold breath as removal, pt complied. Cath removed tip intact, pressure held with 4x4 folded twice and covered an island dressing, snuggly.
[2023-03-15 16:48] LABS: Glucose Point of Care 89 mg/dL (70-110)
--- NOTE | 2023-03-15 19:32 | PC.NURSE ---
[facility] arrived at this time to transport pt.
--- NOTE | 2023-03-15 19:45 | PC.NURSE ---
[facility] took the pt off of the unit at this time.
== END 2023-03-15 19:45 | disposition home or self-care (01) | DRG 853 ==
LOC: ER 20:32 → OR 20:43 → ICU 22:48 → MEDSURG 03-11 18:59
PROVIDERS: Family Medicine; Internal Medicine; Admitting Provider Surgery; Emergency Provider Emergency Medicine; PCP Family Medicine; Visit Provider Surgery
PROC: 0DU607Z Supplement Stomach with Autologous Tissue Substitute, Open Approach (ICD-10-PCS; CPT 49000; principal; 2023-03-08 21:00)
DX: A41.9 Sepsis, unspecified organism (principal); K25.5 Chronic or unspecified gastric ulcer with perforation; R65.21 Severe sepsis with septic shock; J96.12 Chronic respiratory failure with hypercapnia; N17.9 Acute kidney failure, unspecified; E87.20 Acidosis, unspecified; D62 Acute posthemorrhagic anemia; E87.0 Hyperosmolality and hypernatremia; E87.5 Hyperkalemia; N18.9 Chronic kidney disease, unspecified; I12.9 Hypertensive chronic kidney disease with stage 1 through stage 4 chronic kidney disease, or unspecified chronic kidney disease; J43.9 Emphysema, unspecified; D63.1 Anemia in chronic kidney disease; F32.A Depression, unspecified; M81.0 Age-related osteoporosis without current pathological fracture; E86.0 Dehydration; M25.551 Pain in right hip; K42.9 Umbilical hernia without obstruction or gangrene; E27.9 Disorder of adrenal gland, unspecified; I73.9 Peripheral vascular disease, unspecified; N28.89 Other specified disorders of kidney and ureter; R91.8 Other nonspecific abnormal finding of lung field; Z87.440 Personal history of urinary (tract) infections; Z87.891 Personal history of nicotine dependence; Z99.81 Dependence on supplemental oxygen; Z87.01 Personal history of pneumonia (recurrent)
CPT/HCPCS: 36415; 36416; 36430; 36556; 36592; 71045; 73501; 74176; 80048; 80051; 80053; 82330; 82550; 82803; 82805; 82962; 83036; 83605; 83690; 83735; 83880; 84100; 84132; 84145; 84295; 84443; 84484; 85007; 85025; 85027; 85610; 86140; 86850; 86900; 86920; 87040; 87070; 87077; 87186; 87205; 93005; 93970; 94002; 94003; 94640; 94660; 94664; 94762; 94799; 96365; 96367; 96372; 96375; 96376; 97110; 97163; 97530; 99291; A4570; C1751; C9113; J0360; J0612; J1100; J1170; J1450; J1644; J1815; J1940; J2270; J2405; J2543; J2704; J2920; J2930; J3010; J3370; J3480; J3490; J7030; J7040; J7042; J7050; J7070; J7626; J7799; P9016; P9045; P9046

== ENCOUNTER → 2023-03-22 08:16 | Outpatient (BNVA) | payer MEDICARE, MEDICAID, SELFPAY | PROVIDERS: PCP Family Medicine; Visit Provider Surgery | DX: K25.5 Chronic or unspecified gastric ulcer with perforation (principal); Z98.890 Other specified postprocedural states | CPT/HCPCS: 99024 ==

== ENCOUNTER 2023-07-08 13:10 | Inpatient (IN) | payer MEDICARE, MEDICAID, SELFPAY ==
[2023-07-08] VITALS (47 sets, daily range): BP systolic 94–162; BP diastolic 32–94; PULSE 61–90; RESP 9–27; TEMP 36; O2SAT 79–100; BMI 26.6
--- NOTE | 2023-07-08 13:17 | XRR_ITS ---
PROCEDURE INFORMATION: Exam: XR Chest Exam date and time: 07/08/2023 1:38 PM Age: 82 years old Clinical indication: Shortness of breath; Additional info: SOB TECHNIQUE: Imaging protocol: Radiologic exam of the chest. Views: 1 view. COMPARISON: CR XR chest 1V portable [id number] 03/14/2023 12:14 PM FINDINGS: Lungs: No focal consolidation. Emphysematous changes. Pleural spaces: No evidence of pneumothorax. Small-moderate left-sided pleural effusion. Suspected small right-sided pleural effusion. Heart/Mediastinum: Cardiomediastinal silhouette is within normal limits. Bones/joints: No evidence of acute osseous abnormality. XR/XR chest 1V portable [id number] IMPRESSION: 1. Small-moderate left-sided pleural effusion. 2. Emphysematous changes.
--- NOTE | 2023-07-08 13:17 | ECG_ITS ---
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 Measurements Intervals [place] Rate: 80 P: 61 DE: 161 QRS: 11 QRSD: 78 T: 52 QT: 335 QTc: 387 Interpretive Statements SINUS RHYTHM LOW QRS VOLTAGE IN PRECORDIAL LEADS [QRS DEFLECTION < 1.0 mV IN CHEST LEADS] PATTERN CONSISTENT WITH PULMONARY DISEASE Compared to ECG 03/09/2023 03:25:10 Low QRS voltage now present Electronically Signed On 07-09-2023 8:33:49 CDT by Caleb Britt M.D. [id number]
--- NOTE | 2023-07-08 13:17 | CTR_ITS ---
PROCEDURE INFORMATION: Exam: CT Head Without Contrast Exam date and time: 07/08/2023 2:06 PM Age: 82 years old Clinical indication: Altered mental status/memory loss; Additional info: Confusion TECHNIQUE: Imaging protocol: Computed tomography of the head without contrast. Radiation optimization: All CT scans at this facility use at least one of these dose optimization techniques: automated exposure control; mA and/or kV adjustment per patient size (includes targeted exams where dose is matched to clinical indication); or iterative reconstruction. COMPARISON: CT head wo con* [id number] 01/04/2019 1:06 PM RADIATION DOSE METRICS: Total DLP (mGy-cm): 1091.78 FINDINGS: Brain: There is hypoattenuation and loss of marquez-white differentiation in the left temporal lobe (images 19-21 of series 5). Sequela of moderate chronic microvascular ischemic changes with periventricular and deep white matter hypoattenuation. 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 No evidence of intra-axial or extra-axial hemorrhage. No mass effect or midline shift. Basilar cisterns are patent. Cerebral ventricles: No hydrocephalus. Paranasal sinuses: The visualized paranasal sinuses are well aerated. Mastoid air cells: The visualized mastoids and middle ears are clear. Bones: Unremarkable. No acute fracture. Soft tissues: No gross soft tissue abnormality. CT/CT head wo con* [id number] IMPRESSION: 1. Loss of marquez-white differentiation in the left temporal lobe, though possibly artifactual, is concerning for acute ischemia. MRI of the brain is recommended.
--- NOTE | 2023-07-08 13:21 | W.ED.SOB ---
HPI - SOB/Dyspnea General: Chief Complaint: Shortness of Breath/Dyspnea Stated Complaint: SOB Time Seen by Provider: 07/08/23 13:14 Source: patient and EMS Mode of arrival: EMS Limitations: no limitations History of Present Illness: HPI Narrative: 82-year-old female she has a history of COPD she is on 3 L oxygen at baseline per EMS are called because she is having increased difficulty breathing and confusion at home today. They did give her Solu-Medrol along with breathing treatment and route. Patient is now awake alert answering my questions appropriately she is 75% here on a nonrebreather currently. States that she is just felt increasing short of breath felt like she had increasing wheezing denies any pain or fever Associated symptoms: Deny abdominal pain, chest pain, fever(s), nausea or vomiting Review of Systems Const: Denies: fever(s) or chills ENMT: Denies: throat pain or dental pain Card: Denies: chest pain Resp: Reports: dyspnea and wheezing GI: Denies: abdominal pain, nausea, vomiting or diarrhea Musc: Denies: neck pain or back pain Skin/Breast: Denies: rash Neuro: Denies: headache(s) PFSH ED PFSH: Medical History Hyperkalemia Acute kidney injury superimposed on chronic kidney disease Metabolic encephalopathy Hypovolemic shock Acute cystitis Weakness Anemia End stage COPD Pulmonary nodule Adrenal mass, left Acute exacerbation of CHF (congestive heart failure) Leg fracture, right Acute and chronic respiratory failure with hypercapnia Leukocytosis Closed fracture of distal end of femur Anemia Intertrochanteric fracture of right hip Hypercapnic respiratory failure UTI (urinary tract infection) End stage COPD Anemia Vitamin C deficiency Cellulitis Low TSH level Depression Edema Heart murmur Hip pain, left Hypercholesteremia Elevated serum glucose Hypoxic Macrocytosis Nasal congestion Osteoporosis Emphysema lung COPD (chronic obstructive pulmonary disease) Sciatica Seasonal allergies Shoulder pain, left Vitamin D deficiency Shoulder fracture, left Surgical History Postoperative state History of left hip replacement Hx of cataract surgery Family History Mother Cancer Breast Father Cancer Heart disease Sister Cancer Grandmother Hypertension Heart disease Aneurysm Brother Heart disease Myocardial infarct Aneurysm Family/Other Heart disease Bipolar 1 disorder Grandfather Heart disease Social History Smoking and tobacco/nicotine status: former use of tobacco/nicotine Quit status (tobacco/nicotine): has quit using Year quit tobacco: 2013 - 1.5 PPD x 60 Years Alcohol intake: never Substance/Drug Use: never Household members: none Marital status: / Number of children: 4 Current occupational status: retired Do you think of yourself as: Straight/Heterosexual Current gender identity: Female Physical Exam Const: COMMON NORMALS: patient oriented x3 GENERAL APPEARANCE: in distress and ill appearing HENMT: COMMON NORMALS: normocephalic and atraumatic HEAD & SCALP: normocephalic and atraumatic Eye: COMMON NORMALS: conjunctivae normal CONJUNCTIVA: Yes conjunctivae normal Neck/C-Spine: COMMON NORMALS: full ROM and supple Chest: COMMONS NORMALS: normal inspection of the chest and normal palpation of entire chest wall Resp: COMMON NORMALS: No retractions EFFORT & INSPECTION: Yes respiratory distress AUSCULTATION: wheezes Cardio: COMMON NORMALS: regular rate and regular rhythm RATE: regular rate RHYTHM: regular rhythm HEART SOUNDS: Murmur heart sound present systolic GI: COMMON NORMALS: Normal to inspection, nondistended, normoactive bowel sounds present, Soft to palpation, non-tender and no masses PALPATION: Yes Soft to palpation Extremity: COMMON NORMALS: normal to inspection and full ROM Neuro: COMMON NORMALS: patient oriented x3, moves all extremities and no focal motor deficits Psych: COMMON NORMALS: mental status grossly normal, Normal thought process present and cooperative THOUGHT PROCESS: Normal thought process present Skin: COMMON NORMALS: no rashes or lesions noted and no wounds GENERAL SKIN EXAM: no rashes or lesions noted Course Vital Signs: Vital signs: Vital Signs Pulse Rate 76 07/08/23 15:08 Respiratory Rate 18 07/08/23 15:08 Blood Pressure 99/50 07/08/23 15:08 Pulse Oximetry 84 L 07/08/23 15:05 Oxygen Delivery Me thod BiPAP 07/08/23 13:50 Fraction of Inspir ed Oxygen 100 07/08/23 15:05 MDM - SOB/Dyspnea Medical Decision Making Patient presents here with acute respiratory failure with hypoxia and hypercapnia she does have a history of COPD and hypercapnia in the past she is on BiPAP currently she still having some hypoxia did speak to her about code intubation status she wants to be full code but wants to be a DNI I did speak to the hospitalist will admit to the ICU at this time. Medical Records I reviewed the patient's medical records. Lab Data I reviewed the patient's lab results. 07/08/23 13:24 07/08/23 13:24 Labs/Radiology: Radiology Impressions Chest X-Ray 07/08/23 13:17 IMPRESSION: 1. Small-moderate left-sided pleural effusion. 2. Emphysematous changes. Head CT 07/08/23 13:17 IMPRESSION: 1. Loss of marquez-white differentiation in the left temporal lobe, though possibly artifactual, is concerning for acute ischemia. MRI of the brain is recommended. ADDENDUM: 07/08/23 1431 The findings were verbally communicated by telephone with Dr. REYNAGA at 2:29 PM CDT on 07/08/2023. Laboratory Results WBC 12.27 10^3/uL (3.29-11.43) H 07/08/23 13:24 RBC 4.06 10^6/uL (3.85-5.65) 07/08/23 13:24 Hgb 11.70 g/dL (11.27-16.99) 07/08/23 13:24 Hct 41.6 % (36-47) 07/08/23 13:24 MCV 102.5 fl (85-98) H 07/08/23 13:24 MCH 28.8 pg (27-33) 07/08/23 13:24 MCHC 28.1 g/dL (30-55) L 07/08/23 13:24 RDW 15.4 % (12.1-15.1) H 07/08/23 13:24 Plt Count 185 10^3/cmm (157-399) 07/08/23 13:24 MPV 10.9 fL (7.4-10.4) H 07/08/23 13:24 Neut % (Auto) 92.2 % 07/08/23 13:24 Lymph % (Auto) 6.3 % 07/08/23 13:24 [place] % (Auto) 0.9 % 07/08/23 13:24 Eos % (Auto) 0.1 % 07/08/23 13:24 Baso % (Auto) 0.1 % 07/08/23 13:24 Neut # (Auto) 11.32 10^3/uL (1.8-7.7) H 07/08/23 13:24 Lymph # (Auto) 0.8 10^3/uL (0.8-4.8) 07/08/23 13:24 [place] # (Auto) 0.1 10^3/uL (0.2-0.9) L 07/08/23 13:24 Eos # (Auto) 0.0 10^3/uL (0.0-0.8) 07/08/23 13:24 Baso # (Auto) 0.0 10^3/uL (0.0-0.1) 07/08/23 13:24 Nucleated RBC % (auto) 0 % 07/08/23 13:24 Nucleated RBCs # 0.0 /100WBC 07/08/23 13:24 PT 12.30 SECONDS (12.1-14.9) 07/08/23 13:24 INR 0.89 (0.8-1.2) 07/08/23 13:24 Specimen Type Arterial 07/08/23 14:49 Sample Site Brachial, right 07/08/23 14:49 ABG pH 7.30 (7.35-7.45) L 07/08/23 14:49 ABG pCO2 89.5 mmHg (35-45) H* 07/08/23 14:49 ABG pO2 36.3 mmHg (80.0-100.0) L* 07/08/23 14:49 ABG PO2/FiO2 Ratio 0 07/08/23 14:49 ABG HCO3 43.9 mmol/L (22-26) H 07/08/23 14:49 ABG Base Excess 14.0 mmol/L (-2.0-2.0) H 07/08/23 14:49 Gil Test N/a 07/08/23 14:49 Hematocrit 35.6 % (37-47) L 07/08/23 14:49 Hgb O2 Saturation 83.7 % (95-100) L 07/08/23 13:30 Carboxyhemoglobin 2.5 %THgb (0.4-20.1) 07/08/23 13:30 Methemoglobin 0.4 % (0.4-1.5) 07/08/23 13:30 Total Hemoglobin 12.3 g/dL (12-16) 07/08/23 13:30 O2 Delivery Device Bipap 07/08/23 14:49 O2 Liters/Min 10.0 % 07/08/23 13:30 FiO2 40.0 % 07/08/23 14:49 PEEP 10.0 cmH20 07/08/23 14:49 [employer] ID Amh 07/08/23 14:49 Sodium 140 mmol/L (136-145) 07/08/23 13:24 Potassium 5.6 mmol/L (3.5-5.1) H 07/08/23 13:24 Chloride 96 mmol/L (98-107) L 07/08/23 13:24 Carbon Dioxide 39 mmol/L (22-29) H 07/08/23 13:24 Anion Gap 10.6 (5-19) 07/08/23 13:24 BUN 22 mg/dL (8-23) 07/08/23 13:24 Creatinine 0.9 mg/dL (0.5-0.9) 07/08/23 13:24 GFR Calculation Not Reportable 07/08/23 13:24 Glucose 157 mg/dL (65-115) H 07/08/23 13:24 Calculated Osmolality 297 mOsm/kg (285-295) H 07/08/23 13:24 Calcium 8.8 mg/dL (8.5-10.5) 07/08/23 13:24 Total Bilirubin 0.4 mg/dL (0.15-1.2) 07/08/23 13:24 AST 10 U/L (0-32) 07/08/23 13:24 ALT 12 U/L (0-33) 07/08/23 13:24 Alkaline Phosphatase 87 U/L (35-105) 07/08/23 13:24 NT-Pro-B Natriuret Pep 687 pg/mL (0-450) H 07/08/23 13:24 Total Protein 6.6 g/dL (6.6-8.7) 07/08/23 13:24 Albumin 3.2 g/dL (3.5-5.2) L 07/08/23 13:24 Globulin 3.4 g/dL (1.3-4.6) 07/08/23 13:24 All radiology interpretation(s) finalized by discharge EKG Data EKG 1: I personally reviewed and interpreted this EKG as follows: EKG Interpretation Date: 07/08/23 EKG interpretation time: 13:15 Interpretation: nsr hr [address] or t wave abnormalities qrs 78 qtc 371 Critical Care Time Critical Care Time: Critical Care Time: Yes Total Critical Care Time: 40 Attestation: The high probability of a clinically significant, sudden or life threatening deterioration of the patient's resp system(s) required my full and direct attention, intervention and personal management. The critical care time is as shown. This time is in addition to time spent performing any reported procedures but includes the following: [x] Data and vital sign review and interpretation [x] Patient assessment, examination and intervention [x] Documentation [x] Medication orders and management Discharge Plan Discharge Patient Disposition: Admitted As Inpatient Clinical Impression: Acute exacerbation of chronic obstructive airways disease, Acute respiratory failure with hypoxia and hypercapnia Condition: Stable Prescriptions: No Action albuterol sulfate [Ventolin HFA] 90 mcg/actuation HFA aerosol inhaler 2 puff INHALATION QID PRN (Reason: Shortness Of Breath) PNV cmb#95-ferrous fumarate-FA [ Multivitamins] 28 mg iron- 800 mcg Tablet 1 tab PO QAM lisinopril 20 mg tablet 20 mg PO DAILY Qty: 60 0RF Trelegy Ellipta 100-62.5-25 mcg blister with device 1 inh inhalation DAILY Qty: 60 4RF morphine concentrate 100 mg/5 mL (20 mg/mL) solution See Rx Instructions .ROUTE .COMPLEX Rx Instructions: 1/2 ml po q2h prn hyoscyamine sulfate 0.125 mg tablet, sublingual See Rx Instructions .ROUTE .COMPLEX Rx Instructions: 0.125 mg sublingually as directed sucralfate 100 mg/mL Suspension 1 g PO AC&BEDTIME Qty: 414 3RF doxycycline monohydrate 100 mg Tablet 100 mg PO BID Qty: 10 0RF amoxicillin-pot clavulanate 875-125 mg Tablet 1 tab PO BID Qty: 10 0RF Protonix 40 mg tablet,delayed release (DR/EC) 40 mg PO BID 56 Days Qty: 112 1RF potassium chloride 10 mEq tablet extended release 10 meq PO DAILY PRN (Reason: Only when you take Lasix) Qty: 10 0RF Lasix 20 mg tablet 20 mg PO DAILY PRN (Reason: Only when he noticed fluid weight gain more than 3 pounds in) Qty: 30 0RF amlodipine 10 mg tablet 10 mg PO DAILY Qty: 60 0RF Referrals: Traci Prakash MD [Primary Care Provider] - Coding Level of Care Code ED [employer] for pam Ochoa
[2023-07-08 13:29] LABS: Basophils % 0.1 %; Eosinophils % 0.1 %; Hematocrit 41.6 % (36-47); Lymphocytes # 0.8 10^3/uL (0.8-4.8); Lymphocytes % 6.3 %; Mean Corpuscular HGB Conc 28.1 g/dL (30-55); Mean Corpuscular Hemoglobin 28.8 pg (27-33); Mean Corpuscular Volume 102.5 fl (85-98); Mean Platelet Volume 10.9 fL (7.4-10.4); Monocytes # 0.1 10^3/uL (0.2-0.9); Monocytes % 0.9 %; Neutrophils # 11.32 10^3/uL (1.8-7.7); Neutrophils % 92.2 %; Nucleated Red Blood Cells % 0 %; Platelet Count 185 10^3/cmm (157-399); Red Blood Count 4.06 10^6/uL (3.85-5.65); Red Cell Distribution Width 15.4 % (12.1-15.1); White Blood Count 12.27 10^3/uL (3.29-11.43)
[2023-07-08 13:41] LABS: ABG PCO2 96.3 mmHg (35-45); ABG PH Result 7.27 (7.35-7.45); Arterial Blood Gas Hematocrit 37.6 % (37-47); Base Excess ABG 13.1 mmol/L (-2.0-2.0); Blood Gas Operator Identificat AMH; Blood Gas Sample Site Brachial, right; Blood Gas Sample Type Arterial; Carboxyhemoglobin 2.5 %THgb (0.4-20.1); HCO3 ABG 43.9 mmol/L (22-26); HGB O2 Sat 83.7 % (95-100); Methemoglobin 0.4 % (0.4-1.5); Oxygen Device NRB; PO2 ABG 50.7 mmHg (80.0-100.0); Total Hemoglobin 12.3 g/dL (12-16)
[2023-07-08 13:43] LABS: INR 0.89 (0.8-1.2)
[2023-07-08 13:49] LABS: Alanine Aminotransferase 12 U/L (0-33); Albumin Level 3.2 g/dL (3.5-5.2); Alkaline Phosphatase 87 U/L (35-105); Anion Gap 10.6 (5-19); Aspartate Amino Transferase 10 U/L (0-32); Blood Urea Nitrogen 22 mg/dL (8-23); Calcium 8.8 mg/dL (8.5-10.5); Carbon Dioxide 39 mmol/L (22-29); Chloride 96 mmol/L (98-107); Creatinine Clr Calc Pharmacy 49.7644; Globulin 3.4 g/dL (1.3-4.6); Glucose 157 mg/dL (65-115); Osmolality Calculated 297 mOsm/kg (285-295); Potassium 5.6 mmol/L (3.5-5.1); Sodium 140 mmol/L (136-145); Total Bilirubin 0.4 mg/dL (0.15-1.2); Total Protein 6.6 g/dL (6.6-8.7)
[2023-07-08] MEDS: albuterol 2.5 mg/3 mL Neb INHALATION (13:50)
[2023-07-08 14:16] LABS: NT Pro B Type Natriuretic Pept 687 pg/mL (0-450)
[2023-07-08 15:00] LABS: Arterial Blood Gas Hematocrit 35.6 % (37-47); Blood Gas Operator Identificat AMH; Blood Gas Sample Site Brachial, right; Blood Gas Sample Type Arterial; HCO3 ABG 43.9 mmol/L (22-26); Oxygen Device BIPAP; PO2 ABG 36.3 mmHg (80.0-100.0); PO2 FiO2 Ratio Arterial Blood 0
[2023-07-08 15:12] LABS: ABG PCO2 89.5 mmHg (35-45)
--- NOTE | 2023-07-08 15:14 | PM.HP ---
Providers/Chief Complaint Primary Care Provider: Traci Prakash MD Chief Complaint: SOB History of Present Illness Yulissa Goddard is a 82 year old female with a past medical history significant for end-stage COPD with chronic hypercapnic and hypoxic respiratory failure on daytime baseline oxygen of 4 to 5 L and trilogy at night, hypertension, pulmonary nodule, sacral pressure injury, and seasonal allergies who presents to the emergency department with respiratory distress. Upon evaluation, patient found to be in respiratory distress and on AVAPS. She is awake and provide some history. Her family is bedside and helps provide collateral information as well. Patient reportedly did not feel well the past week or so. Symptoms of progressively worsened in the last 2 to 3 days. They report she has had problems with her Trilogy not working and her home oxygen dropping as low as 50%. Her home supplier is [facility]. Patient endorses increased shortness of breath and wheezing. Family notes she was slurring her speech at home which is typical indicator of CO2 retention for her. Family report at baseline patient's not very active at home due to her respiratory status. She ambulates around a small living room and goes to the restroom. She oftentimes increase her oxygen to do this. Takes her time to recover. She has been on home oxygen for several years. She is a previous smoker but quit about 11 years ago. Her is . She lives with multiple family members who do help her out as needed. In prior admissions, patient has been DNR/DNI, as well as other combinations of this. Review of Systems Narrative: A complete review of systems was obtained and is negative except as stated in HPI. Medications/Allergies Home Medications Medication Instructions Recorded Confirmed Last Taken Type albuterol sulfate 90 mcg/actuation 2 puff inhalation QID PRN 02/13/19 03/22/23 Unknown History aerosol inhaler (Ventolin HFA) Shortness Of Breath vit no.95-ferrous 1 tab PO QAM 03/26/20 03/22/23 02/22/23 History fumarate 28 mg-folic acid 800 mcg tablet ( Multivitamins) fluticasone fur. 100 mcg-umeclid 1 inh inhalation DAILY #60 ea 02/07/23 03/22/23 02/22/23 Rx 62.5 mcg-vilant 25 mcg inhalat.powder (Trelegy Ellipta) lisinopril 20 mg tablet 20 mg PO DAILY #60 tabs 02/07/23 03/22/23 02/22/23 Rx amlodipine 10 mg tablet 10 mg PO DAILY #60 tabs 02/26/23 03/22/23 Unknown Rx hyoscyamine sulfate 0.125 mg See Rx Instructions .Route .COMPLEX 03/09/23 03/22/23 Unknown History sublingual tablet morphine concentrate 100 mg/5 mL See Rx Instructions .Route .COMPLEX 03/09/23 03/22/23 Unknown History (20 mg/mL) oral solution amoxicillin 875 mg-potassium 1 tab PO BID #10 tabs 03/15/23 03/22/23 Unknown Rx clavulanate 125 mg tablet doxycycline monohydrate 100 mg 100 mg PO BID #10 tabs 03/15/23 03/22/23 Unknown Rx tablet furosemide 20 mg tablet (Lasix) 20 mg PO DAILY PRN Only when he 03/15/23 03/22/23 02/22/23 Rx noticed fluid weight gain more than 3 pounds in #30 tabs pantoprazole 40 mg tablet,delayed 40 mg PO BID 8 weeks #112 tabs 03/15/23 03/22/23 Unknown Rx release (Protonix) potassium chloride 10 mEq 10 meq PO DAILY PRN Only when you 03/15/23 03/22/23 Unknown Rx tablet,extended release take Lasix #10 tabs sucralfate 100 mg/mL oral 1 g (10 mL) PO AC&BEDTIME #414 mL 03/15/23 03/22/23 Unknown Rx suspension Allergies Allergy/AdvReac Type Severity Reaction Status Date / Time No Known Allergies Allergy Verified 03/22/23 08:29 PFSH Acute PFSH: Medical History (Updated 07/08/23 @ 15:59 by Teo Hurley MD) History of GI bleed Hypertension Perforated gastric ulcer Acute hypernatremia Lactic acidosis ARF (acute renal failure) Septic shock Bowel perforation Fracture of distal end of femur Hyperkalemia Acute kidney injury superimposed on chronic kidney disease Metabolic encephalopathy Hypovolemic shock Acute cystitis Weakness Anemia End stage COPD Pulmonary nodule Adrenal mass, left Acute exacerbation of CHF (congestive heart failure) Leg fracture, right Acute and chronic respiratory failure with hypercapnia Leukocytosis Closed fracture of distal end of femur Anemia Intertrochanteric fracture of right hip Hypercapnic respiratory failure UTI (urinary tract infection) End stage COPD Anemia Vitamin C deficiency Cellulitis Low TSH level Depression Edema Heart murmur Hip pain, left Hypercholesteremia Elevated serum glucose Hypoxic Macrocytosis Nasal congestion Osteoporosis Emphysema lung COPD (chronic obstructive pulmonary disease) Sciatica Seasonal allergies Shoulder pain, left Vitamin D deficiency Shoulder fracture, left Surgical History Postoperative state History of left hip replacement Hx of cataract surgery Family History Mother Cancer Breast Father Cancer Heart disease Sister Cancer Grandmother Hypertension Heart disease Aneurysm Brother Heart disease Myocardial infarct Aneurysm Family/Other Heart disease Bipolar 1 disorder Grandfather Heart disease Social History Smoking and tobacco/nicotine status: former use of tobacco/nicotine Quit status (tobacco/nicotine): has quit using Year quit tobacco: 2013 - 1.5 PPD x 60 Years Alcohol intake: never Substance/Drug Use: never Household members: none Marital status: / Number of children: 4 Current occupational status: retired Do you think of yourself as: Straight/Heterosexual Current gender identity: Female Vitals/I&O/Wt Last Vital Signs Pulse 76 07/08/23 15:08 Resp 18 07/08/23 15:08 BP 99/50 07/08/23 15:08 Pulse Ox 100 07/08/23 13:50 O2 Del Method BiPAP 07/08/23 13:50 FiO2 50 07/08/23 13:50 Weight last 48 hrs Weight 72.575 kg Physical Exam Narrative: General: Patient is awake. Moderate respiratory distress. On noninvasive mechanical ventilation. Head: Normocephalic. Atraumatic. EOM intact. Neck: No JVD. Cardiovascular: RRR. No gallops. No murmurs. Trace pedal edema. Lungs: Very poor air movement bilateral lung cervantes. Prolonged expiratory phase. Very faint end expiratory wheezing. Neck. Using accessory muscles. In respiratory distress. Skin: No jaundice. A full skin assessment will be performed after arriving to the ICU. She has known history of pressure injuries. Abdomen: Normal bowel sounds, abdomen soft and nontender. Genito Urinary: Genital exam not performed since complaints not related. Rectal: Rectal exam not performed since no symptoms indicated blood loss. Extremities: No cyanosis or clubbing. Musculoskeletal: No swollen or erythematous joints. Neurological: Moves all 4 extremities. No myoclonus. Data 07/08/23 13:24 07/08/23 13:24 A&P Assessment and plan (1) Acute respiratory failure with hypoxia and hypercapnia: Acute on chronic hypercapnic hypoxic respiratory failure requiring noninvasive mechanical ventilation with AVAPS Baseline daytime oxygen needs of 4 to 5 L Trilogy dependent at night, home trilogy machine reportedly malfunctioning for the past 4 to 5 days Ramsey will need contacted on Sunday to rectify this issue prior to consideration of discharge Start treatment of underlying COPD as outlined below Noninvasive vent management Serial blood gases Advance care planning (2) Acute exacerbation of chronic obstructive airways disease: End-stage COPD/emphysema with acute exacerbation Start IV systemic steroids Start scheduled DuoNebs Pulmicort Start azithromycin for anti-inflammatory effects Chest x-ray reviewed, no infiltrate noted Check procalcitonin and CRP Morphine for air hunger Guarded prognosis overall (3) Acute hyperkalemia: Hold home SHMUEL inhibitor Hold home potassium supplementation Repeat labs in a.m. Continuous telemetry monitoring (4) Hypertension: Blood pressure is noted to be soft Hold home Norvasc and lisinopril for now (5) History of GI bleed: Continue home PPI Continue home Carafate Monitor blood counts Plan DVT prophylaxis: Heparin CODE STATUS: Need to further clarify. Family did not want intubation unless there would be a good outcome for least equal outcome to current condition which I told them I could not guarantee. End-stage COPD on chronic oxygen and trilogy dependent at night being placed on a ventilator for respiratory disease flare would be high risk to not coming off the ventilator. Attestations Medical Necessity Statement*: Patient presents with acute on chronic combined respiratory failure requiring noninvasive mechanical ventilation, IV steroids, IV antibiotics, serial breathing treatments, and supportive care with expected hospitalization to cross 2 midnights. Critical Care Time: The high probability of a clinically significant, sudden or life threatening deterioration of the patient's respiratory system(s) required my full and direct attention, intervention and personal management. The critical care time is as shown. This time is in addition to time spent performing any reported procedures but includes the following: [x] Data and vital sign review and interpretation [x] Patient assessment, examination and intervention [x] Documentation [x] Medication orders and management Critical Care Time (min): 55 Coding Level of Care Code Acute Code for Chg Fwd Diagnoses Acute respiratory failure with hypoxia and hypercapnia J96.01; J96.02 Acute exacerbation of chronic obstructive airways disease J44.1 Acute hyperkalemia E87.5 Hypertension I10 History of GI bleed Z87.19
[2023-07-08] MEDS: cefTRIAXone 1,000 MG in sodium chloride 0.9% (plus) 50 ML 100 MG IV (15:17)
--- NOTE | 2023-07-08 15:24 | PC.NURSE ---
Report was called to TORIBIO Iqbal in ICU. All questions and concerns were addressed at time of report.
[2023-07-08 15:36] LABS: C Reactive Protein 12.7 mg/L (0.0-4.9)
[2023-07-08 15:42] LABS: Procalcitonin 0.12 ng/mL (0-0.5)
[2023-07-08] MEDS: azithromycin 500 MG in sodium chloride 0.9% 250 ML 250 MG IV (16:07)
[2023-07-08] MEDS: ipratropium-albuterol 3 mL Neb INHALATION ×3 (16:14→23:32)
[2023-07-08] MEDS: methylPREDNISolone sod succ 40 mg/mL INJ IVP ×2 (16:17→21:03)
--- NOTE | 2023-07-08 16:50 | PC.NURSE ---
Wound note: Patent in soiled brief at arrival to ICU, sacral area red, pink, peeling skin, stage two gluteal cleft. Son; Doc, states hes is DPOA and pressure injury to sacral area is known to them. Doc also states patient lives with two granddaughters who are of adult age and they care for the patient, family states patient is not ambulatory.
[2023-07-08 16:53] LABS: ABG PH Result 7.28 (7.35-7.45); Alveolar-Arterial Oxygen Gradi 44.1 mmHg (5-10); Arterial Blood Gas Hematocrit 34.7 % (37-47); Base Excess ABG 12.3 mmol/L (-2.0-2.0); Blood Gas Allen Test Pos; Blood Gas Operator Identificat GD; Blood Gas Sample Site Radial, right; Blood Gas Sample Type Arterial; Carboxyhemoglobin 2.1 %THgb (0.4-20.1); HCO3 ABG 42.4 mmol/L (22-26); HGB O2 Sat 80.9 % (95-100); Ionized Calcium Level - ABG 1.2 mmol/L (1.1-1.4); Methemoglobin 0.6 % (0.4-1.5); Oxygen Device BIPAP; Oxygen Saturation ABG 83.2; PO2 ABG 46.4 mmHg (80.0-100.0); PO2 FiO2 Ratio Arterial Blood 0; Potassium Level - ABG 5.6 mmol/L (3.5-5.0); Total Hemoglobin 11.3 g/dL (12-16)
[2023-07-08 16:55] LABS: ABG PCO2 91.2 mmHg (35-45)
[2023-07-08 17:21] LABS: Albumin Level 3.4 g/dL (3.5-5.2); Anion Gap 8.9 (5-19); Blood Urea Nitrogen 26 mg/dL (8-23); Calcium 9.2 mg/dL (8.5-10.5); Chloride 98 mmol/L (98-107); Creatinine Clr Calc Pharmacy 49.7644; Glucose 164 mg/dL (65-115); Potassium 5.9 mmol/L (3.5-5.1); Sodium 142 mmol/L (136-145)
[2023-07-08 17:25] LABS: Carbon Dioxide 41 mmol/L (22-29)
[2023-07-08] MEDS: sodium chloride 0.9% 500 ML 999 ML IV (17:27)
[2023-07-08 17:40] LABS: Bilirubin Urine Neg (Negative); Blood Urine Neg (Negative); Glucose Urine UA Norm (Normal); Ketones Urine Negative (Negative); Nitrate Urine Negative (Negative); Protein Urine Neg (Negative); Urine Appearance Clear (CLEAR); Urine Color Yellow (Yellow); Urobilinogen Urine Norm (Negative); pH Urine 5 (5-7)
[2023-07-08 17:41] LABS: Leukocyte Esterase Urine Negative (Negative)
[2023-07-08 17:42] LABS: Add Urine Culture? No; Bacteria Urine TRACE /hpf; WBC Urine RARE /hpf (0-5)
[2023-07-08] MEDS: calcium gluconate 0.9% NaCL 1 GM/50 ML PREMIX IV (17:47)
[2023-07-08] MEDS: budesonide 0.5 mg/2 mL Neb INHALATION (20:09)
[2023-07-08] MEDS: enoxaparin 40 mg/0.4 mL Syringe SUBCUT (21:02)
[2023-07-08] MEDS: sennosides 8.6 mg Tablet 17.1999999999999993 MG PO (21:10)
[2023-07-08 21:48] LABS: Alveolar-Arterial Oxygen Gradi 40.3 mmHg (5-10); Arterial Blood Gas Hematocrit 32.8 % (37-47); Base Excess ABG 10.2 mmol/L (-2.0-2.0); Blood Gas Allen Test Pos; Blood Gas Sample Site Radial, right; Blood Gas Sample Type Arterial; Carboxyhemoglobin 1.8 %THgb (0.4-20.1); HCO3 ABG 41.4 mmol/L (22-26); HGB O2 Sat 98.5 % (95-100); Ionized Calcium Level - ABG 1.2 mmol/L (1.1-1.4); Methemoglobin 0.5 % (0.4-1.5); Oxygen Device BIPAP; Oxygen Saturation ABG > 100.0; PO2 FiO2 Ratio Arterial Blood 0; Potassium Level - ABG 5.8 mmol/L (3.5-5.0); Total Hemoglobin 10.7 g/dL (12-16)
[2023-07-09] VITALS (104 sets, daily range): BP systolic 91–169; BP diastolic 35–106; PULSE 66–112; RESP 14–35; TEMP 36.3–36.8; O2SAT 75–100; BMI 27.5
--- NOTE | 2023-07-09 01:30 | PC.NURSE ---
Cheetah/oxygen requirements Patient's blood pressure ranging from 94-120 systolic, 37-62 diastolic with MAP's between 56-72. Cheetah assessment performed, resulting in a fluid responsive SVI of 26.9%. Dr. Mesa notified of blood pressure fluctuation as well as cheetah results; orders received to administer a 250 ml bolus of NS once then administer NS maintenance fluids at 60 ml/hr until 0600. Additionally, patient's oxygen saturation decreasing intermittently into the low 80s, RT aware and titrating FIO2. Dr. Mesa notified.
[2023-07-09 01:45] LABS: Alveolar-Arterial Oxygen Gradi 62.3 mmHg (5-10); Arterial Blood Gas Hematocrit 33.3 % (37-47); Base Excess ABG 10.3 mmol/L (-2.0-2.0); Blood Gas Allen Test Pos; Blood Gas Sample Site Radial, right; Blood Gas Sample Type Arterial; Carboxyhemoglobin 1.8 %THgb (0.4-20.1); HCO3 ABG 39.2 mmol/L (22-26); Ionized Calcium Level - ABG 1.2 mmol/L (1.1-1.4); Methemoglobin 0.4 % (0.4-1.5); Oxygen Device BIPAP; PO2 ABG 64.5 mmHg (80.0-100.0); PO2 FiO2 Ratio Arterial Blood 0; Potassium Level - ABG 5.4 mmol/L (3.5-5.0); Total Hemoglobin 10.9 g/dL (12-16)
[2023-07-09] MEDS: sodium chloride 0.9% 250 ML 999 ML IV (01:45)
[2023-07-09 01:46] LABS: ABG PCO2 79.4 mmHg (35-45)
[2023-07-09] MEDS: sodium chloride 0.9% 1,000 ML 60 ML IV (02:31)
[2023-07-09] MEDS: methylPREDNISolone sod succ 40 mg/mL INJ IVP ×4 (03:06→21:05)
[2023-07-09 04:18] LABS: Hematocrit 37.4 % (36-47); Lymphocytes # 0.2 10^3/uL (0.8-4.8); Lymphocytes % 2.5 %; Mean Corpuscular HGB Conc 28.1 g/dL (30-55); Mean Corpuscular Hemoglobin 29.2 pg (27-33); Mean Corpuscular Volume 104.2 fl (85-98); Mean Platelet Volume 10.9 fL (7.4-10.4); Monocytes # 0.2 10^3/uL (0.2-0.9); Monocytes % 2.2 %; Neutrophils # 8.53 10^3/uL (1.8-7.7); Neutrophils % 95.1 %; Nucleated Red Blood Cells % 0 %; Platelet Count 162 10^3/cmm (157-399); Red Blood Count 3.59 10^6/uL (3.85-5.65); Red Cell Distribution Width 15.5 % (12.1-15.1); White Blood Count 8.97 10^3/uL (3.29-11.43)
[2023-07-09] MEDS: ipratropium-albuterol 3 mL Neb INHALATION ×5 (04:32→19:51)
[2023-07-09 04:38] LABS: Alanine Aminotransferase 11 U/L (0-33); Albumin Level 3.2 g/dL (3.5-5.2); Alkaline Phosphatase 78 U/L (35-105); Aspartate Amino Transferase 9 U/L (0-32); Blood Urea Nitrogen 31 mg/dL (8-23); Calcium 8.1 mg/dL (8.5-10.5); Carbon Dioxide 35 mmol/L (22-29); Chloride 103 mmol/L (98-107); Creatinine Clr Calc Pharmacy 34.4522; Globulin 2.4 g/dL (1.3-4.6); Glucose 163 mg/dL (65-115); Magnesium 2.2 mg/dL (1.7-2.3); Osmolality Calculated 310 mOsm/kg (285-295); Phosphorus 4.4 mg/dL (2.5-4.5); Sodium 145 mmol/L (136-145); Total Bilirubin 0.2 mg/dL (0.15-1.2); Total Protein 5.6 g/dL (6.6-8.7)
[2023-07-09 04:40] LABS: Anion Gap 13.1 (5-19); Potassium 6.1 mmol/L (3.5-5.1)
[2023-07-09 05:11] LABS: ABG PH Result 7.28 (7.35-7.45); Alveolar-Arterial Oxygen Gradi 58.2 mmHg (5-10); Arterial Blood Gas Hematocrit 33.7 % (37-47); Base Excess ABG 9.9 mmol/L (-2.0-2.0); Blood Gas Allen Test Pos; Blood Gas Sample Site Brachial, right; Blood Gas Sample Type Arterial; Carboxyhemoglobin 1.6 %THgb (0.4-20.1); HCO3 ABG 39.3 mmol/L (22-26); HGB O2 Sat 96.2 % (95-100); Ionized Calcium Level - ABG 1.2 mmol/L (1.1-1.4); Methemoglobin 0.5 % (0.4-1.5); Oxygen Device BIPAP; Oxygen Saturation ABG 98.2; PO2 ABG 91.5 mmHg (80.0-100.0); PO2 FiO2 Ratio Arterial Blood 0; Potassium Level - ABG 5.6 mmol/L (3.5-5.0)
[2023-07-09 05:12] LABS: ABG PCO2 84.2 mmHg (35-45)
--- NOTE | 2023-07-09 06:00 | XR_ITS ---
WS: [id number] PORTABLE CHEST HISTORY: Respiratory failure COMPARISON: 07/08/2023 and 03/14/2023 Dense area of consolidation with obscuration of the LEFT hemidiaphragm continues. Lungs are slightly hyperexpanded otherwise. Mild emphysema. Small LEFT pleural effusion not excluded. Cardiac size: Normal. Mediastinum/Aorta: Moderate atherosclerosis aorta. Osteopenia. LEFT humeral head deformity probably from an old healed fracture. Additional healed fract ures in the LEFT rib cage. XR/XR chest 1V portable [id number] IMPRESSION: 1. Dense consolidation at the LEFT lung base obscuring the diaphragm. Differen tial includes small LEFT pleural effusion, pneumonia and/or atelectasis. No imp rovement since 07/08/2023. 2. Moderate atherosclerosis thoracic aorta. 3. Emphysema.
[2023-07-09] MEDS: budesonide 0.5 mg/2 mL Neb INHALATION ×2 (07:41→19:51)
[2023-07-09] MEDS: dextrose 5%-sod chloride 0.45% 1,000 ML 50 ML IV (07:58)
[2023-07-09] MEDS: azithromycin 500 MG in sodium chloride 0.9% 250 ML 250 MG IV (08:05)
[2023-07-09] MEDS: pantoprazole DR 40 mg Tablet PO (08:07)
--- NOTE | 2023-07-09 10:55 | P.PN_ITS ---
Subjective 2 Subjective: Patient is more awake this morning. She is in persistent respiratory failure dependent on AVAPS. She reports she is hungry wants to try to eat at some this morning. Denies chest pain, fevers or chills. Her son is bedside later in the morning. Discussed plan of care. Medications: Reviewed: Yes Vitals/I&O/Wt Last Vital Signs Temp 97.3 F L 07/09/23 08:00 Pulse 74 07/09/23 10:30 Resp 17 07/09/23 10:30 BP 126/97 07/09/23 10:30 Pulse Ox 100 07/09/23 10:30 O2 Del Method BiPAP 07/09/23 07:25 FiO2 85 07/09/23 07:45 07/08/23 07/09/23 07/09/23 22:59 06:59 14:59 Intake Total 800 / 800 464 / 1264 350 / 350 Output Total 100 / 100 150 / 250 Balance 700 / 700 314 / 1014 350 / 350 Weight last 48 hrs Weight 70.488 kg Weight 72.575 kg Weight 72.575 kg Physical Exam 2 Narrative: General: Patient is awake. Chronically ill-appearing. On AVAPS. Head: Normocephalic. Atraumatic. EOM intact. Neck: No JVD. Cardiovascular: RRR. No gallops. No murmurs. Trace pedal edema. Lungs: Persistently poor air movement in bilateral lung cervantes. Prolonged expiratory phase. Very faint end expiratory wheezing. Neck. Using accessory muscles. In respiratory distress. Skin: No jaundice. Reported pressure injury was not observed on today's exam. Abdomen: Normal bowel sounds, abdomen soft and nontender. Genito Urinary: Gipson catheter Rectal: Rectal exam not performed since no symptoms indicated blood loss. Extremities: No cyanosis or clubbing. Musculoskeletal: No swollen or erythematous joints. Neurological: Moves all 4 extremities. No myoclonus. Urinary Catheter Management: Gipson: Cath Placed During This Visit: yes Reason for Continuing Indwelling Catheter: Accurate Measurement of Urinary Output in Critically Ill Patients Urinary Catheter Date of Insertion: 07/08/23 Urinary Catheter Time of Insertion: 18:02 Data 07/09/23 03:59 07/09/23 03:59 Micro: Microbiology 07/08/23 15:07 Blood Culture - Preliminary Blood SPECIMEN COLLECTED 05/26/24 15:05 Blood Culture - Preliminary Blood SPECIMEN COLLECTED A&P Assessment and plan (1) Acute respiratory failure with hypoxia and hypercapnia: Acute on chronic hypercapnic hypoxic respiratory failure requiring noninvasive mechanical ventilation with AVAPS Baseline daytime oxygen needs of 4 to 5 L Trilogy dependent at night, home trilogy machine reportedly malfunctioning for the past 4 to 5 days prior to admission [facility] will need contacted on Sunday to rectify this issue prior to consideration of discharge Continue treating underlying COPD exacerbation Noninvasive vent management Serial blood gases Advance care planning-patient was awake and alert requesting to be DNR and DNI Her son who is DPOA favors her to be full code, however patient does currently have decision-making capacity (2) Acute exacerbation of chronic obstructive airways disease: End-stage COPD/emphysema with acute exacerbation Continue IV systemic steroids Continue scheduled DuoNebs Continue Pulmicort Continue azithromycin for anti-inflammatory effects Repeat chest x-ray reviewed, no infiltrate noted Guarded prognosis overall (3) Acute hyperkalemia: Hold home SHMUEL inhibitor Hold home potassium supplementation Continuous telemetry monitoring Oral intake remains poor, will start on low-dose IV fluids Repeat renal panel at noon Will consider Kayexalate pending clinical course (4) Hypertension: Blood pressure is noted to be soft Hold home Norvasc and lisinopril for now (5) History of GI bleed: Continue home PPI Continue home Carafate Monitor blood counts Plan DVT prophylaxis: Heparin CODE STATUS: DNR/DNI-discussed with patient on day of admission Attestations 2 Medical Necessity Statement*: Patient requires ongoing hospitalization for noninvasive vent management, IV steroids, IV antibiotics, respiratory support and supportive care. Critical Care Time: The high probability of a clinically significant, sudden or life threatening deterioration of the patient's respiratory failure requiring noninvasive mechanical ventilation with AVAPS system(s) required my full and direct attention, intervention and personal management. The critical care time is as shown. This time is in addition to time spent performing any reported procedures but includes the following: [x] Data and vital sign review and interpretation [x] Patient assessment, examination and intervention [x] Documentation [x] Medication orders and management Critical Care Time (min): 35 Coding Level of Care Code Acute Code for Chg Fwd Diagnoses Acute respiratory failure with hypoxia and hypercapnia J96.01; J96.02 Acute exacerbation of chronic obstructive airways disease J44.1 Acute hyperkalemia E87.5 Hypertension I10 History of GI bleed Z87.19
[2023-07-09 13:08] LABS: Albumin Level 3.2 g/dL (3.5-5.2); Blood Urea Nitrogen 34 mg/dL (8-23); Calcium 8.1 mg/dL (8.5-10.5); Carbon Dioxide 37 mmol/L (22-29); Chloride 101 mmol/L (98-107); Glucose 201 mg/dL (65-115); Phosphorus 4.1 mg/dL (2.5-4.5); Sodium 142 mmol/L (136-145)
[2023-07-09 13:20] LABS: Anion Gap 9.5 (5-19); Creatinine Clr Calc Pharmacy 33.9974
[2023-07-09 13:21] LABS: Potassium 5.5 mmol/L (3.5-5.1)
[2023-07-09] MEDS: sucralfate 1 gm Tablet PO ×2 (17:13→20:12)
[2023-07-09] MEDS: enoxaparin 40 mg/0.4 mL Syringe SUBCUT (20:11)
[2023-07-09] MEDS: pantoprazole 40 mg SDV IVP (20:11)
[2023-07-09] MEDS: sennosides 8.6 mg Tablet 17.1999999999999993 MG PO (20:12)
[2023-07-09 21:33] LABS: Glucose Point of Care 166 mg/dL (70-110)
[2023-07-09] MEDS: dextrose 5%-sod chloride 0.45% 1,000 ML 75 ML IV (23:14)
[2023-07-10] VITALS (74 sets, daily range): BP systolic 87–158; BP diastolic 40–108; PULSE 63–107; RESP 14–40; TEMP 36.4–36.7; O2SAT 84–100; BMI 27.1
[2023-07-10] MEDS: ipratropium-albuterol 3 mL Neb INHALATION ×7 (00:38→23:10)
[2023-07-10 04:07] LABS: Basophils % 0.1 %; Hematocrit 33.7 % (36-47); Lymphocytes # 0.2 10^3/uL (0.8-4.8); Lymphocytes % 1.8 %; Mean Corpuscular HGB Conc 28.5 g/dL (30-55); Mean Corpuscular Hemoglobin 28.8 pg (27-33); Mean Corpuscular Volume 101.2 fl (85-98); Mean Platelet Volume 11.2 fL (7.4-10.4); Monocytes # 0.3 10^3/uL (0.2-0.9); Monocytes % 2.6 %; Neutrophils # 12.39 10^3/uL (1.8-7.7); Nucleated Red Blood Cells % 0 %; Platelet Count 147 10^3/cmm (157-399); Red Blood Count 3.33 10^6/uL (3.85-5.65); Red Cell Distribution Width 15.9 % (12.1-15.1); White Blood Count 13.04 10^3/uL (3.29-11.43)
[2023-07-10 04:32] LABS: Albumin Level 3.1 g/dL (3.5-5.2); Anion Gap 8.7 (5-19); Blood Urea Nitrogen 36 mg/dL (8-23); Calcium 7.7 mg/dL (8.5-10.5); Carbon Dioxide 37 mmol/L (22-29); Chloride 101 mmol/L (98-107); Creatinine Clr Calc Pharmacy 33.9974; Glucose 177 mg/dL (65-115); Magnesium 2.2 mg/dL (1.7-2.3); Phosphorus 2.6 mg/dL (2.5-4.5); Potassium 5.7 mmol/L (3.5-5.1); Sodium 141 mmol/L (136-145)
[2023-07-10] MEDS: methylPREDNISolone sod succ 40 mg/mL INJ IVP ×4 (04:49→21:46)
[2023-07-10 04:59] LABS: ABG PH Result 7.34 (7.35-7.45); Alveolar-Arterial Oxygen Gradi 42.2 mmHg (5-10); Arterial Blood Gas Hematocrit 29.9 % (37-47); Base Excess ABG 10.4 mmol/L (-2.0-2.0); Blood Gas Allen Test Pos; Blood Gas Sample Site Brachial, right; Blood Gas Sample Type Arterial; Carboxyhemoglobin 1.4 %THgb (0.4-20.1); HCO3 ABG 38.2 mmol/L (22-26); HGB O2 Sat 96.8 % (95-100); Ionized Calcium Level - ABG 1.2 mmol/L (1.1-1.4); Methemoglobin 0.3 % (0.4-1.5); Oxygen Device BIPAP; Oxygen Saturation ABG 98.5; PO2 ABG 90.4 mmHg (80.0-100.0); PO2 FiO2 Ratio Arterial Blood 0; Total Hemoglobin 9.8 g/dL (12-16)
[2023-07-10 05:00] LABS: ABG PCO2 71.4 mmHg (35-45)
[2023-07-10] MEDS: sucralfate 1 gm Tablet PO ×3 (06:32→20:28)
[2023-07-10] MEDS: budesonide 0.5 mg/2 mL Neb INHALATION ×2 (07:37→20:04)
[2023-07-10] MEDS: pantoprazole 40 mg SDV IVP ×2 (08:04→20:28)
[2023-07-10] MEDS: azithromycin 250 MG in sodium chloride 0.9% 250 ML IV (08:49)
[2023-07-10] MEDS: dextrose 5%-sod chloride 0.45% 1,000 ML 75 ML IV (12:25)
--- NOTE | 2023-07-10 12:40 | P.PN_ITS ---
Subjective 2 Subjective: Patient is stating that she thinks she is back to her baseline functional status She is not complain of any chest pain or shortness of breath Had her breakfast Then she got short of breath and required AVAPS We did confirm with [facility] that she has trilogy at home, housing case manager is working with [facility] to make sure her machine is operational I will transfer out of ICU Vitals/I&O/Wt Last Vital Signs Temp 97.9 F 07/10/23 05:45 Pulse 69 07/10/23 11:23 Resp 16 07/10/23 11:20 BP 149/63 07/10/23 10:15 Pulse Ox 98 07/10/23 11:21 O2 Del Method BiPAP 07/10/23 11:20 FiO2 40 07/10/23 11:21 07/09/23 07/10/23 07/10/23 22:59 06:59 14:59 Intake Total 200 / 1036.667 657.333 / 9637.923 8969.75 / 1358.75 Output Total 275 / 275 275 / 550 Balance -75 / 761.667 382.333 / 1005.235 5963.75 / 1358.75 Weight last 48 hrs Weight 74.117 kg Weight 75.024 kg Weight 72.575 kg Weight 72.575 kg Physical Exam 2 Narrative: Bilateral breath sounds, diminished Currently on AVAPS Family at the bedside GCS 15 Lower extremity no swelling Skin wrinkling noted Currently patient is hemodynamically stable able to follow commands Nonfocal neuroexam Urinary Catheter Management: Gipson: Cath Placed During This Visit: yes Reason for Continuing Indwelling Catheter: Accurate Measurement of Urinary Output in Critically Ill Patients Urinary Catheter Date of Insertion: 07/08/23 Urinary Catheter Time of Insertion: 18:02 Data 07/10/23 03:10 07/10/23 03:10 Micro: Microbiology 07/08/23 15:07 Blood Culture - Preliminary Blood NEGATIVE TO DATE 07/08/23 15:05 Blood Culture - Preliminary Blood NEGATIVE TO DATE A&P Assessment and plan (1) Hypertension: (2) History of GI bleed: (3) Acute respiratory failure with hypoxia and hypercapnia: (4) Acute exacerbation of chronic obstructive airways disease: Plan 82-year-old female with end-stage COPD Acute on chronic hypoxic hypercarbic respite failure Currently on AVAPS Has trilogy at home We can transfer out of ICU to [facility] We are making sure that her machine is operational at home Continue antibiotics Continue steroids Transfer out of ICU to [facility] Hypercarbia improving Goals of care discussed with the patient she is able to comprehend, she is stating that she does not absolutely does not want chest compressions intubation or defibrillation, her daughter was also at the bedside I have asked her to keep her family on the same page as well, this discussion took place with the patient when her daughter was also at the bedside Attestations 2 Medical Necessity Statement*: Out of ICU to [facility] Diagnoses Hypertension I10 History of GI bleed Z87.19 Acute respiratory failure with hypoxia and hypercapnia J96.01; J96.02 Acute exacerbation of chronic obstructive airways disease J44.1
[2023-07-10] MEDS: sodium polystyrene sulfonate 15 gm/60 mL Btl PO (13:24)
[2023-07-10] MEDS: FUROsemide 10 mg/mL SDV 2mL 20 MG IVP (13:25)
--- NOTE | 2023-07-10 15:57 | PC.NURSE ---
This nurse assumed care of pt at 1550 from TORIBIO Leon.
[2023-07-10] MEDS: enoxaparin 40 mg/0.4 mL Syringe SUBCUT (20:28)
[2023-07-10] MEDS: sennosides 8.6 mg Tablet 17.1999999999999993 MG PO (20:28)
--- NOTE | 2023-07-10 23:47 | PC.RESP ---
Patient placed on bipap at 2006 for NOC. patient tolerating well. Patient mask changed at 2311 to full face and chin strap put on patient to keep mouth from falling open while she sleeps. all vitals stable and no distress noted.
[2023-07-11] VITALS (9 sets, daily range): BP systolic 108–156; BP diastolic 60–65; PULSE 67–108; RESP 12–27; TEMP 36.4–36.7; O2SAT 95–99
[2023-07-11] MEDS: ipratropium-albuterol 3 mL Neb INHALATION ×2 (03:07→07:26)
[2023-07-11] MEDS: methylPREDNISolone sod succ 40 mg/mL INJ IVP ×2 (03:49→10:43)
[2023-07-11 05:50] LABS: Anion Gap 8.7 (5-19); Blood Urea Nitrogen 41 mg/dL (8-23); Calcium 8.1 mg/dL (8.5-10.5); Carbon Dioxide 38 mmol/L (22-29); Chloride 104 mmol/L (98-107); Glucose 148 mg/dL (65-115); Osmolality Calculated 315 mOsm/kg (285-295); Potassium 4.7 mmol/L (3.5-5.1); Sodium 146 mmol/L (136-145)
[2023-07-11] MEDS: sucralfate 1 gm Tablet PO ×2 (06:02→10:43)
[2023-07-11 06:03] LABS: Creatinine Clr Calc Pharmacy 35.7373
[2023-07-11] MEDS: budesonide 0.5 mg/2 mL Neb INHALATION (07:25)
[2023-07-11] MEDS: pantoprazole 40 mg SDV IVP (08:16)
[2023-07-11] MEDS: sodium polystyrene sulfonate 15 gm/60 mL Btl PO (08:16)
[2023-07-11] MEDS: azithromycin 250 MG in sodium chloride 0.9% 250 ML IV (09:20)
--- NOTE | 2023-07-11 10:34 | PM.DCS ---
Discharge Providers Date of Admission: 07/08/23 14:47 Date of Discharge: July 11, 2023 Attending Provider at Admission: Teo Hurley MD Attending Provider at Discharge: Luca Ramos MD Primary Care Provider: Traci Prakash MD Diagnoses at Discharge Discharge Diagnosis (1) Hypertension: Status: Acute (2) History of GI bleed: Status: Acute (3) Acute respiratory failure with hypoxia and hypercapnia: Status: Acute (4) Acute exacerbation of chronic obstructive airways disease: Status: Acute Reason for Visit Reason for Visit: SOB Hospital Course Hospital Course 82-year-old female with end-stage COPD, has trilogy at home via [facility] present to the hospital for acute on chronic hypoxic hypercarbic respite failure, chest x-ray did not show any consolidation, her symptoms were deemed secondary to gradual decline in her functional capacity and worsening of COPD, she is mostly using trilogy at nighttime, at the time of discharge we have recommended her to use trilogy settings in the daytime as well with shortness of breath. I will represcribe trilogy inhaler as well along azithromycin for anti-inflammatory effect. Roflumilast is not covered by her insurance. I do anticipate that she will get worse in near future as she has severe/advanced/end-stage COPD. Goals of care discussed with the patient and her family, she is DNR/DNI. She has guarded prognosis because she is getting trilogy dependent. For now she is able to compensate and eat her meals. Her son Camron is the medical DPOA. He was concerned that the machine at home is not functional. [facility] has sent the sales representative girls' apparel they have confirmed that machine is operational and there is no issue with the settings at all. I do believe family has unrealistic goals despite knowing that there is end-stage COPD and she is getting trilogy dependent. I have told bluntly that I do not think there is any fault with the machine if it has been checked and settings are okay, this most likely is related to gradual decline in her health with worsening advanced COPD. Physical Exam Narrative: Awake and alert Ate her breakfast Currently on 3 L oxygen Dehydrated GCS 15 Pleasant and cooperative Nonfocal neuroexam Family at the bedside Urinary Catheter Management: Gipson: Cath Placed During This Visit: yes Reason for Continuing Indwelling Catheter: Other Urinary Catheter Date of Insertion: 07/08/23 Urinary Catheter Time of Insertion: 18:02 Discharge Data Studies Completed and Pending Completed Studies During Hospitalization Category Date Time Status CT head wo con* [id number] Stat Cat Scan 07/08/23 13:17 Completed XR chest 1V portable [id number] Routine Exams 07/09/23 06:00 Completed XR chest 1V portable [id number] Stat Exams 07/08/23 13:17 Completed Pending at discharge Category Date Time Status Blood Culture Stat Lab 07/08/23 15:07 Results Radiology Impressions Head CT 07/08/23 13:17 IMPRESSION: 1. Loss of marquez-white differentiation in the left temporal lobe, though possibly artifactual, is concerning for acute ischemia. MRI of the brain is recommended. ADDENDUM: 07/08/23 [id number] The findings were verbally communicated by telephone with Dr. REYNAGA at 2:29 PM CDT on 07/08/2023. Chest X-Ray 07/09/23 06:00 IMPRESSION: 1. Dense consolidation at the LEFT lung base obscuring the diaphragm. Differential includes small LEFT pleural effusion, pneumonia and/or atelectasis. No improvement since 07/08/2023. 2. Moderate atherosclerosis thoracic aorta. 3. Emphysema. Laboratory Results WBC 13.04 10^3/uL (3.29-11.43) H 07/10/23 03:10 RBC 3.33 10^6/uL (3.85-5.65) L 07/10/23 03:10 Hgb 9.60 g/dL (11.27-16.99) L 07/10/23 03:10 Hct 33.7 % (36-47) L 07/10/23 03:10 MCV 101.2 fl (85-98) H 07/10/23 03:10 MCH 28.8 pg (27-33) 07/10/23 03:10 MCHC 28.5 g/dL (30-55) L 07/10/23 03:10 RDW 15.9 % (12.1-15.1) H 07/10/23 03:10 Plt Count 147 10^3/cmm (157-399) L 07/10/23 03:10 MPV 11.2 fL (7.4-10.4) H 07/10/23 03:10 Neut % (Auto) 95.0 % 07/10/23 03:10 Lymph % (Auto) 1.8 % 07/10/23 03:10 [facility] % (Auto) 2.6 % 07/10/23 03:10 Eos % (Auto) 0.0 % 07/10/23 03:10 Baso % (Auto) 0.1 % 07/10/23 03:10 Neut # (Auto) 12.39 10^3/uL (1.8-7.7) H 07/10/23 03:10 Lymph # (Auto) 0.2 10^3/uL (0.8-4.8) L 07/10/23 03:10 [facility] # (Auto) 0.3 10^3/uL (0.2-0.9) 07/10/23 03:10 Eos # (Auto) 0.0 10^3/uL (0.0-0.8) 07/10/23 03:10 Baso # (Auto) 0.0 10^3/uL (0.0-0.1) 07/10/23 03:10 Nucleated RBC % (auto) 0 % 07/10/23 03:10 Nucleated RBCs # 0.0 /100WBC 07/10/23 03:10 PT 12.30 SECONDS (12.1-14.9) 07/08/23 13:24 INR 0.89 (0.8-1.2) 07/08/23 13:24 Specimen Type Arterial 07/10/23 04:52 Sample Site Brachial, right 07/10/23 04:52 ABG pH 7.34 (7.35-7.45) L 07/10/23 04:52 ABG pCO2 71.4 mmHg (35-45) H* 07/10/23 04:52 ABG pO2 90.4 mmHg (80.0-100.0) 07/10/23 04:52 ABG PO2/FiO2 Ratio 0 07/10/23 04:52 ABG HCO3 38.2 mmol/L (22-26) H 07/10/23 04:52 ABG O2 Saturation 98.5 07/10/23 04:52 ABG Base Excess 10.4 mmol/L (-2.0-2.0) H 07/10/23 04:52 Gil Test Pos 07/10/23 04:52 A-a O2 Gradient 42.2 mmHg (5-10) H 07/10/23 04:52 Hematocrit 29.9 % (37-47) L 07/10/23 04:52 Hgb O2 Saturation 96.8 % (95-100) 07/10/23 04:52 Carboxyhemoglobin 1.4 %THgb (0.4-20.1) 07/10/23 04:52 Methemoglobin 0.3 % (0.4-1.5) L 07/10/23 04:52 Total Hemoglobin 9.8 g/dL (12-16) L 07/10/23 04:52 Sodium 140.0 mmol/L (131-143) 07/10/23 04:52 Potassium 5.0 mmol/L (3.5-5.0) 07/10/23 04:52 Glucose 185.0 mg/dL (70-115) H 07/10/23 04:52 Ionized Calcium 1.2 mmol/L (1.1-1.4) 07/10/23 04:52 O2 Delivery Device Bipap 07/10/23 04:52 O2 Liters/Min 10.0 % 07/08/23 13:30 FiO2 70.0 % 07/10/23 04:52 Tidal Volume 0.50 07/09/23 04:58 PEEP 10.0 cmH20 07/10/23 04:52 Quality Improvement Specialist ID [email or web address] 07/10/23 04:52 Sodium 146 mmol/L (136-145) H 07/11/23 05:07 Potassium 4.7 mmol/L (3.5-5.1) 07/11/23 05:07 Chloride 104 mmol/L (98-107) 07/11/23 05:07 Carbon Dioxide 38 mmol/L (22-29) H 07/11/23 05:07 Anion Gap 8.7 (5-19) 07/11/23 05:07 BUN 41 mg/dL (8-23) H 07/11/23 05:07 Creatinine 1.3 mg/dL (0.5-0.9) H 07/11/23 05:07 GFR Calculation Not Reportable 07/11/23 05:07 Glucose 148 mg/dL (65-115) H 07/11/23 05:07 POC Glucose 166 mg/dL (70-110) H 07/09/23 21:08 Calculated Osmolality 315 mOsm/kg (285-295) H 07/11/23 05:07 Calcium 8.1 mg/dL (8.5-10.5) L 07/11/23 05:07 Phosphorus 2.6 mg/dL (2.5-4.5) 07/10/23 03:10 Magnesium 2.2 mg/dL (1.7-2.3) 07/10/23 03:10 Total Bilirubin 0.2 mg/dL (0.15-1.2) 07/09/23 03:59 AST 9 U/L (0-32) 07/09/23 03:59 ALT 11 U/L (0-33) 07/09/23 03:59 Alkaline Phosphatase 78 U/L (35-105) 07/09/23 03:59 C-Reactive Protein 12.7 mg/L (0.0-4.9) H 07/08/23 15:07 NT-Pro-B Natriuret Pep 687 pg/mL (0-450) H 07/08/23 13:24 Total Protein 5.6 g/dL (6.6-8.7) L 07/09/23 03:59 Albumin 3.1 g/dL (3.5-5.2) L 07/10/23 03:10 Globulin 2.4 g/dL (1.3-4.6) 07/09/23 03:59 Procalcitonin 0.12 ng/mL (0-0.5) 07/08/23 15:07 Urine Color Yellow (Yellow) 07/08/23 17:30 Urine Appearance Clear (CLEAR) 07/08/23 17:30 Urine pH 5 (5-7) 07/08/23 17:30 Ur Specific [place] 1.020 (1.005-1.030) 07/08/23 17:30 Urine Protein Neg (Negative) 07/08/23 17:30 Urine Glucose (UA) Norm (Normal) 07/08/23 17:30 Urine Ketones Negative (Negative) 07/08/23 17:30 Urine Blood Neg (Negative) 07/08/23 17:30 Urine Nitrate Negative (Negative) 07/08/23 17:30 Urine Bilirubin Neg (Negative) 07/08/23 17:30 Urine Urobilinogen Norm mg/dL (Negative) 07/08/23 17:30 Ur Leukocyte Esterase Negative (Negative) 07/08/23 17:30 Urine RBC None /hpf (0-2) 07/08/23 17:30 Urine WBC Rare /hpf (0-5) 07/08/23 17:30 Ur Squamous Epith Cells None /hpf (0-5) 07/08/23 17:30 Amorphous Sediment Not Reportable 07/08/23 17:30 Urine Bacteria Trace /hpf (NONE) 07/08/23 17:30 Vitals Last Vital Signs Temp 98.1 F 07/11/23 08:00 Pulse 108 H 07/11/23 10:11 Resp 17 07/11/23 08:00 BP 156/65 07/11/23 08:00 Pulse Ox 98 07/11/23 10:11 O2 Del Method Nasal Cannula 07/11/23 07:39 O2 Flow Rate 4 07/11/23 08:00 FiO2 40 07/11/23 10:11 Discharge Plan Discharge Patient Disposition: Home Condition: Stable Prescriptions: New azithromycin 250 mg tablet 250 mg PO DAILY 6 Days Qty: 6 0RF Trelegy Ellipta 200-62.5-25 mcg blister with device 1 inh inhalation DAILY Qty: 60 5RF Continued albuterol sulfate [Ventolin HFA] 90 mcg/actuation HFA aerosol inhaler 2 puff INHALATION QID PRN (Reason: Shortness Of Breath) PNV cmb#95-ferrous fumarate-FA [ Multivitamins] 28 mg iron- 800 mcg Tablet 1 tab PO QAM lisinopril 20 mg tablet 20 mg PO DAILY Qty: 60 0RF potassium chloride 10 mEq tablet extended release 10 meq PO DAILY PRN (Reason: Only when you take Lasix) Qty: 10 0RF furosemide [Lasix] 20 mg tablet 20 mg PO DAILY PRN (Reason: Only when he noticed fluid weight gain more than 3 pounds in) Qty: 30 0RF prednisone 10 mg tablet See Rx Instructions .ROUTE .COMPLEX Rx Instructions: TAKE 4 TABLETS BY MOUTH ONCE DAILY FOR 3 DAYS THEN 3 ONCE DAILY FOR 3 DAYS THEN 2 ONCE DAILY FOR 3 DAYS THEN 1 ONCE DAILY FOR 3 DAYS amlodipine 10 mg tablet 10 mg PO DAILY Qty: 60 0RF Discharge Orders: Discharge Order (Routine); Ordered 07/11/23 Ordered By: Luca Ramos Referrals: Traci Prakash MD [Primary Care Provider] - Patient Instructions: COPD, Azithromycin (By mouth), Fluticasone/Umeclidinium/Vilanterol (By breathing) (Estefania Arnold), Acute Respiratory Failure (GEN), COPD Stoplight, Opioid Safety Activity Restrictions/Additional Instructions: We are targeting for tidal volume of 500 Respiratory rate 14-16 EPAP 8-10 Minimum pressure [id number], maximum pressure [id number] Oxygen FiO2 40% Discharge Attestations Time Spent in Discharge Care*: greater than 30 min Status at Discharge: Cognitive status at discharge: cognitively intact, Behavioral status at discharge: cooperative, Quality Metrics Clinical Quality Measures [ No reported AMI, CVA or VTE this stay] Coding Level of Care Code Acute Code for Chg Fwd Diagnoses Hypertension I10 History of GI bleed Z87.19 Acute respiratory failure with hypoxia and hypercapnia J96.01; J96.02 Acute exacerbation of chronic obstructive airways disease J44.1
== END 2023-07-11 11:46 | disposition home or self-care (01) | DRG 190 ==
LOC: ER 15:19 → ICU 15:26 → MEDSURG 07-10 15:58
PROVIDERS: Admitting Provider Internal Medicine; Emergency Provider Emergency Medicine; PCP Family Medicine; Visit Provider Internal Medicine
DX: J44.1 Chronic obstructive pulmonary disease with (acute) exacerbation (principal); J96.21 Acute and chronic respiratory failure with hypoxia; J96.22 Acute and chronic respiratory failure with hypercapnia; N17.9 Acute kidney failure, unspecified; J43.9 Emphysema, unspecified; I12.9 Hypertensive chronic kidney disease with stage 1 through stage 4 chronic kidney disease, or unspecified chronic kidney disease; N18.9 Chronic kidney disease, unspecified; Z66 Do not resuscitate; M81.0 Age-related osteoporosis without current pathological fracture; Z96.642 Presence of left artificial hip joint; E87.5 Hyperkalemia; Z99.81 Dependence on supplemental oxygen; Z87.891 Personal history of nicotine dependence; Z87.11 Personal history of peptic ulcer disease
CPT/HCPCS: 36415; 36416; 36600; 51702; 70450; 71045; 80048; 80051; 80053; 80069; 81001; 82330; 82803; 82805; 82962; 83735; 83880; 84100; 84145; 85025; 85610; 86140; 87040; 93005; 94640; 94660; 96365; 96367; 96372; 99291; C9113; J0456; J0612; J0696; J1650; J1940; J2919; J7030; J7040; J7050; J7613; J7626; J7799

== ENCOUNTER 2023-08-14 14:13 | Inpatient (IN) | payer MEDICARE, MEDICAID, SELFPAY ==
[2023-08-14] VITALS (30 sets, daily range): BP systolic 76–166; BP diastolic 44–98; PULSE 64–92; RESP 13–30; TEMP 36.4; O2SAT 69–100; BMI 27.6; BMI 27.1
--- NOTE | 2023-08-14 14:18 | ECG_ITS ---
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 Measurements Intervals Deport Rate: 92 P: 73 MI: 173 QRS: 58 QRSD: 81 T: 62 QT: 315 QTc: 391 Interpretive Statements SINUS RHYTHM INTERPRETATION BASED ON A DEFAULT AGE OF 40 YEARS Compared to ECG 07/08/2023 13:15:02 No significant changes Electronically Signed On 08-14-2023 21:57:34 CDT by Caleb Britt M.D. [email or web address]
--- NOTE | 2023-08-14 14:20 | XRR_ITS ---
PROCEDURE INFORMATION: Exam: XR Chest Exam date and time: 08/14/2023 2:27 PM Age: 82 years old Clinical indication: Cough and dyspnea; Additional info: Dyspnea/cough TECHNIQUE: Imaging protocol: Radiologic exam of the chest. Views: 1 view. COMPARISON: CR XR chest 1V portable [id number] 07/09/2023 6:14 AM FINDINGS: Lungs: There is dense opacification of the left lung base. No consolidation elsewhere. Pleural spaces: The left lateral costophrenic sulcus is blunted. No pneumothorax. Heart/Mediastinum: The left heart border is obscured. Mediastinal contours are unremarkable. Diaphragm: The left hemidiaphragm is obscured. Bones/joints: There is mild broad-based convex left thoracic scoliosis. XR/XR chest 1V portable [id number] IMPRESSION: Blunted left lateral costophrenic sulcus and obscured left hemidiaphragm consistent with subpulmonic effusion and adjacent atelectasis, stable since 07/09/2023.
--- NOTE | 2023-08-14 14:22 | ED_ITS ---
HPI - SOB/Dyspnea 2 General: Chief Complaint: ER Hold Stated Complaint: Resp Distress Time Seen by Provider: 08/14/23 14:19 Source: EMS Mode of arrival: EMS History of Present Illness: HPI Narrative: 82-year-old female presents emergency ro om via EMS with CPAP in place. Patient is in respiratory distress. He EMS was called for respiratory distress family and patient are both stating that she does not want to be intubated this is confirmed on her chart. Her oxygen saturation on BiPAP with EMS is in the low 80s. On scene she is reported to have had oxygen saturation in the 50s. Shortly after arrival she is converted to our BiPAP and her oxygen sat improved significantly. Patient confirms that she does not want to be intubated. There is no report of chest pain or fever at home. Patient noted to be slumping to the left, left-sided facial droop and drooling staining and fresh drooling on the left side of her shirt. Initially family was not here we had no last known well. Later when family arrived per family report last known well is greater than 24 hours maybe as much as 5 days. There is a male family member that did not feel that the drooling or the facial drooping was significant while a female family member states that the patient had complained of it is much as 5 days ago and intermittently in the last several days. MD elicited complaint: shortness of breath Pertinent past history: COPD Timing: constant Severity: severe Associated symptoms: Reports chest congestion and orthopnea; Deny abdominal pain, chest pain, cough, fever(s), hemoptysis, myalgias, paresthesias, polydipsia, polyuria, rash or sense of impending doom Treatment prior to arrival: oxygen and other (CPAP) Review of Systems 2 Const: Denies: fever(s) or chills Card: Reports: dyspnea on exertion and orthopnea; Denies: chest pain Resp: Reports: dyspnea, wheezing and chest congestion; Denies: hemoptysis GI: Denies: abdominal pain Endo: Denies: polyuria or polydipsia PFSH ED 2 PFSH: Medical History Hyperkalemia UTI (urinary tract infection) Acute hyperkalemia History of GI bleed Hypertension Perforated gastric ulcer Acute hypernatremia Lactic acidosis ARF (acute renal failure) Septic shock Bowel perforation Fracture of distal end of femur Acute kidney injury superimposed on chronic kidney disease Metabolic encephalopathy Hypovolemic shock Acute cystitis Weakness Anemia End stage COPD Pulmonary nodule Adrenal mass, left Acute exacerbation of CHF (congestive heart failure) Leg fracture, right Acute and chronic respiratory failure with hypercapnia Leukocytosis Closed fracture of distal end of femur Anemia Intertrochanteric fracture of right hip Hypercapnic respiratory failure End stage COPD Anemia Vitamin C deficiency Cellulitis Low TSH level Depression Edema Heart murmur Hip pain, left Hypercholesteremia Elevated serum glucose Hypoxic Macrocytosis Nasal congestion Osteoporosis Emphysema lung COPD (chronic obstructive pulmonary disease) Sciatica Seasonal allergies Shoulder pain, left Vitamin D deficiency Shoulder fracture, left Surgical History Postoperative state History of left hip replacement Hx of cataract surgery Family History Mother Cancer Breast Father Cancer Heart disease Sister Cancer Grandmother Hypertension Heart disease Aneurysm Brother Heart disease Myocardial infarct Aneurysm Family/Other Heart disease Bipolar 1 disorder Grandfather Heart disease Social History Smoking and tobacco/nicotine status: former use of tobacco/nicotine Quit status (tobacco/nicotine): has quit using Year quit tobacco: 2013 - 1.5 PPD x 60 Years Alcohol intake: never Substance/Drug Use: never Household members: none Marital status: / Number of children: 4 Current occupational status: retired Do you think of yourself as: Straight/Heterosexual Current gender identity: Female Physical Exam 2 Const: GENERAL APPEARANCE: disheveled, lethargic and frail appearing O RIENTATION/CONSCIOUSNESS: Yes awake and Yes lethargic HENMT: COMMON NORMALS: normocephalic, atraumatic and hearing grossly normal bilaterally HEAD & SCALP: normocephalic and atraumatic Resp: EFFORT & INSPECTION: Yes abnormal respiratory pattern, Yes respiratory distress, Yes labored and Yes grunting AUSCULTATION: crackles and wheezes Cardio: COMMON NORMALS: regular rhythm and No murmurs present (Cardio) R ATE: bradycardic RHYTHM: regular rhythm GI: COMMON NORMALS: Soft to palpation and No hepatosplenomegaly present A USCULTATION: Yes normoactive bowel sounds PALPATION: Yes Soft to palpation, No Tenderness to palpation present (GI), No Guarding due to palpation present (GI) and Yes No hepatosplenomegaly present Extremity: GENERAL: Yes cyanosis and Yes edema Neuro: SENSORIUM/ORIENTATION: Yes lethargic Skin: GENERAL SKIN EXAM: dry skin Course 2 Vital Signs: Vital signs: Vital Signs Temperature 97.3 F L 08/15/23 00:00 Pulse Rate 64 08/15/23 04:35 Respiratory Rate 14 08/15/23 04:35 Blood Pressure 113/53 08/15/23 00:00 Pulse Oximetry 100 08/15/23 04:35 Oxygen Delivery Me thod BiPAP 08/15/23 04:35 Fraction of Inspir ed Oxygen 55 08/15/23 04:35 MDM - SOB/Dyspnea Medical Decision Making Acute hypercapnic respiratory failure. Additionally when the family arrived the daughter mentioned that 5 days ago patient was concerned about possibly having a stroke because she was drooling and has a left-sided facial droop evidently this was intermittent we had noticed when she first arrived some staining from drooling on the left side of her shirt and she was slumped over a bit to the left. They do not know a definitive last well time. The first notation of the symptoms seem to be over the weekend. Patient was able to nod and follow commands with bilateral movement of the hands but was extremely weak she was already on BiPAP so not really able to fully do a NIH. CT does show subacute right frontal CVA. Stroke alert was not called because she is outside of the window with her last known well significantly greater than 24 hours. However I think this episode may play a role in her current condition along with her exacerbation of her COPD. Repeat ABG showed mild improvement of her CO2. Will admit to hospitalist discussed with hospitalist orders written Differential Diagnosis Likely acute exacerbation of chronic obstructive airways disease Medical Records I reviewed the patient's medical records. Lab Data I reviewed the patient's lab results. 08/15/23 03:49 08/15/23 03:49 Labs/Radiology: Radiology Impressions Chest X-Ray 08/14/23 14:20 IMPRESSION: Blunted left lateral costophrenic sulcus and obscured left hemidiaphragm consistent with subpulmonic effusion and adjacent atelectasis, stable since 07/09/2023. Head CT 08/14/23 15:04 IMPRESSION: 1. Subtle asymmetric hypodensity and loss of marquez-white differentiation without mass effect in the posterolateral right temporal lobe raises suspicion for acute infarction in the posterior right middle cerebral artery territory. 2. No acute intracranial hemorrhage. ADDENDUM: 08/14/23 1607 THIS REPORT CONTAINS FINDINGS THAT MAY BE CRITICAL TO PATIENT CARE. The findings and recommendations were personally verbally communicated via telephone conference with Dr Cabello at 4:05 PM CDT on 08/14/2023. The findings were acknowledged and understood. Head/Neck CTA 08/14/23 17:55 IMPRESSION: No arterial stenosis, occlusion or aneurysm. IMPRESSION: 1. No arterial occlusion. 2. Less than 50% stenosis of the internal carotid artery origins bilaterally. 3. Possible hemodynamically significant stenosis of the right vertebral artery origin which is largely obscured. Right vertebral artery is normal distally. 4. Marked calcific plaque and possible hemodynamically significant stenosis of the proximal left subclavian artery which is partially obscured proximal to the vertebral artery origin. 5. High-grade stenosis at the origin of the right external carotid artery. 6. Spiculated 21 mm nodule in the right upper lobe. Possible malignant neoplasm. No change since 02/22/2023. Consider non-emergent PET/CT or tissue sampling.(Reference: Tod) 7. Incidental findings above. REFERENCES: 1. Tod Mcghee, et al. Guidelines for Management of Incidental Pulmonary Nodules Detected on CT Images: From the Fleischner Society 2017. Radiology. 2017;284(1):228-243. 2. NASCET CRITERIA. The degree of stenosis in the cervical segment of the internal carotid artery is based on NASCET criteria. Normal is no stenosis. Mild is less than 50% stenosis. Moderate is 50-69% stenosis. Severe is 70% to 99% stenosis. Total occlusion is no detectable patent lumen. Laboratory Results WBC 11.91 10^3/uL (3.29-11.43) H 08/14/23 14:25 RBC 4.24 10^6/uL (3.85-5.65) 08/14/23 14:25 Hgb 12.30 g/dL (11.27-16.99) 08/14/23 14:25 Hct 43.4 % (36-47) 08/14/23 14:25 MCV 102.4 fl (85-98) H 08/14/23 14:25 MCH 29.0 pg (27-33) 08/14/23 14:25 MCHC 28.3 g/dL (30-55) L 08/14/23 14:25 RDW 16.1 % (12.1-15.1) H 08/14/23 14:25 Plt Count 198 10^3/cmm (157-399) 08/14/23 14:25 MPV 10.5 fL (7.4-10.4) H 08/14/23 14:25 Neut % (Auto) 94.8 % 08/14/23 14:25 Lymph % (Auto) 2.1 % 08/14/23 14:25 Elmore % (Auto) 1.2 % 08/14/23 14:25 Eos % (Auto) 0.0 % 08/14/23 14:25 Baso % (Auto) 0.3 % 08/14/23 14:25 Neut # (Auto) 11.30 10^3/uL (1.8-7.7) H 08/14/23 14:25 Lymph # (Auto) 0.3 10^3/uL (0.8-4.8) L 08/14/23 14:25 [place]more # (Auto) 0.1 10^3/uL (0.2-0.9) L 08/14/23 14:25 Eos # (Auto) 0.0 10^3/uL (0.0-0.8) 08/14/23 14:25 Baso # (Auto) 0.0 10^3/uL (0.0-0.1) 08/14/23 14:25 Nucleated RBC % (auto) 0 % 08/14/23 14: Nucleated RBCs # 0.0 /100WBC 08/14/23 14:25 Specimen Type Arterial 08/14/23 15:37 Sample Site Radial, right 08/14/23 15:37 ABG pH 7.30 (7.35-7.45) L 08/14/23 15:37 ABG pCO2 87.3 mmHg (35-45) H* 08/14/23 15:37 ABG pO2 58.3 mmHg (80.0-100.0) L 08/14/23 15:37 ABG PO2/FiO2 Ratio 77 08/14/23 15:37 ABG HCO3 42.5 mmol/L (22-26) H 08/14/23 15:37 ABG O2 Saturation 89.7 08/14/23 15:37 ABG Base Excess 12.8 mmol/L (-2.0-2.0) H 08/14/23 15:37 Gil Test Pos 08/14/23 15:37 A-a O2 Gradient 48.7 mmHg (5-10) H 08/14/23 15:37 Hematocrit 35.0 % (37-47) L 08/14/23 15:37 Hgb O2 Saturation 87.0 % (95-100) L 08/14/23 15:37 Carboxyhemoglobin 2.5 %THgb (0.4-20.1) 08/14/23 15:37 Methemoglobin 0.5 % (0.4-1.5) 08/14/23 15:37 Total Hemoglobin 11.4 g/dL (12-16) L 08/14/23 15:37 Sodium 145.0 mmol/L (131-143) H 08/14/23 15:37 Potassium 4.9 mmol/L (3.5-5.0) 08/14/23 15:37 Glucose 131.0 mg/dL (70-115) H 08/14/23 15:37 Ionized Calcium 1.2 mmol/L (1.1-1.4) 08/14/23 15:37 O2 Delivery Device Bipap 08/14/23 15:37 FiO2 75.0 % 08/14/23 15:37 Dewaxer ID Walci 08/14/23 15:37 Sodium 144 mmol/L (136-145) 08/14/23 19:46 Potassium 5.6 mmol/L (3.5-5.1) H 08/14/23 19:46 Chloride 99 mmol/L (98-107) 08/14/23 19:46 Carbon Dioxide 38 mmol/L (22-29) H 08/14/23 19:46 Anion Gap 12.6 (5-19) 08/14/23 19:46 BUN 23 mg/dL (8-23) 08/14/23 19:46 Creatinine 0.9 mg/dL (0.5-0.9) 08/14/23 19:46 GFR Calculation Not Reportable 08/14/23 19:46 Glucose 130 mg/dL (65-115) H 08/14/23 19:46 Calculated Osmolality 303 mOsm/kg (285-295) H 08/14/23 19:46 Lactic Acid 1.1 mmol/L (0.5-2.2) 08/14/23 14:25 Calcium 9.2 mg/dL (8.5-10.5) 08/14/23 19:46 Magnesium 2.4 mg/dL (1.7-2.3) H 08/14/23 14:25 Total Bilirubin 0.4 mg/dL (0.15-1.2) 08/14/23 14:25 AST 16 U/L (0-32) 08/14/23 14:25 ALT 19 U/L (0-33) 08/14/23 14:25 Alkaline Phosphatase 102 U/L (35-105) 08/14/23 14:25 Creatine Kinase 37 U/L (26-192) 08/14/23 14:25 Troponin T Baseline 32 ng/L (0-10) H 08/14/23 14:25 Troponin T 120 Minute 29.56 ng/L (0-10) H 08/14/23 16:16 Delta Troponin T -2.44 ABS# (0-10) L 08/14/23 16:16 Troponin T Hi Sens 6Hr 26.52 ng/L (0-10) H 08/14/23 19:46 Troponin T Hi Sens 6Hr Delta -5.48 ng/L (0-12) L 08/14/23 19:46 NT-Pro-B Natriuret Pep 641 pg/mL (0-450) H 08/14/23 14:25 Total Protein 6.2 g/dL (6.6-8.7) L 08/14/23 14:25 Albumin 3.9 g/dL (3.5-5.2) 08/14/23 14:25 Globulin 2.3 g/dL (1.3-4.6) 08/14/23 14:25 Lipase 27 U/L (13-60) 08/14/23 14:25 Procalcitonin 0.14 ng/mL (0-0.5) 08/14/23 18:48 TSH 0.49 uIU/mL (0.27-4.20) 08/14/23 19:46 Urine Color Yellow (Yellow) 08/14/23 15:00 Urine Appearance Slightly cloudy (CLEAR) 08/14/23 15:00 Urine pH 5 (5-7) 08/14/23 15:00 Ur Specific [place] 1.020 (1.005-1.030) 08/14/23 15:00 Urine Protein Neg (Negative) 08/14/23 15:00 Urine Glucose (UA) Norm (Normal) 08/14/23 15:00 Urine Ketones 1+ (Negative) H 08/14/23 15:00 Urine Blood Neg (Negative) 08/14/23 15:00 Urine Nitrate Negative (Negative) 08/14/23 15:00 Urine Bilirubin Neg (Negative) 08/14/23 15:00 Urine Urobilinogen Norm mg/dL (Negative) 08/14/23 15:00 Ur Leukocyte Esterase Trace (Negative) H 08/14/23 15:00 Urine RBC 0-4 /hpf (0-2) H 08/14/23 15:00 Urine WBC 10-15 /hpf (0-5) H 08/14/23 15:00 Ur Squamous Epith Cells 0-4 /hpf (0-5) H 08/14/23 15:00 Amorphous Sediment Not Reportable 08/14/23 15:00 Urine Bacteria Trace /hpf (NONE) 08/14/23 15:00 Hyaline Casts 0-4 /lpf H 08/14/23 15:00 Fine Granular Casts 0-4 /lpf H 08/14/23 15:00 Adenovirus (PCR) Not detected (NOT DETECT) 08/14/23 15:00 C. pneumoniae DNA (PCR) Not detected (NOT DETECT) 08/14/23 15:00 Coronavirus 229E (PCR) Not detected (NOT DETECT) 08/14/23 15:00 Human Metapneumovir PCR Not detected (NOT DETECT) 08/14/23 15:00 Influenza A (H1) PCR Not detected (NOT DETECT) 08/14/23 15:00 Influ A (H1/09) PCR Not detected (NOT DETECT) 08/14/23 15:00 Influenza A (H3) PCR Not detected (NOT DETECT) 08/14/23 15:00 Influenza Type A (PCR) Not detected (NOT DETECT) 08/14/23 15:00 Influenza Type B (PCR) Not detected (NOT DETECT) 08/14/23 15:00 M. pneumoniae (PCR) Not detected (NOT DETECT) 08/14/23 15:00 Parainfluenza 1 (PCR) Not detected (NOT DETECT) 08/14/23 15:00 Parainfluenza 2 (PCR) Not detected (NOT DETECT) 08/14/23 15:00 Parainfluenza 3 (PCR) Not detected (NOT DETECT) 08/14/23 15:00 Parainfluenza 4 (PCR) Not detected (NOT DETECT) 08/14/23 15:00 RSV Type A (PCR) Not detected (NOT DETECT) 08/14/23 15:00 RSV Type B (PCR) Not detected (NOT DETECT) 08/14/23 15:00 Entero/Rhino (PCR) Not detected (NOT DETECT) 08/14/23 15:00 SARS-CoV-2 (PCR) Not detected (NOT DETECT) 08/14/23 15:00 All radiology interpretation(s) finalized by discharge Discharge Plan Discharge Patient Disposition: Admitted As Inpatient Admit Provider: Jered Rangel Clinical Impression: Acute respiratory failure with hypoxia and hypercapnia, Acute right MCA stroke Condition: Stable Coding Level of Care Code ED [employer] for Jin Ochoa
[2023-08-14 14:23] LABS: ABG PH Result 7.28 (7.35-7.45); Arterial Blood Gas Hematocrit 36.4 % (37-47); Base Excess ABG 12.9 mmol/L (-2.0-2.0); Blood Gas Allen Test Pos; Blood Gas Operator Identificat WALCI; Blood Gas Sample Site Brachial, left; Blood Gas Sample Type Arterial; Carboxyhemoglobin 2.7 %THgb (0.4-20.1); HCO3 ABG 43.4 mmol/L (22-26); HGB O2 Sat 84.2 % (95-100); Ionized Calcium Level - ABG 1.2 mmol/L (1.1-1.4); Methemoglobin 0.4 % (0.4-1.5); Oxygen Device BIPAP; Oxygen Saturation ABG 86.9; PO2 ABG 54.7 mmHg (80.0-100.0); PO2 FiO2 Ratio Arterial Blood 54; Total Hemoglobin 11.9 g/dL (12-16)
[2023-08-14 14:34] LABS: Basophils % 0.3 %; Hematocrit 43.4 % (36-47); Lymphocytes # 0.3 10^3/uL (0.8-4.8); Lymphocytes % 2.1 %; Mean Corpuscular HGB Conc 28.3 g/dL (30-55); Mean Corpuscular Volume 102.4 fl (85-98); Mean Platelet Volume 10.5 fL (7.4-10.4); Monocytes # 0.1 10^3/uL (0.2-0.9); Monocytes % 1.2 %; Neutrophils % 94.8 %; Nucleated Red Blood Cells % 0 %; Platelet Count 198 10^3/cmm (157-399); Red Blood Count 4.24 10^6/uL (3.85-5.65); Red Cell Distribution Width 16.1 % (12.1-15.1); White Blood Count 11.91 10^3/uL (3.29-11.43)
[2023-08-14] MEDS: ipratropium-albuterol 3 mL Neb INHALATION (14:34)
--- NOTE | 2023-08-14 14:52 | PC.PHAR ---
MEDICATIONS VERIFIED VIA PHARMACY WITH FILL DATES AND DAYS SUPPLY.
[2023-08-14] MEDS: dexamethasone 10 mg/mL INJ IM (14:54)
[2023-08-14 15:00] LABS: Lactic Sepsis W/Reflex 1.1 mmol/L (0.5-2.2)
[2023-08-14 15:01] LABS: Troponin(5th) Baseline 32 ng/L (0-10)
--- NOTE | 2023-08-14 15:04 | CTR_ITS ---
PROCEDURE INFORMATION: Exam: CT Head Without Contrast Exam date and time: 08/14/2023 3:32 PM Age: 82 years old Clinical indication: Weakness, extremity; Left; Additional info: Weakness L side TECHNIQUE: Imaging protocol: Computed tomography of the head without contrast. Radiation optimization: All CT scans at this facility use at least one of these dose optimization techniques: automated exposure control; mA and/or kV adjustment per patient size (includes targeted exams where dose is matched to clinical indication); or iterative reconstruction. COMPARISON: CT head wo con* [id number] 07/08/2023 2:06 PM RADIATION DOSE METRICS: Total DLP (mGy-cm): 1116 FINDINGS: Brain: There is diffuse cerebral atrophy and chronic microvascular white matter disease. There is no significant mass effect or midline shift. There is no acute intracranial hemorrhage. There is asymmetric subtle hypodensity and loss of marquez-white differentiation in the posterolateral aspect of the right temporal lobe (see axial series 4, image 25 and coronal series 8, image 32). Cerebral ventricles: There is mild ex vacuo dilation of the lateral ventricles. The basal cisterns are unremarkable. Paranasal sinuses: The paranasal sinuses are clear. Mastoid air cells: The mastoid air cells are clear. Orbital cavities: Mild bilateral proptosis. Bones: The calvarium is intact. Soft tissues: The visible extracranial soft tissues are unremarkable. CT/CT head wo con* [id number] IMPRESSION: 1. Subtle asymmetric hypodensity and loss of marquez-white differentiation without mass effect in the posterolateral right temporal lobe raises suspicion for acute infarction in the posterior right middle cerebral artery territory. 2. No acute intracranial hemorrhage.
[2023-08-14 15:12] LABS: Alanine Aminotransferase 19 U/L (0-33); Albumin Level 3.9 g/dL (3.5-5.2); Alkaline Phosphatase 102 U/L (35-105); Aspartate Amino Transferase 16 U/L (0-32); Blood Urea Nitrogen 21 mg/dL (8-23); Calcium 8.6 mg/dL (8.5-10.5); Chloride 97 mmol/L (98-107); Creatine Phosphokinase 37 U/L (26-192); Globulin 2.3 g/dL (1.3-4.6); Glucose 149 mg/dL (65-115); Lipase 27 U/L (13-60); Magnesium 2.4 mg/dL (1.7-2.3); NT Pro B Type Natriuretic Pept 641 pg/mL (0-450); Osmolality Calculated 306 mOsm/kg (285-295); Sodium 145 mmol/L (136-145); Total Bilirubin 0.4 mg/dL (0.15-1.2); Total Protein 6.2 g/dL (6.6-8.7)
[2023-08-14 15:15] LABS: Anion Gap 12.5 (5-19); Carbon Dioxide 41 mmol/L (22-29); Potassium 5.5 mmol/L (3.5-5.1)
[2023-08-14 15:44] LABS: Add Urine Microscopic? YES; Bilirubin Urine Neg (Negative); Blood Urine Neg (Negative); Glucose Urine UA Norm (Normal); Ketones Urine 1+ (Negative); Nitrate Urine Negative (Negative); Protein Urine Neg (Negative); Urine Appearance Slightly Cloudy (CLEAR); Urine Color Yellow (Yellow); Urobilinogen Urine Norm (Negative); pH Urine 5 (5-7)
[2023-08-14 15:45] LABS: Bacteria Urine TRACE /hpf; Fine Granular Casts Urine 0-4 /lpf; Hyaline Casts Urine 0-4 /lpf; Leukocyte Esterase Urine Trace (Negative); RBC Urine 0-4 /hpf (0-2); Squamous Epithelial Cell Urine 0-4 /hpf (0-5)
[2023-08-14 15:46] LABS: Add Urine Culture? No
[2023-08-14 15:48] LABS: Alveolar-Arterial Oxygen Gradi 48.7 mmHg (5-10); Base Excess ABG 12.8 mmol/L (-2.0-2.0); Blood Gas Allen Test Pos; Blood Gas Operator Identificat WALCI; Blood Gas Sample Site Radial, right; Blood Gas Sample Type Arterial; Carboxyhemoglobin 2.5 %THgb (0.4-20.1); HCO3 ABG 42.5 mmol/L (22-26); Ionized Calcium Level - ABG 1.2 mmol/L (1.1-1.4); Methemoglobin 0.5 % (0.4-1.5); Oxygen Device BIPAP; Oxygen Saturation ABG 89.7; PO2 ABG 58.3 mmHg (80.0-100.0); PO2 FiO2 Ratio Arterial Blood 77; Potassium Level - ABG 4.9 mmol/L (3.5-5.0); Total Hemoglobin 11.4 g/dL (12-16)
[2023-08-14 15:49] LABS: ABG PCO2 87.3 mmHg (35-45)
[2023-08-14] MEDS: cefTRIAXone 1,000 MG in sodium chloride 0.9% (plus) 50 ML 100 MG IV (16:08)
[2023-08-14] MEDS: calcium chloride 10% Syr 10 mL 1 GM IVP (16:08)
--- NOTE | 2023-08-14 16:20 | ECG_ITS ---
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 Measurements Intervals [place] Rate: 65 P: 55 MN: 166 QRS: 31 QRSD: 88 T: 44 QT: 372 QTc: 389 Interpretive Statements SINUS RHYTHM Compared to ECG 08/14/2023 14:18:41 No significant changes Electronically Signed On 08-14-2023 22:15:30 CDT by Caleb Britt M.D. [email or web address] [id number]
[2023-08-14 16:43] LABS: Troponin 5 2HR 29.56 ng/L (0-10)
[2023-08-14 16:44] LABS: Troponin 5 2HR Delta -2.44 ABS# (0-10)
[2023-08-14 17:30] LABS: Adenovirus Not Detected (NOT DETECT); Chlamydia Pneumoniae Not Detected (NOT DETECT); Coronavirus 229E,HKU1,NL63,OC4 Not Detected (NOT DETECT); Human Metapneumovirus Not Detected (NOT DETECT); Human Rhinovirus/Enterovirus Not Detected (NOT DETECT); Influenza A Not Detected (NOT DETECT); Influenza A H1 Not Detected (NOT DETECT); Influenza A H1-2009 Not Detected (NOT DETECT); Influenza A H3 Not Detected (NOT DETECT); Influenza B Not Detected (NOT DETECT); Mycoplasma Pneumoniae Not Detected (NOT DETECT); Parainfluenza Virus Type 1 Not Detected (NOT DETECT); Parainfluenza Virus Type 2 Not Detected (NOT DETECT); Parainfluenza Virus Type 3 Not Detected (NOT DETECT); Parainfluenza Virus Type 4 Not Detected (NOT DETECT); Respiratory Syncytial Virus A Not Detected (NOT DETECT); Respiratory Syncytial Virus B Not Detected (NOT DETECT); SARS-COV-2 Not Detected (NOT DETECT)
--- NOTE | 2023-08-14 17:55 | P.HP_ITS ---
Providers/Chief Complaint 2 Admitting Physician: Jered Rangel MD Primary Care Provider: Traci Prakash MD Chief Complaint: Resp Distress History of Present Illness Yulissa Goddard is a 82 year old female chronic respiratory failure/hypoxic/hypercapnic, on home trilogy machine, history of hypertension, history of COPD, history of GI bleed, who presents [facility] due to unresponsive episode, concerns for left-sided facial droop. Currently patient is alert oriented x 0, with sternal rub, she does awaken, at times she will follow-up my commands such as wiggling her toes, bilaterally, or squeezing my fingers bilateral arms, but beyond that she does not follow any other commands or provide any has history. I had a family meeting with her children at bedside, patient has a history of hypoxic hypercarbic respiratory failure she is compliant with a home trilogy machine, family is concerned that her home trilogy machine might be having issues as the flow is too strong for her, they tell me that at times intermittently that during the day Yulissa's O2 saturations drop into the low 50s without any good explanation. But beyond that she has been doing her regular self, they have noticed at times she has had some degree of a left facial droop, but not as pronounced as today. Her last known well normal was 940pm 08/13/2023 last night, when her son called her and everything was within normal limits he tells me no slurring of her words, and she was behaving appropriately. This morning her daughter came in to check up on her, and she was acting confused, not her normal self, difficult to arouse, so they were worried about her having hypercarbic respiratory failure but they had noticed specifically the sons at bedside notices he has a significant left facial droop, which they would say is new, she has not had any falls, or complaints of any lower extremity weakness to their knowledge. I had a detailed discussion with patient's family about patient's CAT scan results,findings are concerning for subacute stroke involving the posterior right middle cerebral artery, with her global encephalopathy currently, and hypercarbic respiratory failure is very difficult to gauge her NIH stroke scale, given her global encephalopathy, but unfortunate she is out of the window for any acute intervention such as tPA, or any endovascular procedure, she is a DNR/DNI, patient's family tells me that patient has made it clear to her family that she does not want to be resuscitated, she does not want to be intubated, family was tell me that when the ambulance was loading her up, she was refusing to go to the hospital, with her respiratory failure, will have to watch her closely in the ICU continue BiPAP therapy, have her blow off the CO2, but she is requiring 70% FiO2 which is new, we will have to monitor her, continue broad-spectrum antibiotic therapy, steroid therapy and give her time, in terms of her stroke will order CTA head and neck, eventually will order an MRI once her clinical condition improves, currently her condition is critical, prognosis is guarded, they voiced understanding, all questions answered, Review of Systems 2 General: Reports: ROS unobtainable due to medical condition and ROS unobtainable due to mental status Medications/Allergies Home Medications Medication Instructions Recorded Confirmed Last Taken Type albuterol sulfate 90 mcg/actuation 2 puff inhalation QID PRN 02/13/19 08/14/23 Unknown History aerosol inhaler (Ventolin HFA) Shortness Of Breath vit no.95-ferrous 1 tab PO QAM 03/26/20 08/14/23 07/08/23 History fumarate 28 mg-folic acid 800 mcg tablet ( Multivitamins) lisinopril 20 mg tablet 20 mg PO DAILY #60 tabs 02/07/23 08/14/23 07/08/23 Rx amlodipine 10 mg tablet 10 mg PO DAILY #60 tabs 02/26/23 08/14/23 07/08/23 Rx furosemide 20 mg tablet (Lasix) 20 mg PO DAILY PRN Only when he 03/15/23 08/14/23 07/08/23 Rx noticed fluid weight gain more than 3 pounds in #30 tabs potassium chloride 10 mEq 10 meq PO DAILY PRN Only when you 03/15/23 08/14/23 Unknown Rx tablet,extended release take Lasix #10 tabs fluticasone fur. 200 mcg-umeclid 1 inh inhalation DAILY #60 ea 07/11/23 08/14/23 Unknown Rx 62.5 mcg-vilant 25 mcg inhalat.powder (Trelegy Ellipta) Allergies Allergy/AdvReac Type Severity Reaction Status Date / Time No Known Allergies Allergy Verified 03/22/23 08:29 PFSH Acute 2 PFSH: Medical History (Updated 08/14/23 @ 18:10 by Jered Rangel MD) Hyperkalemia UTI (urinary tract infection) Acute hyperkalemia History of GI bleed Hypertension Perforated gastric ulcer Acute hypernatremia Lactic acidosis ARF (acute renal failure) Septic shock Bowel perforation Fracture of distal end of femur Acute kidney injury superimposed on chronic kidney disease Metabolic encephalopathy Hypovolemic shock Acute cystitis Weakness Anemia End stage COPD Pulmonary nodule Adrenal mass, left Acute exacerbation of CHF (congestive heart failure) Leg fracture, right Acute and chronic respiratory failure with hypercapnia Leukocytosis Closed fracture of distal end of femur Anemia Intertrochanteric fracture of right hip Hypercapnic respiratory failure End stage COPD Anemia Vitamin C deficiency Cellulitis Low TSH level Depression Edema Heart murmur Hip pain, left Hypercholesteremia Elevated serum glucose Hypoxic Macrocytosis Nasal congestion Osteoporosis Emphysema lung COPD (chronic obstructive pulmonary disease) Sciatica Seasonal allergies Shoulder pain, left Vitamin D deficiency Shoulder fracture, left Surgical History Postoperative state History of left hip replacement Hx of cataract surgery Family History Mother Cancer Breast Father Cancer Heart disease Sister Cancer Grandmother Hypertension Heart disease Aneurysm Brother Heart disease Myocardial infarct Aneurysm Family/Other Heart disease Bipolar 1 disorder Grandfather Heart disease Social History Smoking and tobacco/nicotine status: former use of tobacco/nicotine Quit status (tobacco/nicotine): has quit using Year quit tobacco: 2013 - 1.5 PPD x 60 Years Alcohol intake: never Substance/Drug Use: never Household members: none Marital status: / Number of children: 4 Current occupational status: retired Do you think of yourself as: Straight/Heterosexual Current gender identity: Female Vitals/I&O/Wt Last Vital Signs Temp 97.6 F 08/14/23 14:17 Pulse 72 08/14/23 17:30 Resp 17 08/14/23 17:30 BP 107/51 08/14/23 17:30 Pulse Ox 98 08/14/23 17:30 O2 Del Method BiPAP 08/14/23 15:45 FiO2 75 08/14/23 15:58 Weight last 48 hrs Weight 75.296 kg Physical Exam 2 Const: COMMON NORMALS: no acute distress EXAM LIMITATIONS: altered mental status GENERAL APPEARANCE: ill appearing and frail appearing O RIENTATION/CONSCIOUSNESS: Yes awake, Yes patient obtunded and Yes lethargic; not oriented to person, not oriented to place and not oriented to time Eye: COMMON NORMALS: Equal, round and reactive pupils present Neck/C-Spine: COMMON NORMALS: full ROM Resp: COMMON NORMALS: normal respiratory effort, No retractions, No use of accessory muscles and clear to auscultation bilaterally AUSCULTATION: c rackles and wheezes Cardio: COMMON NORMALS: regular rate, regular rhythm, S1 normal heart sound present and S2 normal heart sound present RATE: regular rate RHYTHM: r egular rhythm HEART SOUNDS: S1 normal heart sound present and S2 normal heart sound present GI: COMMON NORMALS: Normal to inspection, nondistended, normoactive bowel sounds present, Soft to palpation and non-tender Extremity: COMMON NORMALS: no pedal edema Neuro: OTHER: Left facial droop, does not follow extensive neurologic testing, after extensive sternal rub, the most I got her to do was wiggle her toes, squeeze my fingers bilaterally, strength seems equal bilaterally, Urinary Catheter Management: Gipson: Cath Placed During This Visit: yes Urinary Catheter Date of Insertion: 08/14/23 Urinary Catheter Time of Insertion: 15:05 Data 08/14/23 14:25 08/14/23 14:25 Micro: Microbiology 08/14/23 12:45 Blood Culture - Preliminary Blood SPECIMEN COLLECTED 08/14/23 14:38 Blood Culture - Preliminary Blood SPECIMEN COLLECTED A&P Assessment and plan (1) Acute encephalopathy: (2) Acute right MCA stroke: (3) History of GI bleed: (4) Acute exacerbation of chronic obstructive airways disease: (5) Acute respiratory failure with hypoxia and hypercapnia: (6) Hyperkalemia: (7) NSTEMI (non-ST elevated myocardial infarction): (8) Aspiration pneumonia: Plan Acute encephalopathy ? Multifactorial ? Secondary to UTI ? Hypercarbia ? Subacute right posterior MCA CVA ? Neurochecks ? Aspiration precautions ? N/A stroke scale Acute posterior right middle cerebral artery CVA CT scan findings are concerning for subacute stroke involving the posterior right middle cerebral artery ? NIH stroke scale is difficult to assess given her global encephalopathy ? Last known known well normal was 9:40 PM 08/13/2023 ? Out of the window for any acute intervention tPA, endovascular procedure ? Plan ? CTA head and neck ? IV fluids ? Aspirin -allow for permissive HTN, treat SBP if >220 or DBP>110 ? Monitor mentation closely ? Stroke scale ? Once mentation improves, PT OT, speech therapy eval ? Monitor mentation closely Acute hypoxic hypercarbic respiratory failure ? Hypoxic requiring 70% on BiPAP, hypercarbic ? Given her acute MCA as above, concern for possible aspiration pneumonia, aspiration pneumonitis ? Plan ? Continue broad-spectrum antibiotic therapy, Rocephin, azithromycin ? Solu-Medrol ? DuoNeb ? Budesonide ? Monitor respiratory status closely - patient is DNR/DNI Aspiration pneumonia/aspiration pneumonitis ? Given patient's CT evidence of CVA, her encephalopathy, concerns for aspiration event, given her significant hypoxia at 70% BiPAP Keep n.p.o. ? IV antibiotics as above Hyperkalemia, 5.5, recheck potassium in evening NSTEMI ? Type I versus type II -Continue to monitor status critical, prognosis guarded ? DNR/DNI ? Lovenox for DVT prophylaxis Attestations 2 Medical Necessity Statement*: Patient requires hospitalization, inpatient, greater than 2 midnights, for acute hypoxic respiratory failure, acute hypercarbic respiratory failure, hyperkalemia, acute CVA, acute encephalopathy, Coding Level of Care Code Critical Care >/= 30 minutes Critical care time (in minutes): 50 Diagnoses Acute encephalopathy G93.40 Acute right MCA stroke I63.511 History of GI bleed Z87.19 Acute exacerbation of chronic obstructive airways disease J44.1 Acute respiratory failure with hypoxia and hypercapnia J96.01; J96.02 Hyperkalemia E87.5 NSTEMI (non-ST elevated myocardial infarction) I21.4 Aspiration pneumonia J69.0
--- NOTE | 2023-08-14 17:55 | CTR_ITS ---
PROCEDURE INFORMATION: Exam: CTA Head With Contrast, Arteriography Exam date and time: 08/14/2023 6:25 PM Age: 82 years old Clinical indication: Other: Right mca CVA TECHNIQUE: Imaging protocol: Computed tomographic angiography of the head with contrast. Exam focused on the arteries. 3D rendering (Not supervised by radiologist): MIP and/or 3D reconstructed images were created by the technologist. Radiation optimization: All CT scans at this facility use at least one of these dose optimization techniques: automated exposure control; mA and/or kV adjustment per patient size (includes targeted exams where dose is matched to clinical indication); or iterative reconstruction. Contrast material: OMNI 350; Contrast volume: 100 ml; Contrast route: INTRAVENOUS (IV); COMPARISON: CT head wo con* [id number] 08/14/2023 3:32 PM RADIATION DOSE METRICS: Total DLP (mGy-cm): 470 FINDINGS: ANTERIOR CIRCULATION: Right internal carotid artery: There is mild calcific plaque in the cavernous portion of the right internal carotid artery without significant stenosis. Right middle cerebral artery: No occlusion or significant stenosis. No aneurysm. Right anterior cerebral artery: No occlusion or significant stenosis. No aneurysm. Left internal carotid artery: There is mild calcific plaque in the cavernous portion of the left internal carotid artery without significant stenosis. Left middle cerebral artery: No occlusion or significant stenosis. No aneurysm. Left anterior cerebral artery: No occlusion or significant stenosis. No aneurysm. POSTERIOR CIRCULATION: Right vertebral artery: No occlusion or significant stenosis. No aneurysm. Left vertebral artery: No occlusion or significant stenosis. No aneurysm. Basilar artery: No occlusion or significant stenosis. No aneurysm. Right posterior cerebral artery: No occlusion or significant stenosis. No aneurysm. Left posterior cerebral artery: No occlusion or significant stenosis. No aneurysm. Veins: Dural venous sinuses are patent. Brain: There is no significant mass effect or midline shift. No pathologic enhancement of the brain. Cerebral ventricles: There is mild ex vacuo dilation of the lateral ventricles. The basal cisterns are unremarkable. Mastoid air cells: The mastoid air cells are clear. Paranasal sinuses: The paranasal sinuses are clear. Bones/joints: The calvarium is intact. Soft tissues: Unremarkable. PROCEDURE INFORMATION: Exam: CTA Neck With Contrast Exam date and time: 08/14/2023 6:25 PM Age: 82 years old Clinical indication: Other: Right mca CVA TECHNIQUE: Imaging protocol: Computed tomographic angiography of the neck with contrast. Exam focused on the cervical segments of the vasculature. 3D rendering (Not supervised by radiologist): MIP and/or 3D reconstructed images were created by the technologist. Radiation optimization: All CT scans at this facility use at least one of these dose optimization techniques: automated exposure control; mA and/or kV adjustment per patient size (includes targeted exams where dose is matched to clinical indication); or iterative reconstruction. Contrast material: OMNI 350; Contrast volume: 100 ml; Contrast route: INTRAVENOUS (IV); COMPARISON: CT angio chest PE protcl [id number] 02/05/2023 4:33 PM RADIATION DOSE METRICS: Total DLP (mGy-cm): 470 FINDINGS: Right common carotid artery: There is mild calcific plaque at the origin of the right common carotid artery without significant stenosis. Right internal carotid artery: There is moderate calcific plaque at the origin of the right internal carotid artery with less than 50% stenosis. Right external carotid artery: There is marked calcific plaque with high-grade stenosis at the origin of the right external carotid artery. Left common carotid artery: There is mild calcific plaque at the origin and in the midportion of left common carotid artery without significant stenosis. Left internal carotid artery: There is moderate calcific plaque at the origin of the left internal carotid artery with less than 50% stenosis. Left external carotid artery: There is less than 50% stenosis of the left external carotid artery origin. Right vertebral artery: There is calcific plaque at the right vertebral artery origin which is partially obscured by adjacent dense venous contrast. The right vertebral artery is normal distally. Left vertebral artery: No stenosis in the left vertebral artery. Right subclavian artery: The right subclavian artery is partially obscured by adjacent dense venous contrast. Other arteries: There is moderate calcific plaque with less than 50% stenosis in right innominate artery proximal to the origin of right common carotid artery. Soft tissues: Soft tissues in the neck and thoracic inlet are unremarkable. Bones/joints: There is mild degenerative disease in the cervical spine. Lungs: There is a spiculated 21 x 17 mm pulmonary nodule in the right upper lobe on axial series 4, image 21. There is centrilobular emphysema in the visible portions of the upper lungs. Pleural spaces: Left pleural effusion is partially imaged. CT/CT angio headneck* [id number] IMPRESSION: No arterial stenosis, occlusion or aneurysm. IMPRESSION: 1. No arterial occlusion. 2. Less than 50% stenosis of the internal carotid artery origins bilaterally. 3. Possible hemodynamically significant stenosis of the right vertebral artery origin which is largely obscured. Right vertebral artery is normal distally. 4. Marked calcific plaque and possible hemodynamically significant stenosis of the proximal left subclavian artery which is partially obscured proximal to the vertebral artery origin. 5. High-grade stenosis at the origin of the right external carotid artery. 6. Spiculated 21 mm nodule in the right upper lobe. Possible malignant neoplasm. No change since 02/22/2023. Consider non-emergent PET/CT or tissue sampling.(Reference: Tod) 7. Incidental findings above. REFERENCES: 1. Tod Mcghee, et al. Guidelines for Management of Incidental Pulmonary Nodules Detected on CT Images: From the Fleischner Society 2017. Radiology. 2017;284(1):228-243. 2. NASCET CRITERIA. The degree of stenosis in the cervical segment of the internal carotid artery is based on NASCET criteria. Normal is no stenosis. Mild is less than 50% stenosis. Moderate is 50-69% stenosis. Severe is 70% to 99% stenosis. Total occlusion is no detectable patent lumen.
[2023-08-14] MEDS: iohexol 350 mg/mL 500 mL Btl (per mL) IV (18:30)
[2023-08-14 19:19] LABS: Procalcitonin 0.14 ng/mL (0-0.5)
[2023-08-14 20:16] LABS: Troponin 5 6HR 26.52 ng/L (0-10)
[2023-08-14 20:20] LABS: Troponin 5 6HR Delta -5.48 ng/L (0-12)
--- NOTE | 2023-08-14 20:20 | ECG_ITS ---
[facility] Test Date: 2023-08-14 Pat Name: Yulissa Goddard Department: Room: EDIP Gender: Female [employer]: : 1940 Requested By: Joey Zamora Order Number: [id number] Sara MD: Caleb Britt M.D. Measurements Intervals [place] Rate: 64 P: 62 WV: 174 QRS: 9 QRSD: 82 T: 49 QT: 380 QTc: 394 Interpretive Statements SINUS RHYTHM Compared to ECG 08/14/2023 16:19:04 No significant changes Electronically Signed On 08-14-2023 22:16:34 CDT by Caleb Britt M.D. [email or web address] [email or web address] [email or web address] [id number]
[2023-08-14 20:42] LABS: Anion Gap 12.6 (5-19); Blood Urea Nitrogen 23 mg/dL (8-23); Calcium 9.2 mg/dL (8.5-10.5); Carbon Dioxide 38 mmol/L (22-29); Chloride 99 mmol/L (98-107); Glucose 130 mg/dL (65-115); Osmolality Calculated 303 mOsm/kg (285-295); Potassium 5.6 mmol/L (3.5-5.1); Sodium 144 mmol/L (136-145)
[2023-08-14 22:08] LABS: ABG PH Result 7.26 (7.35-7.45); Arterial Blood Gas Hematocrit 34.1 % (37-47); Base Excess ABG 12.2 mmol/L (-2.0-2.0); Blood Gas Allen Test Pos; Blood Gas Sample Type Arterial; Carboxyhemoglobin 1.8 %THgb (0.4-20.1); HCO3 ABG 42.4 mmol/L (22-26); HGB O2 Sat 95.6 % (95-100); Ionized Calcium Level - ABG 1.3 mmol/L (1.1-1.4); Methemoglobin 0.3 % (0.4-1.5); Oxygen Saturation ABG 97.7; PO2 ABG 90.6 mmHg (80.0-100.0); Potassium Level - ABG 5.4 mmol/L (3.5-5.0); Total Hemoglobin 11.1 g/dL (12-16)
[2023-08-14 22:09] LABS: Alveolar-Arterial Oxygen Gradi 43.5 mmHg (5-10); Blood Gas Operator Identificat CL; Blood Gas Sample Site Radial, right; Oxygen Device BIPAP; PO2 FiO2 Ratio Arterial Blood 120
[2023-08-14 22:12] LABS: ABG PCO2 93.9 mmHg (35-45)
[2023-08-14] MEDS: aspirin 300 mg Supp PR (23:15)
--- NOTE | 2023-08-14 23:30 | PC.NURSE ---
Family requested for Alesha Dc [phone] to recieve information.
[2023-08-14] MEDS: azithromycin 500 MG in sodium chloride 0.9% 250 ML 250 MG IV (23:47)
[2023-08-14] MEDS: pantoprazole 40 mg SDV IVP (23:47)
[2023-08-14 23:48] LABS: Thyroid Stimulating Hormone 0.49 uIU/mL (0.27-4.20)
[2023-08-14] MEDS: enoxaparin 40 mg/0.4 mL Syringe SUBCUT (23:48)
[2023-08-14] MEDS: sodium chloride 0.9% 1,000 ML 100 ML IV (23:48)
[2023-08-15] VITALS (69 sets, daily range): BP systolic 79–156; BP diastolic 35–83; PULSE 63–150; RESP 12–50; TEMP 36.3–37; O2SAT 72–100; BMI 27.1
[2023-08-15] MEDS: ipratropium-albuterol 3 mL Neb INHALATION ×6 (04:31→23:54)
[2023-08-15 05:07] LABS: Basophils % 0.3 %; Hematocrit 37.7 % (36-47); Lymphocytes # 0.4 10^3/uL (0.8-4.8); Lymphocytes % 5.3 %; Mean Corpuscular HGB Conc 28.6 g/dL (30-55); Mean Corpuscular Hemoglobin 29.4 pg (27-33); Mean Corpuscular Volume 102.7 fl (85-98); Mean Platelet Volume 10.8 fL (7.4-10.4); Monocytes # 0.1 10^3/uL (0.2-0.9); Monocytes % 1.8 %; Neutrophils # 6.65 10^3/uL (1.8-7.7); Neutrophils % 91.2 %; Nucleated Red Blood Cells % 0 %; Platelet Count 181 10^3/cmm (157-399); Red Blood Count 3.67 10^6/uL (3.85-5.65); Red Cell Distribution Width 15.5 % (12.1-15.1); White Blood Count 7.29 10^3/uL (3.29-11.43)
[2023-08-15 05:27] LABS: Anion Gap 10.5 (5-19); Blood Urea Nitrogen 25 mg/dL (8-23); Carbon Dioxide 40 mmol/L (22-29); Chloride 101 mmol/L (98-107); Creatinine Clr Calc Pharmacy 50.2016; Glucose 117 mg/dL (65-115); Magnesium 2.4 mg/dL (1.7-2.3); Osmolality Calculated 307 mOsm/kg (285-295); Potassium 5.5 mmol/L (3.5-5.1); Sodium 146 mmol/L (136-145)
[2023-08-15 06:31] LABS: PO2 ABG 63.3 mmHg (80.0-100.0)
[2023-08-15 06:32] LABS: Base Excess ABG 11.4 mmol/L (-2.0-2.0); Oxygen Saturation ABG 92.7; Potassium Level - ABG 5.1 mmol/L (3.5-5.0)
[2023-08-15] MEDS: methylPREDNISolone sod succ 40 mg/mL INJ IVP ×3 (06:32→21:30)
[2023-08-15 06:33] LABS: PO2 FiO2 Ratio Arterial Blood 92.4
[2023-08-15 06:36] LABS: Carboxyhemoglobin 1.5 %THgb (0.4-20.1)
[2023-08-15 06:46] LABS: ABG PH Result 7.32 (7.35-7.45); Alveolar-Arterial Oxygen Gradi 30.7 mmHg (5-10); Arterial Blood Gas Hematocrit 33.8 % (37-47); Blood Gas Allen Test Pos; Blood Gas Sample Site Brachial, left; Blood Gas Sample Type Arterial; HCO3 ABG 40.2 mmol/L (22-26); HGB O2 Sat 92.4 % (95-100); Ionized Calcium Level - ABG 1.2 mmol/L (1.1-1.4); Methemoglobin < 0.0 % (0.4-1.5); Oxygen Device BIPAP
[2023-08-15 06:51] LABS: ABG PCO2 78.2 mmHg (35-45)
[2023-08-15] MEDS: budesonide 0.5 mg/2 mL Neb INHALATION ×2 (08:26→19:57)
[2023-08-15] MEDS: sodium polystyrene sulfonate 15 gm/60 mL Btl PO (08:44)
--- NOTE | 2023-08-15 09:21 | USCV_ITS ---
Yulissa Goddard Age: 82 Gender: F : 1940 Exam Date: 08/15/2023 10:07 Ordering Phys: Jered Rangel MD Technologist: Exam Location: [facility] [place] Indication: Chest pain sob BP: 89 / 40 HR: 101 Rhythm: Sinus Technical Quality: Adequate MEASUREMENTS (Male / Female) Normal Values 2D ECHO LV Diastolic Diameter PLAX 4.0 cm 4.2 - 5.9 / 3.9 - 5.3 cm IVS Diastolic Thickness 1.0 cm 0.6 - 1.0 / 0.6 - 0.9 cm IVS Systolic Thickness 1.3 cm LVPW Diastolic Thickness 1.2 cm 0.6 - 1.0 / 0.6 - 0.9 cm LVPW Systolic Thickness 1.4 cm LVOT Diameter 2.0 cm LV Ejection Fraction 2D Teich 57.9 % LV Ejection Fraction MOD 2C 74.2 % LV Ejection Fraction 2C AL 75.2 % LA Diameter 3.3 cm RA Systolic Volume 4C AL 40.7 ml RA Systolic Volume 4C MOD 38.8 ml Aorta at Sinotubular Diameter 2.4 cm M-MODE LA Ao Ratio MM 1.4 AV Cusp Separation MM 2.4 cm DOPPLER AV Peak Velocity 172.0 cm/s LVOT Peak Velocity 123.0 cm/s AV Area Cont Eq vti 2.4 cm squared AV Area Cont Eq pk 2.2 cm squared MV Peak Velocity 150.0 cm/s MV Area PHT 2.9 cm squared Mitral E to A Ratio 0.6 TV Peak Velocity 161.0 cm/s TR Peak Velocity 182.0 cm/s TR Peak Gradient 13.2 mmHg TV Peak E Velocity 53.0 cm/s Right Atrial Pressure 3.0 mmHg Pulmonary Artery Systolic Pressu 16.2 mmHg PV Peak Velocity 130.0 cm/s FINDINGS Left Ventricle Right Ventricle Right Atrium Left Atrium Mitral Valve Aortic Valve Tricuspid Valve Pulmonic Valve Pericardium Aorta IVC CONCLUSIONS There are no images to review for this ultrasound examination. Dr. Zuhair Orlando MD (Electronically Signed) Final Date: 15 August 2023 19:24 S
--- NOTE | 2023-08-15 09:45 | PC.SOCIAL ---
IMM Update Pg. 2 of IMM updated and reviewed with patient, who verbalized understanding. Copy provided.
[2023-08-15] MEDS: aspirin 300 mg Supp PR (09:48)
[2023-08-15] MEDS: sodium chloride 0.9% 1,000 ML 30 ML IV (10:33)
[2023-08-15 13:47] LABS: Blood Urea Nitrogen 30 mg/dL (8-23); Calcium 8.8 mg/dL (8.5-10.5); Carbon Dioxide 34 mmol/L (22-29); Chloride 102 mmol/L (98-107); Creatinine Clr Calc Pharmacy 41.0741; Glucose 143 mg/dL (65-115); Osmolality Calculated 311 mOsm/kg (285-295); Sodium 146 mmol/L (136-145)
--- NOTE | 2023-08-15 14:41 | PC.NURSE ---
250 ml NS bolus started at this time per Dr. Rangel. Pt unable to tolerate trendelenburg.
[2023-08-15] MEDS: sodium chloride 0.9% 250 ML IV (14:44)
--- NOTE | 2023-08-15 14:51 | P.PN_ITS ---
Subjective 2 Subjective: Patient was seen this morning, daughter is at bedside, on examination she is able to follow all commands alert oriented x 2, no slurring of her words, she does have persistent slight left facial droop, does have slight left upper extremity weakness, but no trouble coordinating, no significant difference in bilateral lower extremity weakness, it is difficult to do full neurologic testing as she is BiPAP dependent, this morning she is on 40% FiO2, she tells me that she is very hungry she wants to eat, I discussed with her that given her respiratory failure we took her off BiPAP for a few minutes to give her the Kayexalate, however she was significant short of breath requiring BiPAP to be immediately placed back, I am also worried about her respiratory failure , I am concerned that with her unresponsive episode, stroke, she aspirated, will have speech therapy see her, nonetheless I will likely keep her n.p.o. for the next 24 hours to have speech therapy reassess her in 24 hours, until her mentation is back to baseline, and her respiratory status improved will keep her n.p.o. but will consider giving her sips and chips Vitals/I&O/Wt Last Vital Signs Temp 98.5 F 08/15/23 12:00 Pulse 83 08/15/23 14:40 Resp 16 08/15/23 12:00 BP 79/38 08/15/23 14:40 Pulse Ox 99 08/15/23 12:00 O2 Del Method BiPAP 08/15/23 12:00 FiO2 45 08/15/23 12:00 08/14/23 08/15/23 08/15/23 22:59 06:59 14:59 Intake Total 1259 / 1259 Output Total 825 / 825 Balance -825 / -825 1259 / 1259 Weight last 48 hrs Weight 73.964 kg Weight 73.964 kg Weight 75.296 kg Physical Exam 2 Const: COMMON NORMALS: no acute distress and patient oriented x3 HENMT: COMMON NORMALS: normocephalic HEAD & SCALP: normocephalic Resp: COMMON NORMALS: normal respiratory effort, No retractions, No use of accessory muscles and clear to auscultation bilaterally AUSCULTATION: clear to auscultation bilaterally Cardio: COMMON NORMALS: regular rate, regular rhythm, S1 normal heart sound present and S2 normal heart sound present RATE: regular rate RHYTHM: r egular rhythm HEART SOUNDS: S1 normal heart sound present and S2 normal heart sound present GI: COMMON NORMALS: Normal to inspection, nondistended, normoactive bowel sounds present and non-tender Extremity: COMMON NORMALS: no pedal edema Neuro: COMMON NORMALS: patient oriented x3, CN's II-XII intact bilaterally and moves all extremities Psych: COMMON NORMALS: mental status grossly normal Urinary Catheter Management: Gispon: Cath Placed During This Visit: yes Reason for Continuing Indwelling Catheter: Accurate Measurement of Urinary Output in Critically Ill Patients Urinary Catheter Date of Insertion: 08/14/23 Urinary Catheter Time of Insertion: 15:05 Data 08/15/23 03:49 08/15/23 13:02 Micro: Microbiology 08/14/23 12:45 Blood Culture - Preliminary Blood NEGATIVE TO DATE 08/14/23 14:38 Blood Culture - Preliminary Blood NEGATIVE TO DATE A&P Assessment and plan (1) Acute encephalopathy: (2) Acute right MCA stroke: (3) History of GI bleed: (4) Acute exacerbation of chronic obstructive airways disease: (5) Acute respiratory failure with hypoxia and hypercapnia: (6) Hyperkalemia: (7) NSTEMI (non-ST elevated myocardial infarction): (8) Aspiration pneumonia: Plan Acute encephalopathy, resolving ? Multifactorial ? Secondary to UTI ? Hypercarbia ? Subacute right posterior MCA CVA ? Neurochecks ? Aspiration precautions ? N/A stroke scale Acute posterior right middle cerebral artery CVA CT scan findings are concerning for subacute stroke involving the posterior right middle cerebral artery ? NIH stroke scale is difficult to assess given her global encephalopathy ? Last known known well normal was 9:40 PM 08/13/2023 ? Out of the window for any acute intervention tPA, endovascular procedure ? Plan ? CTA head and neck IMPRESSION: 1. No arterial occlusion. 2. Less than 50% stenosis of the internal carotid artery origins bilaterally. 3. Possible hemodynamically significant stenosis of the right vertebral artery origin which is largely obscured. Right vertebral artery is normal distally. 4. Marked calcific plaque and possible hemodynamically significant stenosis of the proximal left subclavian artery which is partially obscured proximal to the vertebral artery origin. 5. High-grade stenosis at the origin of the right external carotid artery. 6. Spiculated 21 mm nodule in the right upper lobe. Possible malignant neoplasm. No change since 02/22/2023. Consider non-emergent PET/CT or tissue sampling.(Reference: Tod) 7. Incidental findings above. ? Discontinue IV fluids due to risk of fluid overload ? Aspirin -allow for permissive HTN, treat SBP if >220 or DBP>110 ? Monitor mentation closely ? Stroke scale ? Once mentation improves, PT OT, speech therapy eval ? Monitor mentation closely Acute hypoxic hypercarbic respiratory failure ? Hypoxic requiring 40% on BiPAP, hypercarbic ? Given her acute MCA as above, concern for possible aspiration pneumonia, aspiration pneumonitis ? Plan ? Continue broad-spectrum antibiotic therapy, Rocephin, azithromycin ? Solu-Medrol ? DuoNeb ? Budesonide ? Monitor respiratory status closely - patient is DNR/DNI Aspiration pneumonia/aspiration pneumonitis ? Given patient's CT evidence of CVA, her encephalopathy, concerns for aspiration event, given her significant hypoxia at 40% BiPAP Keep n.p.o. ? IV antibiotics as above Hyperkalemia, 5.5, recheck potassium in evening NSTEMI ? Type I versus type II -Continue to monitor status stable, prognosis guarded ? DNR/DNI ? Lovenox for DVT prophylaxis Plan for today, speech therapy eval, continue BiPAP therapy continue antibiotics, continue steroids, monitor respiratory status closely Attestations 2 Medical Necessity Statement*: Patient requires hospitalization for acute hypoxic hypercarbic respiratory failure secondary to aspiration pneumonia aspiration pneumonitis Diagnoses Acute encephalopathy G93.40 Acute right MCA stroke I63.511 History of GI bleed Z87.19 Acute exacerbation of chronic obstructive airways disease J44.1 Acute respiratory failure with hypoxia and hypercapnia J96.01; J96.02 Hyperkalemia E87.5 NSTEMI (non-ST elevated myocardial infarction) I21.4 Aspiration pneumonia J69.0
[2023-08-15] MEDS: cefTRIAXone 1,000 mg SDV 1000 MG IVP (15:21)
[2023-08-15] MEDS: albumin 12.5 GM/50 ML VIAL IV (15:41)
[2023-08-15] MEDS: midodrine 5 mg TABLET 10 MG PO ×2 (15:41→21:30)
[2023-08-15 15:56] LABS: Basophils % 0.1 %; Lymphocytes # 0.2 10^3/uL (0.8-4.8); Lymphocytes % 1.9 %; Mean Corpuscular HGB Conc 29.4 g/dL (30-55); Mean Corpuscular Hemoglobin 29.8 pg (27-33); Mean Corpuscular Volume 101.2 fl (85-98); Mean Platelet Volume 10.3 fL (7.4-10.4); Monocytes # 0.2 10^3/uL (0.2-0.9); Monocytes % 2.3 %; Neutrophils # 9.38 10^3/uL (1.8-7.7); Neutrophils % 94.9 %; Nucleated Red Blood Cells % 0 %; Platelet Count 164 10^3/cmm (157-399); Red Blood Count 3.26 10^6/uL (3.85-5.65); Red Cell Distribution Width 15.9 % (12.1-15.1); White Blood Count 9.89 10^3/uL (3.29-11.43)
[2023-08-15 16:26] LABS: Troponin T (5th) Once 30 ng/L (0-10)
[2023-08-15 16:35] LABS: Alanine Aminotransferase 13 U/L (0-33); Albumin Level 3.1 g/dL (3.5-5.2); Alkaline Phosphatase 74 U/L (35-105); Anion Gap 11.6 (5-19); Aspartate Amino Transferase 9 U/L (0-32); Blood Urea Nitrogen 31 mg/dL (8-23); Calcium 8.5 mg/dL (8.5-10.5); Carbon Dioxide 38 mmol/L (22-29); Chloride 100 mmol/L (98-107); Cortisol Random 13.04 ug/dL (2.47-19.5); Creatinine Clr Calc Pharmacy 45.1815; Globulin 1.9 g/dL (1.3-4.6); Glucose 173 mg/dL (65-115); Osmolality Calculated 311 mOsm/kg (285-295); Potassium 4.6 mmol/L (3.5-5.1); Sodium 145 mmol/L (136-145); Total Bilirubin 0.2 mg/dL (0.15-1.2)
[2023-08-15 17:16] LABS: Lactic Sepsis W/Reflex 2.7 mmol/L (0.5-2.2)
[2023-08-15 17:41] LABS: Reflex Lactate Order REFLEX LACTIC ORDERD
[2023-08-15 19:10] LABS: Lactic Acid level (Lactate) 1.3 mmol/L (0.5-2.2)
[2023-08-15] MEDS: azithromycin 500 MG in sodium chloride 0.9% 250 ML 250 MG IV (23:49)
[2023-08-15] MEDS: enoxaparin 40 mg/0.4 mL Syringe SUBCUT (23:49)
[2023-08-15] MEDS: pantoprazole 40 mg SDV IVP (23:50)
[2023-08-16] VITALS (51 sets, daily range): BP systolic 100–162; BP diastolic 39–112; PULSE 65–99; RESP 14–29; TEMP 36.2–36.7; O2SAT 92–100; BMI 28.3
[2023-08-16] MEDS: ipratropium-albuterol 3 mL Neb INHALATION ×6 (04:03→23:28)
[2023-08-16 05:27] LABS: Basophils % 0.2 %; Hematocrit 34.1 % (36-47); Lymphocytes # 0.2 10^3/uL (0.8-4.8); Lymphocytes % 1.9 %; Mean Corpuscular Hemoglobin 29.6 pg (27-33); Mean Corpuscular Volume 101.8 fl (85-98); Mean Platelet Volume 10.6 fL (7.4-10.4); Monocytes # 0.2 10^3/uL (0.2-0.9); Monocytes % 1.7 %; Neutrophils # 12.13 10^3/uL (1.8-7.7); Neutrophils % 95.5 %; Nucleated Red Blood Cells % 0 %; Platelet Count 187 10^3/cmm (157-399); Red Blood Count 3.35 10^6/uL (3.85-5.65); Red Cell Distribution Width 16.3 % (12.1-15.1)
[2023-08-16] MEDS: methylPREDNISolone sod succ 40 mg/mL INJ IVP ×3 (05:56→22:37)
[2023-08-16 06:00] LABS: Anion Gap 12.3 (5-19); Blood Urea Nitrogen 30 mg/dL (8-23); Calcium 8.4 mg/dL (8.5-10.5); Carbon Dioxide 37 mmol/L (22-29); Chloride 102 mmol/L (98-107); Glucose 160 mg/dL (65-115); Osmolality Calculated 314 mOsm/kg (285-295); Potassium 4.3 mmol/L (3.5-5.1); Sodium 147 mmol/L (136-145)
[2023-08-16 06:03] LABS: Creatinine Clr Calc Pharmacy 46.1372
[2023-08-16] MEDS: midodrine 5 mg TABLET 10 MG PO ×3 (08:11→20:24)
[2023-08-16] MEDS: budesonide 0.5 mg/2 mL Neb INHALATION ×2 (08:19→19:48)
[2023-08-16] MEDS: aspirin 81 mg EC Tablet PO (11:32)
--- NOTE | 2023-08-16 11:37 | P.PN_ITS ---
Subjective 2 Subjective: patient was seen this morning, shes is alert oriented X3, mild left facial droop, no focal weakness, she is on 40% bipap, family at bedside, would liek to try to eat , she is hungry she says, has a cough Vitals/I&O/Wt Last Vital Signs Temp 97.1 F L 08/16/23 07:18 Pulse 95 08/16/23 11:09 Resp 20 H 08/16/23 11:09 BP 132/66 08/16/23 08:00 Pulse Ox 96 08/16/23 11:09 O2 Del Method Nasal Cannula 08/16/23 11:09 O2 Flow Rate 4 08/16/23 11:09 FiO2 45 08/16/23 08:00 08/15/23 08/16/23 08/16/23 22:59 06:59 14:59 Intake Total 355 / 1614 100 / 100 Output Total 600 / 600 125 / 725 Balance -245 / 1014 -125 / 889 100 / 100 Weight last 48 hrs Weight 77.337 kg Weight 73.964 kg Weight 73.964 kg Weight 75.296 kg Physical Exam 2 Const: COMMON NORMALS: no acute distress and patient oriented x3 Resp: COMMON NORMALS: normal respiratory effort, No retractions and No use of accessory muscles AUSCULTATION: wheezes Cardio: COMMON NORMALS: regular rate, regular rhythm, S1 normal heart sound present and S2 normal heart sound present RATE: regular rate RHYTHM: r egular rhythm HEART SOUNDS: S1 normal heart sound present and S2 normal heart sound present GI: COMMON NORMALS: Normal to inspection, nondistended, normoactive bowel sounds present and non-tender Extremity: COMMON NORMALS: no pedal edema Neuro: COMMON NORMALS: patient oriented x3 Psych: COMMON NORMALS: mental status grossly normal Urinary Catheter Management: Gipson: Cath Placed During This Visit: yes Reason for Continuing Indwelling Catheter: Accurate Measurement of Urinary Output in Critically Ill Patients Urinary Catheter Date of Insertion: 08/14/23 Urinary Catheter Time of Insertion: 15:05 Data 08/16/23 04:20 08/16/23 04:20 Micro: Microbiology 08/14/23 12:45 Blood Culture - Preliminary Blood NEGATIVE TO DATE 08/14/23 14:38 Blood Culture - Preliminary Blood NEGATIVE TO DATE A&P Assessment and plan (1) Acute encephalopathy: (2) Acute right MCA stroke: (3) History of GI bleed: (4) Acute exacerbation of chronic obstructive airways disease: (5) Acute respiratory failure with hypoxia and hypercapnia: (6) Hyperkalemia: (7) NSTEMI (non-ST elevated myocardial infarction): (8) Aspiration pneumonia: Plan Acute encephalopathy, resolving ? Multifactorial ? Secondary to UTI ? Hypercarbia ? Subacute right posterior MCA CVA ? Neurochecks ? Aspiration precautions ? N/A stroke scale Acute posterior right middle cerebral artery CVA CT scan findings are concerning for subacute stroke involving the posterior right middle cerebral artery ? NIH stroke scale is difficult to assess given her global encephalopathy ? Last known known well normal was 9:40 PM 08/13/2023 ? Out of the window for any acute intervention tPA, endovascular procedure ? Plan ? CTA head and neck IMPRESSION: 1. No arterial occlusion. 2. Less than 50% stenosis of the internal carotid artery origins bilaterally. 3. Possible hemodynamically significant stenosis of the right vertebral artery origin which is largely obscured. Right vertebral artery is normal distally. 4. Marked calcific plaque and possible hemodynamically significant stenosis of the proximal left subclavian artery which is partially obscured proximal to the vertebral artery origin. 5. High-grade stenosis at the origin of the right external carotid artery. 6. Spiculated 21 mm nodule in the right upper lobe. Possible malignant neoplasm. No change since 02/22/2023. Consider non-emergent PET/CT or tissue sampling.(Reference: Tod) 7. Incidental findings above. ? Discontinue IV fluids due to risk of fluid overload ? Aspirin -allow for permissive HTN, treat SBP if >220 or DBP>110 ? Monitor mentation closely ? Stroke scale ? Once mentation improves, PT OT, speech therapy eval ? Monitor mentation closely Acute hypoxic hypercarbic respiratory failure ? Hypoxic requiring 40% on BiPAP, hypercarbic ? Given her acute MCA as above, concern for possible aspiration pneumonia, aspiration pneumonitis ? Plan ? Continue broad-spectrum antibiotic therapy, Rocephin, azithromycin ? Solu-Medrol ? DuoNeb ? Budesonide ? Monitor respiratory status closely - patient is DNR/DNI Aspiration pneumonia/aspiration pneumonitis ? Given patient's CT evidence of CVA, her encephalopathy, concerns for aspiration event, given her significant hypoxia at 40% BiPAP -advance to dysphagia level 4 diet ? IV antibiotics as above Hyperkalemia, 5.5, recheck potassium in evening NSTEMI ? Type I versus type II -Continue to monitor status stable, prognosis guarded ? DNR/DNI ? Lovenox for DVT prophylaxis Plan for today, speech therapy eval, continue BiPAP therapy continue antibiotics, continue steroids, monitor respiratory status closely Attestations 2 Medical Necessity Statement*: patient requires hospitalization for acute respiratory failure, cva Diagnoses Acute encephalopathy G93.40 Acute right MCA stroke I63.511 History of GI bleed Z87.19 Acute exacerbation of chronic obstructive airways disease J44.1 Acute respiratory failure with hypoxia and hypercapnia J96.01; J96.02 Hyperkalemia E87.5 NSTEMI (non-ST elevated myocardial infarction) I21.4 Aspiration pneumonia J69.0
[2023-08-16] MEDS: cefTRIAXone 1,000 mg SDV 1000 MG IVP (16:19)
[2023-08-16] MEDS: sodium chloride 0.9% 1,000 ML 30 ML IV (20:11)
[2023-08-16] MEDS: enoxaparin 40 mg/0.4 mL Syringe SUBCUT (22:37)
[2023-08-16] MEDS: pantoprazole 40 mg SDV IVP (22:37)
[2023-08-16] MEDS: azithromycin 500 MG in sodium chloride 0.9% 250 ML 250 MG IV (22:37)
[2023-08-17] VITALS (29 sets, daily range): BP systolic 123–158; BP diastolic 52–69; PULSE 62–88; RESP 15–23; TEMP 36.6–37.1; O2SAT 89–100
[2023-08-17] MEDS: ipratropium-albuterol 3 mL Neb INHALATION ×6 (03:35→23:22)
[2023-08-17 05:08] LABS: Basophils % 0.2 %; Hematocrit 33.2 % (36-47); Lymphocytes # 0.3 10^3/uL (0.8-4.8); Lymphocytes % 2.1 %; Mean Corpuscular HGB Conc 28.9 g/dL (30-55); Mean Corpuscular Hemoglobin 29.3 pg (27-33); Mean Corpuscular Volume 101.2 fl (85-98); Mean Platelet Volume 10.3 fL (7.4-10.4); Monocytes # 0.2 10^3/uL (0.2-0.9); Monocytes % 1.4 %; Neutrophils # 12.08 10^3/uL (1.8-7.7); Neutrophils % 95.4 %; Nucleated Red Blood Cells % 0 %; Platelet Count 179 10^3/cmm (157-399); Red Blood Count 3.28 10^6/uL (3.85-5.65); Red Cell Distribution Width 16.6 % (12.1-15.1); White Blood Count 12.66 10^3/uL (3.29-11.43)
[2023-08-17] MEDS: methylPREDNISolone sod succ 40 mg/mL INJ IVP ×3 (05:20→22:11)
[2023-08-17 05:28] LABS: Anion Gap 12.6 (5-19); Blood Urea Nitrogen 32 mg/dL (8-23); Calcium 8.2 mg/dL (8.5-10.5); Carbon Dioxide 36 mmol/L (22-29); Chloride 105 mmol/L (98-107); Creatinine Clr Calc Pharmacy 46.1372; Glucose 142 mg/dL (65-115); Osmolality Calculated 317 mOsm/kg (285-295); Potassium 4.6 mmol/L (3.5-5.1); Sodium 149 mmol/L (136-145)
[2023-08-17] MEDS: aspirin 81 mg EC Tablet PO (08:17)
[2023-08-17] MEDS: midodrine 5 mg TABLET 10 MG PO (08:17)
[2023-08-17] MEDS: budesonide 0.5 mg/2 mL Neb INHALATION ×2 (08:39→20:25)
--- NOTE | 2023-08-17 09:39 | PC.SOCIAL ---
IMM Update Pg. 2 of IMM updated and reviewed with patient who verbalized understanding. Copy provided.
--- NOTE | 2023-08-17 13:11 | CTR_ITS ---
PROCEDURE INFORMATION: Exam: CT Chest Without Contrast; Diagnostic Exam date and time: 08/17/2023 3:17 PM Age: 82 years old Clinical indication: Dyspnea and shortness of breath; Additional info: Lung nodule TECHNIQUE: Imaging protocol: Diagnostic computed tomography of the chest without contrast. Radiation optimization: All CT scans at this facility use at least one of these dose optimization techniques: automated exposure control; mA and/or kV adjustment per patient size (includes targeted exams where dose is matched to clinical indication); or iterative reconstruction. COMPARISON: [place] [id number] 02/22/2023 2:45 PM RADIATION DOSE METRICS: Total DLP (mGy-cm): 463.88 FINDINGS: Lungs: Stable size of a spiculated nodule in the right suprahilar region measuring 1.8 x 1.0 cm series 6 image 25 also measuring 1.8 x 1.0 cm on prior study when measured in a similar fashion. Redemonstrated 7 mm spiculated nodule in the left lower lobe, also unchanged measuring 7 mm on prior study. Posterior basilar atelectasis. Moderate centrilobular emphysematous changes of the lungs. No consolidation. Pleural spaces: No pneumothorax. Small volume left pleural effusion trace right pleural effusion. Heart: No cardiomegaly. Trace pericardial effusion. Lymph nodes: Unremarkable. No enlarged lymph nodes. Vasculature: Unremarkable. No aortic aneurysm. Bones/joints: Generalized osseous demineralization. Chronic moderate compression of the T6, T7, and T9 vertebral bodies. No acute fracture. Soft tissues: Unremarkable. CT/CT chest wo con [id number] IMPRESSION: 1. Stable appearance of spiculated nodules in the right suprahilar region and left lung base measuring 1.8 x 1.0 cm and 7 mm respectively. 2. Small volume left and trace right pleural effusions. 3. Moderate emphysematous changes of the lungs.
--- NOTE | 2023-08-17 13:11 | CTR_ITS ---
PROCEDURE INFORMATION: Exam: CT Head Without Contrast Exam date and time: 08/17/2023 3:17 PM Age: 82 years old Clinical indication: Altered mental status/memory loss; Confusion or disorientation; Additional info: CVA TECHNIQUE: Imaging protocol: Computed tomography of the head without contrast. Radiation optimization: All CT scans at this facility use at least one of these dose optimization techniques: automated exposure control; mA and/or kV adjustment per patient size (includes targeted exams where dose is matched to clinical indication); or iterative reconstruction. COMPARISON: CT angio headneck* [id number] 08/14/2023 6:25 PM RADIATION DOSE METRICS: Total DLP (mGy-cm): 1095.58 FINDINGS: Brain: There is global parenchymal volume loss. Periventricular white matter hypoattenuation is nonspecific but most likely due to small vessel disease. No evidence of acute territorial infarct or cerebral edema. No mass effect or midline shift. There is further demarcation hypodensity and loss of marquez-white distinction right posterolateral temporal lobe and increase in low-density posterior portion right basal ganglia. Nonacute ischemic lesion left cerebellar hemisphere. Cerebral ventricles: Prominent ventricles likely secondary to volume loss. Paranasal sinuses: Visualized sinuses are unremarkable. No fluid levels. Mastoid air cells: Visualized mastoid air cells are well aerated. Bones: Unremarkable. No acute fracture. Soft tissues: Unremarkable. CT/CT head wo con* [id number] IMPRESSION: 1. There is further demarcation hypodensity and loss of marquez-white distinction right posterolateral temporal lobe and increase in low-density posterior portion right basal ganglia. Concern for progression ischemic lesions and further evaluation MRI would be helpful. 2. Volume loss and extensive small-vessel ischemic changes.
--- NOTE | 2023-08-17 14:52 | P.PN_ITS ---
Subjective 2 Subjective: Patient was seen this morning, she is alert to person, to place, to time she follows all commands no facial droop no slurring words no focal weakness that I could detect, she does have generalized weakness today, denies any fevers, chills, does have a cough, she has come off BiPAP yesterday came off BiPAP this morning, no evidence of respiratory distress during my discussion with her on nasal cannula, no episodes of desaturations with her speaking a few words Vitals/I&O/Wt Last Vital Signs Temp 97.8 F 08/17/23 11:54 Pulse 80 08/17/23 14:00 Resp 23 H 08/17/23 11:54 BP 142/64 08/17/23 11:54 Pulse Ox 98 08/17/23 11:54 O2 Del Method Nasal Cannula 08/17/23 11:54 O2 Flow Rate 4 08/17/23 11:20 FiO2 45 08/17/23 03:37 08/16/23 08/17/23 08/17/23 22:59 06:59 14:59 Intake Total 1480 / 1780 370 / 2150 400 / 400 Output Total 450 / 450 500 / 950 Balance 1030 / 1330 -130 / 1200 400 / 400 Weight last 48 hrs Weight 77.196 kg Weight 77.337 kg Physical Exam 2 Const: COMMON NORMALS: no acute distress and patient oriented x3 OTHER: Presence of protein calorie malnutrition, bilateral temporal muscle wasting, bilateral thighs, bilateral clavicle fat pads exposed, Resp: COMMON NORMALS: normal respiratory effort, No retractions and No use of accessory muscles AUSCULTATION: wheezes Cardio: COMMON NORMALS: regular rate, regular rhythm, S1 normal heart sound present and S2 normal heart sound present RATE: regular rate RHYTHM: r egular rhythm HEART SOUNDS: S1 normal heart sound present and S2 normal heart sound present GI: COMMON NORMALS: Normal to inspection, nondistended, normoactive bowel sounds present and non-tender Extremity: COMMON NORMALS: no pedal edema Neuro: COMMON NORMALS: patient oriented x3 Psych: COMMON NORMALS: mental status grossly normal Urinary Catheter Management: Gipson: Cath Placed During This Visit: yes Reason for Continuing Indwelling Catheter: Accurate Measurement of Urinary Output in Critically Ill Patients Urinary Catheter Date of Insertion: 08/14/23 Urinary Catheter Time of Insertion: 15:05 Data 08/17/23 04:05 08/17/23 04:05 A&P Assessment and plan (1) Acute encephalopathy: (2) Acute right MCA stroke: (3) History of GI bleed: (4) Acute exacerbation of chronic obstructive airways disease: (5) Acute respiratory failure with hypoxia and hypercapnia: (6) Hyperkalemia: (7) NSTEMI (non-ST elevated myocardial infarction): (8) Aspiration pneumonia: Plan Acute encephalopathy, resolving ? Multifactorial ? Secondary to UTI ? Hypercarbia ? Subacute right posterior MCA CVA ? Neurochecks ? Aspiration precautions ? N/A stroke scale Acute posterior right middle cerebral artery CVA CT scan findings are concerning for subacute stroke involving the posterior right middle cerebral artery ? NIH stroke scale is difficult to assess given her global encephalopathy ? Last known known well normal was 9:40 PM 08/13/2023 ? Out of the window for any acute intervention tPA, endovascular procedure ? Plan ? CTA head and neck IMPRESSION: 1. No arterial occlusion. 2. Less than 50% stenosis of the internal carotid artery origins bilaterally. 3. Possible hemodynamically significant stenosis of the right vertebral artery origin which is largely obscured. Right vertebral artery is normal distally. 4. Marked calcific plaque and possible hemodynamically significant stenosis of the proximal left subclavian artery which is partially obscured proximal to the vertebral artery origin. 5. High-grade stenosis at the origin of the right external carotid artery. 6. Spiculated 21 mm nodule in the right upper lobe. Possible malignant neoplasm. No change since 02/22/2023. Consider non-emergent PET/CT or tissue sampling.(Reference: Tod) 7. Incidental findings above. -Today as per family she is back to baseline no facial droop no focal weakness that I could detect no slurring of words no word finding difficulty ? Discontinue IV fluids due to risk of fluid overload ? Aspirin -allow for permissive HTN, treat SBP if >220 or DBP>110 ? Monitor mentation closely ? Stroke scale ? PT OT, speech therapy eval ? Monitor mentation closely Acute hypoxic hypercarbic respiratory failure ? Hypoxic requiring 40% on BiPAP, hypercarbic ? Given her acute MCA as above, concern for possible aspiration pneumonia, aspiration pneumonitis ? Plan ? Continue broad-spectrum antibiotic therapy, Rocephin, azithromycin ? Solu-Medrol ? DuoNeb ? Budesonide ? Monitor respiratory status closely - patient is DNR/DNI Aspiration pneumonia/aspiration pneumonitis ? Given patient's CT evidence of CVA, her encephalopathy, concerns for aspiration event, given her significant hypoxia at 40% BiPAP -advance to dysphagia level 4 diet ? IV antibiotics as above Hyperkalemia, NSTEMI ? Type I versus type II -Continue to monitor status stable, prognosis guarded ? DNR/DNI ? Lovenox for DVT prophylaxis Plan for today, monitor respiratory status closely, continue BiPAP during the night, continue antibiotics, continue steroid therapy, will do CT of the chest, repeat CT head, continue PT OT, speech therapy eval, up out of bed into a chair Attestations 2 Medical Necessity Statement*: Patient requires hospitalization for aspiration pneumonia aspiration pneumonitis respiratory failure, concerns for acute CVA Diagnoses Acute encephalopathy G93.40 Acute right MCA stroke I63.511 History of GI bleed Z87.19 Acute exacerbation of chronic obstructive airways disease J44.1 Acute respiratory failure with hypoxia and hypercapnia J96.01; J96.02 Hyperkalemia E87.5 NSTEMI (non-ST elevated myocardial infarction) I21.4 Aspiration pneumonia J69.0
[2023-08-17] MEDS: cefTRIAXone 1,000 mg SDV 1000 MG IVP (15:01)
[2023-08-17] MEDS: pantoprazole 40 mg SDV IVP (22:08)
[2023-08-17] MEDS: enoxaparin 40 mg/0.4 mL Syringe SUBCUT (22:16)
[2023-08-17] MEDS: azithromycin 500 MG in sodium chloride 0.9% 250 ML 250 MG IV (22:18)
[2023-08-18] VITALS (15 sets, daily range): BP systolic 130–155; BP diastolic 56–76; PULSE 62–100; RESP 15–20; TEMP 36.4–36.9; O2SAT 90–98
[2023-08-18] MEDS: ipratropium-albuterol 3 mL Neb INHALATION ×5 (04:05→20:33)
[2023-08-18] MEDS: methylPREDNISolone sod succ 40 mg/mL INJ IVP (05:15)
[2023-08-18 05:56] LABS: Basophils % 0.2 %; Hematocrit 34.3 % (36-47); Lymphocytes # 0.2 10^3/uL (0.8-4.8); Lymphocytes % 2.2 %; Mean Corpuscular HGB Conc 28.9 g/dL (30-55); Mean Corpuscular Hemoglobin 28.9 pg (27-33); Mean Corpuscular Volume 100.3 fl (85-98); Mean Platelet Volume 11.1 fL (7.4-10.4); Monocytes # 0.2 10^3/uL (0.2-0.9); Monocytes % 2.4 %; Neutrophils # 8.82 10^3/uL (1.8-7.7); Neutrophils % 93.3 %; Nucleated Red Blood Cells % 0 %; Platelet Count 169 10^3/cmm (157-399); Red Blood Count 3.42 10^6/uL (3.85-5.65); Red Cell Distribution Width 16.1 % (12.1-15.1); White Blood Count 9.46 10^3/uL (3.29-11.43)
[2023-08-18 06:22] LABS: Alanine Aminotransferase 18 U/L (0-33); Albumin Level 3.5 g/dL (3.5-5.2); Alkaline Phosphatase 62 U/L (35-105); Anion Gap 10.7 (5-19); Aspartate Amino Transferase 16 U/L (0-32); Blood Urea Nitrogen 28 mg/dL (8-23); Calcium 8.4 mg/dL (8.5-10.5); Carbon Dioxide 37 mmol/L (22-29); Chloride 103 mmol/L (98-107); Creatinine Clr Calc Pharmacy 46.0972; Globulin 2.3 g/dL (1.3-4.6); Glucose 134 mg/dL (65-115); Magnesium 2.5 mg/dL (1.7-2.3); Osmolality Calculated 309 mOsm/kg (285-295); Phosphorus 3.3 mg/dL (2.5-4.5); Potassium 4.7 mmol/L (3.5-5.1); Sodium 146 mmol/L (136-145); Total Bilirubin 0.2 mg/dL (0.15-1.2); Total Protein 5.8 g/dL (6.6-8.7)
[2023-08-18 06:27] LABS: NT Pro B Type Natriuretic Pept 3815 pg/mL (0-450)
[2023-08-18] MEDS: budesonide 0.5 mg/2 mL Neb INHALATION ×2 (09:08→20:33)
[2023-08-18] MEDS: aspirin 81 mg EC Tablet PO (09:40)
--- NOTE | 2023-08-18 12:37 | P.PN_ITS ---
Subjective 2 Subjective: Patient was seen this morning, family members at bedside, denies any fevers, chills, no cough, no trouble swallowing, no facial droop no slurring of words no focal weakness does report chronic weakness of her left leg, but no more than usual, we discussed her CT scan findings indeed showing a stroke, she denies any visual field deficits, besides her left leg being weak which is chronic for her she tells me, she does not have any other weakness, at home she has a Russel lift, she has a hospital bed, no trouble swallowing Vitals/I&O/Wt Last Vital Signs Temp 98.0 F 08/18/23 11:59 Pulse 98 08/18/23 11:59 Resp 20 H 08/18/23 11:43 BP 130/56 08/18/23 11:59 Pulse Ox 90 08/18/23 11:59 O2 Del Method Nasal Cannula 08/18/23 11:59 O2 Flow Rate 4 08/18/23 11:43 FiO2 45 08/18/23 04:05 08/17/23 08/18/23 08/18/23 22:59 06:59 14:59 Intake Total 948 / 1348 250 / 1598 Output Total 1200 / 1200 450 / 1650 Balance -252 / 148 -200 / -52 Weight last 48 hrs Weight 77.196 kg Physical Exam 2 Const: COMMON NORMALS: no acute distress and patient oriented x3 Resp: COMMON NORMALS: normal respiratory effort, No retractions, No use of accessory muscles and clear to auscultation bilaterally AUSCULTATION: clear to auscultation bilaterally Cardio: COMMON NORMALS: regular rate, regular rhythm, S1 normal heart sound present and S2 normal heart sound present RATE: regular rate RHYTHM: r egular rhythm HEART SOUNDS: S1 normal heart sound present and S2 normal heart sound present GI: COMMON NORMALS: Normal to inspection, nondistended, normoactive bowel sounds present and non-tender Extremity: COMMON NORMALS: no pedal edema Neuro: COMMON NORMALS: patient oriented x3 Urinary Catheter Management: Gipson: Cath Placed During This Visit: yes Reason for Continuing Indwelling Catheter: Accurate Measurement of Urinary Output in Critically Ill Patients Urinary Catheter Date of Insertion: 08/14/23 Urinary Catheter Time of Insertion: 15:05 Data 08/18/23 04:39 08/18/23 04:39 A&P Assessment and plan (1) Acute encephalopathy: (2) Acute right MCA stroke: (3) History of GI bleed: (4) Acute exacerbation of chronic obstructive airways disease: (5) Acute respiratory failure with hypoxia and hypercapnia: (6) Hyperkalemia: (7) NSTEMI (non-ST elevated myocardial infarction): (8) Aspiration pneumonia: Plan Acute encephalopathy, resolving ? Multifactorial ? Secondary to UTI ? Hypercarbia ? Subacute right posterior MCA CVA ? Neurochecks ? Aspiration precautions ? N/A stroke scale Acute posterior right middle cerebral artery CVA CT scan findings are concerning for subacute stroke involving the posterior right middle cerebral artery ? NIH stroke scale is difficult to assess given her global encephalopathy ? Last known known well normal was 9:40 PM 08/13/2023 ? Out of the window for any acute intervention tPA, endovascular procedure ? Plan ? CTA head and neck IMPRESSION: 1. No arterial occlusion. 2. Less than 50% stenosis of the internal carotid artery origins bilaterally. 3. Possible hemodynamically significant stenosis of the right vertebral artery origin which is largely obscured. Right vertebral artery is normal distally. 4. Marked calcific plaque and possible hemodynamically significant stenosis of the proximal left subclavian artery which is partially obscured proximal to the vertebral artery origin. 5. High-grade stenosis at the origin of the right external carotid artery. 6. Spiculated 21 mm nodule in the right upper lobe. Possible malignant neoplasm. No change since 02/22/2023. Consider non-emergent PET/CT or tissue sampling.(Reference: Tod) 7. Incidental findings above. repeat ct head CT/CT head wo con* [id number] IMPRESSION: 1. There is further demarcation hypodensity and loss of marquez-white distinction right posterolateral temporal lobe and increase in low-density posterior portion right basal ganglia. Concern for progression ischemic lesions and further evaluation MRI would be helpful. 2. Volume loss and extensive small-vessel ischemic changes. -Alert and oriented x 4, following all commands, no facial droop no slurring of words, no focal weakness that I can discharge she does have weakness in the left lower extremity slightly more compared to right, but more generalized weakness she has chronic left lower extremity weakness due to bad hip, ? Aspirin -Completed permissive hypertension ? Monitor mentation closely ? Stroke scale ? PT OT, speech therapy eval ? Monitor mentation closely Acute hypoxic hypercarbic respiratory failure ? Hypoxic requiring 40% on BiPAP, hypercarbic ? Given her acute MCA as above, concern for possible aspiration pneumonia, aspiration pneumonitis CT/CT chest wo con [id number] IMPRESSION: 1. Stable appearance of spiculated nodules in the right suprahilar region and left lung base measuring 1.8 x 1.0 cm and 7 mm respectively. 2. Small volume left and trace right pleural effusions. 3. Moderate emphysematous changes of the lungs. ? Plan ? Continue broad-spectrum antibiotic therapy, Rocephin, azithromycin ?De-escalate to prednisone ? DuoNeb ? Budesonide ? Monitor respiratory status closely - patient is DNR/DNI Spiculated nodules right suprahilar region, left lung base -Given smoking history concerning for malignancy ? Patient declines any interventions, or further workup Aspiration pneumonia/aspiration pneumonitis ? Given patient's CT evidence of CVA, her encephalopathy, concerns for aspiration event, given her significant hypoxia at 40% BiPAP -advance to dysphagia level 4 diet ? IV antibiotics as above Hyperkalemia, NSTEMI ? Type I versus type II -Continue to monitor status stable, prognosis guarded ? DNR/DNI ? Lovenox for DVT prophylaxis Plan for today, had a detailed discussion with patient and family about her CT scan results, discussed her CT head findings, continue PT OT, speech therapy eval, continue steroids, antibiotics, spoke to family about her CT scan findings, else lung nodules, patient does not want to have any further workup, spiculated nodule right suprahilar region, is concerning for malignant process but again patient does not want any interventions Attestations 2 Medical Necessity Statement*: Patient requires hospitalization for stroke, respiratory failure Diagnoses Acute encephalopathy G93.40 Acute right MCA stroke I63.511 History of GI bleed Z87.19 Acute exacerbation of chronic obstructive airways disease J44.1 Acute respiratory failure with hypoxia and hypercapnia J96.01; J96.02 Hyperkalemia E87.5 NSTEMI (non-ST elevated myocardial infarction) I21.4 Aspiration pneumonia J69.0
--- NOTE | 2023-08-18 14:24 | PC.PT ---
Pt did not want to do exercises today. Pt had just got put back to bed from the commode and her O2 sat was at 76% and it took several mins for it to return to mid 80's. Pt was really struggling to get a deep breath and was moving her whole body to try and get as deep of a breath as she could.
[2023-08-18] MEDS: cefTRIAXone 1,000 mg SDV 1000 MG IVP (16:13)
[2023-08-18] MEDS: pantoprazole 40 mg SDV IVP (23:27)
[2023-08-18] MEDS: enoxaparin 40 mg/0.4 mL Syringe SUBCUT (23:34)
[2023-08-19] VITALS (15 sets, daily range): BP systolic 126–164; BP diastolic 58–73; PULSE 74–101; RESP 15–20; TEMP 36.5–36.9; O2SAT 91–98
[2023-08-19] MEDS: ipratropium-albuterol 3 mL Neb INHALATION ×6 (00:48→20:42)
[2023-08-19 05:40] LABS: Basophils % 0.3 %; Hematocrit 33.9 % (36-47); Lymphocytes # 0.9 10^3/uL (0.8-4.8); Lymphocytes % 8.7 %; Mean Corpuscular HGB Conc 29.2 g/dL (30-55); Mean Corpuscular Hemoglobin 29.7 pg (27-33); Mean Corpuscular Volume 101.8 fl (85-98); Mean Platelet Volume 10.9 fL (7.4-10.4); Monocytes # 1.1 10^3/uL (0.2-0.9); Monocytes % 10.6 %; Neutrophils # 8.18 10^3/uL (1.8-7.7); Neutrophils % 77.7 %; Nucleated Red Blood Cells % 0 %; Platelet Count 154 10^3/cmm (157-399); Red Blood Count 3.33 10^6/uL (3.85-5.65); Red Cell Distribution Width 15.9 % (12.1-15.1); White Blood Count 10.53 10^3/uL (3.29-11.43)
[2023-08-19 05:55] LABS: Alanine Aminotransferase 18 U/L (0-33); Albumin Level 3.5 g/dL (3.5-5.2); Alkaline Phosphatase 60 U/L (35-105); Anion Gap 7.9 (5-19); Aspartate Amino Transferase 15 U/L (0-32); Blood Urea Nitrogen 25 mg/dL (8-23); Calcium 8.3 mg/dL (8.5-10.5); Carbon Dioxide 39 mmol/L (22-29); Chloride 102 mmol/L (98-107); Creatinine Clr Calc Pharmacy 51.2191; Glucose 86 mg/dL (65-115); Magnesium 2.4 mg/dL (1.7-2.3); Osmolality Calculated 304 mOsm/kg (285-295); Phosphorus 2.6 mg/dL (2.5-4.5); Potassium 3.9 mmol/L (3.5-5.1); Sodium 145 mmol/L (136-145); Total Bilirubin 0.2 mg/dL (0.15-1.2); Total Protein 5.5 g/dL (6.6-8.7)
[2023-08-19 06:09] LABS: NT Pro B Type Natriuretic Pept 3689 pg/mL (0-450)
[2023-08-19] MEDS: budesonide 0.5 mg/2 mL Neb INHALATION ×2 (08:19→20:42)
[2023-08-19] MEDS: FUROsemide 10 mg/mL SDV 4mL 40 MG IVP (08:42)
[2023-08-19] MEDS: predniSONE 20 mg Tablet 40 MG PO (08:42)
[2023-08-19] MEDS: azithromycin 250 mg Tablet PO (08:42)
[2023-08-19] MEDS: potassium chloride ER 20 mEq Tablet PO (08:42)
[2023-08-19] MEDS: aspirin 81 mg EC Tablet PO (08:42)
--- NOTE | 2023-08-19 13:56 | P.PN_ITS ---
Subjective 2 Subjective: Patient was seen this morning, denies any fevers, chills, no cough, Vitals/I&O/Wt Last Vital Signs Temp 97.8 F 08/19/23 11:37 Pulse 89 08/19/23 11:37 Resp 16 08/19/23 11:11 BP 129/58 08/19/23 11:37 Pulse Ox 91 08/19/23 11:37 O2 Del Method Nasal Cannula 08/19/23 11:37 O2 Flow Rate 3 08/19/23 11:11 FiO2 45 08/19/23 00:50 08/18/23 08/19/23 08/19/23 22:59 06:59 14:59 Intake Total 240 / 240 60 / 60 Output Total 600 / 600 450 / 1050 Balance -360 / -360 -450 / -810 60 / 60 Physical Exam 2 Const: COMMON NORMALS: no acute distress and patient oriented x3 Resp: COMMON NORMALS: normal respiratory effort, No retractions and No use of accessory muscles AUSCULTATION: crackles and wheezes Cardio: COMMON NORMALS: regular rate, regular rhythm, S1 normal heart sound present and S2 normal heart sound present RATE: regular rate RHYTHM: r egular rhythm HEART SOUNDS: S1 normal heart sound present and S2 normal heart sound present GI: COMMON NORMALS: Normal to inspection, nondistended, normoactive bowel sounds present and non-tender Extremity: OTHER: 1+ edema Neuro: COMMON NORMALS: patient oriented x3 Psych: COMMON NORMALS: mental status grossly normal Urinary Catheter Management: Gipson: Cath Placed During This Visit: yes Reason for Continuing Indwelling Catheter: Accurate Measurement of Urinary Output in Critically Ill Patients Urinary Catheter Date of Insertion: 08/14/23 Urinary Catheter Time of Insertion: 15:05 Data 08/19/23 04:42 08/19/23 04:42 A&P Assessment and plan (1) Acute encephalopathy: (2) Acute right MCA stroke: (3) History of GI bleed: (4) Acute exacerbation of chronic obstructive airways disease: (5) Acute respiratory failure with hypoxia and hypercapnia: (6) Hyperkalemia: (7) NSTEMI (non-ST elevated myocardial infarction): (8) Aspiration pneumonia: Plan Acute encephalopathy, resolving ? Multifactorial ? Secondary to UTI ? Hypercarbia ? Subacute right posterior MCA CVA ? Neurochecks ? Aspiration precautions ? N/A stroke scale Acute posterior right middle cerebral artery CVA CT scan findings are concerning for subacute stroke involving the posterior right middle cerebral artery ? NIH stroke scale is difficult to assess given her global encephalopathy ? Last known known well normal was 9:40 PM 08/13/2023 ? Out of the window for any acute intervention tPA, endovascular procedure ? Plan ? CTA head and neck IMPRESSION: 1. No arterial occlusion. 2. Less than 50% stenosis of the internal carotid artery origins bilaterally. 3. Possible hemodynamically significant stenosis of the right vertebral artery origin which is largely obscured. Right vertebral artery is normal distally. 4. Marked calcific plaque and possible hemodynamically significant stenosis of the proximal left subclavian artery which is partially obscured proximal to the vertebral artery origin. 5. High-grade stenosis at the origin of the right external carotid artery. 6. Spiculated 21 mm nodule in the right upper lobe. Possible malignant neoplasm. No change since 02/22/2023. Consider non-emergent PET/CT or tissue sampling.(Reference: Tod) 7. Incidental findings above. repeat ct head CT/CT head wo con* [id number] IMPRESSION: 1. There is further demarcation hypodensity and loss of marquez-white distinction right posterolateral temporal lobe and increase in low-density posterior portion right basal ganglia. Concern for progression ischemic lesions and further evaluation MRI would be helpful. 2. Volume loss and extensive small-vessel ischemic changes. -Alert and oriented x 4, following all commands, no facial droop no slurring of words, no focal weakness that I can discharge she does have weakness in the left lower extremity slightly more compared to right, but more generalized weakness she has chronic left lower extremity weakness due to bad hip, ? Aspirin -Completed permissive hypertension ? Monitor mentation closely ? Stroke scale ? PT OT, speech therapy eval ? Monitor mentation closely Acute hypoxic hypercarbic respiratory failure ? Hypoxic requiring 40% on BiPAP, hypercarbic ? Given her acute MCA as above, concern for possible aspiration pneumonia, aspiration pneumonitis CT/CT chest wo con [id number] IMPRESSION: 1. Stable appearance of spiculated nodules in the right suprahilar region and left lung base measuring 1.8 x 1.0 cm and 7 mm respectively. 2. Small volume left and trace right pleural effusions. 3. Moderate emphysematous changes of the lungs. ? Plan ? Continue broad-spectrum antibiotic therapy, Rocephin, azithromycin ?De-escalate to prednisone ? DuoNeb ? Budesonide ? Monitor respiratory status closely - patient is DNR/DNI Spiculated nodules right suprahilar region, left lung base -Given smoking history concerning for malignancy ? Patient declines any interventions, or further workup Aspiration pneumonia/aspiration pneumonitis ? Given patient's CT evidence of CVA, her encephalopathy, concerns for aspiration event, given her significant hypoxia at 40% BiPAP -advance to dysphagia level 6 diet ? IV antibiotics as above Hyperkalemia, NSTEMI ? Type I versus type II -Continue to monitor status stable, prognosis guarded ? DNR/DNI ? Lovenox for DVT prophylaxis Plan for today, 1 dose IV Lasix for fluid overload Attestations 2 Medical Necessity Statement*: Patient requires hospitalization for CHF, requiring IV diuresis, antibiotics, COPD exacerbation, respiratory failure, aspiration pneumonia Diagnoses Acute encephalopathy G93.40 Acute right MCA stroke I63.511 History of GI bleed Z87.19 Acute exacerbation of chronic obstructive airways disease J44.1 Acute respiratory failure with hypoxia and hypercapnia J96.01; J96.02 Hyperkalemia E87.5 NSTEMI (non-ST elevated myocardial infarction) I21.4 Aspiration pneumonia J69.0
[2023-08-19] MEDS: cefTRIAXone 1,000 mg SDV 1000 MG IVP (16:47)
[2023-08-19] MEDS: water for injection-sterile 10 ML 100 ML (16:47)
[2023-08-19] MEDS: enoxaparin 40 mg/0.4 mL Syringe SUBCUT (22:38)
[2023-08-19] MEDS: pantoprazole 40 mg SDV IVP (22:38)
[2023-08-20] VITALS (9 sets, daily range): BP systolic 117–154; BP diastolic 67–74; PULSE 81–101; RESP 17–24; TEMP 36.3–36.6; O2SAT 93–99
[2023-08-20] MEDS: ipratropium-albuterol 3 mL Neb INHALATION ×4 (00:36→13:04)
[2023-08-20 03:57] LABS: Basophils % 0.4 %; Hematocrit 36.3 % (36-47); Lymphocytes # 0.5 10^3/uL (0.8-4.8); Lymphocytes % 4.8 %; Mean Corpuscular HGB Conc 29.5 g/dL (30-55); Mean Corpuscular Hemoglobin 29.3 pg (27-33); Mean Corpuscular Volume 99.5 fl (85-98); Monocytes # 0.6 10^3/uL (0.2-0.9); Monocytes % 5.6 %; Neutrophils # 9.53 10^3/uL (1.8-7.7); Neutrophils % 85.3 %; Nucleated Red Blood Cells % 0 %; Platelet Count 143 10^3/cmm (157-399); Red Blood Count 3.65 10^6/uL (3.85-5.65); Red Cell Distribution Width 15.7 % (12.1-15.1); White Blood Count 11.17 10^3/uL (3.29-11.43)
[2023-08-20 04:36] LABS: Alanine Aminotransferase 18 U/L (0-33); Albumin Level 3.6 g/dL (3.5-5.2); Alkaline Phosphatase 66 U/L (35-105); Anion Gap 10.6 (5-19); Aspartate Amino Transferase 11 U/L (0-32); Blood Urea Nitrogen 26 mg/dL (8-23); Calcium 8.3 mg/dL (8.5-10.5); Carbon Dioxide 40 mmol/L (22-29); Chloride 98 mmol/L (98-107); Globulin 2.2 g/dL (1.3-4.6); Glucose 101 mg/dL (65-115); Magnesium 2.3 mg/dL (1.7-2.3); NT Pro B Type Natriuretic Pept 2161 pg/mL (0-450); Osmolality Calculated 303 mOsm/kg (285-295); Phosphorus 3.3 mg/dL (2.5-4.5); Potassium 4.6 mmol/L (3.5-5.1); Sodium 144 mmol/L (136-145); Total Bilirubin 0.3 mg/dL (0.15-1.2); Total Protein 5.8 g/dL (6.6-8.7)
[2023-08-20 04:39] LABS: Creatinine Clr Calc Pharmacy 46.0972
[2023-08-20] MEDS: budesonide 0.5 mg/2 mL Neb INHALATION (08:39)
[2023-08-20] MEDS: predniSONE 20 mg Tablet 40 MG PO (09:09)
[2023-08-20] MEDS: azithromycin 250 mg Tablet PO (09:09)
[2023-08-20] MEDS: aspirin 81 mg EC Tablet PO (09:09)
--- NOTE | 2023-08-20 10:41 | P.DS_ITS ---
Discharge Providers Date of Admission: 08/14/23 21:10 Date of Discharge: August 20, 2023 Attending Provider at Admission: Jered Rangel MD Attending Provider at Discharge: Jered Rangel MD Primary Care Provider: Traci Prakash MD Diagnoses at Discharge Discharge Diagnosis (1) Acute encephalopathy: Status: Acute (2) Acute right MCA stroke: Status: Acute (3) History of GI bleed: Status: Acute (4) Acute exacerbation of chronic obstructive airways disease: Status: Acute (5) Acute respiratory failure with hypoxia and hypercapnia: Status: Acute (6) Hyperkalemia: Status: Acute (7) NSTEMI (non-ST elevated myocardial infarction): Status: Acute (8) Aspiration pneumonia: Status: Acute Reason for Visit Reason for Visit: Resp Distress Hospital Course Hospital Course Yulissa Goddard is a 82 year old female chronic respiratory failure/hypoxic/hypercapnic, on home trilogy machine, history of hypertension, history of COPD, history of GI bleed, who presents [facility] due to unresponsive episode, concerns for left-sided facial droop. Currently patient is alert oriented x 0, with sternal rub, she does awaken, at times she will follow-up my commands such as wiggling her toes, bilaterally, or squeezing my fingers bilateral arms, but beyond that she does not follow any other commands or provide any has history. I had a family meeting with her children at bedside, patient has a history of hypoxic hypercarbic respiratory failure she is compliant with a home trilogy machine, family is concerned that her home trilogy machine might be having issues as the flow is too strong for her, they tell me that at times intermittently that during the day Yulissa's O2 saturations drop into the low 50s without any good explanation. But beyond that she has been doing her regular self, they have noticed at times she has had some degree of a left facial droop, but not as pronounced as today. Her last known well normal was 940pm 08/13/2023 last night, when her son called her and everything was within normal limits he tells me no slurring of her words, and she was behaving appropriately. This morning her daughter came in to check up on her, and she was acting confused, not her normal self, difficult to arouse, so they were worried about her having hypercarbic respiratory failure but they had noticed specifically the sons at bedside notices he has a significant left facial droop, which they would say is new, she has not had any falls, or complaints of any lower extremity weakness to their knowledge. I had a detailed discussion with patient's family about patient's CAT scan results,findings are concerning for subacute stroke involving the posterior right middle cerebral artery, with her global encephalopathy currently, and hypercarbic respiratory failure is very difficult to gauge her NIH stroke scale, given her global encephalopathy, but unfortunate she is out of the window for any acute intervention such as tPA, or any endovascular procedure, she is a DNR/DNI, patient's family tells me that patient has made it clear to her family that she does not want to be resuscitated, she does not want to be intubated, family was tell me that when the ambulance was loading her up, she was refusing to go to the hospital, with her respiratory failure, will have to watch her closely in the ICU continue BiPAP therapy, have her blow off the CO2, but she is requiring 70% FiO2 which is new, we will have to monitor her, continue broad-spectrum antibiotic therapy, steroid therapy and give her time, in terms of her stroke will order CTA head and neck, eventually will order an MRI once her clinical condition improves, currently her condition is critical, prognosis is guarded, they voiced understanding, all questions answered, Patient was admitted to [facility] for acute encephalopathy, acute posterior right middle cerebral CVA, acute hypoxic respiratory failure, aspiration pneumonia, pneumonitis, NSTEMI, DNR/DNI, admitted to the ICU, on BiPAP therapy. Overall patient's clinical condition improved, respiratory failure improved, received PT OT, speech therapy, encephalopathy but the improved, she was moved to medical floors. In terms of her acute hypoxic respiratory failure secondary to aspiration pneumonia aspiration pneumonitis, acute on chronic respiratory failure, received steroids, antibiotics, overall clinically improved, there was concerns for her home trilogy machine having issues, it was used here in the hospital for overnight, no significant issues noted. She will be discharged on a prednisone burst, doxycycline for antibiotic coverage with a close follow-up with primary care provider as outpatient continue her home trilogy machine. In terms of her acute encephalopathy, resol mandeep on discharge. For acute posterior right middle cerebral artery CVA, on discharge she is alert orient x 3, following all commands, discharged on aspirin, statin,on admission she was out of tPA window, received medical therapy as inpatient, she does complain of some right lower extremity weakness, on examination, I cannot discern any significant right lower extremity weakness, she does have bilateral hip pain, her left sided weakness has resolved, left facial droop has resolved, but was discharged on a dysphagia level 6 diet, mildly thickened liquid, with PT OT at home. Advised to monitor for recurrent aspiration events if so go to the emergency room. For her spiculated nodules, right suprahilar region, left lung base, patient does not want any interventions. Physical Exam Const: COMMON NORMALS: no acute distress and patient oriented x3 Resp: COMMON NORMALS: normal respiratory effort, No retractions, No use of accessory muscles and clear to auscultation bilaterally AUSCULTATION: clear to auscultation bilaterally Cardio: COMMON NORMALS: regular rate, regular rhythm, S1 normal heart sound present and S2 normal heart sound present RATE: regular rate RHYTHM: regular rhythm HEART SOUNDS: S1 normal heart sound present and S2 normal heart sound present GI: COMMON NORMALS: Normal to inspection, nondistended, normoactive bowel sounds present and non-tender Extremity: COMMON NORMALS: no pedal edema Neuro: COMMON NORMALS: patient oriented x3 Psych: COMMON NORMALS: mental status grossly normal Urinary Catheter Management: Gipson: Cath Placed During This Visit: yes, but has since been removed by the nurse Reason for Continuing Indwelling Catheter: Decision to DC Catheter Urinary Catheter Date of Insertion: 08/14/23 Urinary Catheter Time of Insertion: 15:05 Date Urinary Catheter Removed: 08/20/23 Time Urinary Catheter Discontinued: 09:08 Discharge Data Studies Completed and Pending Completed Studies During Hospitalization Category Date Time Status CT angio head neck [CT angio headneck* [id number]] Cat Scan 08/14/23 17:[address] chest wo con [id number] Routine Cat Scan 08/17/23 13:[address] head wo con* [id number] Routine Cat Scan 08/17/23 13:[address] head wo con* [id number] Stat Cat Scan 08/14/23 15:04 Completed XR chest 1V portable [id number] Stat Exams 08/14/23 14:20 Completed CV. echo complete* [id number] Routine Ultrasound 08/15/23 09:21 Completed Radiology Impressions Chest X-Ray 08/14/23 14:20 IMPRESSION: Blunted left lateral costophrenic sulcus and obscured left hemidiaphragm consistent with subpulmonic effusion and adjacent atelectasis, stable since 07/09/2023. Head/Neck CTA 08/14/23 17:55 IMPRESSION: No arterial stenosis, occlusion or aneurysm. IMPRESSION: 1. No arterial occlusion. 2. Less than 50% stenosis of the internal carotid artery origins bilaterally. 3. Possible hemodynamically significant stenosis of the right vertebral artery origin which is largely obscured. Right vertebral artery is normal distally. 4. Marked calcific plaque and possible hemodynamically significant stenosis of the proximal left subclavian artery which is partially obscured proximal to the vertebral artery origin. 5. High-grade stenosis at the origin of the right external carotid artery. 6. Spiculated 21 mm nodule in the right upper lobe. Possible malignant neoplasm. No change since 02/22/2023. Consider non-emergent PET/CT or tissue sampling.(Reference: Tod) 7. Incidental findings above. REFERENCES: 1. MichealMahosamuel H, et al. Guidelines for Management of Incidental Pulmonary Nodules Detected on CT Images: From the Fleischner Society 2017. Radiology. 2017;284(1):228-243. 2. NASCET CRITERIA. The degree of stenosis in the cervical segment of the internal carotid artery is based on NASCET criteria. Normal is no stenosis. Mild is less than 50% stenosis. Moderate is 50-69% stenosis. Severe is 70% to 99% stenosis. Total occlusion is no detectable patent lumen. Chest CT 08/17/23 13:11 IMPRESSION: 1. Stable appearance of spiculated nodules in the right suprahilar region and left lung base measuring 1.8 x 1.0 cm and 7 mm respectively. 2. Small volume left and trace right pleural effusions. 3. Moderate emphysematous changes of the lungs. Head CT 08/17/23 13:11 IMPRESSION: 1. There is further demarcation hypodensity and loss of marquez-white distinction right posterolateral temporal lobe and increase in low-density posterior portion right basal ganglia. Concern for progression ischemic lesions and further evaluation MRI would be helpful. 2. Volume loss and extensive small-vessel ischemic changes. Laboratory Results WBC 11.17 10^3/uL (3.29-11.43) 08/20/23 02:18 RBC 3.65 10^6/uL (3.85-5.65) L 08/20/23 02:18 Hgb 10.70 g/dL (11.27-16.99) L 08/20/23 02:18 Hct 36.3 % (36-47) 08/20/23 02:18 MCV 99.5 fl (85-98) H 08/20/23 02:18 MCH 29.3 pg (27-33) 08/20/23 02:18 MCHC 29.5 g/dL (30-55) L 08/20/23 02:18 RDW 15.7 % (12.1-15.1) H 08/20/23 02:18 Plt Count 143 10^3/cmm (157-399) L 08/20/23 02:18 MPV 11.0 fL (7.4-10.4) H 08/20/23 02:18 Neut % (Auto) 85.3 % 08/20/23 02:18 Lymph % (Auto) 4.8 % 08/20/23 02:18 Dougherty % (Auto) 5.6 % 08/20/23 02:18 Eos % (Auto) 0.0 % 08/20/23 02:18 Baso % (Auto) 0.4 % 08/20/23 02:18 Neut # (Auto) 9.53 10^3/uL (1.8-7.7) H 08/20/23 02:18 Lymph # (Auto) 0.5 10^3/uL (0.8-4.8) L 08/20/23 02:18 Dougherty # (Auto) 0.6 10^3/uL (0.2-0.9) 08/20/23 02:18 Eos # (Auto) 0.0 10^3/uL (0.0-0.8) 08/20/23 02:18 Baso # (Auto) 0.0 10^3/uL (0.0-0.1) 08/20/23 02:18 Nucleated RBC % (auto) 0 % 08/20/23 02:18 Nucleated RBCs # 0.0 /100WBC 08/20/23 02:18 Specimen Type Arterial 08/15/23 06:24 Sample Site Brachial, left 08/15/23 06:24 ABG pH 7.32 (7.35-7.45) L 08/15/23 06:24 ABG pCO2 78.2 mmHg (35-45) H* 08/15/23 06:24 ABG pO2 63.3 mmHg (80.0-100.0) L 08/15/23 06:24 ABG PO2/FiO2 Ratio 92.4 08/15/23 06:24 ABG HCO3 40.2 mmol/L (22-26) H 08/15/23 06:24 ABG O2 Saturation 92.7 08/15/23 06:24 ABG Base Excess 11.4 mmol/L (-2.0-2.0) H 08/15/23 06:24 Gil Test Pos 08/15/23 06:24 A-a O2 Gradient 30.7 mmHg (5-10) H 08/15/23 06:24 Hematocrit 33.8 % (37-47) L 08/15/23 06:24 Hgb O2 Saturation 92.4 % (95-100) L 08/15/23 06:24 Carboxyhemoglobin 1.5 %THgb (0.4-20.1) 08/15/23 06:24 Methemoglobin < 0.0 % (0.4-1.5) L 08/15/23 06:24 Total Hemoglobin 11.0 g/dL (12-16) L 08/15/23 06:24 Sodium 147.0 mmol/L (131-143) H 08/15/23 06:24 Potassium 5.1 mmol/L (3.5-5.0) H 08/15/23 06:24 Glucose 115.0 mg/dL (70-115) 08/15/23 06:24 Ionized Calcium 1.2 mmol/L (1.1-1.4) 08/15/23 06:24 O2 Delivery Device Bipap 08/15/23 06:24 FiO2 55.0 % 08/15/23 06:24 PEEP 8.0 cmH20 08/15/23 06:24 Planisher ID [email or web address] 08/15/23 06:24 Sodium 144 mmol/L (136-145) 08/20/23 02:18 Potassium 4.6 mmol/L (3.5-5.1) 08/20/23 02:18 Chloride 98 mmol/L (98-107) 08/20/23 02:18 Carbon Dioxide 40 mmol/L (22-29) H 08/20/23 02:18 Anion Gap 10.6 (5-19) 08/20/23 02:18 BUN 26 mg/dL (8-23) H 08/20/23 02:18 Creatinine 1.0 mg/dL (0.5-0.9) H 08/20/23 02:18 GFR Calculation Not Reportable 08/20/23 02:18 Glucose 101 mg/dL (65-115) 08/20/23 02:18 Calculated Osmolality 303 mOsm/kg (285-295) H 08/20/23 02:18 Lactic Acid 2.7 mmol/L (0.5-2.2) H 08/15/23 15:49 Lactic Acid (Sepsis) 1.3 mmol/L (0.5-2.2) 08/15/23 18:49 Calcium 8.3 mg/dL (8.5-10.5) L 08/20/23 02:18 Phosphorus 3.3 mg/dL (2.5-4.5) 08/20/23 02:18 Magnesium 2.3 mg/dL (1.7-2.3) 08/20/23 02:18 Total Bilirubin 0.3 mg/dL (0.15-1.2) 08/20/23 02:18 AST 11 U/L (0-32) 08/20/23 02:18 ALT 18 U/L (0-33) 08/20/23 02:18 Alkaline Phosphatase 66 U/L (35-105) 08/20/23 02:18 Creatine Kinase 37 U/L (26-192) 08/14/23 14:25 Troponin T 5th Gen ng/L 30 ng/L (0-10) H 08/15/23 15:49 Troponin T Baseline 32 ng/L (0-10) H 08/14/23 14:25 Troponin T 120 Minute 29.56 ng/L (0-10) H 08/14/23 16:16 Delta Troponin T -2.44 ABS# (0-10) L 08/14/23 16:16 Troponin T Hi Sens 6Hr 26.52 ng/L (0-10) H 08/14/23 19:46 Troponin T Hi Sens 6Hr Delta -5.48 ng/L (0-12) L 08/14/23 19:46 NT-Pro-B Natriuret Pep 2161 pg/mL (0-450) H 08/20/23 02:18 Total Protein 5.8 g/dL (6.6-8.7) L 08/20/23 02:18 Albumin 3.6 g/dL (3.5-5.2) 08/20/23 02:18 Globulin 2.2 g/dL (1.3-4.6) 08/20/23 02:18 Lipase 27 U/L (13-60) 08/14/23 14:25 Procalcitonin 0.14 ng/mL (0-0.5) 08/14/23 18:48 TSH 0.49 uIU/mL (0.27-4.20) 08/14/23 19:46 Random Cortisol 13.04 ug/dL (2.47-19.5) 08/15/23 15:49 Urine Color Yellow (Yellow) 08/14/23 15:00 Urine Appearance Slightly cloudy (CLEAR) 08/14/23 15:00 Urine pH 5 (5-7) 08/14/23 15:00 Ur Specific [place] 1.020 (1.005-1.030) 08/14/23 15:00 Urine Protein Neg (Negative) 08/14/23 15:00 Urine Glucose (UA) Norm (Normal) 08/14/23 15:00 Urine Ketones 1+ (Negative) H 08/14/23 15:00 Urine Blood Neg (Negative) 08/14/23 15:00 Urine Nitrate Negative (Negative) 08/14/23 15:00 Urine Bilirubin Neg (Negative) 08/14/23 15:00 Urine Urobilinogen Norm mg/dL (Negative) 08/14/23 15:00 Ur Leukocyte Esterase Trace (Negative) H 08/14/23 15:00 Urine RBC 0-4 /hpf (0-2) H 08/14/23 15:00 Urine WBC 10-15 /hpf (0-5) H 08/14/23 15:00 Ur Squamous Epith Cells 0-4 /hpf (0-5) H 08/14/23 15:00 Amorphous Sediment Not Reportable 08/14/23 15:00 Urine Bacteria Trace /hpf (NONE) 08/14/23 15:00 Hyaline Casts 0-4 /lpf H 08/14/23 15:00 Fine Granular Casts 0-4 /lpf H 08/14/23 15:00 Adenovirus (PCR) Not detected (NOT DETECT) 08/14/23 15:00 C. pneumoniae DNA (PCR) Not detected (NOT DETECT) 08/14/23 15:00 Coronavirus 229E (PCR) Not detected (NOT DETECT) 08/14/23 15:00 Human Metapneumovir PCR Not detected (NOT DETECT) 08/14/23 15:00 Influenza A (H1) PCR Not detected (NOT DETECT) 08/14/23 15:00 Influ A (H1/09) PCR Not detected (NOT DETECT) 08/14/23 15:00 Influenza A (H3) PCR Not detected (NOT DETECT) 08/14/23 15:00 Influenza Type A (PCR) Not detected (NOT DETECT) 08/14/23 15:00 Influenza Type B (PCR) Not detected (NOT DETECT) 08/14/23 15:00 M. pneumoniae (PCR) Not detected (NOT DETECT) 08/14/23 15:00 Parainfluenza 1 (PCR) Not detected (NOT DETECT) 08/14/23 15:00 Parainfluenza 2 (PCR) Not detected (NOT DETECT) 08/14/23 15:00 Parainfluenza 3 (PCR) Not detected (NOT DETECT) 08/14/23 15:00 Parainfluenza 4 (PCR) Not detected (NOT DETECT) 08/14/23 15:00 RSV Type A (PCR) Not detected (NOT DETECT) 08/14/23 15:00 RSV Type B (PCR) Not detected (NOT DETECT) 08/14/23 15:00 Entero/Rhino (PCR) Not detected (NOT DETECT) 08/14/23 15:00 SARS-CoV-2 (PCR) Not detected (NOT DETECT) 08/14/23 15:00 Vitals Last Vital Signs Temp 97.8 F 08/20/23 08:00 Pulse 101 H 08/20/23 08:39 Resp 24 H 08/20/23 08:39 BP 154/69 08/20/23 08:00 Pulse Ox 97 08/20/23 08:39 O2 Del Method Nasal Cannula 08/20/23 08:39 O2 Flow Rate 5 08/20/23 08:39 FiO2 45 08/19/23 00:50 Discharge Plan Discharge Patient Disposition: Home Condition: Stable Prescriptions: New doxycycline hyclate 100 mg tablet 100 mg PO BID 7 Days Qty: 14 0RF prednisone 10 mg tablet 10 mg PO DIRECTED Qty: 53 0RF Rx Instructions: 4 tabs a day for 5 days, 3 tabs for 5 days, 2 tabs for 5 days, 1 tab for 5 days,0.5 for 5 days atorvastatin 40 mg tablet 40 mg PO QPM 30 Days Qty: 30 0RF Thick and Easy Powder In Packet 1 ea PO TIDWM Qty: 100 0RF aspirin 81 mg Tablet,Delayed Release (Dr/Ec) 81 mg PO DAILY 30 Days Qty: 30 0RF Continued albuterol sulfate [Ventolin HFA] 90 mcg/actuation HFA aerosol inhaler 2 puff INHALATION QID PRN (Reason: Shortness Of Breath) PNV cmb#95-ferrous fumarate-FA [ Multivitamins] 28 mg iron- 800 mcg Tablet 1 tab PO QAM lisinopril 20 mg tablet 20 mg PO DAILY Qty: 60 0RF potassium chloride 10 mEq tablet extended release 10 meq PO DAILY PRN (Reason: Only when you take Lasix) Qty: 10 0RF furosemide [Lasix] 20 mg tablet 20 mg PO DAILY PRN (Reason: Only when he noticed fluid weight gain more than 3 pounds in) Qty: 30 0RF Trelegy Ellipta 200-62.5-25 mcg blister with device 1 inh inhalation DAILY Qty: 60 5RF amlodipine 10 mg tablet 10 mg PO DAILY Qty: 60 0RF Discharge Orders: Discharge Order (Routine); Ordered 08/20/23 Ordered By: Jered Rangel Referrals: Traci Prakash MD [Primary Care Provider] - 08/23/23 9:45 am Discharge Diet: As Directed Discharge Activity: Increase activity as tolerated Patient Instructions: Ischemic Stroke (DC), Self Care Measures After a Stroke (DC), Stroke (DC), Opioid Safety Activity Restrictions/Additional Instructions: - Dysphagia level 6 diet, soft and bite-size, mildly thick -Take aspirin and statin as prescribed -Take steroids as prescribed ? If any recurrent strokelike symptoms please call 911 Discharge Attestations Time Spent in Discharge Care*: greater than 30 min Status at Discharge: Cognitive status at discharge: cognitively intact , Behavioral status at discharge: cooperative , Quality Metrics Clinical Quality Measures [ Cerebrovascular Accident { Contraindication to Antithrombotic: None; antithrombotic prescribed; Contraindication to Anticoagulation: Overlap treatment not indicated; Contraindication to Statin: None; Statin prescribed;}] Coding Level of Care Code 47556 Total time (in minutes) for Discharge: 45 Diagnoses Acute encephalopathy G93.40 Acute right MCA stroke I63.511 History of GI bleed Z87.19 Acute exacerbation of chronic obstructive airways disease J44.1 Acute respiratory failure with hypoxia and hypercapnia J96.01; J96.02 Hyperkalemia E87.5 NSTEMI (non-ST elevated myocardial infarction) I21.4 Aspiration pneumonia J69.0
--- NOTE | 2023-08-20 15:08 | PC.SOCIAL ---
IMM updated IMM initialed and dated, copy given to patient and placed in chart.
== END 2023-08-20 13:00 | disposition home or self-care (01) | DRG 64 ==
LOC: ER 16:19 → ICU 21:13 → MEDSURG 08-17 15:38
PROVIDERS: Internal Medicine; Admitting Provider Family Medicine; Emergency Provider Family Medicine; PCP Family Medicine; Visit Provider Family Medicine
DX: I63.511 Cerebral infarction due to unspecified occlusion or stenosis of right middle cerebral artery (principal); G93.41 Metabolic encephalopathy; J96.21 Acute and chronic respiratory failure with hypoxia; J96.22 Acute and chronic respiratory failure with hypercapnia; I21.4 Non-ST elevation (NSTEMI) myocardial infarction; J69.0 Pneumonitis due to inhalation of food and vomit; I13.0 Hypertensive heart and chronic kidney disease with heart failure and stage 1 through stage 4 chronic kidney disease, or unspecified chronic kidney disease; J44.1 Chronic obstructive pulmonary disease with (acute) exacerbation; N39.0 Urinary tract infection, site not specified; R29.810 Facial weakness; N18.9 Chronic kidney disease, unspecified; I50.9 Heart failure, unspecified; Z66 Do not resuscitate; D63.1 Anemia in chronic kidney disease; M81.0 Age-related osteoporosis without current pathological fracture; Z96.642 Presence of left artificial hip joint; E87.5 Hyperkalemia; Z87.440 Personal history of urinary (tract) infections; Z87.891 Personal history of nicotine dependence; Z11.52 Encounter for screening for COVID-19
CPT/HCPCS: 36415; 36600; 51702; 70450; 70496; 70498; 71045; 71250; 80048; 80051; 80053; 81001; 82330; 82533; 82550; 82805; 83605; 83690; 83735; 83880; 84100; 84145; 84443; 84484; 85025; 87040; 87486; 87581; 87633; 92523; 92526; 92610; 93005; 93306; 94640; 94660; 96365; 96372; 96375; 97161; 97165; 97530; 99291; C9113; J0456; J0696; J1100; J1650; J1940; J2919; J3490; J7030; J7050; J7512; J7626; P9047; Q0144; Q9967

== ENCOUNTER 2023-09-06 21:55 | Emergency (ER) | payer MEDICARE, MEDICAID, SELFPAY ==
[2023-09-06] VITALS (27 sets, daily range): BP systolic 60–210; BP diastolic 28–105; PULSE 66–106; RESP 11–42; O2SAT 60–96; BMI 25.0
--- NOTE | 2023-09-06 21:59 | ED_ITS ---
HPI - SOB/Dyspnea 2 General: Chief Complaint: Shortness of Breath/Dyspnea Stated Complaint: RESP. DISTRESS Time Seen by Provider: 09/06/23 21:58 Source: family and EMS Mode of arrival: EMS Limitations: altered mental status and physical limitation History of Present Illness: HPI Narrative: Presents to the ER by [facility] with complaints of respiratory distress/respiratory failure. Patient has a history of COPD patient is a DNR/DNI. Patient is on high flow O2 with O2 saturation of approximately 56% upon arrival. Patient was immediately placed on BiPAP, family was discussed her status. They recommend that she still be DNR/DNIpatient is alert to painful stimuli only. Review of Systems 2 General: Reports: 10 or more systems reviewed and unremarkable except in HPI and below PFSH ED 2 PFSH: Medical History Hyperkalemia UTI (urinary tract infection) Acute hyperkalemia History of GI bleed Hypertension Perforated gastric ulcer Acute hypernatremia Lactic acidosis ARF (acute renal failure) Septic shock Bowel perforation Fracture of distal end of femur Acute kidney injury superimposed on chronic kidney disease Metabolic encephalopathy Hypovolemic shock Acute cystitis Weakness Anemia End stage COPD Pulmonary nodule Adrenal mass, left Acute exacerbation of CHF (congestive heart failure) Leg fracture, right Acute and chronic respiratory failure with hypercapnia Leukocytosis Closed fracture of distal end of femur Anemia Intertrochanteric fracture of right hip Hypercapnic respiratory failure End stage COPD Anemia Vitamin C deficiency Cellulitis Low TSH level Depression Edema Heart murmur Hip pain, left Hypercholesteremia Elevated serum glucose Hypoxic Macrocytosis Nasal congestion Osteoporosis Emphysema lung COPD (chronic obstructive pulmonary disease) Sciatica Seasonal allergies Shoulder pain, left Vitamin D deficiency Shoulder fracture, left Surgical History Postoperative state History of left hip replacement Hx of cataract surgery Family History Mother Cancer Breast Father Cancer Heart disease Sister Cancer Grandmother Hypertension Heart disease Aneurysm Brother Heart disease Myocardial infarct Aneurysm Family/Other Heart disease Bipolar 1 disorder Grandfather Heart disease Social History Smoking and tobacco/nicotine status: former use of tobacco/nicotine Quit status (tobacco/nicotine): has quit using Year quit tobacco: 2013 - 1.5 PPD x 60 Years Alcohol intake: never Substance/Drug Use: never Household members: none Marital status: / Number of children: 4 Current occupational status: retired Do you think of yourself as: Straight/Heterosexual Current gender identity: Female Physical Exam 2 Const: OTHER: Responsive to painful stimuli only and acute respiratory failure Eye: COMMON NORMALS: Equal, round and reactive pupils present and conjunctivae normal CONJUNCTIVA: Yes conjunctivae normal PUPIL: Yes Equal, round and reactive pupils present Neck/C-Spine: COMMON NORMALS: no JVD Chest: COMMONS NORMALS: normal inspection of the chest and normal palpation of entire chest wall Resp: OTHER: Decreased respirations and acute respiratory failure with decreased breath sounds extensively severely bilaterally Cardio: COMMON NORMALS: no JVD, regular rate, regular rhythm, S1 normal heart sound present, S2 normal heart sound present and No clicks present (Cardio) R ATE: regular rate RHYTHM: regular rhythm HEART SOUNDS: S1 normal heart sound present and S2 normal heart sound present GI: COMMON NORMALS: Normal to inspection, nondistended, normoactive bowel sounds present, Soft to palpation, non-tender, No hepatosplenomegaly present and no masses PALPATION: Yes Soft to palpation and Yes No hepatosplenomegaly present Neuro: OTHER: Responsive to painful stimuli only Procedures Chest Tube Chest Tube 1: Chest Tube Location: left (Midclavicular line second interspace) Chest Tube Prep: Yes sterile drapes applied (Chlorhexidine prep) and other Local Anesthetic: lidocaine 1% Amount of anesthesia used (mL): 5 Incision Made With: #11 blade Post Procedure: sterile dressing applied Tube Drainage: none (Air) Post Procedure CXR?: Yes Course 2 Vital Signs: Vital signs: Vital Signs Pulse Rate 91 09/07/23 01:10 Respiratory Rate 18 09/07/23 01:10 Blood Pressure 128/56 09/07/23 01:10 Pulse Oximetry 79 L 09/07/23 01:10 Oxygen Delivery Me thod Non-Rebreather 09/06/23 21:50 Fraction of Inspir ed Oxygen 100 09/06/23 23:39 MDM - SOB/Dyspnea Medical Decision Making Patient was in respiratory failure, patient was placed on BiPAP, x-ray was obtained which showed a left pneumothorax, Thora vent was placed which allowed for reexpansion of her left lung. Patient had a very abnormal ABG with a very high pCO2 and very low pO2, after the Thora vent was placed patient's O2 sat only climbed afterwards to about 85% already on lab work to come back patient's blood pressure started declining we bolused her liter of fluid and put on dopamine. Patient's family says they want to go to [facility]. After placing patient on dopamine her blood pressure improved back to 132/59, Dr. Fishman print shop helper at [facility] was notified accepted the patient in transfer. Patient's family was explained in detail and bluntly stated to that patient has such end- stage COPD and since she does not want to be ventilated or intubated she may not make it to the [facility] or she may not make it out of [facility] excepted this as I do not want her to be comfort care only at this time and they want anything we can do to help the patient as long as we respect her wishes of DNR/DNI Patient only received 1 L normal saline as septic bolus due to the fact that her BNP was elevated, history of CHF, Differential Diagnosis Likely acute exacerbation of chronic obstructive airways disease Medical Records I reviewed the patient's medical records. Lab Data I reviewed the patient's lab results. 09/06/23 22:09 09/06/23 22:09 Labs/Radiology: Radiology Impressions Chest X-Ray 09/06/23 22:52 IMPRESSION: 1. Interval placement of a chest tube within the left upper lung. 2. Decreasing size of a moderate left-sided pneumothorax. 3. Small layering left-sided pleural effusion. 4. Atelectasis of the left lower lobe. Laboratory Results WBC 19.70 10^3/uL (3.29-11.43) H 09/06/23 22:09 RBC 3.30 10^6/uL (3.85-5.65) L 09/06/23 22:09 Hgb 10.00 g/dL (11.27-16.99) L 09/06/23 22:09 Hct 34.3 % (36-47) L 09/06/23 22:09 MCV 103.9 fl (85-98) H 09/06/23 22:09 MCH 30.3 pg (27-33) 09/06/23 22:09 MCHC 29.2 g/dL (30-55) L 09/06/23 22:09 RDW 17.4 % (12.1-15.1) H 09/06/23 22:09 Plt Count 173 10^3/cmm (157-399) 09/06/23 22:09 MPV 11.2 fL (7.4-10.4) H 09/06/23 22:09 Neut % (Auto) 78.5 % 09/06/23 22:09 Lymph % (Auto) 14.8 % 09/06/23 22:09 [place] % (Auto) 5.9 % 09/06/23 22:09 Eos % (Auto) 0.0 % 09/06/23 22:09 Baso % (Auto) 0.1 % 09/06/23 22:09 Neut # (Auto) 15.46 10^3/uL (1.8-7.7) H 09/06/23 22:09 Lymph # (Auto) 2.9 10^3/uL (0.8-4.8) 09/06/23 22:09 [place] # (Auto) 1.2 10^3/uL (0.2-0.9) H 09/06/23 22:09 Eos # (Auto) 0.0 10^3/uL (0.0-0.8) 09/06/23 22:09 Baso # (Auto) 0.0 10^3/uL (0.0-0.1) 09/06/23 22:09 Nucleated RBC % (auto) 0 % 09/06/23 22:09 Nucleated RBCs # 0.0 /100WBC 09/06/23 22:09 Specimen Type Arterial 09/07/23 00:47 Sample Site Brachial, right 09/07/23 00:47 ABG pH 7.30 (7.35-7.45) L 09/07/23 00:47 ABG pCO2 88.5 mmHg (35-45) H* 09/07/23 00:47 ABG pO2 40.6 mmHg (80.0-100.0) L 09/07/23 00:47 ABG PO2/FiO2 Ratio 40 09/07/23 00:47 ABG HCO3 43.5 mmol/L (22-26) H 09/07/23 00:47 ABG O2 Saturation 71.1 09/07/23 00:47 ABG Base Excess 14.2 mmol/L (-2.0-2.0) H 09/07/23 00:47 Gil Test N/a 09/07/23 00:47 A-a O2 Gradient 74.9 mmHg (5-10) H 09/07/23 00:47 Hematocrit 31.2 % (37-47) L 09/07/23 00:47 Hgb O2 Saturation 69.1 % (95-100) L 09/07/23 00:47 Carboxyhemoglobin 2.7 %THgb (0.4-20.1) 09/07/23 00:47 Methemoglobin 0.1 % (0.4-1.5) L 09/07/23 00:47 Total Hemoglobin 10.2 g/dL (12-16) L 09/07/23 00:47 Sodium 145.0 mmol/L (131-143) H 09/07/23 00:47 Potassium 4.4 mmol/L (3.5-5.0) 09/07/23 00:47 Glucose 197.0 mg/dL (70-115) H 09/07/23 00:47 Ionized Calcium 1.1 mmol/L (1.1-1.4) 09/07/23 00:47 O2 Delivery Device Bipap 09/07/23 00:47 FiO2 100.0 % 09/07/23 00:[address] [employer] [address] [employer] Law Clerk ID [email or web address] 09/07/23 00:47 Sodium 144 mmol/L (136-145) 09/06/23 22:09 Potassium 4.5 mmol/L (3.5-5.1) 09/06/23 22:09 Chloride 94 mmol/L (98-107) L 09/06/23 22:09 Carbon Dioxide 36 mmol/L (22-29) H 09/06/23 22:09 Anion Gap 18.5 (5-19) 09/06/23 22:09 BUN 33 mg/dL (8-23) H 09/06/23 22:09 Creatinine 1.1 mg/dL (0.5-0.9) H 09/06/23 22:09 GFR Calculation Not Reportable 09/06/23 22:09 Glucose 210 mg/dL (65-115) H 09/06/23 22:09 Calculated Osmolality 311 mOsm/kg (285-295) H 09/06/23 22:09 Lactic Acid 2.9 mmol/L (0.5-2.2) H 09/06/23 22:09 Lactic Acid (Sepsis) 0.9 mmol/L (0.5-2.2) 09/07/23 00:00 Calcium 8.5 mg/dL (8.5-10.5) 09/06/23 22:09 Magnesium 2.6 mg/dL (1.7-2.3) H 09/06/23 22:09 Total Bilirubin 1.3 mg/dL (0.15-1.2) H 09/06/23 22:09 AST 24 U/L (0-32) 09/06/23 22:09 ALT 31 U/L (0-33) 09/06/23 22:09 Alkaline Phosphatase 101 U/L (35-105) 09/06/23 22:09 Troponin T Baseline 26 ng/L (0-10) H 09/06/23 22:09 Troponin T 120 Minute 26.08 ng/L (0-10) H 09/07/23 00:25 Delta Troponin T 0.08 ABS# (0-10) 09/07/23 00:25 NT-Pro-B Natriuret Pep 1427 pg/mL (0-450) H 09/06/23 22:09 Total Protein 5.6 g/dL (6.6-8.7) L 09/06/23 22:09 Albumin 3.6 g/dL (3.5-5.2) 09/06/23 22:09 Globulin 2.0 g/dL (1.3-4.6) 09/06/23 22:09 Procalcitonin 0.17 ng/mL (0-0.5) 09/06/23 22:09 All radiology interpretation(s) finalized by discharge Critical Care Time 2 Critical Care Time: Critical Care Time: Yes Total Critical Care Time: 120 Attestation: The patient was emergently evaluated this patient's presentation and case had a high probability of a clinically significant, sudden, or life-threatening deterioration of the patient's initial critical presentation or condition which required my full and direct attention, intervention and personal management. Discharge Plan Discharge Patient Disposition: Xfer Short-Term Hosp Clinical Impression: Acute hypoxic on chronic hypercapnic respiratory failure, Pneumothorax on left, Elevated lactic acid level, End stage chronic obstructive pulmonary disease Elevated WBC count Qualifiers: Leukocytosis type: unspecified Qualified Code(s): D72.829 - Elevated white blood cell count, unspecified Condition: Stable Referrals: Traci Prakash MD [Primary Care Provider] - Coding Level of Care Code ED Corner Block Cutter for Jin Ochoa
--- NOTE | 2023-09-06 21:59 | XRR_ITS ---
PROCEDURE INFORMATION: Exam: XR Chest Exam date and time: 09/06/2023 9:50 PM Age: 82 years old Clinical indication: Shortness of breath; Patient HX: EMS arrival for resp arrest. Patient sp02 in the 60s. Patient unresponsive upon exam. ; Additional info: Resp distress TECHNIQUE: Imaging protocol: Radiologic exam of the chest. Views: 1 view. COMPARISON: CT chest con [id number] 08/17/2023 3:17 PM FINDINGS: Lungs: Emphysema. Pleural spaces: Large left-sided pneumothorax with atelectasis of the left lung. Heart/Mediastinum: Unremarkable. No cardiomegaly. Vasculature: Atherosclerotic calcifications. Small left pleural effusion. Bones/joints: Unremarkable. XR/XR chest 1V portable [id number] IMPRESSION: Large left-sided pneumothorax with atelectasis of the left lung.
[2023-09-06 22:16] LABS: ABG PH Result 7.21 (7.35-7.45); Alveolar-Arterial Oxygen Gradi 68.6 mmHg (5-10); Arterial Blood Gas Hematocrit 30.2 % (37-47); Base Excess ABG 13.7 mmol/L (-2.0-2.0); Blood Gas Allen Test Pos; Blood Gas Sample Site Radial, right; Blood Gas Sample Type Arterial; Carboxyhemoglobin 3.5 %THgb (0.4-20.1); HCO3 ABG 44.9 mmol/L (22-26); HGB O2 Sat 83.6 % (95-100); Ionized Calcium Level - ABG 1.2 mmol/L (1.1-1.4); Methemoglobin 0.4 % (0.4-1.5); Oxygen Device BIPAP; PO2 FiO2 Ratio Arterial Blood 63; Potassium Level - ABG 4.5 mmol/L (3.5-5.0); Total Hemoglobin 9.8 g/dL (12-16)
--- NOTE | 2023-09-06 22:52 | XRR_ITS ---
PROCEDURE INFORMATION: Exam: XR Chest Exam date and time: 09/06/2023 10:36 PM Age: 82 years old Clinical indication: Device placement; Chest tube; Patient HX: Check S/P left sided thoravent placement. ; Additional info: Chest tube placement TECHNIQUE: Imaging protocol: Radiologic exam of the chest. Views: 1 view. COMPARISON: CR XR chest 1V portable [id number] 09/06/2023 9:50 PM FINDINGS: Tubes, catheters and devices: Interval placement of a chest tube within the left upper lung. Lungs: Emphysema. Atelectasis of the left lower lobe. Pleural spaces: Decreasing size of a moderate left-sided pneumothorax. Small layering left-sided pleural effusion. Heart/Mediastinum: Mild leftward midline shift. Vasculature: Atherosclerotic calcifications. Bones/joints: The bones are unremarkable. XR/XR chest 1V portable [id number] IMPRESSION: 1. Interval placement of a chest tube within the left upper lung. 2. Decreasing size of a moderate left-sided pneumothorax. 3. Small layering left-sided pleural effusion. 4. Atelectasis of the left lower lobe.
[2023-09-06] MEDS: sodium chloride 0.9% 1,000 ML 999 ML IV (22:59)
--- NOTE | 2023-09-06 23:01 | ECG_ITS ---
[facility] Test Date: 2023-09-06 Pat Name: Yulissa Goddard Department: Room: Gender: Female Cvicu Rn: : 1940 Requested By: John Trejo Order Number: [id number] Sara MD: Caleb Britt M.D. Measurements Intervals [place] Rate: 67 P: 20 PA: 154 QRS: 21 QRSD: 86 T: -7 QT: 406 QTc: 431 Interpretive Statements SINUS RHYTHM Compared to ECG 08/14/2023 20:25:17 No significant changes Electronically Signed On 09-07-2023 1:01:12 CDT by Caleb Britt M.D. [email or web address] Spacemercy health st. rita's medical centerYurbuds/store/OM/[id number]
[2023-09-06 23:04] LABS: Basophils % 0.1 %; Hematocrit 34.3 % (36-47); Lymphocytes # 2.9 10^3/uL (0.8-4.8); Lymphocytes % 14.8 %; Mean Corpuscular HGB Conc 29.2 g/dL (30-55); Mean Corpuscular Hemoglobin 30.3 pg (27-33); Mean Corpuscular Volume 103.9 fl (85-98); Mean Platelet Volume 11.2 fL (7.4-10.4); Monocytes # 1.2 10^3/uL (0.2-0.9); Monocytes % 5.9 %; Neutrophils # 15.46 10^3/uL (1.8-7.7); Neutrophils % 78.5 %; Nucleated Red Blood Cells % 0 %; Platelet Count 173 10^3/cmm (157-399); Red Cell Distribution Width 17.4 % (12.1-15.1)
[2023-09-06 23:15] LABS: Lactic Sepsis W/Reflex 2.9 mmol/L (0.5-2.2)
[2023-09-06 23:17] LABS: Troponin(5th) Baseline 26 ng/L (0-10)
[2023-09-06] MEDS: DOPamine drip 400 MG/250 ML PREMIX 12.76 MG IV (23:17)
[2023-09-06 23:27] LABS: NT Pro B Type Natriuretic Pept 1427 pg/mL (0-450); Procalcitonin 0.17 ng/mL (0-0.5)
[2023-09-06 23:38] LABS: Alanine Aminotransferase 31 U/L (0-33); Albumin Level 3.6 g/dL (3.5-5.2); Alkaline Phosphatase 101 U/L (35-105); Anion Gap 18.5 (5-19); Aspartate Amino Transferase 24 U/L (0-32); Blood Urea Nitrogen 33 mg/dL (8-23); Calcium 8.5 mg/dL (8.5-10.5); Carbon Dioxide 36 mmol/L (22-29); Chloride 94 mmol/L (98-107); Creatinine Clr Calc Pharmacy 39.5479; Glucose 210 mg/dL (65-115); Magnesium 2.6 mg/dL (1.7-2.3); Osmolality Calculated 311 mOsm/kg (285-295); Potassium 4.5 mmol/L (3.5-5.1); Sodium 144 mmol/L (136-145); Total Bilirubin 1.3 mg/dL (0.15-1.2); Total Protein 5.6 g/dL (6.6-8.7)
--- NOTE | 2023-09-06 23:46 | PC.NURSE ---
Dr Trejo instructed this nurse to hold on antibiotics due to lack of IV access. Multiple IV attempts were made; Dr Trejo stated that he would hold on central line at this time.
[2023-09-07] VITALS (12 sets, daily range): BP systolic 90–128; BP diastolic 32–64; PULSE 88–103; RESP 18–34; O2SAT 72–81
[2023-09-07] MEDS: piperacillin-tazobactam 3.375 GM in sodium chloride 0.9% (plus) 50 ML IV (00:44)
[2023-09-07 00:49] LABS: Reflex Lactate Order REFLEX LACTIC ORDERD
--- NOTE | 2023-09-07 00:49 | ECG_ITS ---
[facility] Test Date: 2023-09-07 Pat Name: Yulissa Goddard Department: Room: Gender: Female Electroplating Technician: : 1940 Requested By: John Trejo Order Number: [id number] Sara MD: Caleb Britt M.D. Measurements Intervals [place] Rate: 88 P: 56 DC: 155 QRS: 31 QRSD: 85 T: 68 QT: 341 QTc: 414 Interpretive Statements SINUS RHYTHM WITH SINUS ARRHYTHMIA Compared to ECG 09/06/2023 23:01:14 No significant changes Electronically Signed On 09-07-2023 1:15:04 CDT by Caleb Britt M.D. [email or web address]/[id number]
[2023-09-07] MEDS: vancomycin 1,000 MG in sodium chloride 0.9% 250 ML 250 MG IV (00:54)
[2023-09-07 00:55] LABS: Troponin 5 2HR 26.08 ng/L (0-10); Troponin 5 2HR Delta 0.08 ABS# (0-10)
[2023-09-07 00:57] LABS: ABG PCO2 88.5 mmHg (35-45); Alveolar-Arterial Oxygen Gradi 74.9 mmHg (5-10); Arterial Blood Gas Hematocrit 31.2 % (37-47); Base Excess ABG 14.2 mmol/L (-2.0-2.0); Blood Gas Sample Site Brachial, right; Blood Gas Sample Type Arterial; Carboxyhemoglobin 2.7 %THgb (0.4-20.1); HCO3 ABG 43.5 mmol/L (22-26); HGB O2 Sat 69.1 % (95-100); Ionized Calcium Level - ABG 1.1 mmol/L (1.1-1.4); Methemoglobin 0.1 % (0.4-1.5); Oxygen Device BIPAP; Oxygen Saturation ABG 71.1; PO2 ABG 40.6 mmHg (80.0-100.0); PO2 FiO2 Ratio Arterial Blood 40; Potassium Level - ABG 4.4 mmol/L (3.5-5.0); Total Hemoglobin 10.2 g/dL (12-16)
--- NOTE | 2023-09-07 00:59 | PC.NURSE ---
Secondary IV access obtained; IV antibiotics being infused.
[2023-09-07 01:15] LABS: Lactic Acid level (Lactate) 0.9 mmol/L (0.5-2.2)
--- NOTE | 2023-09-07 01:15 | PC.NURSE ---
Report given at bedside to [employer] crew; all questions and concerns were addressed at time of report.
--- NOTE | 2023-09-07 01:20 | PC.NURSE ---
Report was called by Elton Ruano RN to Celia Anguiano RN at [facility]. Patient being transferred to CVICU.
--- NOTE | 2023-09-07 01:28 | PC.NURSE ---
Family was updated on patient transfer status at bedside while family visited and involved in plan of care.
== END 2023-09-07 02:22 | disposition short-term general hospital (02) ==
PROVIDERS: Emergency Provider Emergency Medicine; PCP Family Medicine
DX: J96.22 Acute and chronic respiratory failure with hypercapnia (principal); J96.21 Acute and chronic respiratory failure with hypoxia; J93.9 Pneumothorax, unspecified; R74.02 Elevation of levels of lactic acid dehydrogenase [LDH]; J44.9 Chronic obstructive pulmonary disease, unspecified; D72.829 Elevated white blood cell count, unspecified; Z87.891 Personal history of nicotine dependence; I11.0 Hypertensive heart disease with heart failure; I50.9 Heart failure, unspecified
CPT/HCPCS: 36415; 36600; 71045; 80051; 80053; 82330; 82805; 83605; 83735; 83880; 84145; 84484; 85025; 87040; 93005; 94660; 96365; 96366; 96375; 99285; J1265; J2543; J3370; J7030; J7050